=== PATIENT | female | born 1985 ===

== ENCOUNTER 2020-09-22 15:02 | Outpatient (REF) | payer MEDICAID, SELFPAY | END 2020-09-22 15:03 | disposition home or self-care (01) | LOC: HO.LAB 15:02 | PROVIDERS: PCP Internal Medicine Geriatric Medicine; Visit Provider Internal Medicine | DX: Z20.828 Contact with and (suspected) exposure to other viral communicable diseases (principal) | CPT/HCPCS: C9803; U0003 ==

== ENCOUNTER 2020-10-19 17:19 | Inpatient (IN) | payer MEDICAID, SELFPAY ==
[2020-10-19 17:39] VITALS: BP 125/93; PULSE 91; RESP 17; TEMP 36.9; O2SAT 100; O2SAT 99; BMI 25.7
--- NOTE | 2020-10-19 17:44 | ED.GENADULT ---
HPI - General Adult General Chief complaint: Abdominal Pain Stated complaint: FLANK PAIN Time Seen by Provider: 10/19/20 17:26 Source: patient Mode of arrival: ambulatory Limitations: no limitations History of Present Illness HPI narrative: Patient presents to the ED for right flank pain radiating to right groin was started since this morning. Patient denies any dysuria, hematuria, fever, chills, diarrhea, night sweats, coughing, chest pain, shortness of breath. Patient states she had a gallbladder and appendix removed years ago. Patient states she has similar symptoms 7 months ago and was kidney stones. Patient denies any recent trauma to abdomen or flanks. Patient denies missing her menstruation. Related Data Home Medications Medication Instructions Recorded Confirmed No Known Home Meds 10/19/20 10/19/20 Allergies Allergy/AdvReac Type Severity Reaction Status Date / Time No Known Allergies Allergy Unverified 07/17/20 19:24 [No Known Allergies*] Review of Systems Review of Systems: Yes all other systems are reviewed and are negative Constitutional: Constitutional: Reports as per HPI and Reports no additional constitutional complaints Eyes: Eyes: Reports as per HPI and Reports no additional eye complaints ENT: Reports system reviewed and no additional complaints, except as documented and Reports as per HPI Cardiovascular: Cardiovascular: Reports as per HPI and Reports no additional cardiovascular complaints Respiratory: Respiratory: Reports as per HPI and Reports no additional respiratory complaints Gastrointestinal: Gastrointestinal: Reports abdominal pain (Right flank pain) Genitourinary: Genitourinary: Reports no additional female genitourinary complaints and Reports as per HPI Musculoskeletal: Musculoskeletal: Reports no additional musculoskeletal complaints and Reports as per HPI Neurologic: Reports system reviewed and no additional complaints, except as documented and Reports as per HPI Psychiatric: Psychiatric: Reports no additional psychiatric complaints and Reports as per HPI [facility] Social History Social History Alcohol intake: never Smoked in Last 30 Days: No Use of substances other than those prescribed or required for medical reasons: No Advance Directives: No Advance Directives Information Provided: Yes Physical Exam Vital Signs: Vital Signs: Last Vital Signs Temp 98.4 F 10/19/20 20:00 Pulse 84 10/19/20 20:00 Resp 16 10/19/20 20:00 BP 99/62 10/19/20 20:00 Pulse Ox 100 10/19/20 20:00 Body Mass Index 25.7 Const: General: cooperative, healthy appearing, well developed, alert, awake and acute distress Orientation/consciousness: patient oriented x3 HENMT: Head: Yes normal to inspection and Yes No palpable skull fracture present Eyes: General: appearance normal, both eyes and all related structures Neck: Neck: Yes normal visual inspection, Yes full ROM, Yes no lymphadenopathy, Yes no meningeal signs, Yes trachea midline, Yes supple and No tender Chest: Chest palpation & inspection: normal inspection of the chest and normal palpation of entire chest wall Resp: Effort & Inspection: normal respiratory effort and able to speak in complete sentences Auscultation: clear to auscultation bilaterally Cardio: Jugular venous distension: no JVD Heart sounds: S1 normal heart sound present and S2 normal heart sound present GI: Inspection: Yes normal to inspection and No abdominal wall ecchymosis Palpation (GI): Soft to palpation, not firm, Tenderness to palpation present (GI) in the RLQ and no guarding : General: Yes CVA tenderness (Right) Back/Spine/Pelvis: Back: CVA tenderness (Right) Skin: General skin exam: no rashes or lesions noted and elasticity normal Neuro: General: patient oriented x3, gait normal, no meningeal signs and CN's II-XI intact bilaterally Cranial nerves: Yes CN's II-XII intact bilaterally Extrem: General: Yes normal to inspection and Yes full ROM Psych: Appearance: grossly normal, well kempt and not disheveled Course Course Course Narrative: Differentials kidney stone. Will do basic labs, fluids, and pain control. Reevaluation(s) Reevaluation #1: Patient urine negative for UTI. Patient kidney function normal. CT scan of abdomen shows multiple kidney stones in the ureter with severe hydroureter and moderate hydronephrosis. Case discussed with Dr. Brown of urology who states patient should be admitted to the hospital and kept NPO after midnight. Time: 22:16 Medical Decision Making [facility] Narrative Medical decision making narrative: Ureter stone Lab Data Result diagrams: 10/19/20 17:55 10/19/20 17:55 Labs: Lab Results 10/19/20 10/19/20 10/19/20 Range/Units 17:55 17:55 17:55 WBC 7.8 (4.8-10.8) X10*3/uL RBC 4.39 (4.20-5.50) X10*6/uL Hgb 11.5 L (12.0-16.0) g/dl Hct 35.2 L (37-47) % MCV 80.2 (80-98) fL MCH 26.2 L (27.0-33.0) pg MCHC 32.7 (31.0-35.0) g/dl RDW 13.2 (11.0-16.0) % Plt Count 253 (160-400) X10*3/uL MPV 10.3 (9.4-12.3) fL Immature Gran % (Auto) 0.3 (0.0-0.4) % Neut % (Auto) 65.9 (45-73) % Lymph % (Auto) 25.4 (20-40) % [place] % (Auto) 6.1 (2-11) % Eos % (Auto) 1.8 (0-4) % Baso % (Auto) 0.5 (0-2) % Lymph # (Auto) 2.0 (1.2-4.9) X10*3/uL [place] # (Auto) 0.5 (0.1-1.2) X10*3/uL Eos # (Auto) 0.1 (0.0-0.4) X10*3/uL Baso # (Auto) 0.0 (0.0-0.2) X10*3/uL Abs Immat Gran (auto) 0.02 (0.00-0.03) X10*3/uL Absolute Neuts (auto) 5.1 (2.0-8.3) X10*3/uL Absolute Nucleated RBC 0.000 (0.0-0.012) X10*3/uL Nucleated RBC % (auto) 0.0 (0.0-0.2) /100WBC PT 12.4 (10.8-13.0) SEC INR 1.0 (0.9-1.1) APTT 39.6 H (24.1-38.0) SEC Sodium 141 (135-145) mmol/L Potassium 3.6 (3.3-5.1) mmol/l Chloride 107 (96-108) mmol/L Carbon Dioxide 25 (22-29) mmol/L Anion Gap 13 (12-20) BUN 11 (9-16) mg/dL Creatinine 0.77 (0.5-1.4) mg/dL Estim Creat Clear Calc 93.8 Estimated GFR > 60 Random Glucose 91 (60-115) mg/dL Calcium 9.2 (8.4-10.2) mg/dL Total Bilirubin 0.4 (0.0-1.0) mg/dL Direct Bilirubin 0.2 (0.0-0.5) mg/dL AST 24 (5-31) U/L ALT 24 (0-31) U/L Alkaline Phosphatase 49 (39-117) U/L Total Protein 7.1 (6.5-8.0) g/dL Albumin 4.4 (3.5-5.0) g/dL Lipase 34 (8-78) U/L Beta HCG, Quant < 2 mIU/mL Urine Color Urine Appearance Urine pH (5.0-8.0) Ur Specific [place] (1.005-1.025) Urine Protein (NEG-TRACE) MG/DL Urine Glucose (UA) (NEG) MG/DL Urine Ketones (NEG) MG/DL Urine Blood (NEG) Urine Nitrite (NEG) Ur Leukocyte Esterase (NEG) Urine RBC (0) /HPF Urine WBC (0-4) /HPF Ur Squamous Epith Cells /LPF Calcium Oxalate Crystal /LPF Urine Bacteria /LPF Coronavirus (PCR) (Negative) Influenza Type A (PCR) (Negative) Influenza Type B (PCR) (Negative) RSV RNA Qual (PCR) (Negative) 10/19/20 10/19/20 Range/Units 18:10 21:32 WBC (4.8-10.8) X10*3/uL RBC (4.20-5.50) X10*6/uL Hgb (12.0-16.0) g/dl Hct (37-47) % MCV (80-98) fL MCH (27.0-33.0) pg MCHC (31.0-35.0) g/dl RDW (11.0-16.0) % Plt Count (160-400) X10*3/uL MPV (9.4-12.3) fL Immature Gran % (Auto) (0.0-0.4) % Neut % (Auto) (45-73) % Lymph % (Auto) (20-40) % [place] % (Auto) (2-11) % Eos % (Auto) (0-4) % Baso % (Auto) (0-2) % Lymph # (Auto) (1.2-4.9) X10*3/uL [place] # (Auto) (0.1-1.2) X10*3/uL Eos # (Auto) (0.0-0.4) X10*3/uL Baso # (Auto) (0.0-0.2) X10*3/uL Abs Immat Gran (auto) (0.00-0.03) X10*3/uL Absolute Neuts (auto) (2.0-8.3) X10*3/uL Absolute Nucleated RBC (0.0-0.012) X10*3/uL Nucleated RBC % (auto) (0.0-0.2) /100WBC PT (10.8-13.0) SEC INR (0.9-1.1) APTT (24.1-38.0) SEC Sodium (135-145) mmol/L Potassium (3.3-5.1) mmol/l Chloride (96-108) mmol/L Carbon Dioxide (22-29) mmol/L Anion Gap (12-20) BUN (9-16) mg/dL Creatinine (0.5-1.4) mg/dL Estim Creat Clear Calc Estimated GFR Random Glucose (60-115) mg/dL Calcium (8.4-10.2) mg/dL Total Bilirubin (0.0-1.0) mg/dL Direct Bilirubin (0.0-0.5) mg/dL AST (5-31) U/L ALT (0-31) U/L Alkaline Phosphatase (39-117) U/L Total Protein (6.5-8.0) g/dL Albumin (3.5-5.0) g/dL Lipase (8-78) U/L Beta HCG, Quant mIU/mL Urine Color YELLOW Urine Appearance HAZY Urine pH 5.5 (5.0-8.0) Ur Specific [place] >= 1.030 H (1.005-1.025) Urine Protein 2+ H (NEG-TRACE) MG/DL Urine Glucose (UA) NEG (NEG) MG/DL Urine Ketones 5 (NEG) MG/DL Urine Blood 3+ H (NEG) Urine Nitrite NEG (NEG) Ur Leukocyte Esterase NEG (NEG) Urine RBC 30-49 H (0) /HPF Urine WBC 0 (0-4) /HPF Ur Squamous Epith Cells 2+ /LPF Calcium Oxalate Crystal 1+ /LPF Urine Bacteria 2+ /LPF Coronavirus (PCR) NEGATIVE (Negative) Influenza Type A (PCR) NEGATIVE (Negative) Influenza Type B (PCR) NEGATIVE (Negative) RSV RNA Qual (PCR) NEGATIVE (Negative) Discharge Plan Discharge Clinical Impression: Calculus, ureter Patient Disposition: Admitted As Inpatient Interventions: Admission Worksheet (ED) Last Done: 10/19/20 23:07
[2020-10-19 18:02] LABS: Basophils Percent Auto 0.5 % (0-2); Eosinophils Absolute Auto 0.1 X10*3/uL (0.0-0.4); Eosinophils Percent Auto 1.8 % (0-4); Hematocrit 35.2 % (37-47); Hemoglobin 11.5 g/dl (12.0-16.0); Imm Gran Abs Auto 0.02 X10*3/uL (0.00-0.03); Imm Gran Pct Auto 0.3 % (0.0-0.4); Lymphocytes Percent Auto 25.4 % (20-40); MANUAL DIFF FLAG NO; Mean Corpuscular HGB Conc 32.7 g/dl (31.0-35.0); Mean Corpuscular Hemoglobin 26.2 pg (27.0-33.0); Mean Corpuscular Volume 80.2 fL (80-98); Mean Platelet Volume 10.3 fL (9.4-12.3); Monocytes Absolute Auto 0.5 X10*3/uL (0.1-1.2); Monocytes Percent Auto 6.1 % (2-11); Neutrophils Absolute Auto 5.1 X10*3/uL (2.0-8.3); Neutrophils Percent Auto 65.9 % (45-73); Platelet Count 253 X10*3/uL (160-400); Red Blood Count 4.39 X10*6/uL (4.20-5.50); Red Cell Distribution Width 13.2 % (11.0-16.0); White Blood Count 7.8 X10*3/uL (4.8-10.8)
[2020-10-19 18:07] LABS: Prothrombin Time 12.4 SEC (10.8-13.0)
[2020-10-19] MEDS: 0.9 % Sodium Chloride 1,000 ML 999 ML IV (18:08)
[2020-10-19 18:10] LABS: Partial Thromboplastin Time 39.6 SEC (24.1-38.0)
[2020-10-19 18:21] LABS: Appearance Urine HAZY; Color Urine YELLOW; Glucose Urine UA NEG (NEG); Leukocyte Esterase Urine NEG (NEG); Nitrite Urine NEG (NEG); PH 5.5 (5.0-8.0); Specific Gravity - Urine >= 1.030 (1.005-1.025); Urine Blood 3+ (NEG); Urine Ketones 5 MG/DL (NEG); Urine Protein 2+ MG/DL (NEG-TRACE)
[2020-10-19 18:25] LABS: Alanine Aminotransferase 24 U/L (0-31); Albumin Level 4.4 g/dL (3.5-5.0); Alkaline Phosphatase 49 U/L (39-117); Anion Gap 13 (12-20); Aspartate Amino Transferase 24 U/L (5-31); Bilirubin Direct 0.2 mg/dL (0.0-0.5); Bilirubin Total 0.4 mg/dL (0.0-1.0); Blood Urea Nitrogen 11 mg/dL (9-16); Calcium 9.2 mg/dL (8.4-10.2); Carbon Dioxide 25 mmol/L (22-29); Chloride 107 mmol/L (96-108); Creatinine Clr Calc Pharmacy 93.8; Estimated Glomerular Filt Rate > 60; Glucose Random 91 mg/dL (60-115); Lipase 34 U/L (8-78); Potassium 3.6 mmol/l (3.3-5.1); Sodium 141 mmol/L (135-145); Total Protein 7.1 g/dL (6.5-8.0)
[2020-10-19 18:31] LABS: HCG Quantitative < 2 mIU/mL
[2020-10-19 18:32] LABS: Bacteria Urine 2+ /LPF; RBC Urine 30-49 /HPF (0); Squamous Epithelial Cell Urine 2+ /LPF; WBC Urine 0 /HPF (0-4)
[2020-10-19 18:33] LABS: Calcium Oxalate Crystals Urine 1+ /LPF
--- NOTE | 2020-10-19 18:34 | CT_ITS ---
EXAMINATION: CT ABDOMEN AND PELVIS WITHOUT CONTRAST CLINICAL INFORMATION: Right flank pain. History of kidney stones. COMPARISON: 12/08/2019 TECHNIQUE: Multidetector volumetric imaging was performed from the superior aspect of the liver through the pubic symphysis. Sagittal and coronal reformatted images were obtained on the technologist's workstation. This CT examination was performed using dose optimization techniques as appropriate, variously including the following: *Automated exposure control *Adjustment of mA and/or kV according to patient size (this includes techniques or standardized protocols for targeted exams where dose is matched to indication/reason for exam; i.e. extremities or head) *Use of iterative reconstruction technique DLP: p 476p mGy-cm FINDINGS: LUNG BASES: The visualized lung bases are unremarkable. LIVER, GALLBLADDER, AND BILIARY TREE: The liver is normal in size, shape, and attenuation. No focal hepatic lesion or biliary ductal dilatation is present. Cholecystectomy. PANCREAS: Unremarkable. SPLEEN: Unremarkable. ADRENAL GLANDS: Unremarkable. KIDNEYS AND URETERS: There are 4 stones within the distal right ureter, with the distal 2 stones approximating 6 mm cyst in single longest dimension, the proximal 2 stones measuring 4 to 5 mm. The distalmost stone is located at the ureterovesical junction. There is associated severe right hydroureter and moderate right hydronephrosis. Numerous bilateral nonobstructive intrarenal calculi are present which include a 5 mm stone within the lower pole of the right kidney and a 2 mm stone within the lower pole of the right kidney. The additional bilateral nonobstructive intrarenal calculi or punctate and number at least 4 within the left kidney and 8 within the right kidney. BLADDER: Unremarkable. GASTROINTESTINAL TRACT: No intestinal obstruction or inflammation. Nonspecific submucosal fat deposition present within the right colon. Appendix not seen. ABDOMINAL WALL: No significant hernia is appreciated. LYMPH NODES: Normal. VASCULAR: Unremarkable. PELVIC VISCERA: Unremarkable. OSSEOUS STRUCTURES: Unremarkable. CT/CT abdomen pelvis wo con IMPRESSION: * There are 4 calculi within the distal RIGHT ureter forming a Steinstrasse with the distalmost stone located within the ureterovesical junction. The stones range in size from 4 - 6 mm as described. There is associated severe upstream hydroureter and moderate RIGHT hydronephrosis. * Bilateral nonobstructive intrarenal calculi.
[2020-10-19] MEDS: Ketorolac Tromethamine 30 MG/ML VIAL IVPUSH (18:48)
[2020-10-19] MEDS: Morphine Sulfate 4 MG/ML CARTRIDGE IVPUSH (19:31)
[2020-10-19 20:00] VITALS: BP 99/62; PULSE 84; RESP 16; TEMP 36.9; O2SAT 100
--- NOTE | 2020-10-19 20:50 | PC.NURSE ---
patient made aware admission.
--- NOTE | 2020-10-19 22:00 | P.HPHOSP_ITS ---
History of Present Illness Date of Service: 10/19/20 Chief Complaint: And pain 34-year-old female with no past medical history who presents to the hospital with complaints of right flank pain radiating to the groin. Pain started today, 08/09, nonradiating, associated with nausea with no vomiting. Sharp pain, sim ilar to her history of kidney stones, denies any urinary symptoms including no frequency, urgency, or dysuria. Patient denies any fever or chills, no chest pain, no shortness of breath, no cough, no abdominal pain, no lower extremity edema. On arrival to the ED hemodynamically stable with no significant abnormal vitals Labs are significant forHemoglobin of 11.5, hematocrit 35.2, otherwise unrem arkable. Abdomen and pelvis shows 4 calculi within the distal right ureter with the distal-most stone located within the ureterovesical junction. The stones range in size from 4-6 mm. Upstream hydroureter and moderate right hydronephrosis present Past medical history: History of kidney stones next limbs surgical history: Denies Family history: Denies Social history: Denies tobacco alcohol or illicit drugs Review of Systems Review of Systems: Yes all other systems are reviewed and are negative Neurologic: Reports system reviewed and no additional complaints, except as documented and Reports as per [facility] [place] Social History Alcohol intake: never Smoked in Last 30 Days: No Use of substances other than those prescribed or required for medical reasons: No Advance Directives: No Advance Directives Information Provided: Yes Meds Allergies Allergy/AdvReac Type Severity Reaction Status Date / Time No Known Allergies Allergy Unverified 07/17/20 19:24 [No Known Allergies*] Home Medications Medication Instructions Recorded Confirmed Type No Known Home Meds 10/19/20 10/19/20 History Physical Exam Vital Signs and Narrative: Vital Signs: Last Vital Signs Temp 98.4 F 10/19/20 20:00 Pulse 84 10/19/20 20:00 Resp 16 10/19/20 20:00 BP 99/62 10/19/20 20:00 Pulse Ox 100 10/19/20 20:00 Body Mass Index 25.7 Const: General: cooperative and no acute distress Orientation/consciousness: patient oriented x3 Eyes: General: appearance normal, both eyes and all related structures Pupils: Equal, round and reactive pupils present Resp: Effort & Inspection: normal respiratory effort and able to speak in complete sentences Auscultation: clear to auscultation bilaterally Cardio: Rate: regular rate Rhythm: regular rhythm GI: Palpation (GI): Soft to palpation Auscultation: normal bowel sounds : Other: Right-sided CVA tenderness Skin: General skin exam: no rashes or lesions noted Neuro: General: patient oriented x3 Cranial nerves: Yes Equal, round and reactive pupils present Cognition (Neuro): normal cognition Extrem: General: Yes normal to inspection and Yes no pedal edema Results Labs CBC and Chem 7: 10/19/20 17:55 10/19/20 17:55 Labs: Laboratory Results - last 24 hr 10/19/20 10/19/20 10/19/20 17:55 17:55 17:55 MCV 80.2 MCH 26.2 L MCHC 32.7 RDW 13.2 Plt Count 253 MPV 10.3 Immature Gran % (Auto) 0.3 Neut % (Auto) 65.9 Lymph % (Auto) 25.4 [place] % (Auto) 6.1 Eos % (Auto) 1.8 Baso % (Auto) 0.5 Lymph # (Auto) 2.0 [place] # (Auto) 0.5 Eos # (Auto) 0.1 Baso # (Auto) 0.0 Abs Immat Gran (auto) 0.02 Absolute Neuts (auto) 5.1 Absolute Nucleated RBC 0.000 Nucleated RBC % (auto) 0.0 PT 12.4 INR 1.0 APTT 39.6 H Anion Gap 13 Estim Creat Clear Calc 93.8 Estimated GFR > 60 Random Glucose 91 Calcium 9.2 Total Bilirubin 0.4 Direct Bilirubin 0.2 AST 24 ALT 24 Alkaline Phosphatase 49 Total Protein 7.1 Albumin 4.4 Lipase 34 Beta HCG, Quant < 2 Urine Color Urine Appearance Urine pH Ur Specific [place] Urine Protein Urine Glucose (UA) Urine Ketones Urine Blood Urine Nitrite Ur Leukocyte Esterase Urine RBC Urine WBC Ur Squamous Epith Cells Calcium Oxalate Crystal Urine Bacteria 10/19/20 18:10 MCV MCH MCHC RDW Plt Count MPV Immature Gran % (Auto) Neut % (Auto) Lymph % (Auto) [place] % (Auto) Eos % (Auto) Baso % (Auto) Lymph # (Auto) [place] # (Auto) Eos # (Auto) Baso # (Auto) Abs Immat Gran (auto) Absolute Neuts (auto) Absolute Nucleated RBC Nucleated RBC % (auto) PT INR APTT Anion Gap Estim Creat Clear Calc Estimated GFR Random Glucose Calcium Total Bilirubin Direct Bilirubin AST ALT Alkaline Phosphatase Total Protein Albumin Lipase Beta HCG, Quant Urine Color YELLOW Urine Appearance HAZY Urine pH 5.5 Ur Specific [place] >= 1.030 H Urine Protein 2+ H Urine Glucose (UA) NEG Urine Ketones 5 Urine Blood 3+ H Urine Nitrite NEG Ur Leukocyte Esterase NEG Urine RBC 30-49 H Urine WBC 0 Ur Squamous Epith Cells 2+ Calcium Oxalate Crystal 1+ Urine Bacteria 2+ Imaging Radiologist's Impressions: Impressions Abdomen/Pelvis CT 10/19/20 18:34 IMPRESSION: * There are 4 calculi within the distal RIGHT ureter forming a Steinstrasse with the distalmost stone located within the ureterovesical junction. The stones range in size from 4 - 6 mm as described. There is associated severe upstream hydroureter and moderate RIGHT hydronephrosis. * Bilateral nonobstructive intrarenal calculi. Assessment and Plan (1) Nephrolithiasis: Status: Acute This is a 34-year-old female who presents to the hospital flank pain left Plan # nephrolithiasis - has for right kidney stones sat ranging from 4-6 mm - urology is consulted and would like patient to be admitted for surgical intervention in a.m. - pain management with Oxy, morphine and Dilaudid DVT prophylaxis: SCDs
[2020-10-19 22:19] LABS: Influenza A PCR NEGATIVE (Negative); Influenza B PCR NEGATIVE (Negative); Resp Syncy Virus RNA Qual PCR NEGATIVE (Negative); SARS COV2 PCR INHOUSE NEGATIVE (Negative)
--- NOTE | 2020-10-19 23:05 | PC.NURSE ---
Report given to M/S by previous RN Kerry. Pt awaiting transport to floor, scrap charger aware.
[2020-10-20] VITALS (10 sets, daily range): BP systolic 92–115; BP diastolic 51–75; PULSE 69–91; RESP 15–18; TEMP 35.8–36.9; O2SAT 97–100; BMI 25.7
--- NOTE | 2020-10-20 00:07 | PC.NURSE ---
aviation electronics technician at bedside for transfer to floor.
[2020-10-20] MEDS: 0.9 % Sodium Chloride Flush 3 ML SYRINGE IVFLUSH ×2 (01:21→09:48)
[2020-10-20 05:43] LABS: Basophils Percent Auto 0.2 % (0-2); Eosinophils Absolute Auto 0.1 X10*3/uL (0.0-0.4); Eosinophils Percent Auto 1.4 % (0-4); Hematocrit 33.1 % (37-47); Hemoglobin 10.7 g/dl (12.0-16.0); Imm Gran Abs Auto 0.05 X10*3/uL (0.00-0.03); Imm Gran Pct Auto 0.5 % (0.0-0.4); Lymphocytes Percent Auto 20.5 % (20-40); MANUAL DIFF FLAG NO; Mean Corpuscular HGB Conc 32.3 g/dl (31.0-35.0); Mean Corpuscular Hemoglobin 25.8 pg (27.0-33.0); Mean Corpuscular Volume 79.8 fL (80-98); Mean Platelet Volume 10.5 fL (9.4-12.3); Monocytes Absolute Auto 0.6 X10*3/uL (0.1-1.2); Monocytes Percent Auto 6.3 % (2-11); Neutrophils Absolute Auto 6.8 X10*3/uL (2.0-8.3); Neutrophils Percent Auto 71.1 % (45-73); Platelet Count 234 X10*3/uL (160-400); Red Blood Count 4.15 X10*6/uL (4.20-5.50); Red Cell Distribution Width 13.3 % (11.0-16.0); White Blood Count 9.5 X10*3/uL (4.8-10.8)
[2020-10-20 06:11] LABS: Anion Gap 12 (12-20); Blood Urea Nitrogen 11 mg/dL (9-16); Calcium 8.5 mg/dL (8.4-10.2); Carbon Dioxide 21 mmol/L (22-29); Chloride 110 mmol/L (96-108); Creatinine Clr Calc Pharmacy 112.9; Estimated Glomerular Filt Rate > 60; Glucose Random 97 mg/dL (60-115); Potassium 3.6 mmol/l (3.3-5.1); Sodium 139 mmol/L (135-145)
--- NOTE | 2020-10-20 07:28 | PM.UROCN ---
History of Present Illness Consult details Consult date: 10/20/20 Narrative: 34-year-old female Long history of stone passage Has had 5 prior procedures for stones. 3 times lithotripsy common 2 times ureteroscopy Presents through emergency room with right-sided flank pain radiating around to her abdomen CT scan with for distal right ureteric stones and right hydroureteronephrosis Unlikely to pass Will require intervention Ureteroscopy with laser lithotripsy right side was discussed with the patient and will be scheduled for later today Review of Systems Review of Systems: Yes all other systems are reviewed and are negative Neurologic: Reports system reviewed and no additional complaints, except as documented and Reports as per [facility] Social History Social History Household Members: Spouse and Family Housing: House Do you presently have visiting nurse or other home services: No Alcohol intake: never Smoking Status: Never smoker Smoked in Last 30 Days: No Use of substances other than those prescribed or required for medical reasons: No Have you been hit, kicked, punched, or otherwise hurt by someone within the past year? If so, by whom?: No Do you feel safe in your current relationship?: Yes Is there a partner from a previous relationship who is making you feel unsafe now?: No Are you made to feel afraid or neglected: No Advance Directives: No Advance Directives Information Provided: Yes Do you have thoughts of harming others: None Do you have a plan to hurt others: No Plan Recently lost weight without trying: No Meds Allergies Allergy/AdvReac Type Severity Reaction Status Date / Time No Known Allergies Allergy Unverified 07/17/20 19:24 [No Known Allergies*] Home Medications Medication Instructions Recorded Confirmed Type No Known Home Meds 10/19/20 10/19/20 History Physical Exam Vital Signs: Vital Signs: Last Vital Signs Temp 97.5 F 10/20/20 00:57 Pulse 69 10/20/20 00:57 Resp 16 10/20/20 00:57 BP 92/51 L 10/20/20 00:57 Pulse Ox 100 10/20/20 00:57 Body Mass Index 25.7 Const: General: cooperative, healthy appearing, comfortable and no acute distress Nutritional Appearance: average body habitus Orientation/consciousness: oriented to person, oriented to place and oriented to time Eyes: General: appearance normal, both eyes and all related structures Chest: Chest palpation & inspection: normal inspection of the chest Resp: Effort & Inspection: normal respiratory effort Cardio: Rate: regular rate GI: Inspection: Yes normal to inspection : General: Yes CVA tenderness (right) Back/Spine/Pelvis: Back: CVA tenderness (right) Skin: Hair: normal Neuro: General: oriented to person, oriented to place and oriented to time Extrem: General: Yes normal to inspection Results Labs Result diagrams: 10/20/20 05:30 10/20/20 05:30 Labs: Abnormal lab results 10/19/20 10/19/20 10/19/20 Range/Units 17:55 17:55 18:10 RBC (4.20-5.50) X10*6/uL Hgb 11.5 L (12.0-16.0) g/dl Hct 35.2 L (37-47) % MCV (80-98) fL MCH 26.2 L (27.0-33.0) pg Immature Gran % (Auto) (0.0-0.4) % Abs Immat Gran (auto) (0.00-0.03) X10*3/uL APTT 39.6 H (24.1-38.0) SEC Chloride (96-108) mmol/L Carbon Dioxide (22-29) mmol/L Ur Specific [place] >= 1.030 H (1.005-1.025) Urine Protein 2+ H (NEG-TRACE) MG/DL Urine Blood 3+ H (NEG) Urine RBC 30-49 H (0) /HPF 10/20/20 10/20/20 Range/Units 05:30 05:30 RBC 4.15 L (4.20-5.50) X10*6/uL Hgb 10.7 L (12.0-16.0) g/dl Hct 33.1 L (37-47) % MCV 79.8 L (80-98) fL MCH 25.8 L (27.0-33.0) pg Immature Gran % (Auto) 0.5 H (0.0-0.4) % Abs Immat Gran (auto) 0.05 H (0.00-0.03) X10*3/uL APTT (24.1-38.0) SEC Chloride 110 H (96-108) mmol/L Carbon Dioxide 21 L (22-29) mmol/L Ur Specific [place] (1.005-1.025) Urine Protein (NEG-TRACE) MG/DL Urine Blood (NEG) Urine RBC (0) /HPF Short CBC 10/19/20 10/20/20 Range/Units 17:55 05:30 WBC 7.8 9.5 (4.8-10.8) X10*3/uL Hgb 11.5 L 10.7 L (12.0-16.0) g/dl Hct 35.2 L 33.1 L (37-47) % Plt Count 253 234 (160-400) X10*3/uL BMP 10/19/20 10/20/20 17:55 05:30 Sodium 141 139 Potassium 3.6 3.6 Chloride 107 110 H Carbon Dioxide 25 21 L BUN 11 11 Creatinine 0.77 0.64 Calcium 9.2 8.5 D Liver Function 10/19/20 Range/Units 17:55 Total Bilirubin 0.4 (0.0-1.0) mg/dL Direct Bilirubin 0.2 (0.0-0.5) mg/dL AST 24 (5-31) U/L ALT 24 (0-31) U/L Alkaline Phosphatase 49 (39-117) U/L Albumin 4.4 (3.5-5.0) g/dL Urine 10/19/20 Range/Units 18:10 Urine Color YELLOW Urine Appearance HAZY Urine pH 5.5 (5.0-8.0) Ur Specific [place] >= 1.030 H (1.005-1.025) Urine Protein 2+ H (NEG-TRACE) MG/DL Urine Glucose (UA) NEG (NEG) MG/DL All other labs normal. KIDNEYS AND URETERS: There are 4 stones within the distal right ureter, with the distal 2 stones approximating 6 mm cyst in single longest dimension, the proximal 2 stones measuring 4 to 5 mm. The distalmost stone is located at the ureterovesical junction. There is associated severe right hydroureter and moderate right hydronephrosis. Numerous bilateral nonobstructive intrarenal calculi are present which include a 5 mm stone within the lower pole of the right kidney and a 2 mm stone within the lower pole of the right kidney. The additional bilateral nonobstructive intrarenal calculi or punctate and number at least 4 within the left kidney and 8 within the right kidney. Assessment and Plan (1) Hydroureteronephrosis: Status: Acute (2) Calculus, ureter: Status: Acute Plan for ureteroscopy Ureteroscopy We discussed the nature of the decision and reasonable alternatives for performing the above surgery. Interventions include chemical dissolution, ESWL, ureteroscopy with laser lithotripsy and stent placement, PCNL. Options such as medical therapy were discussed. The relative uncertainties and benefits related to each alternate procedure were adequately discussed. General surgical risks including, but not limited to, pain, bleeding, infection, myocardial infarction, pulmonary embolus, deep vein thrombosis and cerebrovascular accident which may result in further hospitalization were discussed. Full disclosure of the procedure as well as all major risks, benefits and complications were discussed including but not limited to damage to the urethra, bladder and kidney infection, damage to the ureter, stent migration or malposition, scarring to the renal pelvis, remnant stone fragments, subsequent stone passage with need for secondary procedures. The overall secondary procedure rate is approximately 10-15%. The success rate of the procedure was discussed. Success of the procedure in the short-term does not necessarily guarantee that long-term success will be maintained. Suitable follow up will need to be maintained. The patient showed understanding of discussion and wishes to proceed with - cystoscopy, retrograde, ureteroscopy, possible lithotripsy/stone basketing and stent on the right side
--- NOTE | 2020-10-20 08:40 | PC.NURSE ---
dr. Goodwin responded to just monitor BP
--- NOTE | 2020-10-20 09:18 | MHC.CM.PN ---
PT PLAN TO DISCHARGE HOME SELF-CARE AFTER URETEROSCOPY WITH LASER LITHOTRIPSY THAT IS BEING SCHEDULED FOR THIS AFTERNOON, SPOUSE TO TRANSPORT, PT REPORTS LIVING WITH AND TWO CHILDREN, PT REPORTS FEELING SAFE AT HOME. PCP IS DILSHAD COTO FROM [facility], PHARMACY IS [facility]. SPOUSE: KEREN ALFRED [phone]
--- NOTE | 2020-10-20 15:02 | HO.ANESPROP2 ---
[facility] Social History Social History Household Members: Spouse and Family Housing: House Do you presently have visiting nurse or other home services: No Alcohol intake: never Smoking Status: Never smoker Smoked in Last 30 Days: No Use of substances other than those prescribed or required for medical reasons: No Currently Displaying Signs/Symptoms of Drug Intoxication Withdrawal: No Have you been hit, kicked, punched, or otherwise hurt by someone within the past year? If so, by whom?: No Do you feel safe in your current relationship?: Yes Is there a partner from a previous relationship who is making you feel unsafe now?: No Are you made to feel afraid or neglected: No Advance Directives: No Advance Directives Information Provided: Yes Do you have thoughts of harming others: None Do you have a plan to hurt others: No Plan Recently lost weight without trying: No service: No Current occupational status: unemployed Meds Allergies Allergy/AdvReac Type Severity Reaction Status Date / Time No Known Allergies Allergy Unverified 07/17/20 19:24 [No Known Allergies*] Home Medications Medication Instructions Recorded Confirmed Type No Known Home Meds 10/19/20 10/19/20 History Exam Exam Date and Time: October 20, 2020 1502 Height,Weight and Vital Signs: Height 5 ft 3 in Weight 65.771 kg Last Vital Signs Temp 98.4 F 10/20/20 11:21 Pulse 72 10/20/20 11:21 Resp 18 10/20/20 11:21 BP 115/61 10/20/20 11:21 Pulse Ox 98 10/20/20 11:21 Pertinent Lab Results Pertinent Lab Results: Laboratory Tests 10/19/20 10/19/20 10/19/20 17:55 17:55 17:55 WBC 7.8 RBC 4.39 Hgb 11.5 L Hct 35.2 L MCV 80.2 MCH 26.2 L MCHC 32.7 RDW 13.2 Plt Count 253 MPV 10.3 Immature Gran % (Auto) 0.3 Neut % (Auto) 65.9 Lymph % (Auto) 25.4 [place] % (Auto) 6.1 Eos % (Auto) 1.8 Baso % (Auto) 0.5 Lymph # (Auto) 2.0 [place] # (Auto) 0.5 Eos # (Auto) 0.1 Baso # (Auto) 0.0 Abs Immat Gran (auto) 0.02 Absolute Neuts (auto) 5.1 Absolute Nucleated RBC 0.000 Nucleated RBC % (auto) 0.0 PT 12.4 INR 1.0 APTT 39.6 H Sodium 141 Potassium 3.6 Chloride 107 Carbon Dioxide 25 Anion Gap 13 BUN 11 Creatinine 0.77 Estim Creat Clear Calc 93.8 Estimated GFR > 60 Random Glucose 91 Calcium 9.2 Total Bilirubin 0.4 Direct Bilirubin 0.2 AST 24 ALT 24 Alkaline Phosphatase 49 Total Protein 7.1 Albumin 4.4 Lipase 34 Beta HCG, Quant < 2 Urine Color Urine Appearance Urine pH Ur Specific [place] Urine Protein Urine Glucose (UA) Urine Ketones Urine Blood Urine Nitrite Ur Leukocyte Esterase Urine RBC Urine WBC Ur Squamous Epith Cells Calcium Oxalate Crystal Urine Bacteria Coronavirus (PCR) Influenza Type A (PCR) Influenza Type B (PCR) RSV RNA Qual (PCR) 10/19/20 10/19/20 10/20/20 18:10 21:32 05:30 WBC 9.5 RBC 4.15 L Hgb 10.7 L Hct 33.1 L MCV 79.8 L MCH 25.8 L MCHC 32.3 RDW 13.3 Plt Count 234 MPV 10.5 Immature Gran % (Auto) 0.5 H Neut % (Auto) 71.1 Lymph % (Auto) 20.5 [place] % (Auto) 6.3 Eos % (Auto) 1.4 Baso % (Auto) 0.2 Lymph # (Auto) 2.0 [place] # (Auto) 0.6 Eos # (Auto) 0.1 Baso # (Auto) 0.0 Abs Immat Gran (auto) 0.05 H Absolute Neuts (auto) 6.8 Absolute Nucleated RBC 0.000 Nucleated RBC % (auto) 0.0 PT INR APTT Sodium Potassium Chloride Carbon Dioxide Anion Gap BUN Creatinine Estim Creat Clear Calc Estimated GFR Random Glucose Calcium Total Bilirubin Direct Bilirubin AST ALT Alkaline Phosphatase Total Protein Albumin Lipase Beta HCG, Quant Urine Color YELLOW Urine Appearance HAZY Urine pH 5.5 Ur Specific [place] >= 1.030 H Urine Protein 2+ H Urine Glucose (UA) NEG Urine Ketones 5 Urine Blood 3+ H Urine Nitrite NEG Ur Leukocyte Esterase NEG Urine RBC 30-49 H Urine WBC 0 Ur Squamous Epith Cells 2+ Calcium Oxalate Crystal 1+ Urine Bacteria 2+ Coronavirus (PCR) NEGATIVE Influenza Type A (PCR) NEGATIVE Influenza Type B (PCR) NEGATIVE RSV RNA Qual (PCR) NEGATIVE 10/20/20 05:30 WBC RBC Hgb Hct MCV MCH MCHC RDW Plt Count MPV Immature Gran % (Auto) Neut % (Auto) Lymph % (Auto) [place] % (Auto) Eos % (Auto) Baso % (Auto) Lymph # (Auto) [place] # (Auto) Eos # (Auto) Baso # (Auto) Abs Immat Gran (auto) Absolute Neuts (auto) Absolute Nucleated RBC Nucleated RBC % (auto) PT INR APTT Sodium 139 Potassium 3.6 Chloride 110 H Carbon Dioxide 21 L Anion Gap 12 BUN 11 Creatinine 0.64 Estim Creat Clear Calc 112.9 Estimated GFR > 60 Random Glucose 97 Calcium 8.5 D Total Bilirubin Direct Bilirubin AST ALT Alkaline Phosphatase Total Protein Albumin Lipase Beta HCG, Quant Urine Color Urine Appearance Urine pH Ur Specific [place] Urine Protein Urine Glucose (UA) Urine Ketones Urine Blood Urine Nitrite Ur Leukocyte Esterase Urine RBC Urine WBC Ur Squamous Epith Cells Calcium Oxalate Crystal Urine Bacteria Coronavirus (PCR) Influenza Type A (PCR) Influenza Type B (PCR) RSV RNA Qual (PCR) Airway Mallampati Class: II TM Dist: >3cm Neck ROM: Full Heart: RRR Lungs: CTAcBL Assessment and Plan Assessment Anesthesia Assessment: Anesthesia Plan Discussed and Chart Reviewed Final Anesthetic Review NPO: Yes ASA Class: II Final Preanesthetic Review: Meds/Allgs Chart Reviewed and Consent Obtained/Reviewed Patient Risk: Intermediate Procedure Risk: Intermediate Anesthetic Plan Anesthetic Plan: GA Disposition: Standard PACU
[2020-10-20] MEDS: Scopolamine 1.5 MG PATCH.TD.3 TRANSDERMA (15:12)
--- NOTE | 2020-10-20 15:56 | MHC.SHP ---
Pre-Procedural Eval Section A The patient is an INPATIENT: Yes Changes since office visit: No Cold of Flu in the past 2 weeks, No New Medical Problems, No Changes in Medication and No Patient answered all questions The History & Physical has been completed within 30 days and I have reviewed it.: Yes Section B Chief Complaint: Nephrolithiasis Allergies: Allergies Allergy/AdvReac Type Severity Reaction Status Date / Time No Known Allergies Allergy Unverified 07/17/20 19:24 [No Known Allergies*] Plan I have reviewed the history and physical and performed a pertinent physical examination on my patient. No changes have occurred unless specified. right ureteroscopy, laser litho, stent placement
[2020-10-20] MEDS: levoFLOXacin 500 MG TABLET PO (16:10)
--- NOTE | 2020-10-20 16:36 | MHC.CM.PN ---
PT MAY DISCHARGE AFTER PROCEDURE, AT THIS TIME NO SERVICES ARE ANTICIPATED AND PT WILL DISCHARGE HOME SELF-CARE, SPOUSE TO TRANSPORT.
--- NOTE | 2020-10-20 17:52 | PM.OP ---
Brief Operative Note Date of Service: 10/20/20 Pre-op diagnosis: Distal right ureteric stones Post-op diagnosis: same Procedure: 1. Cystoscopy right retrograde 2. Right ureteroscopy with laser lithotripsy stone basketing of multiple stones 4 3. Right stent placement Implants: 6 [place] Islander by 22 cm right double-J ureteric stent Surgeon: Hermes Brown MD Anesthesia: GLMA Estimated blood loss (mL): 0 Pathology: other (Stones) Condition: stable Disposition: same day
--- NOTE | 2020-10-20 17:57 | P.OP_ITS ---
Operative Note Operative Note Date of Service: 10/20/20 Narrative: PreOperative Diagnosis: Distal right ureteric stones with hydronephrosis Post Operative Diagnosis: Distal right ureteric stones with hydronephrosis Procedure: - right cystoscopy, retrograde - right ureteroscopy, laser lithotripsy, stone basketing - multiple distal right ureteric stones for each 5-6 mm - right stent placement Surgeon: Dr Hermes Brown Anesthesia: General Indications for procedure: This is a 34-year-old female. Known stone former. Presents emergency room with pain. CT scan shows for distal ureteric stones in a Steinstrasse pattern. Has associated hydronephrosis and mild elevation of creatinine. Based on the number of stones the location recommendation for ureteroscopy with laser lithotripsy and removal. Stent will be placed. She is going to [place] in 3 days so a string was left on the stent so she can remove it in [place] Procedure: After informed consent was verified patient was brought to the operating placed in supine position. Anesthesia was administered per protocol. Patient was placed in modified dorsal lithotomy position and prepped and draped in a sterile fashion. Safety pause time-out and side of surgery confirmed. Antibiotics confirmed. Twenty-two [place]an cystoscopy inserted per urethra. No abnormality noted in the anterior area urethra. Both ureteric orifices normal position. Right ureteric orifice was cannulated and a retrograde examination was performed. The string of filling defect was seen at the distal portion of the ureter. This matched the for stones described the CT scan. A Sensor guidewire was placed up the renal pelvis. The cystoscope removed. A semi rigid ureteroscope was placed. The repeat ureteroscopy with placed alongside the wire in the stones were encountered. Using a 365 nm holmium laser fiber. A combination of both dusting and hammer settings. The stones were broken into small pieces. A flat wire basket was used for removing pieces into the bladder. We destroyed 1-2 stones at a time before basketing and then going back and breaking up for the stones. The ureter was dredged for stones on 4-5 passes. All small pieces removed. The ureteral scope removed. A 6 [place]an by 22 cm stent was placed under fluoroscopic guidance with good coil seen in the renal pelvis and in the bladder. A nylon string was left on the end of the stent approximately 4 in so she can remove this herself at a later date. The bladder was entered with the cystoscope and all stone removed debris removed. This is sent for pathology. She tolerated the procedure well was extubated in the operating room transferred in stable condition to the recovery area. Pathology: Stones Drains: 22 [place] double-J stent
--- NOTE | 2020-10-20 18:40 | HO.PM.IMPN ---
Subjective Subjective Date of Service: 10/21/20 Interval History: Right flank pain: Seems improving Review of Systems Denies any chest pain or abdominal pain or fever or chills or cough or phlegm. Physical Exam Vital Signs: Vital Signs: Last Vital Signs Temp 97.5 F 10/20/20 18:02 Pulse 72 10/20/20 18:17 Resp 16 10/20/20 18:17 BP 108/65 10/20/20 18:17 Pulse Ox 99 10/20/20 18:17 Body Mass Index 25.7 Physical exam: Cvs: rrr, [id number] , no murmur res: clear to auscultation ,no rhonchii or wheezing abd: no rebound or guarding ,nt, bs present. ext pulses present , no cyanosis neuro: axo3 , nonfocal. Objective Data Current Medications Generic Name Dose Route Start Last Admin Trade Name Freq PRN Reason Stop Dose Admin Acetaminophen 650 mg 10/20/20 00:19 Acetaminophen 325 Mg Tablet PO Q6H PRN Pain, Mild (Pain Scale 1-3) Hydrocodone Bitart/Acetaminophen 1 tab 10/20/20 17:55 Hydrocodone Bit/Acetam 5/325 Tablet PO Q4H PRN Pain, Moderate (Pain Scale 4-6 Docusate Sodium 100 mg 10/20/20 00:19 Docusate Sodium 100 Mg Capsule PO DAILY PRN Constipation Fentanyl 50 mcg 10/20/20 15:04 Fentanyl Citrate/Pf 100 Mcg/2 Ml Vial IVPUSH Q5M PRN Pain, Severe (Pain Scale 7-10) Lactated Ringer's 1,000 mls @ 20 mls/hr 10/20/20 15:15 10/20/20 15:07 Lr IVCONT Not Given .Q24H WALTER Promethazine HCl 12.5 mg/ 50.5 mls @ 202 mls/hr 10/20/20 15:04 Sodium Chloride IV ONCE PRN Nausea and Vomiting Morphine Sulfate 4 mg 10/20/20 00:19 Morphine Sulfate 4 Mg/Ml Cartridge IVPUSH Q4H PRN Pain, Severe (Pain Scale 7-10) Ondansetron HCl 4 mg 10/20/20 00:19 Ondansetron Hcl 4 Mg/2 Ml Vial IVPUSH Q8H PRN Nausea and Vomiting Oxycodone HCl 5 mg 12/21/20 00:19 Oxycodone Hcl Immed Release 5 Mg Tablet PO Q6H PRN Pain, Moderate (Pain Scale 4-6 Oxycodone HCl 5 mg 10/20/20 15:04 Oxycodone Hcl Immed Release 5 Mg Tablet PO ONCE PRN Pain, Severe (Pain Scale 7-10) Oxycodone HCl 5 mg 10/20/20 17:53 Oxycodone Hcl Immed Release 5 Mg Tablet PO Q4H PRN Breakthrough Pain Sodium Chloride 3 ml 10/20/20 00:19 10/20/20 15:07 0.9 % Sodium Chloride Flush 3 Ml Syringe IVFLUSH Not Given QSHIFT WALTER Tamsulosin HCl 0.4 mg 10/20/20 09:00 10/20/20 09:49 Tamsulosin Hcl 0.4 Mg Capsule PO Not Given DAILY WALTER Labs CBC & Chem 7: 10/20/20 05:30 10/20/20 05:30 Assessment and Plan (1) Calculus, ureter: Problem details: Laser lithotripsy awith stent - nylon string left for removal by patient after goes to [place] Status: Acute (2) Hydroureteronephrosis: Status: Acute (3) Nephrolithiasis: Status: Acute Assessment and Plan: 34-year-old female who presents to the hospital flank pain left Plan 1. nephrolithiasis - has for right kidney stones sat ranging from 4-6 mm Urology: Which taking the patient for procedure today lithotripsy. - pain management with Oxy, morphine and Dilaudi
[2020-10-20] MEDS: Phenazopyridine HCL 100 MG TABLET PO (22:12)
[2020-10-21] MEDS: 0.9 % Sodium Chloride Flush 3 ML SYRINGE IVFLUSH ×2 (00:33→07:46)
[2020-10-21 03:50] VITALS: BP 102/54; PULSE 60; RESP 19; TEMP 36.7; O2SAT 96
[2020-10-21] MEDS: Tamsulosin HCL 0.4 MG CAPSULE PO (07:46)
[2020-10-21 08:05] VITALS: BP 105/60; PULSE 60; RESP 15; TEMP 36.8; O2SAT 100
--- NOTE | 2020-10-21 11:43 | PM.DS ---
DS: Providers Provider Date of admission: 10/19/20 21:44 Primary care physician: Ramon Varela MD Consults: 10/20/20 00:19 Consult to Urology Routine Consulting Provider: Hermes Brown Reason for consultation: nephrolithiasis Has provider been notified: Yes DS: Diagnosis Discharge Diagnosis (1) Calculus, ureter: Status: Acute Problem details: Laser lithotripsy awith stent - nylon string left for removal by patient after goes to [place] (2) Hydroureteronephrosis: Status: Acute (3) Nephrolithiasis: Status: Acute DS: Medications Discharge Medications Home Medications: Home Medications Medication Instructions Recorded Confirmed No Known Home Meds 10/19/20 10/19/20 DS: Summary Hospital Course Hospital Course: 34-year-old female with no past medical history who presents to the hospital with complaints of right flank pain radiating to the groin. Pain started today, 10/10, nonradiating, associated with nausea with no vomiting. Sharp pain, similar to her history of kidney stones, denies any urinary symptoms including no frequency, urgency, or dysuria. Patient denies any fever or chills, no chest pain, no shortness of breath, no cough, no abdominal pain, no lower extremity edema. On arrival to the ED hemodynamically stable with no significant abnormal vitals Labs are significant forHemoglobin of 11.5, hematocrit 35.2, otherwise unremarkable. Abdomen and pelvis shows 4 calculi within the distal right ureter with the distal-most stone located within the ureterovesical junction. The stones range in size from 4-6 mm. Upstream hydroureter and moderate right hydronephrosis present Hospital Course problem sy section: Patient was started on IV hydration, pain management as well as seen by Urology subsequently went for lithotripsy-subsequently patient got right ureteroscopy, laser litho, stent placement. Currently patient is pain free, denies any urinary complaints. Discussed with Urology patient is going to go home with Flomax 2 week supply. Further management outpatient as per Urology. Above management discussed with the patient in detail length she understand and in agreement with the above plan, time spent 50 minutes and 50% time spent on counseling. Significant findings: As above. Procedures performed: None. Treatment and response: As above. Complications: None. Time Spent with Patient Time attestation: Total time spent providing and/or coordinating discharge services: Physical Exam Vital Signs: Vital Signs: Last Vital Signs Temp 98.3 F 10/21/20 08:05 Pulse 60 10/21/20 08:05 Resp 15 10/21/20 08:05 BP 105/60 10/21/20 08:05 Pulse Ox 100 10/21/20 08:05 Body Mass Index 25.7 Physical exam: Constitutional: Not in acute distress Cvs: rrr, [id number] , no murmur res: clear to auscultation ,no rhonchii or wheezing abd: no rebound or guarding ,nt, bs present. ext pulses present , no cyanosis neuro: axo3 , nonfocal. DS: Data Data Completed and Pending Pending studies at discharge: Pending at discharge 10/20/20 17:48 Surgical [PTH] Routine Labs on day of discharge: 10/19/20 17:44 0.9 % Sodium Chloride [Ns] 1,000 ml IV 999 mls/hr 10/19/20 17:55 Complete Blood Count Auto Diff Stat Comprehensive Met. Panel Stat HCG Quantitative Stat Lipase Stat Liver Panel Stat Partial Thromboplastin Time Stat Prothrombin Time INR Stat 10/19/20 18:34 CT abdomen pelvis wo con Stat Ketorolac Tromethamine [Toradol] 30 mg IVPUSH ONCE STA 10/19/20 19:19 Morphine Sulfate 4 mg IVPUSH ONCE STA 10/19/20 21:32 SARS-CoV2/FLU/RSV Stat 10/19/20 21:41 Transfer Order Routine 10/20/20 00:19 oxyCODONE HCl Immed Release [Roxicodone] 5 mg PO Q6H PRN 10/20/20 05:30 Basic Metabolic Panel Routine Complete Blood Count Auto Diff Routine 10/20/20 07:43 levoFLOXacin [Levaquin] 500 mg PO ONCE ONE 10/20/20 Breakfast Regular Diet 10/20/20 15:03 Scopolamine [Transderm-Scop] 1.5 mg TRANSDERMA PREOP ONE 10/20/20 15:04 Vital Signs Q1H Vital Signs Q5MIN oxyCODONE HCl Immed Release [Roxicodone] 5 mg PO ONCE PRN 10/20/20 15:11 Scopolamine [Transderm-Scop] 1.5 mg .ROUTE .STK-MED ONE 10/20/20 15:57 levoFLOXacin [Levaquin] 500 mg PO ONCE ONE 10/20/20 16:34 Lidocaine HCl 2 % MPF [Xylocaine 2 % MPF] 5 ml .ROUTE .STK-MED ONE propofoL [Diprivan] 200 mg IVPUSH .STK-MED ONE 10/20/20 16:50 FL guidance in OR Routine 10/20/20 16:53 iohexoL 300 MG/ML [Omnipaque 300 MG/ML] 50 ml IV .STK-MED ONE 10/20/20 17:08 Lidocaine HCl 2 % MPF [Xylocaine 2 % MPF] 5 ml .ROUTE .STK-MED ONE dexAMETHasone sod phosphate [Decadron] 4 mg .ROUTE .STK-MED ONE ondansetron HCL [Zofran] 4 mg .ROUTE .STK-MED ONE propofoL [Diprivan] 200 mg IVPUSH .STK-MED ONE 10/20/20 17:09 fentaNYL citrate/PF [Sublimaze] 50 mcg .ROUTE .STK-MED ONE 10/20/20 17:45 Ketorolac Tromethamine [Toradol] 30 mg .ROUTE .STK-MED ONE 10/20/20 17:53 Phenazopyridine HCL [Pyridium] 100 mg PO ONCE ONE oxyCODONE HCl Immed Release [Roxicodone] 5 mg PO Q4H PRN 10/20/20 17:54 Transfer Order Routine 10/20/20 18:02 Vital Signs Q1H Vital Signs Q5MIN Laboratory Last Values WBC 9.5 X10*3/uL (4.8-10.8) 10/20/20 05:30 RBC 4.15 X10*6/uL (4.20-5.50) L 10/20/20 05:30 Hgb 10.7 g/dl (12.0-16.0) L 10/20/20 05:30 Hct 33.1 % (37-47) L 10/20/20 05:30 MCV 79.8 fL (80-98) L 10/20/20 05:30 MCH 25.8 pg (27.0-33.0) L 10/20/20 05:30 MCHC 32.3 g/dl (31.0-35.0) 10/20/20 05:30 RDW 13.3 % (11.0-16.0) 10/20/20 05:30 Plt Count 234 X10*3/uL (160-400) 10/20/20 05:30 MPV 10.5 fL (9.4-12.3) 10/20/20 05:30 Immature Gran % (Auto) 0.5 % (0.0-0.4) H 10/20/20 05:30 Neut % (Auto) 71.1 % (45-73) 10/20/20 05:30 Lymph % (Auto) 20.5 % (20-40) 10/20/20 05:30 [place] % (Auto) 6.3 % (2-11) 10/20/20 05:30 Eos % (Auto) 1.4 % (0-4) 10/20/20 05:30 Baso % (Auto) 0.2 % (0-2) 10/20/20 05:30 Lymph # (Auto) 2.0 X10*3/uL (1.2-4.9) 10/20/20 05:30 [place] # (Auto) 0.6 X10*3/uL (0.1-1.2) 10/20/20 05:30 Eos # (Auto) 0.1 X10*3/uL (0.0-0.4) 10/20/20 05:30 Baso # (Auto) 0.0 X10*3/uL (0.0-0.2) 10/20/20 05:30 Abs Immat Gran (auto) 0.05 X10*3/uL (0.00-0.03) H 10/20/20 05:30 Absolute Neuts (auto) 6.8 X10*3/uL (2.0-8.3) 10/20/20 05:30 Absolute Nucleated RBC 0.000 X10*3/uL (0.0-0.012) 10/20/20 05:30 Nucleated RBC % (auto) 0.0 /100WBC (0.0-0.2) 10/20/20 05:30 PT 12.4 SEC (10.8-13.0) 10/19/20 17:55 INR 1.0 (0.9-1.1) 10/19/20 17:55 APTT 39.6 SEC (24.1-38.0) H 10/19/20 17:55 Sodium 139 mmol/L (135-145) 10/20/20 05:30 Potassium 3.6 mmol/l (3.3-5.1) 10/20/20 05:30 Chloride 110 mmol/L (96-108) H 10/20/20 05:30 Carbon Dioxide 21 mmol/L (22-29) L 10/20/20 05:30 Anion Gap 12 (-20) 10/20/20 05:30 BUN 11 mg/dL (9-16) 10/20/20 05:30 Creatinine 0.64 mg/dL (0.5-1.4) 10/20/20 05:30 Estim Creat Clear Calc 112.9 10/20/20 05:30 Estimated GFR > 60 10/20/20 05:30 Random Glucose 97 mg/dL (60-115) 10/20/20 05:30 Calcium 8.5 mg/dL (8.4-10.2) D 10/20/20 05:30 Total Bilirubin 0.4 mg/dL (0.0-1.0) 10/19/20 17:55 Direct Bilirubin 0.2 mg/dL (0.0-0.5) 10/19/20 17:55 AST 24 U/L (5-31) 10/19/20 17:55 ALT 24 U/L (0-31) 10/19/20 17:55 Alkaline Phosphatase 49 U/L (39-117) 10/19/20 17:55 Total Protein 7.1 g/dL (6.5-8.0) 10/19/20 17:55 Albumin 4.4 g/dL (3.5-5.0) 10/19/20 17:55 Lipase 34 U/L (8-78) 10/19/20 17:55 Beta HCG, Quant < 2 mIU/mL 10/19/20 17:55 Urine Color YELLOW 10/19/20 18:10 Urine Appearance HAZY 10/19/20 18:10 Urine pH 5.5 (5.0-8.0) 10/19/20 18:10 Ur Specific [place] >= 1.030 (1.005-1.025) H 10/19/20 18:10 Urine Protein 2+ MG/DL (NEG-TRACE) H 10/19/20 18:10 Urine Glucose (UA) NEG MG/DL (NEG) 10/19/20 18:10 Urine Ketones 5 MG/DL (NEG) 10/19/20 18:10 Urine Blood 3+ (NEG) H 10/19/20 18:10 Urine Nitrite NEG (NEG) 10/19/20 18:10 Ur Leukocyte Esterase NEG (NEG) 10/19/20 18:10 Urine RBC 30-49 /HPF (0) H 10/19/20 18:10 Urine WBC 0 /HPF (0-4) 10/19/20 18:10 Ur Squamous Epith Cells 2+ /LPF 10/19/20 18:10 Calcium Oxalate Crystal 1+ /LPF 10/19/20 18:10 Urine Bacteria 2+ /LPF 10/19/20 18:10 Coronavirus (PCR) NEGATIVE (Negative) 10/19/20 21:32 Influenza Type A (PCR) NEGATIVE (Negative) 10/19/20 21:32 Influenza Type B (PCR) NEGATIVE (Negative) 10/19/20 21:32 RSV RNA Qual (PCR) NEGATIVE (Negative) 10/19/20 21:32 Discharge Plan Discharge Patient Disposition: Home, Self-Care Referrals: Name,MD Ramon [Primary Care Provider] - Discharge Medications: New tamsulosin 0.4 mg Capsule 0.4 mg PO DAILY Qty: 14 RF: 0 No Action No Known Home Meds RF: 0 Discharge Orders: Discharge Order (Routine); Ordered 10/21/20 Ordered By: Neda Payne Diet: advance to usual diet Activity on Discharge: As tolerated Visit Report Forms: Patient Portal Discharge page Care Plan Goals: Patient came with the flank pain and subsequently started on IV hydration, pain management and got lithotripsy done by Urology: Neurology recommended the patient to go home with Flomax 2 week supply, further management outpatient as per PCP and Urology, follow-up with Dr. Brown outpatient. Health Concerns: As above. Plan of Treatment: As above.
--- NOTE | 2020-10-21 12:10 | MHC.CM.PN ---
PT DISCHARGING HOME SELF-CARE, SPOUSE TO TRANSPORT. SPOUSE: KEREN MARCIAL [phone]
--- NOTE | 2020-10-21 18:37 | HO.POSTANES ---
Post Anesthesia Evaluation Post Anesthesia Evaluation Vital Signs: Vital Signs Temp Pulse Resp BP Pulse Ox 10/21/20 08:05 98.3 F 60 15 105/60 100 Anesthesia: General Mental Status: Awake Pain Control: Satisfactory Nausea/Vomiting: None Hydration: Adequate Anesthesia-Related Issues: No Anes. Related Issues
[2020-10-28 21:32] LABS: Stone Source KIDNEY
== END 2020-10-21 12:36 | disposition home or self-care (01) | DRG 446 ==
LOC: HO.ED 22:16 → HO.S3 22:37
PROVIDERS: Physician Assistant; Urology; Admitting Provider Internal Medicine; Emergency Provider Emergency Medicine; PCP Internal Medicine Geriatric Medicine; Visit Provider Internal Medicine
PROC: 0TC68ZZ Extirpation of Matter from Right Ureter, Via Natural or Artificial Opening Endoscopic (ICD-10-PCS; principal; 2020-10-20 15:10)
DX: N13.2 Hydronephrosis with renal and ureteral calculous obstruction (principal); Z20.828 Contact with and (suspected) exposure to other viral communicable diseases; Z87.442 Personal history of urinary calculi
CPT/HCPCS: 0241U; 36415; 74176; 80048; 80053; 80076; 81001; 82365; 83690; 84702; 85025; 85610; 85730; 88300; 96361; 96374; 96375; 99285; C1758; C1769; C2617; J1100; J1885; J2270; J2405; J3010; Q9967

== ENCOUNTER → 2020-11-21 11:27 | Outpatient (BNVA) | payer MEDICAID, SELFPAY | PROVIDERS: PCP Internal Medicine Geriatric Medicine; Visit Provider Urology | DX: N20.1 Calculus of ureter (principal) | CPT/HCPCS: 99212 ==

== ENCOUNTER → 2021-07-23 08:43 | Outpatient (BNVA) | payer MEDICAID, SELFPAY | PROVIDERS: PCP Internal Medicine Geriatric Medicine; Visit Provider Urology ==

== ENCOUNTER 2022-01-18 12:16 | Outpatient (REF) | payer MEDICAID, SELFPAY ==
--- NOTE | ~2022-01-18 | US_ITS ---
EXAMINATION: US RETROPERITONEAL LIMITED (RENAL ONLY) CLINICAL INFORMATION: Stone. COMPARISON: Previous CT of the abdomen and pelvis September 2020 TECHNIQUE: Grayscale and color imaging of the kidneys FINDINGS: RIGHT KIDNEY: 10.9 x 5 x 6 cm (SAG x AP x TRV). The kidney is normal in size and contour. There are echogenic renal pyramids suggestive of medullary nephrocalcinosis. Renal cortical thickness is normal. There is a 3 mm stone in the lower pole. No focal parenchymal lesions. No hydronephrosis. LEFT KIDNEY: 10.4 x 5.8 x 5.8 cm (SAG x AP x TRV). The kidney is normal in size and contour. There are echogenic renal pyramids suggestive of medullary nephrocalcinosis. Renal cortical thickness is normal. There are 2 stones in the upper pole measuring 4 mm and midpole measuring 3 mm. No focal parenchymal lesions. No hydronephrosis. 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
== END 2022-01-18 12:17 | disposition home or self-care (01) ==
LOC: HO.US 12:16
PROVIDERS: PCP Internal Medicine Geriatric Medicine; Visit Provider Urology
DX: N20.0 Calculus of kidney (principal); N20.1 Calculus of ureter
CPT/HCPCS: 76775

== ENCOUNTER → 2022-01-22 11:34 | Outpatient (BNVA) | payer MEDICAID, SELFPAY | PROVIDERS: PCP Internal Medicine Geriatric Medicine; Visit Provider Urology | DX: N20.1 Calculus of ureter (principal) | CPT/HCPCS: 99212 ==

== ENCOUNTER 2023-07-20 18:34 | Emergency (ER) | payer MEDICAID, SELFPAY ==
[2023-07-20 19:10] VITALS: BP 127/79; PULSE 18; RESP 18; TEMP 36.8; O2SAT 100; BMI 29.1
--- NOTE | 2023-07-20 19:12 | ED_ITS ---
HPI - General Adult General Chief complaint: GI Bleed Stated complaint: rectal bleeding Time Seen by Provider: 07/21/23 04:03 Source: patient Mode of arrival: ambulatory Limitations: no limitations History of Present Illness HPI narrative: Patient comes to the emergency room complaining of 3 days of intermittent rectal bleeding, painless, no abdominal pain, no fever, no diarrhea. Denies any anal pain. Related Data Previous Rx's Medication Instructions Recorded tamsulosin 0.4 mg capsule 0.4 mg PO DAILY #14 caps 10/21/20 pyridoxine (vitamin B6) 100 mg 100 mg PO DAILY 90 days #90 tabs 07/23/21 tablet Allergies Allergy/AdvReac Type Severity Reaction Status Date / Time No Known Allergies Allergy Verified 01/22/22 11:37 [No Known Allergies*] Review of Systems 2 Review of Systems: Constitutional : No Weight loss, No Fever, No Chills, No Night Sweats, No Fatigue, No Malaise ENT/Mouth : No Hearing loss, No Ear Pain, No Nasal Congestion, No Sinus Pain, No Hoarseness, No sore throat, No Rhinorrhea, No Swallowing Difficulty Eyes: No Eye Pain, No Swelling, No Redness, No Foreign Body, No Discharge, No Vision Changes Cardiovascular : No Chest Pain, No SOB, No Dyspnea on Exertion, No Orthopnea, No Edema, No Palpitations Respiratory : No Cough, No Sputum, No Wheezing, No Smoke Exposure, No Dyspnea Gastrointestinal : No Nausea, No Vomiting, No Diarrhea, No Constipation, No abdominal Pain, planing of intermittent bright red per rectum for 3 days Genitourinary : no irregular bleeding, No Dysuria, No Urinary Frequency, No Hematuria, No Urinary Incontinence, No Urgency, No Flank Pain, No Urinary Flow Changes, No Hesitancy Musculoskeletal : No joint pain, No Myalgias, No Joint Swelling Skin : No Skin Lesions, No rash Neuro : No Weakness, No Numbness, No Paresthesias, No Loss of Consciousness, No Dizziness, No Headache Psych : No Anxiety/Panic, No Depression, No SI/HI/AH/VH, No Social Issues, Heme/Lymph: No Bruising, No Bleeding,No Lymphadenopathy Endocrine : No Polyuria, No Polydipsia, No Temperature Intolerance PMFSH Past Medical History Medical History Mild acid reflux Ureteral stone with hydronephrosis Renal stones Symptomatic cholelithiasis Surgical History History of surgery Social History Social History Household Members: Spouse and Family Housing: House Do you presently have visiting nurse or other home services: No Alcohol intake: never Use of substances other than those prescribed or required for medical reasons: No Advance Directives: No Advance Directives Information Provided: Yes service: No Current occupational status: unemployed Physical Exam ED Vital Signs: Vital Signs - 24 hr 07/20/23 19:10 07/20/23 23:37 07/21/23 02:30 Temperature 98.2 F 97.4 F 98.9 F Pulse Rate 18 L 81 72 Respiratory Rate 18 18 17 Blood Pressure 127/79 113/76 112/71 Pulse Oximetry 100 100 99 Oxygen Delivery Method Room Air Room Air Room Air BMI result Body Mass Index 29.1 Const Other: Appearance: Alert. Oriented X3. No acute distress. Eyes: Pupils equal, round and reactive to light. ENT: Pharynx normal. Neck: Normal inspection. Neck supple. No lymph nodes noted. No crepitus CVS: Normal heart rate and rhythm. Pulses normal. Normal S1 and S2 Respiratory: No respiratory distress. Breath sounds normal. No Wheezing. No rales Abdomen: Soft and nontender. No rigidity. No distention. Digital rectal exam: Brown stool, no external hemorrhoids, possible internal hemorrhoids on digital palpation Skin: Skin warm and dry. Normal skin color. Normal skin turgor. Extremities: No lower extremity edema. No Lacerations. No Rash Neuro: Oriented X 3. No motor deficit. No sensory deficit. Moving all extremities. No slurred speech. CN 2 through 12 grossly intact Psych: calm, cooperative, normal affect Course Course Course Narrative: This is a rapid medical exam: Additional HPI, ROS, PE not included below will be deferred to primary provider. Patient is a 37-year-old female presenting to the emergency department with complaint of bright red rectal bleeding since Tuesday, every time she has a bowel movement. States feel similar to her menstrual period. Rectal pain of 7/10. Unsure if she has hemorrohoids. Denies straining to have a bowel movement. [place] lightheadedness earlier today. States last menses was the end of last month. Plan: labs, UA Medical Decision Making Medical Decision Making MDM Narrative: -of patient's labs normal -occult test heme negative -patient likely had an internal hemorrhoid that bled but no longer bleeding versus vaginal bleeding Differential Diagnosis Differential Diagnoses: The differential diagnosis associated with the presentation includes (As above) Lab Data 07/20/23 19:40 07/20/23 19:40 Labs: Lab Results 07/20/23 07/20/23 07/21/23 Range/Units 19:38 19:40 04:12 WBC 7.7 (4.8-10.8) X10*3/uL RBC 4.70 (4.20-5.50) X10*6/uL Hgb 12.4 (12.0-16.0) g/dl Hct 38.3 (37.0-47.0) % MCV 81.5 (80.0-98.0) fL MCH 26.4 L (27.0-33.0) pg MCHC 32.4 (31.0-35.0) g/dl RDW 13.9 (11.0-16.0) % Plt Count 255 (160-400) X10*3/uL MPV 10.1 (9.4-12.3) fL Immature Gran % (Auto) 0.3 (0.0-0.4) % Neut % (Auto) 55.3 (45-73) % Lymph % (Auto) 28.7 (20-40) % [place] % (Auto) 6.5 (2-11) % Eos % (Auto) 8.3 H (0-4) % Baso % (Auto) 0.9 (0-2) % Lymph # (Auto) 2.2 (1.2-4.9) X10*3/uL [place] # (Auto) 0.5 (0.1-1.2) X10*3/uL Eos # (Auto) 0.6 H (0.0-0.4) X10*3/uL Baso # (Auto) 0.1 (0.0-0.2) X10*3/uL Abs Immat Gran (auto) 0.02 (0.00-0.03) X10*3/uL Absolute Neuts (auto) 4.3 (2.0-8.3) x10*3/uL Absolute Nucleated RBC 0.000 (0.0-0.012) X10*3/uL Nucleated RBC % (auto) 0.0 (0.0-0.2) /100WBC PT 11.0 L (11.1-13.3) SEC INR 0.9 (0.9-1.1) Sodium 143 (135-145) mmol/L Potassium 4.1 (3.3-5.1) mmol/L Chloride 108 (96-108) mmol/L Carbon Dioxide 25 (22-29) mmol/L Anion Gap 14 (12-20) BUN 10 (9-16) mg/dL Creatinine 0.76 (0.5-1.4) mg/dL Estim Creat Clear Calc 98.0 Estimated GFR > 60 Random Glucose 99 (60-115) mg/dL Calcium 9.4 D (8.4-10.2) mg/dL Total Bilirubin 0.2 (0.0-1.0) mg/dL AST 25 (5-31) U/L ALT 29 (0-31) U/L Alkaline Phosphatase 73 (39-117) U/L Total Protein 7.4 (6.5-8.0) g/dL Albumin 4.2 (3.5-5.0) g/dL Beta HCG, Quant < 2 mIU/mL Urine Color Yellow Urine Appearance Clear Urine pH 7.5 (5.0-9.0) Ur Specific [place] [employer] 1.025 (1.005-1.025) Urine Protein Trace (Neg-Trace) mg/dL Urine Glucose (UA) Negative (Negative) mg/dL Urine Ketones Trace (Negative) mg/dL Urine Blood Negative (Negative) Urine Nitrite Negative (Negative) Ur Leukocyte Esterase Trace H (Negative) Urine RBC 6-10 H (0-2) /HPF Urine WBC 0-5 (0-5) /HPF Ur Squamous Epith Cells 11-20 (0-2) /HPF Urine Bacteria 1+ (None Seen) Hyaline Casts 0-2 (0-2) /LPF Stool Occult Blood NEGATIVE (NEGATIVE) Blood Type O Negative Antibody Screen NEGATIVE Discharge Plan Discharge Clinical Impression: Hemorrhoid Patient Disposition: Home, Self-Care Instructions: Hemorrhoids (ED) Additional Instructions: Please follow-up with your primary care physician tomorrow. If you have any worsening or new symptoms, please return to the emergency room or call 911 Prescriptions: No Action tamsulosin 0.4 mg Capsule 0.4 mg PO DAILY Qty: 14 0RF pyridoxine (vitamin B6) 100 mg tablet 100 mg PO DAILY 90 Days Qty: 90 1RF
[2023-07-20 19:45] LABS: MANUAL DIFF FLAG NO
[2023-07-20 19:46] LABS: Basophils Absolute Auto 0.1 X10*3/uL (0.0-0.2); Basophils Percent Auto 0.9 % (0-2); Eosinophils Absolute Auto 0.6 X10*3/uL (0.0-0.4); Eosinophils Percent Auto 8.3 % (0-4); Hematocrit 38.3 % (37.0-47.0); Hemoglobin 12.4 g/dl (12.0-16.0); Imm Gran Abs Auto 0.02 X10*3/uL (0.00-0.03); Imm Gran Pct Auto 0.3 % (0.0-0.4); Lymphocytes Absolute Auto 2.2 X10*3/uL (1.2-4.9); Lymphocytes Percent Auto 28.7 % (20-40); Mean Corpuscular HGB Conc 32.4 g/dl (31.0-35.0); Mean Corpuscular Hemoglobin 26.4 pg (27.0-33.0); Mean Corpuscular Volume 81.5 fL (80.0-98.0); Mean Platelet Volume 10.1 fL (9.4-12.3); Monocytes Absolute Auto 0.5 X10*3/uL (0.1-1.2); Monocytes Percent Auto 6.5 % (2-11); Neutrophils Absolute Auto 4.3 x10*3/uL (2.0-8.3); Neutrophils Percent Auto 55.3 % (45-73); Platelet Count 255 X10*3/uL (160-400); Red Cell Distribution Width 13.9 % (11.0-16.0); White Blood Count 7.7 X10*3/uL (4.8-10.8)
[2023-07-20 19:47] LABS: Appearance Urine Clear; Color Urine Yellow; Glucose Urine UA Negative (Negative); Leukocyte Esterase Urine Trace (Negative); Nitrite Urine Negative (Negative); PH 7.5 (5.0-9.0); Specific Gravity - Urine 1.025 (1.005-1.025); UMIC TRIGGER UACC YES; Urine Blood Negative (Negative); Urine Ketones Trace mg/dL (Negative); Urine Protein Trace mg/dL (Neg-Trace)
[2023-07-20 19:51] LABS: INTERNATIONAL NORM RATIO 0.9 (0.9-1.1)
[2023-07-20 20:01] LABS: Bacteria Urine 1+ (None Seen); Hyaline Casts Urine 0-2 /LPF (0-2); WBC Urine 0-5 /HPF (0-5)
[2023-07-20 20:11] LABS: Alanine Aminotransferase 29 U/L (0-31); Albumin Level 4.2 g/dL (3.5-5.0); Alkaline Phosphatase 73 U/L (39-117); Anion Gap 14 (12-20); Aspartate Amino Transferase 25 U/L (5-31); Bilirubin Total 0.2 mg/dL (0.0-1.0); Blood Urea Nitrogen 10 mg/dL (9-16); Calcium 9.4 mg/dL (8.4-10.2); Carbon Dioxide 25 mmol/L (22-29); Chloride 108 mmol/L (96-108); Estimated Glomerular Filt Rate > 60; Glucose Random 99 mg/dL (60-115); HCG Quantitative < 2 mIU/mL; Potassium 4.1 mmol/L (3.3-5.1); Sodium 143 mmol/L (135-145); Total Protein 7.4 g/dL (6.5-8.0)
[2023-07-20 23:37] VITALS: BP 113/76; PULSE 81; RESP 18; TEMP 36.3; O2SAT 100
[2023-07-21 02:30] VITALS: BP 112/71; PULSE 72; RESP 17; TEMP 37.2; O2SAT 99
--- NOTE | 2023-07-21 03:46 | PC.NURSE ---
pt a&o, no sob or chest pain, pt reports rectal bleeding since tuesday with rectal pain of 7/10. pt resting in bed awaiting to be seen by provider. Will continue monitor.
[2023-07-21 04:18] LABS: OBS Int Ctl Valid YES; OBS1 NEGATIVE (NEGATIVE)
--- NOTE | 2023-07-21 04:34 | PC.NURSE ---
Provider into assess pt, pt discharged home, reviewed discharge instructions with pt, pt verbalized understanding.
== END 2023-07-21 04:35 | disposition home or self-care (01) ==
PROVIDERS: Registered Nurse Emergency; Emergency Provider Emergency Medicine; PCP Internal Medicine Geriatric Medicine
DX: K64.8 Other hemorrhoids (principal)
CPT/HCPCS: 36415; 80053; 81001; 82272; 84702; 85025; 85610; 86850; 86900; 86901; 99284

== ENCOUNTER 2023-08-23 19:14 | Outpatient (REF) | payer MEDICAID, SELFPAY ==
[2023-08-25 16:30] LABS: H Pylori Breath Test Negative (Negative)
== END 2023-08-23 19:15 | disposition home or self-care (01) ==
LOC: HO.HHCLNP 19:14
PROVIDERS: Visit Provider Internal Medicine Geriatric Medicine
DX: R12 Heartburn (principal); R13.10 Dysphagia, unspecified
CPT/HCPCS: 83013

== ENCOUNTER 2023-08-29 13:18 | Emergency (ER) | payer MEDICAID, SELFPAY ==
--- NOTE | ~2023-08-29 | CT_ITS ---
EXAMINATION: CT ABDOMEN AND PELVIS WITHOUT CONTRAST CLINICAL INFORMATION: Left flank pain. COMPARISON: Renal ultrasound 01/18/2022 CT abdomen/pelvis 10/19/2020 TECHNIQUE: Multidetector volumetric imaging was performed from the superior aspect of the liver through the pubic symphysis. Sagittal and coronal reformatted images were obtained on the technologist's workstation. This CT examination was performed using dose optimization techniques as appropriate, variously including the following: *Automated exposure control *Adjustment of mA and/or kV according to patient size (this includes techniques or standardized protocols for targeted exams where dose is matched to indication/reason for exam; i.e. extremities or head) *Use of iterative reconstruction technique DLP: 543 mGy-cm FINDINGS: LUNG BASES: The visualized lung bases are unremarkable. LIVER, GALLBLADDER, AND BILIARY TREE: The noncontrast liver is smooth in contour. No biliary ductal dilatation is present. The gallbladder is surgically absent. PANCREAS: Unremarkable. SPLEEN: Unremarkable. ADRENAL GLANDS: Unremarkable. KIDNEYS AND URETERS: 5 mm calculus impacted in the distal left ureter with mild/moderate hydroureteronephrosis. There are additional bilateral nonobstructing renal calculi including several within the left renal calyces. There is hyperdensity of the medullary pyramids. No right hydronephrosis. No perinephric fluid collection. BLADDER: Underdistended. GASTROINTESTINAL TRACT: No small bowel obstruction. Submucosal fatty infiltration of the right colon. ABDOMINAL WALL: No significant hernia is appreciated. LYMPH NODES: No bulky adenopathy. VASCULAR: Normal caliber abdominal aorta. PELVIC VISCERA: Unremarkable. OSSEOUS STRUCTURES: No destructive bone lesions. CT/CT abdomen pelvis wo IV con IMPRESSION: 5 mm calculus impacted in the distal left ureter with mild/moderate hydroureteronephrosis. Medullary nephrocalcinosis. There are several stones within the left renal calyces.
[2023-08-29 13:37] VITALS: BP 119/78; PULSE 102; RESP 20; TEMP 36.8; O2SAT 99; BMI 29.1
--- NOTE | 2023-08-29 13:39 | ED.GENADULT ---
HPI - General Adult General Chief complaint: Abdominal Pain Stated complaint: L side back pain Time Seen by Provider: 08/29/23 16:27 Source: patient Mode of arrival: ambulatory Limitations: no limitations History of Present Illness HPI narrative: Patient with history of recurrent kidney stones status post lithotripsy in the past complaining of similar left flank pain started yesterday sharp in character nausea vomiting it did lower abdomen no urinary symptoms no hematuria Related Data Previous Rx's Medication Instructions Recorded tamsulosin 0.4 mg capsule 0.4 mg PO DAILY #14 caps 10/21/20 pyridoxine (vitamin B6) 100 mg 100 mg PO DAILY 90 days #90 tabs 07/23/21 tablet oxycodone-acetaminophen 5 mg-325 1 tab PO Q6H PRN pain #20 tabs 08/29/23 mg tablet (Percocet) tamsulosin 0.4 mg capsule (Flomax) 0.4 mg PO BEDTIME #10 caps 08/29/23 Allergies Allergy/AdvReac Type Severity Reaction Status Date / Time No Known Allergies Allergy Verified 08/29/23 13:40 [No Known Allergies*] Review of Systems Review of Systems: Yes all other systems are reviewed and are negative [facility] [place] Past Medical History Medical History Mild acid reflux Ureteral stone with hydronephrosis Renal stones Symptomatic cholelithiasis Surgical History History of surgery Social History Social History Household Members: Spouse and Family Housing: House Do you presently have visiting nurse or other home services: No Alcohol intake: never Smoked in Last 30 Days: No Use of substances other than those prescribed or required for medical reasons: No Advance Directives: No Advance Directives Information Provided: No service: No Current occupational status: unemployed Physical Exam ED Vital Signs: Vital Signs - 24 hr 08/29/23 13:37 08/29/23 16:53 Temperature 98.3 F 98.5 F Pulse Rate 102 H 90 Respiratory Rate 20 18 Blood Pressure 119/78 106/70 Pulse Oximetry 99 99 Oxygen Delivery Method Room Air Room Air BMI result Body Mass Index 29.1 Appearance: Alert. Oriented X3. No acute distress. ENT: Pharynx normal. Oral Mucosa moist Neck: Normal inspection. Neck supple. CVS: Normal heart rate and rhythm. Pulses normal. Respiratory: No respiratory distress. Equal air entry bilateral, no wheezing/rales/rhonchi Abdomen: Soft and nontender. Bowel sounds are present, no mass palpable,L CVA tenderness Skin: Skin warm and dry. Normal skin color. Normal skin turgor. Extremities: No lower extremity edema. No calf tenderness Neuro: Oriented X 3. Course Course Course Narrative: This is an RME: Additional HPI, ROS, PE not included below will be deferred to primary provider. This is a 37-year-old female presenting to the emergency department for evaluation of left-sided flank pain started yesterday. States the pain starts in left flank and radiates into the abdomen. No nausea or vomiting. No urinary symptoms. Vital signs stable. Plan: Labs, UA, CT abdomen Medications Administered Discontinued Medications Generic Name Dose Route Start Last Admin Trade Name Freq PRN Reason Stop Dose Admin Sodium Chloride 1,000 mls @ 999 mls/hr 08/29/23 16:31 08/29/23 18:17 Ns IV 08/29/23 17:31 Infused .Q1H1M ONE Infusion Ketorolac Tromethamine 30 mg 08/29/23 16:42 08/29/23 16:50 Ketorolac Tromethamine 30 Mg/Ml Vial IVPUSH 08/29/23 16:43 30 mg ONCE ONE Administration Morphine Sulfate 4 mg 08/29/23 16:42 08/29/23 16:50 Morphine Sulfate 4 Mg/Ml Cartridge IVPUSH 08/29/23 16:43 4 mg ONCE ONE Administration Protocol Ondansetron HCl 4 mg 08/29/23 16:42 08/29/23 16:49 Ondansetron Hcl 4 Mg/2 Ml Vial IVPUSH 08/29/23 16:43 4 mg ONCE ONE Administration Oxycodone HCl 10 mg 08/29/23 18:02 08/29/23 18:19 Oxycodone Hcl Immed Release 5 Mg Tablet PO 08/29/23 18:03 10 mg ONCE ONE Administration Tamsulosin HCl 0.4 mg 08/29/23 17:49 08/29/23 18:19 Tamsulosin Hcl 0.4 Mg Capsule PO 08/29/23 17:50 0.4 mg ONCE ONE Administration Medical Decision Making Medical Decision Making [facility] Narrative: Patient with 5 mm UVJ stone moderate hydronephrosis on the left side with history of kidney stones in the past pain improved after morphine and Toradol Differential Diagnosis Differential Diagnoses: The differential diagnosis associated with the presentation includes Renal colic/UTI/pyelonephritis Lab Data [facility] Lab Attestation statement: I reviewed the patient's lab results. 08/29/23 14:28 08/29/23 14:28 Labs: Lab Results 08/29/23 08/29/23 Range/Units 14:25 14:28 WBC 6.4 (4.8-10.8) X10*3/uL RBC 4.64 (4.20-5.50) X10*6/uL Hgb 12.5 (12.0-16.0) g/dl Hct 38.0 (37.0-47.0) % MCV 81.9 (80.0-98.0) fL MCH 26.9 L (27.0-33.0) pg MCHC 32.9 (31.0-35.0) g/dl RDW 13.3 (11.0-16.0) % Plt Count 259 (160-400) X10*3/uL MPV 10.1 (9.4-12.3) fL Immature Gran % (Auto) 0.2 (0.0-0.4) % Neut % (Auto) 52.1 (45-73) % Lymph % (Auto) 32.9 (20-40) % [place] % (Auto) 5.3 (2-11) % Eos % (Auto) 8.7 H (0-4) % Baso % (Auto) 0.8 (0-2) % Lymph # (Auto) 2.1 (1.2-4.9) X10*3/uL [place] # (Auto) 0.3 (0.1-1.2) X10*3/uL Eos # (Auto) 0.6 H (0.0-0.4) X10*3/uL Baso # (Auto) 0.1 (0.0-0.2) X10*3/uL Abs Immat Gran (auto) 0.01 (0.00-0.03) X10*3/uL Absolute Neuts (auto) 3.4 (2.0-8.3) x10*3/uL Absolute Nucleated RBC 0.000 (0.0-0.012) X10*3/uL Nucleated RBC % (auto) 0.0 (0.0-0.2) /100WBC Sodium 141 (135-145) mmol/L Potassium 3.8 (3.3-5.1) mmol/L Chloride 109 H (96-108) mmol/L Carbon Dioxide 25 (22-29) mmol/L Anion Gap 11 L (12-20) BUN 7 L (9-16) mg/dL Creatinine 0.69 (0.5-1.4) mg/dL Estim Creat Clear Calc 107.8 Estimated GFR > 60 Random Glucose 123 H (60-115) mg/dL Calcium 9.9 (8.4-10.2) mg/dL Total Bilirubin 0.4 (0.0-1.0) mg/dL Direct Bilirubin 0.1 (0.0-0.5) mg/dL AST 28 (5-31) U/L ALT 33 H (0-31) U/L Alkaline Phosphatase 63 (39-117) U/L Total Protein 7.4 (6.5-8.0) g/dL Albumin 4.3 (3.5-5.0) g/dL Lipase 47 (8-78) U/L Urine Color Yellow Urine Appearance Clear Urine pH 6.0 (5.0-9.0) Ur Specific [place] 1.020 (1.005-1.025) Urine Protein Negative (Neg-Trace) mg/dL Urine Glucose (UA) Negative (Negative) mg/dL Urine Ketones Negative (Negative) mg/dL Urine Blood Large (3+) H (Negative) Urine Nitrite Negative (Negative) Ur Leukocyte Esterase Trace H (Negative) Urine RBC >20 H (0-2) /HPF Urine WBC 0-5 (0-5) /HPF Ur Squamous Epith Cells 11-20 (0-2) /HPF Urine Bacteria 1+ (None Seen) Hyaline Casts 0-2 (0-2) /LPF Urine Test NEGATIVE (NEGATIVE) Radiology Impression Discussion of test interpretation with radiology: I have reviewed the radiologist's reading. Radiologist Impression: CT/CT abdomen pelvis wo IV con IMPRESSION: 5 mm calculus impacted in the distal left ureter with mild/moderate hydroureteronephrosis. Medullary nephrocalcinosis. There are several stones within the left renal calyces. Discharge Plan Discharge Clinical Impression: Calculus, ureter Patient Disposition: Home, Self-Care Instructions: Ureteral Stones (ED) Additional Instructions: Drink plenty of fluids Your stone should pass Follow with Urology Pain medication and Flomax as prescribed Beber mucho l?quido Tu mague deber?a pasar Seguir con Urolog?a Medicamentos para el dolor y Flomax seg?n lo prescrito Prescriptions: New tamsulosin [Flomax] 0.4 mg capsule 0.4 mg PO BEDTIME Qty: 10 0RF oxycodone-acetaminophen [Percocet] 5-325 mg tablet 1 tab PO Q6H PRN (Reason: pain) Qty: 20 0RF Rx Instructions: Partial Fill upon patient request. No Action tamsulosin 0.4 mg Capsule 0.4 mg PO DAILY Qty: 14 0RF pyridoxine (vitamin B6) 100 mg tablet 100 mg PO DAILY 90 Days Qty: 90 1RF Referrals: Hermes Brown MD [Physician] - 3 days Interventions: ED Discharge Assessment Last Done: 08/29/23 18:49 Discharge Date/Time: 08/29/23 18:49 Print Language: Yakut
[2023-08-29 14:33] LABS: MANUAL DIFF FLAG NO
[2023-08-29 14:40] LABS: Basophils Absolute Auto 0.1 X10*3/uL (0.0-0.2); Basophils Percent Auto 0.8 % (0-2); Eosinophils Absolute Auto 0.6 X10*3/uL (0.0-0.4); Eosinophils Percent Auto 8.7 % (0-4); Hemoglobin 12.5 g/dl (12.0-16.0); Imm Gran Abs Auto 0.01 X10*3/uL (0.00-0.03); Imm Gran Pct Auto 0.2 % (0.0-0.4); Lymphocytes Absolute Auto 2.1 X10*3/uL (1.2-4.9); Lymphocytes Percent Auto 32.9 % (20-40); Mean Corpuscular HGB Conc 32.9 g/dl (31.0-35.0); Mean Corpuscular Hemoglobin 26.9 pg (27.0-33.0); Mean Corpuscular Volume 81.9 fL (80.0-98.0); Mean Platelet Volume 10.1 fL (9.4-12.3); Monocytes Absolute Auto 0.3 X10*3/uL (0.1-1.2); Monocytes Percent Auto 5.3 % (2-11); Neutrophils Absolute Auto 3.4 x10*3/uL (2.0-8.3); Neutrophils Percent Auto 52.1 % (45-73); Platelet Count 259 X10*3/uL (160-400); Red Blood Count 4.64 X10*6/uL (4.20-5.50); Red Cell Distribution Width 13.3 % (11.0-16.0); White Blood Count 6.4 X10*3/uL (4.8-10.8)
[2023-08-29 14:47] LABS: Appearance Urine Clear; Color Urine Yellow; Glucose Urine UA Negative (Negative); Leukocyte Esterase Urine Trace (Negative); Nitrite Urine Negative (Negative); UMIC TRIGGER UACC YES; Urine Blood Large (3+) (Negative); Urine Ketones Negative (Negative); Urine Protein Negative (Neg-Trace)
[2023-08-29 14:51] LABS: Alanine Aminotransferase 33 U/L (0-31); Albumin Level 4.3 g/dL (3.5-5.0); Alkaline Phosphatase 63 U/L (39-117); Anion Gap 11 (12-20); Aspartate Amino Transferase 28 U/L (5-31); Bilirubin Direct 0.1 mg/dL (0.0-0.5); Bilirubin Total 0.4 mg/dL (0.0-1.0); Blood Urea Nitrogen 7 mg/dL (9-16); Calcium 9.9 mg/dL (8.4-10.2); Carbon Dioxide 25 mmol/L (22-29); Chloride 109 mmol/L (96-108); Creatinine Clr Calc Pharmacy 107.8; Estimated Glomerular Filt Rate > 60; Glucose Random 123 mg/dL (60-115); Lipase 47 U/L (8-78); Potassium 3.8 mmol/L (3.3-5.1); Sodium 141 mmol/L (135-145); Total Protein 7.4 g/dL (6.5-8.0)
[2023-08-29 14:51] LABS: UPreg QC Valid YES; Urine Pregnancy NEGATIVE (NEGATIVE)
[2023-08-29 14:52] LABS: Bacteria Urine 1+ (None Seen); Hyaline Casts Urine 0-2 /LPF (0-2); RBC Urine >20 /HPF (0-2); WBC Urine 0-5 /HPF (0-5)
[2023-08-29] MEDS: 0.9 % Sodium Chloride 1,000 ML 999 ML IV (16:43)
[2023-08-29] MEDS: ondansetron HCL 4 MG/2 ML VIAL IVPUSH (16:49)
[2023-08-29] MEDS: Ketorolac Tromethamine 30 MG/ML VIAL IVPUSH (16:50)
[2023-08-29] MEDS: Morphine Sulfate 4 MG/ML CARTRIDGE IVPUSH (16:50)
[2023-08-29 16:53] VITALS: BP 106/70; PULSE 90; RESP 18; TEMP 36.9; O2SAT 99
[2023-08-29] MEDS: Tamsulosin HCL 0.4 MG CAPSULE PO (18:19)
[2023-08-29] MEDS: oxyCODONE HCl Immed Release 5 MG TABLET 10 MG PO (18:19)
== END 2023-08-29 18:49 | disposition home or self-care (01) ==
PROVIDERS: Physician Assistant Medical; Emergency Provider Internal Medicine; PCP Internal Medicine Geriatric Medicine
DX: N20.1 Calculus of ureter (principal); R11.2 Nausea with vomiting, unspecified; Z79.899 Other long term (current) drug therapy
CPT/HCPCS: 36415; 74176; 80048; 80076; 81001; 81025; 83690; 85025; 96361; 96374; 96375; 99284; J1885; J2270; J2405

== ENCOUNTER 2023-11-18 10:12 | Outpatient (REF) | payer MEDICAID, SELFPAY ==
--- NOTE | ~2023-11-18 | US_ITS ---
EXAMINATION: US RETROPERITONEAL LIMITED (RENAL ONLY) CLINICAL INFORMATION: Renal calculus. COMPARISON: CT abdomen and pelvis 08/29/2023. TECHNIQUE: Real-time imaging of the kidneys. FINDINGS: RIGHT KIDNEY: 10.4 x 4.9 x 6.1 cm (SAG x AP x TRV). The kidney is normal in size, contour, and echogenicity. Renal cortical thickness is normal. No calculi or focal parenchymal lesions. Pelviectasis without andres hydronephrosis. Hyperdense renal pyramids which can be seen with medullary sponge kidney. LEFT KIDNEY: 10.7 x 5.3 x 4.7 cm (SAG x AP x TRV). The kidney is normal in size, contour, and echogenicity. Renal cortical thickness is normal. No focal parenchymal lesions. Pelviectasis without andres hydronephrosis. Hyperdense renal pyramids which can be seen with medullary sponge kidney. 5 mm echogenic focus in the left upper pole without shadowing may reflect a nonshadowing stone, similar to prior CT where it measured 5 mm. US/US renal BI IMPRESSION: 1. Hyperdense renal pyramids which can be seen in the setting of medullary sponge kidney. 2. A 5 mm echogenic focus in the left upper pole without shadowing may a nonshadowing stone, similar to prior CT. Other previously seen stones are not identified on today's exam. 3. Bilateral pelviectasis without andres hydronephrosis.
== END 2023-11-18 10:13 | disposition home or self-care (01) ==
LOC: HO.US 10:12
PROVIDERS: PCP Internal Medicine Geriatric Medicine; Visit Provider Internal Medicine Geriatric Medicine
DX: N20.0 Calculus of kidney (principal)
CPT/HCPCS: 76775

== ENCOUNTER 2023-11-22 08:47 | Emergency (ER) | payer MEDICAID, SELFPAY ==
[2023-11-22 08:56] VITALS: BP 104/60; PULSE 86; RESP 18; TEMP 36.6; O2SAT 98; BMI 26.7
[2023-11-22 09:14] LABS: MANUAL DIFF FLAG NO
[2023-11-22 09:16] LABS: Basophils Percent Auto 0.5 % (0-2); Eosinophils Absolute Auto 0.2 X10*3/uL (0.0-0.4); Eosinophils Percent Auto 2.6 % (0-4); Hematocrit 36.9 % (37.0-47.0); Hemoglobin 12.1 g/dl (12.0-16.0); Imm Gran Abs Auto 0.02 X10*3/uL (0.00-0.03); Imm Gran Pct Auto 0.3 % (0.0-0.4); Lymphocytes Absolute Auto 1.8 X10*3/uL (1.2-4.9); Lymphocytes Percent Auto 31.1 % (20-40); Mean Corpuscular HGB Conc 32.8 g/dl (31.0-35.0); Mean Corpuscular Hemoglobin 26.3 pg (27.0-33.0); Mean Corpuscular Volume 80.2 fL (80.0-98.0); Mean Platelet Volume 10.7 fL (9.4-12.3); Monocytes Absolute Auto 0.4 X10*3/uL (0.1-1.2); Monocytes Percent Auto 6.2 % (2-11); Neutrophils Absolute Auto 3.4 x10*3/uL (2.0-8.3); Neutrophils Percent Auto 59.3 % (45-73); Platelet Count 210 X10*3/uL (160-400); Red Cell Distribution Width 13.2 % (11.0-16.0); White Blood Count 5.8 X10*3/uL (4.8-10.8)
[2023-11-22 09:31] LABS: Alanine Aminotransferase 53 U/L (0-31); Albumin Level 4.3 g/dL (3.5-5.0); Alkaline Phosphatase 60 U/L (39-117); Anion Gap 10 (12-20); Aspartate Amino Transferase 31 U/L (5-31); Bilirubin Direct 0.3 mg/dL (0.0-0.5); Bilirubin Total 0.4 mg/dL (0.0-1.0); Blood Urea Nitrogen 7 mg/dL (9-16); Calcium 9.5 mg/dL (8.4-10.2); Carbon Dioxide 27 mmol/L (22-29); Chloride 108 mmol/L (96-108); Creatinine Clr Calc Pharmacy 113.6; Estimated Glomerular Filt Rate > 60; Glucose Random 96 mg/dL (60-115); Lipase 44 U/L (8-78); Potassium 3.8 mmol/L (3.3-5.1); Sodium 141 mmol/L (135-145); Total Protein 7.2 g/dL (6.5-8.0)
--- NOTE | 2023-11-22 10:10 | ED.ABDPAIN ---
HPI - Abdominal Pain General Chief Complaint: Abdominal Pain Stated Complaint: Stomach Pain Time Seen by Provider: 11/22/23 10:08 Source: patient Mode of arrival: ambulatory Limitations: language barrier (Colombian speaking only, spanish interpreter/translator used) History of Present Illness HPI narrative: 37-year-old female who presents emergency department for evaluation of epigastric abdominal pain. She states that she has had the pain on off for approximately 2 months. She states that the pain is gotten more severe and more frequent. She did see her PCP and was started on omeprazole 20 mg once a day, she has been on this medication for 1 month with no relief for symptoms. Patient points to her epigastric area when she is asked to localize the pain. She describes the pain is a intermittent sharp pain which is improved with eating and worse when she is hungry. She states that the pain does travel upper chest to the back of her throat, she does feel like she is having difficulty swallowing secondary to her pain. She denied nausea, vomiting or diarrhea. She has not noticed any dark black stools or bloody stools. Related Data Previous Rx's Medication Instructions Recorded tamsulosin 0.4 mg capsule 0.4 mg PO DAILY #14 caps 10/21/20 pyridoxine (vitamin B6) 100 mg 100 mg PO DAILY 90 days #90 tabs 07/23/21 tablet oxycodone-acetaminophen 5 mg-325 1 tab PO Q6H PRN pain #20 tabs 08/29/23 mg tablet (Percocet) tamsulosin 0.4 mg capsule (Flomax) 0.4 mg PO BEDTIME #10 caps 08/29/23 aluminum hydrox-magnesium carb 254 10 ml PO QID PRN dyspepsia #355 mL 11/22/23 mg-237.5 mg/5 mL oral suspension (Gaviscon Extra Strength) omeprazole 20 mg capsule,delayed 40 mg (2 x 20 mg) PO DAILY 30 days 11/22/23 release #60 caps Allergies Allergy/AdvReac Type Severity Reaction Status Date / Time No Known Allergies Allergy Verified 11/22/23 08:55 [No Known Allergies*] Review of Systems Review of Systems Yes all other systems are reviewed and are negative [facility] Past Medical History [facility] Narrative: Social history: She denies tobacco, alcohol and drug use. Medical History Mild acid reflux Ureteral stone with hydronephrosis Renal stones Symptomatic cholelithiasis Surgical History History of surgery Social History Social History Household Members: Spouse and Family Housing: House Do you presently have visiting nurse or other home services: No Alcohol intake: never Smoked in Last 30 Days: No Use of substances other than those prescribed or required for medical reasons: No Advance Directives: No Advance Directives Information Provided: No service: No Current occupational status: unemployed Physical Exam ED Vital Signs: Vital Signs - 24 hr 11/22/23 08:56 Temperature 98 F Pulse Rate 86 Respiratory Rate 18 Blood Pressure 104/60 Pulse Oximetry 98 Oxygen Delivery Method Room Air BMI result Body Mass Index 26.7 Vital signs were normal Exam: General: Awake, alert in no distress Head: Normocephalic, atraumatic EENT: PERRL, Lids normal, sclera normal, conjunctiva normal, nose normal , ears normal, throat without erythema or exudates Neck: Supple, no adenopathy, no trachea midline or C-spine tenderness Lung: breath sounds symmetric, no wheezing, rales or rhonchi Chest: symmetric movement, nontender Heart: regular rate and rhythm, normal S1, S2 no murmurs or rubs Abdomen: soft, moderate epigastric tenderness, normoactive bowel sounds, no rebound Back: no vertebral tenderness, no CVAT Extremities: no deformities, moves all extremities symmetrically Neuro: Awake, alert, oriented, normal speech, moves all extremities symmetrically Psych: Pleasant, cooperative Medical Decision Making Medical Decision Making MDM Narrative: 37-year-old female with a history of her on omeprazole 20 mg once a day for 1 month who presents emergency department for evaluation of epigastric, chest and throat pain. She states that her pain is beginning progressively worse, pain is worse at night. Vital signs were normal. Exam did reveal epigastric tenderness. Following evaluation was ordered: CBC, CMP, lipase 12:16 My interpretation patient's laboratory evaluation is as follows: CBC was normal. CMP was normal. Lipase was normal. Patient's presentation is consistent with GERD with significant gastritis. Patient's omeprazole was increased from 20 mg to 40 go arms once a day for 1 more month. She was also prescribed extra-strength Gaviscon 10 cc 4 times a day as needed for pain. She was given printed and verbal instructions and discharged home. Differential Diagnosis Differential Diagnoses: The differential diagnosis associated with the presentation includes Differential diagnosis includes was not limited to gastritis, GERD, peptic ulcer disease, anemia, electrolyte abnormalities Admission/Observation Consideration of admission/observation: Escalation of care including admission/observation considered Lab Data MDM Lab Attestation statement: I reviewed the patient's lab results. 11/22/23 09:04 11/22/23 09:04 Labs: Lab Results 11/22/23 11/22/23 Range/Units 09:04 10:29 WBC 5.8 (4.8-10.8) X10*3/uL RBC 4.60 (4.20-5.50) X10*6/uL Hgb 12.1 (12.0-16.0) g/dl Hct 36.9 L (37.0-47.0) % MCV 80.2 (80.0-98.0) fL MCH 26.3 L (27.0-33.0) pg MCHC 32.8 (31.0-35.0) g/dl RDW 13.2 (11.0-16.0) % Plt Count 210 (160-400) X10*3/uL MPV 10.7 (9.4-12.3) fL Immature Gran % (Auto) 0.3 (0.0-0.4) % Neut % (Auto) 59.3 (45-73) % Lymph % (Auto) 31.1 (20-40) % [place] % (Auto) 6.2 (2-11) % Eos % (Auto) 2.6 (0-4) % Baso % (Auto) 0.5 (0-2) % Lymph # (Auto) 1.8 (1.2-4.9) X10*3/uL [place] # (Auto) 0.4 (0.1-1.2) X10*3/uL Eos # (Auto) 0.2 (0.0-0.4) X10*3/uL Baso # (Auto) 0.0 (0.0-0.2) X10*3/uL Abs Immat Gran (auto) 0.02 (0.00-0.03) X10*3/uL Absolute Neuts (auto) 3.4 (2.0-8.3) x10*3/uL Absolute Nucleated RBC 0.000 (0.0-0.012) X10*3/uL Nucleated RBC % (auto) 0.0 (0.0-0.2) /100WBC Sodium 141 (135-145) mmol/L Potassium 3.8 (3.3-5.1) mmol/L Chloride 108 (96-108) mmol/L Carbon Dioxide 27 (22-29) mmol/L Anion Gap 10 L (12-20) BUN 7 L (9-16) mg/dL Creatinine 0.63 (0.5-1.4) mg/dL Estim Creat Clear Calc 113.6 Estimated GFR > 60 Random Glucose 96 (60-115) mg/dL Calcium 9.5 (8.4-10.2) mg/dL Total Bilirubin 0.4 (0.0-1.0) mg/dL Direct Bilirubin 0.3 (0.0-0.5) mg/dL AST 31 (5-31) U/L ALT 53 H (0-31) U/L Alkaline Phosphatase 60 (39-117) U/L Total Protein 7.2 (6.5-8.0) g/dL Albumin 4.3 (3.5-5.0) g/dL Lipase 44 (8-78) U/L Urine Color Yellow Urine Appearance Clear Urine pH 6.0 (5.0-9.0) Ur Specific [place] 1.020 (1.005-1.025) Urine Protein Negative (Neg-Trace) mg/dL Urine Glucose (UA) Negative (Negative) mg/dL Urine Ketones Trace (Negative) mg/dL Urine Blood Moderate (2+) H (Negative) Urine Nitrite Negative (Negative) Ur Leukocyte Esterase Negative (Negative) Urine RBC >20 H (0-2) /HPF Urine WBC 0-5 (0-5) /HPF Ur Squamous Epith Cells 0-2 (0-2) /HPF Urine Bacteria None Seen (None Seen) Hyaline Casts 0-2 (0-2) /LPF Urine Test NEGATIVE (NEGATIVE) Prescription Management I considered prescription management with: Other (H2 blockers, antacids) Discharge Plan Discharge Clinical Impression: Chronic gastroesophageal reflux disease Patient Disposition: Home, Self-Care Instructions: Gastroesophageal Reflux Disease (ED) Additional Instructions: Your blood work was normal. Your exam and presentation is consistent with increased acid in your stomach which is causing inflammation of your stomach and the food tube (esophagus). I am increasing your omeprazole from 20 mg once a day to 40 mg once a day for 1 more month. Take extra-strength Gaviscon 10 mL (2 tsp) 4 times a day as needed for abdominal pain. If your pain is not better in 1 month then you will need to see a arcade attendant, your doctor can refer you to the specialist. Follow-up with your doctor in 2 days. Please return to the emergency department if your symptoms get worse or if you develop any symptoms that are concerning to you. Prescriptions: New omeprazole 20 mg capsule,delayed release(DR/EC) 40 mg PO DAILY 30 Days Qty: 60 0RF Gaviscon Extra Strength 254-237.5 mg/5 mL suspension 10 ml PO QID PRN (Reason: dyspepsia) Qty: 355 0RF No Action tamsulosin 0.4 mg Capsule 0.4 mg PO DAILY Qty: 14 0RF tamsulosin [Flomax] 0.4 mg capsule 0.4 mg PO BEDTIME Qty: 10 0RF oxycodone-acetaminophen [Percocet] 5-325 mg tablet 1 tab PO Q6H PRN (Reason: pain) Qty: 20 0RF Rx Instructions: Partial Fill upon patient request. pyridoxine (vitamin B6) 100 mg tablet 100 mg PO DAILY 90 Days Qty: 90 1RF Interventions: ED Discharge Assessment Last Done: 11/22/23 11:34 Discharge Date/Time: 11/22/23 11:35 Print Language: Colombian
[2023-11-22 10:58] LABS: Appearance Urine Clear; Color Urine Yellow; Glucose Urine UA Negative (Negative); Leukocyte Esterase Urine Negative (Negative); Nitrite Urine Negative (Negative); UMIC TRIGGER UACC YES; Urine Blood Moderate (2+) (Negative); Urine Ketones Trace mg/dL (Negative); Urine Protein Negative (Neg-Trace)
[2023-11-22 11:01] LABS: Bacteria Urine None Seen (None Seen); Hyaline Casts Urine 0-2 /LPF (0-2); RBC Urine >20 /HPF (0-2); Squamous Epithelial Cell Urine 0-2 /HPF (0-2); WBC Urine 0-5 /HPF (0-5)
[2023-11-22 11:02] LABS: UPreg QC Valid YES; Urine Pregnancy NEGATIVE (NEGATIVE)
== END 2023-11-22 11:35 | disposition home or self-care (01) ==
PROVIDERS: Emergency Provider Emergency Medicine Emergency Medical Services; PCP Internal Medicine Geriatric Medicine
DX: K21.9 Gastro-esophageal reflux disease without esophagitis (principal); R10.13 Epigastric pain
CPT/HCPCS: 36415; 80048; 80076; 81001; 81025; 83690; 85025; 99283; 99284

== ENCOUNTER 2023-11-30 | Outpatient (REF) | payer MEDICAID, SELFPAY ==
[2023-12-05 23:49] LABS: HPV mRNA E6/E7 rflx Not Detected (Not Detected)
== END 2023-11-30 00:01 | disposition home or self-care (01) ==
LOC: HO.HHCLNP
PROVIDERS: Visit Provider Advanced Practice Midwife
DX: R87.810 Cervical high risk human papillomavirus (HPV) DNA test positive (principal)
CPT/HCPCS: 87624; 88142

== ENCOUNTER 2023-11-30 09:43 | Outpatient (REF) | payer MEDICAID, SELFPAY | END 2023-11-30 09:44 | disposition home or self-care (01) | LOC: HO.HHCL 09:43 | PROVIDERS: Visit Provider Internal Medicine Geriatric Medicine | DX: R00.0 Tachycardia, unspecified (principal); R00.2 Palpitations | CPT/HCPCS: 36415; 84443 ==

== ENCOUNTER 2024-01-25 12:26 | Outpatient (AMB) | payer MEDICAID, SELFPAY ==
--- NOTE | 2024-01-25 13:13 | MHC.OFFVIS ---
Intake Vital Signs 01/25/24 13:20 Height 5 ft 3 in Weight 144 lb 9.972 oz BMI 25.6 BP 99/70 Blood Pressure Location Lt brachial Position Sitting Pulse 85 Intake Visit Reasons: Gastroesophageal reflux disease (GERD) Intake Note: New patient in office visit today for GERD. CC: Patient c/o heartburn for about a years, epigastric pain, a lot of gas, and trouble swallowing liquids sometimes. Patient seen in the ER in October with GERD. Philosophy And Religion Instructor Required: Yes Philosophy And Religion Instructor Name: [id number] Cassidy Accompanied by: Self / Same As Patient Allergies No Known Allergies [No Known Allergies*] Allergy (Verified 01/25/24 13:25) HPI Gastroesophageal reflux disease (GERD) HPI Details 38-year-old female here for initial evaluation of GERD. She is referred by Ramon Varela of [facility]. PMX Nephrolithiasis GERD Cholelithiasis Tachycardia and hypotension * SURGICAL HISTORY [facility] * ALLERGIES: NKDA * [employer] LABS: Laboratory Tests 11/22/23 11/30/23 09:04 09:46 WBC 5.8 Hgb 12.1 Hct 36.9 L Plt Count 210 Estimated GFR > 60 Total Bilirubin 0.4 Direct Bilirubin 0.3 AST 31 ALT 53 H Alkaline Phosphata se [address] ABDOMEN AND PELVIS 08/29/23 FINDINGS: LUNG BASES: The visualized lung bases are unremarkable. LIVER, GALLBLADDER, AND BILIARY TREE: The noncontrast liver is smooth in contour. No biliary ductal dilatation is present. The gallbladder is surgically absent. PANCREAS: Unremarkable. SPLEEN: Unremarkable. ADRENAL GLANDS: Unremarkable. KIDNEYS AND URETERS: 5 mm calculus impacted in the distal left ureter with mild/moderate hydroureteronephrosis. There are additional bilateral nonobstructing renal calculi including several within the left renal calyces. There is hyperdensity of the medullary pyramids. No right hydronephrosis. No perinephric fluid collection. BLADDER: Underdistended. GASTROINTESTINAL TRACT: No small bowel obstruction. Submucosal fatty infiltration of the right colon. ABDOMINAL WALL: No significant hernia is appreciated. LYMPH NODES: No bulky adenopathy. VASCULAR: Normal caliber abdominal aorta. PELVIC VISCERA: Unremarkable. OSSEOUS STRUCTURES: No destructive bone lesions. CT/CT abdomen pelvis wo IV con IMPRESSION: 5 mm calculus impacted in the distal left ureter with mild/moderate hydroureteronephrosis. Medullary nephrocalcinosis. There are several stones within the left renal calyces. TODAY'S VISIT [place] #Brenda Live The problem started about a year ago, with pain in the epigastrum and a lot of gas. She means gas in the chest. She says that the pain is worse at night and she has odynophagia and dysphagia of both liquids and solids. Sometimes she feels like she chokes. The feeling is mid sternally. The pain is not every day, but 1-2 times a week. She says she has lot weight because of fearing to eat things that will make the pain worse and she has lost about 20 lbs. However, she can not identify any particular food triggers or any relieving/exacerbating factors. She can only say that the pain happens more at night, around 10-12 pm. She is laying down at that time, and her last meal is around 6 pm. No bowels problems. She can not ID any FHX of similar problems. She is currently on omeprazole but it is not helping consistently. No asthma and she is seeing and cardiology for evaluation for tachycardia and hypotension. No ID problems. She is trouble with nausea and vomiting with general anesthesia afterwards and uses a meclizine patch there are no other problems with anesthesia or sedation. No FHX of stomach cancer or esophageal cancer. [facility] Medical History Hydroureteronephrosis Mild acid reflux Ureteral stone with hydronephrosis Surgical History History of cholecystectomy History of tubal ligation History of appendectomy Social History Household Members: Spouse and Family Housing: House Do you presently have visiting nurse or other home services: No Alcohol intake: never service: No Current occupational status: unemployed Review of Systems Const Denies fatigue, Denies fever(s), Denies night sweats, Denies poor appetite and Reports weight loss ENT Reports Normal hearing present, Reports dysphagia, Denies odynophagia, Denies throat swelling and Denies tongue swelling Card Reports chest pain and Reports palpitations Resp Reports no additional complaints GI Details: Denies abdominal pain, Denies melena, Reports bloating, Denies hematochezia, Denies constipation, Denies GI cramping, Reports dysphagia, Denies excessive flatus, Denies early satiety, Reports heartburn, Denies diarrhea, Reports nausea, Denies odynophagia, Denies vomiting and Denies hematemesis Skin/Breast Denies pruritus, Denies lesions, Denies rash and Denies jaundice Neuro Reports Normal hearing present and Denies Abnormal speech present Endo Denies fatigue and Reports palpitations Aller/Immun Denies throat swelling and Denies tongue swelling Physical Exam Vital Signs: Last Vital Signs Pulse 85 01/25/24 13:20 BP 99/70 01/25/24 13:20 BMI result Body Mass Index 25.6 Const General: cooperative, no acute distress, well developed and well groomed Nutritional Appearance: average body habitus and well nourished Orientation/consciousness: oriented to person, oriented to place and oriented to time Limitations: language barrier HEENT Head: Yes normocephalic and Yes atraumatic Eyes General: appearance normal, both eyes and all related structures Pupils: Equal, round and reactive pupils present Neck Neck: Yes normal visual inspection and Yes no lymphadenopathy Thyroid: Thyroid normal Resp Effort & Inspection: normal respiratory effort and able to speak in complete sentences Auscultation: clear to auscultation bilaterally Cardio Rate: regular rate Rhythm: regular rhythm Heart sounds: Normal, physiologic split S2 sound present Peripheral pulses: radial pulses present and posterior tibial pulses present GI Inspection: No distended, No Abdominal panniculus present and Yes striae Palpation (GI): Soft to palpation, nontender, no guarding, not rigid and No hepatosplenomegaly present Percussion: Yes normal to percussion Auscultation: normal bowel sounds Rectal Exam - Female: deferred Abdomen image: 1. surgical scars 2. 3. Skin General skin exam: no rashes or lesions noted, turgor normal, skin not dry, no jaundice, No spider nevi and no striae Rashes: no rashes Nails: normal Neuro General: oriented to person, oriented to place and oriented to time Cranial nerves: Yes Equal, round and reactive pupils present and Yes Normal hearing present Speech: No Abnormal speech present Extrem General: Yes normal to inspection, No clubbing, No cyanosis and No edema Psych Appearance: grossly normal and well kempt Mental Status: mental status grossly normal Speech and movement: Normal speech and movement present Affect: normal affect Attitude: cooperative Thought process: Normal thought process present and not confabulating Thought content: Normal thought content present Insight: Limited insight present (Psych) Judgement: Limited judgement present (Psych) Assessment & Plan Assessment & Plan (1) Dysphagia: Code(s): R13.10 - Dysphagia, unspecified (2) GERD (gastroesophageal reflux disease): Code(s): K21.9 - Gastro-esophageal reflux disease without esophagitis Plan [place] #Brenda Live The problem started about a year ago, with pain in the epigastrum and a lot of gas. She means gas in the chest. She says that the pain is worse at night and she has odynophagia and dysphagia of both liquids and solids. Sometimes she feels like she chokes. The feeling is mid sternally. The pain is not every day, but 1-2 times a week. She says she has lot weight because of fearing to eat things that will make the pain worse and she has lost about 20 lbs. However, she can not identify any particular food triggers or any relieving/exacerbating factors. She can only say that the pain happens more at night, around 10-12 pm. She is laying down at that time, and her last meal is around 6 pm. No bowels problems. She can not ID any FHX of similar problems. She is currently on omeprazole but it is not helping consistently. No asthma and she is seeing and cardiology for evaluation for tachycardia and hypotension. No ID problems. She is trouble with nausea and vomiting with general anesthesia afterwards and uses a meclizine patch there are no other problems with anesthesia or sedation. No FHX of stomach cancer or esophageal cancer. The Orders: Orders FL barium swallow 01/25/24 R13.10 - Dysphagia, unspecified, K21.9 - Gastro-esophageal reflux disease without esophagitis H pylori Ag Stool 01/26/24 R13.10 - Dysphagia, unspecified, K21.9 - Gastro-esophageal reflux disease without esophagitis EGD with Velásquez - GI Use Only 01/25/24 R13.10 - Dysphagia, unspecified, K21.9 - Gastro-esophageal reflux disease without esophagitis Medications: New omeprazole 40 mg PO DAILY 30 caps 3RF 30 days famotidine (Pepcid) 40 mg PO BEDTIME 30 tabs 6RF K21.9 - Gastro-esophageal reflux disease without esophagitis, R13.10 - Dysphagia, unspecified Discontinued omeprazole Discontinued Reason: Doctor's Order 40 mg (2 x 20 mg) PO DAILY 30 days 60 caps 0RF Coding Level of Care Code New Pt Level 3 (61370) Diagnoses Dysphagia R13.10 GERD (gastroesophageal reflux disease) K21.9
[2024-01-25 13:20] VITALS: BP 99/70; PULSE 85; BMI 25.6
== END 2024-01-25 14:09 | disposition home or self-care (01) ==
PROVIDERS: PCP Internal Medicine Geriatric Medicine; Visit Provider Nurse Practitioner
DX: R13.10 Dysphagia, unspecified (principal); K21.9 Gastro-esophageal reflux disease without esophagitis
CPT/HCPCS: 99203

== ENCOUNTER 2024-01-26 12:31 | Outpatient (REF) | payer MEDICAID, SELFPAY | END 2024-01-26 12:32 | disposition home or self-care (01) | LOC: HO.LNP 12:31 | PROVIDERS: PCP Internal Medicine Geriatric Medicine; Visit Provider Nurse Practitioner | DX: R13.10 Dysphagia, unspecified (principal); K21.9 Gastro-esophageal reflux disease without esophagitis; Z90.49 Acquired absence of other specified parts of digestive tract | CPT/HCPCS: 87338; 99212 ==

== ENCOUNTER 2024-03-08 13:15 | Outpatient (AMB) | payer MEDICAID, SELFPAY ==
[2024-03-08 13:19] VITALS: BP 111/71; PULSE 81; BMI 25.9
--- NOTE | 2024-03-08 13:19 | A.OFFVIS_ITS ---
Vital Signs 03/08/24 13:19 Height 5 ft 3 in Weight 146 lb 6.191 oz BMI 25.9 BP 111/71 Blood Pressure Location Rt brachial Position Sitting Pulse 81 Intake Visit Reasons: 6 weeks epi pain, dysphgia Intake Note: Patient returns in follow up of H pylori and epigastric pain. CC: Patient states that she continues to have abdominal pain and dysphagia. She states she feels a lot of gas and has nausea when she gets abdominal pain. 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 She means gas in the chest. She says that the pain is worse at night and she has odynophagia and dysphagia of both liquids and solids. Sometimes she feels like she chokes. The feeling is mid sternally. The pain is not every day, but 1-2 times a week. She says she has lot weight because of fearing to eat things that will make the pain worse and she has lost about 20 lbs. However, she can not identify any particular food triggers or any relieving/exacerbating factors. She can only say that the pain happens more at night, around 10-12 pm. She is laying down at that time, and her last meal is around 6 pm. No bowels problems. She can not ID any FHX of similar problems. She is currently on omeprazole but it is not helping consistently. No asthma and she is seeing and cardiology for evaluation for tachycardia and hypotension. No ID problems. She is trouble with nausea and vomiting with general anesthesia afterwards and uses a meclizine patch there are no other problems with anesthesia or sedation. No FHX of stomach cancer or esophageal cancer. The Orders: Orders FL barium swallow 01/25/24 R13.10 - Dysphagia, unspecified, K21.9 - Gastro- esophageal reflux disease without esophagitis H pylori Ag Stool 01/26/24 R13.10 - Dysphagia, unspecified, K21.9 - Gastro- esophageal reflux disease without esophagitis EGD with Velásquez - GI Use Only 01/25/24 R13.10 - Dysphagia, unspecified, K21.9 - Gastro-esophageal reflux disease without esophagitis Medications: New omeprazole 40 mg PO DAILY 30 caps 3RF 30 days famotidine (Pepcid) 40 mg PO BEDTIME 30 tabs 6RF K21.9 - Gastro-esophageal reflux disease without esophagitis, R13.10 - Dysphagia, unspecified Discontinued omeprazole Discontinued Reason: Doctor's Order 40 mg (2 x 20 mg) PO DAILY 30 days 60 caps 0RF LABS: Laboratory Tests 01/26/24 12:31 Stool H. pylori Ag positive BARIUM SWALLOW 03/23 EGD Scheduled for April BIOPSY TODAY'S VISIT [place] # ortiz Live Txed with Leva/amox and she completed it 3 days ago. She was feeling better for a while but 3 days ago the pain came back. She has not had it since. Her swallowing has improved, she continues on omeprazole 40mg qd and has famotidine qhs if needed. She only has the swallowing problem when she has the above pain. She also completed probiotics. Will keep 06/13 apprt. [facility] Medical History Hydroureteronephrosis Mild acid reflux Ureteral stone with hydronephrosis Surgical History History of cholecystectomy History of tubal ligation History of appendectomy Social History Household Members: Spouse and Family Housing: House Do you presently have visiting nurse or other home services: No Alcohol intake: never service: No Current occupational status: unemployed Review of Systems Const Denies fatigue, Denies fever(s), Denies night sweats, Denies poor appetite and Denies weight loss ENT Reports Normal hearing present, Denies dental pain, Denies dysphagia, Denies hearing loss, Denies mouth pain, Denies odynophagia, Denies throat swelling, Denies tongue swelling and Reports other (Dentition adequate) Card Reports no additional complaints Resp Reports no additional complaints GI Details: Denies abdominal pain, Denies melena, Denies bloating, Denies hematochezia, Den ies constipation, Denies GI cramping, Denies dysphagia, Denies excessive flatus, Denies early satiety, Reports dyspepsia, Reports heartburn, Denies diarrhea, Denies nausea, Denies odynophagia, Denies vomiting and Denies hematemesis Skin/Breast Denies pruritus, Denies lesions, Denies rash and Denies jaundice Neuro Reports Normal hearing present and Denies Abnormal speech present Endo Denies fatigue Aller/Immun Denies throat swelling and Denies tongue swelling Physical Exam Vital Signs: Last Vital Signs Pulse 81 03/08/24 13:19 BP 111/71 03/08/24 13:19 BMI result Body Mass Index 25.9 Const General: cooperative, no acute distress, well developed and well groomed Nutritional Appearance: average body habitus and well nourished Orientation/consciousness: oriented to person, oriented to place and oriented to time Limitations: language barrier HEENT Head: Yes normocephalic and Yes atraumatic Eyes General: appearance normal, both eyes and all related structures Pupils: Equal, round and reactive pupils present Neck Neck: Yes normal visual inspection and Yes no lymphadenopathy Thyroid: Thyroid normal Resp Effort & Inspection: normal respiratory effort and able to speak in complete sentences Auscultation: clear to auscultation bilaterally Cardio Rate: regular rate Rhythm: regular rhythm Heart sounds: Normal, physiologic split S2 sound present Peripheral pulses: radial pulses present and posterior tibial pulses present GI Inspection: No distended and No Abdominal panniculus present Palpation (GI): Soft to palpation, nontender, no guarding, not rigid and No hepatosplenomegaly present Percussion: Yes normal to percussion Auscultation: normal bowel sounds Rectal Exam - Female: deferred Skin General skin exam: no rashes or lesions noted, turgor normal, skin not dry, no jaundice, No spider nevi and no striae Rashes: no rashes Nails: normal Neuro General: oriented to person, oriented to place and oriented to time Cranial nerves: Yes Equal, round and reactive pupils present and Yes Normal hearing present Speech: No Abnormal speech present Extrem General: Yes normal to inspection, No clubbing, No cyanosis and No edema Psych Appearance: grossly normal and well kempt Mental Status: mental status grossly normal Speech and movement: Normal speech and movement present Affect: normal affect Attitude: cooperative Thought process: Normal thought process present and not confabulating Thought content: Normal thought content present Insight: Limited insight present (Psych) Judgement: Limited judgement present (Psych) Assessment & Plan Assessment & Plan (1) H. pylori duodenitis: Code(s): K29.80 - Duodenitis without bleeding; B96.81 - Helicobacter pylori [H. pylori] as the cause of diseases classified elsewhere Category: Medical (2) Dysphagia: Code(s): R13.10 - Dysphagia, unspecified Category: Medical (3) GERD (gastroesophageal reflux disease): Code(s): K21.9 - Gastro-esophageal reflux disease without esophagitis Category: Medical Plan [place] # ortiz Live Txed with Leva/amox and she completed it 3 days ago. She was feeling better for a while but 3 days ago the pain came back. She has not had it since. Her swallowing has improved, she continues on omeprazole 40mg qd and has famotidine qhs if needed. She only has the swallowing problem when she has the above pain. She also completed probiotics. Will keep 06/13 apprt. BARIUM SWALLOW 03/23 EGD Scheduled for April BIOPSY Coding Level of Care Code Est Pt Level 3 (00310) Diagnoses H. pylori duodenitis K29.80; B96.81 Dysphagia R13.10 GERD (gastroesophageal reflux disease) K21.9
== END 2024-03-08 13:36 | disposition home or self-care (01) ==
PROVIDERS: PCP Internal Medicine Geriatric Medicine; Visit Provider Nurse Practitioner
DX: K29.80 Duodenitis without bleeding (principal); B96.81 Helicobacter pylori [H. pylori] as the cause of diseases classified elsewhere; R13.10 Dysphagia, unspecified; K21.9 Gastro-esophageal reflux disease without esophagitis
CPT/HCPCS: 99213

== ENCOUNTER → 2024-03-08 13:15 | Outpatient (BNVA) | payer MEDICAID, SELFPAY | PROVIDERS: PCP Internal Medicine Geriatric Medicine; Visit Provider Nurse Practitioner | DX: K29.80 Duodenitis without bleeding (principal); K21.9 Gastro-esophageal reflux disease without esophagitis; B96.81 Helicobacter pylori [H. pylori] as the cause of diseases classified elsewhere; R13.10 Dysphagia, unspecified | CPT/HCPCS: 99212 ==

== ENCOUNTER 2024-03-23 08:45 | Outpatient (REF) | payer MEDICAID, SELFPAY ==
--- NOTE | ~2024-03-23 | FL_ITS ---
EXAMINATION: XR FLUOROSCOPY UPPER GI WITH AIR CLINICAL INFORMATION: Dysphagia COMPARISON: None TECHNIQUE: Fluoroscopic air contrast upper GI examination was performed utilizing standard techniques with thin and thick barium and effervescent granules. Numerous spot images were obtained. FINDINGS: Lateral cine images of the oropharynx and hypopharynx demonstrate normal swallow mechanism with normal epiglottic inversion and soft palate elevation. No tracheal penetration, glottic or subglottic aspiration identified. No nasopharyngeal reflux present. Hypopharyngeal structures appear normal without evidence of mass or diverticulum. There was no significant cricopharyngeal achalasia. Dual and single contrast images of the esophagus demonstrate normal caliber, contour, and mucosal pattern. No evidence of stricture, mass, or ulcerations identified. Esophageal peristalsis is mildly disorganized. Surgical clips are present in the right upper quadrant. No evidence of hiatus hernia identified. No significant gastroesophageal reflux was seen during the course of the examination and on reflux views. Dual contrast and single contrast images of the stomach demonstrated a normal contour. Evaluation of the gastric mucosa is limited due to lack of distention from poor tolerance of the effervescent granules. No obvious masses or ulcerations are seen. Contrast freely passed into the gastric antrum and duodenal bulb without delay. Single and air-contrast images of the duodenal bulb demonstrate no abnormality. The duodenal sweep has a normal appearance, course, and mucosal fold appearance. The imaged proximal jejunum has a normal fold pattern and caliber. FLUOROSCOPY TIME: 2 minutes 57 seconds Number of Spot Images: 3 Number of Cine: 12 DOSE AREA PRODUCT: 1428 uGy-m2 (microgray-meter squared) FL/FL barium swallow IMPRESSION: 1. Mildly disorganized esophageal peristalsis 2. Limited evaluation of the gastric mucosa due to lack of distention from poor tolerance of the effervescent granules. No obvious masses or ulcerations are seen. 3. Status post cholecystectomy This procedure was performed by Dimitris Yanes PA-C, and supervised by Dr. Hutchins
== END 2024-03-23 08:46 | disposition home or self-care (01) ==
LOC: HO.XRAY 08:45
PROVIDERS: PCP Internal Medicine Geriatric Medicine; Visit Provider Nurse Practitioner
DX: R13.10 Dysphagia, unspecified (principal); K21.9 Gastro-esophageal reflux disease without esophagitis
CPT/HCPCS: 74220

== ENCOUNTER → 2024-03-23 08:47 | Outpatient (BNV) | payer MEDICAID, SELFPAY | PROVIDERS: PCP Internal Medicine Geriatric Medicine; Visit Provider Physician Assistant Surgical | DX: R13.10 Dysphagia, unspecified (principal) | CPT/HCPCS: 74246 ==

== ENCOUNTER 2024-03-30 09:22 | Outpatient (AMB) | payer MEDICAID, SELFPAY ==
--- NOTE | 2024-03-30 09:27 | A.OFFVIS_ITS ---
Intake Visit Reasons: follow up/US (seen last 2021)Confirmed Intake Note: Patient is Present for Follow Up Urology Medication: None Antibiotic Allergies:None Blood Thinners: None Administrative Court Justice Required: Yes Administrative Court Justice Language: New Zealander Information Interpreted: clinical only Allergies No Known Allergies [No Known Allergies*] Allergy (Verified 03/30/24 09:28) HPI Comments Details: Cami is a pleasant [place] Zealander-speaking female. She is a patient of Dr. Varela. She is seen for the following urologic conditions - nephrolithiasis Stone procedure September 2020 right ureteroscopy New [place]alander translation provided in office by qualified medical reception specialist Last seen in 2021 Failed to f/u 11/23 renal ultrasound Medullary sponge kidney Recommendation for hyper filtration with B12 Nephrolithiasis They are here for - further evaluation of nephrolithiasis They present for evaluation of - back pain none - flank pain none - abdominal pain none Urolithiasis was diagnosed - a number of years ago The patient previously had kidney stones whose composition w - 10/19 calcium oxalate monohydrate 80% Laboratory investigations include - no recent labs 24 Hour urine evaluation - none on file Prior treatment(s) include - September 2020 right ureteroscopy laser lithotripsy Prior imaging includes - a CT - stone protocol 10/19 - for distal right ureter stones with hydroureteronephrosis - 01/18 renal ultrasound left small stones Current therapeutic plan will be - 24 hour urine analysis PFSH Medical History Hydroureteronephrosis Mild acid reflux Ureteral stone with hydronephrosis Surgical History History of cholecystectomy History of tubal ligation History of appendectomy Social History Household Members: Spouse and Family Housing: House Do you presently have visiting nurse or other home services: No Alcohol intake: never service: No Current occupational status: unemployed Review of Systems Const Denies chills and Denies fever(s) Card Reports no additional complaints and Denies syncope Resp Denies cough GI Denies abdominal pain and Denies heartburn Reports as per HPI and Denies change in libido Neuro Denies syncope Psych Denies change in libido Endo Denies change in libido Physical Exam Const General: cooperative, healthy appearing, comfortable and no acute distress Orientation/consciousness: patient oriented x3 HEENT Face and sinus: Yes normal facial exam Mouth: moist mucous membranes Neck Neck: Yes normal visual inspection, Yes full ROM and Yes trachea midline Chest Chest palpation & inspection: normal inspection of the chest Resp Effort & Inspection: normal respiratory effort, able to speak in complete sentences and no respiratory distress GI Inspection: Yes normal to inspection Back/Spine/Pelvis Cervical Spine: normal cervical lordosis Thoracic/Lumbar Spine: thoracic and lumbar spine normal to inspection Skin General skin exam: no rashes or lesions noted Neuro General: patient oriented x3, gait normal, tone normal and moves all extremities Extrem General: Yes normal to inspection and Yes capillary refill normal Assessment & Plan Assessment & Plan (1) Nephrolithiasis: Comment: September 2020 laser lithotripsy - mixed calcium oxalate stone 80% monohydrate Code(s): N20.0 - Calculus of kidney Category: Medical Plan Twelve month follow-up ultrasound Orders: Orders US renal BI 12 Months N20.0 - Calculus of kidney Medications: New pyridoxine (vitamin B6) 50 mg PO DAILY 90 tabs 3RF 90 days N20.0 - Calculus of kidney Patient Instructions: Imaging studies, laboratory and physical exam results were discussed and reviewed in detail. No major barriers to patient understanding were identified. An opportunity to ask questions regarding the treatment plan was provided. All questions were answered. The patient expressed understanding and agreement with the above treatment plan. The patient is aware they should contact our office by phone for worsening of their current condition or the appearance of new urologic symptoms. Compliance is encouraged with any medications and followup testing that is ordered. It is a privilege to participate in the urologic care of your patient. If you have any questions or concerns regarding treatment for the above conditions, or other urologic issues, please do not hesitate to contact me. The office telephone contact is [phone]. This note is constructed using voice recognition software. While every effort has been made to ensure accuracy handbag frames inspector errors may have been included. Yours sincerely, Dr Hermes Brown MD, [facility] - Urology Providers of Expert, Compassionate Care for the Genitourinary System Coding Level of Care Code Est Pt Level 4 (77200) Diagnoses Nephrolithiasis N20.0
== END 2024-03-30 10:14 | disposition home or self-care (01) ==
PROVIDERS: PCP Internal Medicine Geriatric Medicine; Visit Provider Urology
DX: N20.0 Calculus of kidney (principal)
CPT/HCPCS: 99213

== ENCOUNTER → 2024-03-30 09:22 | Outpatient (BNVA) | payer MEDICAID, SELFPAY | PROVIDERS: PCP Internal Medicine Geriatric Medicine; Visit Provider Urology | DX: N20.0 Calculus of kidney (principal) | CPT/HCPCS: 99212 ==

== ENCOUNTER 2024-05-28 10:53 | Day surgery (SDC) | payer MEDICAID, SELFPAY ==
[2024-05-24 12:01] VITALS: BMI 25.9
--- NOTE | 2024-05-25 09:57 | P.CONAN_ITS ---
Documented by User: Monica Bui NP 05/25/24 09:57 HPI - Anesthesia Eval Consult details Narrative: 38yo F for Upper Endoscopy [facility] Active Problems Active Problems: All Active Problems H. pylori duodenitis (Acute) Dysphagia (Acute) GERD (gastroesophageal reflux disease) (Acute) Nephrolithiasis (Acute) Past Medical History Medical History Hydroureteronephrosis Mild acid reflux Ureteral stone with hydronephrosis Surgical History Surgical History History of cholecystectomy History of tubal ligation History of appendectomy Social History Social History Household Members: Spouse and Family Housing: House Do you presently have visiting nurse or other home services: No Alcohol intake: never Patient Tobacco Use Status: Never used Tobacco Are you DNR?: No Advance Directives: No Advance Directives Information Provided: Yes Nutrition Risks: No Nutritional Risk FDLMP: 05/15/24 service: No Current occupational status: unemployed Meds Allergies Allergy/AdvReac Type Severity Reaction Status Date / Time No Known Allergies Allergy Verified 05/28/24 12:53 [No Known Allergies*] Home Medications ?Medication ?Instructions ?Recorded ?Confirmed ?Last Taken ?Type cholecalciferol (vitamin D3) 25 25 mcg PO QAM 01/25/24 05/28/24 Unknown History mcg (1,000 unit) capsule (Vitamin D3) omeprazole 20 mg capsule,delayed 20 mg PO QAM 03/30/24 05/28/24 05/28/24 History release Exam Height,Weight and Vital Signs: Height 5 ft 3 in Weight 66.224 kg Assessment and Plan Assessment Anesthesia Assessment: Chart Reviewed Documented by User: Pauly Alonzo MD 05/28/24 13:02 [facility] Past Medical History Medical History Hydroureteronephrosis Mild acid reflux Ureteral stone with hydronephrosis Surgical History Surgical History History of cholecystectomy History of tubal ligation History of appendectomy History of Problems with Anesthesia: No Social History Social History Household Members: Spouse and Family Housing: House Do you presently have visiting nurse or other home services: No Alcohol intake: never Patient Tobacco Use Status: Never used Tobacco Are you DNR?: No Advance Directives: No Advance Directives Information Provided: Yes Nutrition Risks: No Nutritional Risk FDLMP: 05/15/24 service: No Current occupational status: unemployed Meds Allergies Allergy/AdvReac Type Severity Reaction Status Date / Time No Known Allergies Allergy Verified 05/28/24 12:53 [No Known Allergies*] Home Medications ?Medication ?Instructions ?Recorded ?Confirmed ?Last Taken ?Type cholecalciferol (vitamin D3) 25 25 mcg PO QAM 01/25/24 05/28/24 Unknown History mcg (1,000 unit) capsule (Vitamin D3) omeprazole 20 mg capsule,delayed 20 mg PO QAM 03/30/24 05/28/24 05/28/24 History release Exam Airway Mallampati Class: II TM Dist: >3cm Neck ROM: Full Loose/Missing/Broken Teeth: No Heart: RRR Lungs: CTA Assessment and Plan Assessment Anesthesia Assessment: Anesthesia Plan Discussed Final Anesthetic Review History of Problems with Anesthesia: No NPO: Yes ASA Class: II Final Preanesthetic Review: Meds/Allgs Chart Reviewed, Consent Obtained/Reviewed and Anes Risks/Benef Reviewed Patient Risk: Low Procedure Risk: Intermediate Anesthetic Plan Anesthetic Plan: MAC: Disposition: Standard PACU
[2024-05-28 11:18] VITALS: BMI 25.3
[2024-05-28] MEDS: Lactated Ringers 1,000 ML 100 ML IVCONT (11:24)
--- NOTE | 2024-05-28 12:06 | MHC.SHP ---
Pre-Procedural Eval Section A - 24 Hr Update-Section A only Date of Service: 05/28/24 The patient is an INPATIENT: No The patient has been examined within 24 hours of the surgical procedure. The History & Physical has been completed within 30 days and I have reviewed it.: No Section B - Complete if H&P > 30 days Chief Complaint: Epigastric pain, dysphagia, GERD Relevant Family History (Specify if Yes): No Relevant Social History: None Present Medications: see Short Stay Collaborative assessment Medical History: Significant History (Hydroureteronephrosis Mild acid reflux Ureteral stone with hydronephrosis) History of Previous Operations: Relevant previous surgery/procedure and date(s) (History of cholecystectomy History of tubal ligation History of appendectomy) Allergies: Allergies Allergy/AdvReac Type Severity Reaction Status Date / Time No Known Allergies Allergy Verified 03/30/24 09:28 [No Known Allergies*] Review of Systems Sugical H&P ROS: Negative: Constitution, Cardiovascular, Respiratory and Gastrointestinal Exam Surgical H&P Exam: Normal: Heart, Normal: Lungs, Normal: Extremities and Normal: Abdomen Plan Diagnosis/Plan: Unchanged I have reviewed the history and physical and performed a pertinent physical examination on my patient. No changes have occurred unless specified. Time Spent With Patient Time: Total time managing care of this patient today ____ minutes.
[2024-05-28 13:28] VITALS: BP 85/40; PULSE 75; RESP 18; TEMP 36.3; O2SAT 100
--- NOTE | 2024-05-28 13:28 | W.PM.OPN ---
Operative Note Operative Note Date of Service: 05/28/24 Narrative: FLEXIBLE TRANSORAL UPPER GASTROINTESTINAL ENDOSCOPY WITH BIOPSIES AND ESOPHAGEAL BALLOON DILATION Pre-op diagnosis: Epigastric pain, Dysphagia Post-op diagnosis: Dysphagia, Gastritis, Endoscopist:? Gregg Liang MD Anesthesia:?MAC UPPER ENDOSCOPY Consent: Indications for the procedure and potential complications of bleeding, perforation, reaction to medications and missed diagnosis were discussed with the patient and informed consent was obtained. Instrument: Olympus GIF H 190 mid size upper endoscope Monitoring: Vital signs and clinical assessment, continuous EKG monitoring, Pulse oximetry, Carbon Dioxide monitoring and blood pressure monitoring were done throughout the procedure. Procedure: The patient was placed in the left lateral decubitis position and pre-procedure medications were administered and a bite block was placed. The endoscope was inserted into the mouth and advanced under direct vision to the third part of duodenum. A careful inspection was made as the upper endoscope was withdrawn including a retroflexed examination of the proximal stomach; Findings and interventions are described below. Findings: Larynx: Normal Esophagus: GE junction at 35 cms. Mildly tortuous esophagus without stricture or ring. Biopsies were obtained from proximal esophagus to check for EOE Empiric balloon dilation was performed with a 20 mm (60 F) CRE balloon x 60 seconds Stomach: Minimal gastric antral erythema - biopsies were obtained from the antrum. Grade 1 flap valve on retroflexed examination of the cardia. Duodenum: Normal bulb and descending duodenum. Biopsies were obtained from 3rd part of the duodenum to check for celiac sprue Intervention: Biopsies and esophageal balloon dilation as noted above Impression and Post Procedure Diagnosis: Endoscopy Findings: ESOPHAGUS: GE junction at 35 cms. Mildly tortuous esophagus empiric dilation was performed. Dysphagia is likely due to esophageal motility disorder as noted on recent barium swallow STOMACH: Nodular appearing mucosa in the gastric body and fundus - biopsied. Moderate diffuse gastric erythema - biopsies were obtained from the antrum. Plan: Pt has a FU appointment on 06/13/24 with Anabell Hernandez NP Above findings were reviewed with the patient and relevant handouts were given and the discharge area. BIOPSIES SHOWED: Immunostain for H. pylori on B is negative. Control stains appropriately. A. Small bowel, biopsy: Small bowel mucosa with preserved villi and no specific change; no evidence of celiac disease. B. Gastric antrum, biopsy: Gastric antral mucosa with minimal chronic gastritis with few focal neutrophils; negative for intestinal metaplasia and dysplasia. C. Esophagus, proximal, biopsy: Squamous mucosa with no specific change; no columnar mucosa present; no evidence of eosinophilic esophagitis
[2024-05-28 13:33] VITALS: BP 90/47; PULSE 74; RESP 14; O2SAT 100
[2024-05-28 13:38] VITALS: BP 107/69; PULSE 65; RESP 14; O2SAT 100
[2024-05-28 13:43] VITALS: BP 106/70; PULSE 69; RESP 16; O2SAT 100
[2024-05-28 13:58] VITALS: BP 109/70; PULSE 69; RESP 14; TEMP 36.3; O2SAT 100
== END 2024-05-28 14:34 | disposition home or self-care (01) ==
PROVIDERS: PCP Internal Medicine Geriatric Medicine; Visit Provider Internal Medicine Gastroenterology
PROC: 0DJ08ZZ Inspection of Upper Intestinal Tract, Via Natural or Artificial Opening Endoscopic (ICD-10-PCS; CPT 43235; principal; 2024-05-28 12:40)
DX: R13.10 Dysphagia, unspecified (principal); K21.9 Gastro-esophageal reflux disease without esophagitis; K22.89 Other specified disease of esophagus; K29.50 Unspecified chronic gastritis without bleeding; Z79.899 Other long term (current) drug therapy; Z90.49 Acquired absence of other specified parts of digestive tract; Z56.0 Unemployment, unspecified
CPT/HCPCS: 43249; 43239; 88305; 88342; C1726; J2704

== ENCOUNTER → 2024-05-28 10:53 | Outpatient (BNV) | payer MEDICAID, SELFPAY | PROVIDERS: PCP Internal Medicine Geriatric Medicine; Visit Provider Internal Medicine Gastroenterology | DX: R13.10 Dysphagia, unspecified (principal); K29.70 Gastritis, unspecified, without bleeding | CPT/HCPCS: 43239; 43249 ==

== ENCOUNTER 2024-06-13 09:34 | Outpatient (AMB) | payer MEDICAID, SELFPAY ==
--- NOTE | 2024-06-13 09:51 | MHC.OFFVIS ---
Vital Signs 06/13/24 10:00 Height 5 ft 3 in Weight 138 lb BMI 24.4 BP 96/66 Blood Pressure Location Lt brachial Position Sitting Pulse 76 Intake Visit Reasons: s/p egd Intake Note: Patient is seen in office for post op assessment post EGD. Pt c/o: no concerns or changes Business Support Liaison Required: No Accompanied by: Self / Same As Patient Allergies No Known Allergies [No Known Allergies*] Allergy (Verified 05/28/24 12:53) HPI HPI s/p egd: Details: Assessment & Plan (1) H. pylori duodenitis: Code(s): K29.80 - Duodenitis without bleeding; B96.81 - Helicobacter pylori [H. pylori] as the cause of diseases classified elsewhere Category: Medical (2) Dysphagia: Code(s): R13.10 - Dysphagia, unspecified Category: Medical (3) GERD (gastroesophageal reflux disease): Code(s): K21.9 - Gastro-esophageal reflux disease without esophagitis Category: Medical Plan [place] alcantar Live Txed with Leva/amox and she completed it 3 days ago. She was feeling better for a while but 3 days ago the pain came back. She has not had it since. Her swallowing has improved, she continues on omeprazole 40mg qd and has famotidine qhs if needed. She only has the swallowing problem when she has the above pain. She also completed probiotics. Will keep 06/13 apprt. BARIUM SWALLOW 04/02/24 FINDINGS: Lateral cine images of the oropharynx and hypopharynx demonstrate normal swallow mechanism with normal epiglottic inversion and soft palate elevation. No tracheal penetration, glottic or subglottic aspiration identified. No nasopharyngeal reflux present. Hypopharyngeal structures appear normal without evidence of mass or diverticulum. There was no significant cricopharyngeal achalasia. Dual and single contrast images of the esophagus demonstrate normal caliber, contour, and mucosal pattern. No evidence of stricture, mass, or ulcerations identified. Esophageal peristalsis is mildly disorganized. Surgical clips are present in the right upper quadrant. No evidence of hiatus hernia identified. No significant gastroesophageal reflux was seen during the course of the examination and on reflux views. Dual contrast and single contrast images of the stomach demonstrated a normal contour. Evaluation of the gastric mucosa is limited due to lack of distention from poor tolerance of the effervescent granules. No obvious masses or ulcerations are seen. Contrast freely passed into the gastric antrum and duodenal bulb without delay. Single and air-contrast images of the duodenal bulb demonstrate no abnormality. The duodenal sweep has a normal appearance, course, and mucosal fold appearance. The imaged proximal jejunum has a normal fold pattern and caliber. FLUOROSCOPY TIME: 2 minutes 57 seconds Number of Spot Images: 3 Number of Cine: 12 DOSE AREA PRODUCT: 1428 uGy-m2 (microgray-meter squared) FL/FL barium swallow IMPRESSION: 1. Mildly disorganized esophageal peristalsis 2. Limited evaluation of the gastric mucosa due to lack of distention from poor tolerance of the effervescent granules. No obvious masses or ulcerations are seen. 3. Status post cholecystectomy EGD 06/01/24 Findings: Larynx: Normal Esophagus: GE junction at 35 cms. Mildly tortuous esophagus without stricture or ring. Biopsies were obtained from proximal esophagus to check for EOE Empiric balloon dilation was performed with a 20 mm (60 F) CRE balloon x 60 seconds Stomach: Minimal gastric antral erythema - biopsies were obtained from the antrum. Grade 1 flap valve on retroflexed examination of the cardia. Duodenum: Normal bulb and descending duodenum. Biopsies were obtained from 3rd part of the duodenum to check for celiac sprue Intervention: Biopsies and esophageal balloon dilation as noted above Impression and Post Procedure Diagnosis: Endoscopy Findings: ESOPHAGUS: GE junction at 35 cms. Mildly tortuous esophagus empiric dilation was performed. Dysphagia is likely due to esophageal motility disorder as noted on recent barium swallow STOMACH: Nodular appearing mucosa in the gastric body and fundus - biopsied. Moderate diffuse gastric erythema - biopsies were obtained from the antrum. Plan: Pt has a FU appointment on 06/13/24 with Anabell Hernandez NP Above findings were reviewed with the patient and relevant handouts were given and the discharge area. BIOPSIES SHOWED: Immunostain for H. pylori on B is negative. Control stains appropriately. A. Small bowel, biopsy: Small bowel mucosa with preserved villi and no specific change; no evidence of celiac disease. B. Gastric antrum, biopsy: Gastric antral mucosa with minimal chronic gastritis with few focal neutrophils; negative for intestinal metaplasia and dysplasia. C. Esophagus, proximal, biopsy: Squamous mucosa with no specific change; no columnar mucosa present; no evidence of eosinophilic esophagitis TODAY'S VISIT She tolerated the procedure well. He swallowing remains ?normal.? She is quite happy with this. She only had 1 episode of the pain midsternally and I believe this is related to esophageal spasm. I have asked her next time to really think about what she has eaten or what she was doing to see if we can figure out what drives the spasm. I do not want to start dicyclomine unless we have to to simplify her medication regimen. She continues on omeprazole 40 mg in the morning and famotidine 40 mg at night. I want to continue this strategy since it has significantly decreased her symptoms and it may be that the acid splashing as a gastroesophageal junction is what was driving spasm. Return office visit in 6 months. [facility] Medical History Hydroureteronephrosis Mild acid reflux Ureteral stone with hydronephrosis Surgical History History of cholecystectomy History of tubal ligation History of appendectomy Social History Household Members: Spouse and Family Housing: House Do you presently have visiting nurse or other home services: No Alcohol intake: never Patient Tobacco Use Status: Never used Tobacco service: No Current occupational status: unemployed Review of Systems Const Denies fatigue, Denies fever(s), Denies night sweats, Denies poor appetite and Denies weight loss ENT Reports Normal hearing present, Denies dental pain, Denies dysphagia, Denies hearing loss, Denies mouth pain, Denies odynophagia, Denies throat swelling, Denies tongue swelling and Reports other (Dentition adequate) Card Reports chest pain Resp Reports no additional complaints GI Details: Denies abdominal pain, Denies melena, Denies bloating, Denies hematochezia, Denies constipation, Denies GI cramping, Denies dysphagia, Denies excessive flatus, Denies early satiety, Reports heartburn, Denies diarrhea, Denies nausea, Denies odynophagia, Denies vomiting and Denies hematemesis Skin/Breast Denies pruritus, Denies lesions, Denies rash and Denies jaundice Neuro Reports Normal hearing present and Denies Abnormal speech present Endo Denies fatigue Aller/Immun Denies throat swelling and Denies tongue swelling Physical Exam Vital Signs: Last Vital Signs Pulse 76 06/13/24 10:00 BP 96/66 06/13/24 10:00 BMI result Body Mass Index 24.4 Const General: cooperative, no acute distress, well developed and well groomed Nutritional Appearance: average body habitus and well nourished Orientation/consciousness: oriented to person, oriented to place and oriented to time Limitations: language barrier HEENT Head: Yes normocephalic and Yes atraumatic Eyes General: appearance normal, both eyes and all related structures Pupils: Equal, round and reactive pupils present Neck Neck: Yes normal visual inspection and Yes no lymphadenopathy Thyroid: Thyroid normal Resp Effort & Inspection: normal respiratory effort and able to speak in complete sentences Auscultation: clear to auscultation bilaterally Cardio Rate: regular rate Rhythm: regular rhythm Heart sounds: Normal, physiologic split S2 sound present Peripheral pulses: radial pulses present and posterior tibial pulses present GI Inspection: No distended and No Abdominal panniculus present Palpation (GI): Soft to palpation, nontender, no guarding, not rigid and No hepatosplenomegaly present Percussion: Yes normal to percussion Auscultation: normal bowel sounds Rectal Exam - Female: deferred Skin General skin exam: no rashes or lesions noted, turgor normal, skin not dry, no jaundice, No spider nevi and no striae Rashes: no rashes Nails: normal Neuro General: oriented to person, oriented to place and oriented to time Cranial nerves: Yes Equal, round and reactive pupils present and Yes Normal hearing present Speech: No Abnormal speech present Extrem General: Yes normal to inspection, No clubbing, No cyanosis and No edema Psych Appearance: grossly normal and well kempt Mental Status: mental status grossly normal Speech and movement: Normal speech and movement present Affect: normal affect Attitude: cooperative Thought process: Normal thought process present and not confabulating Thought content: Normal thought content present Insight: Fair insight present (Psych) Judgement: Fair judgement present (Psych) Results Reviewed Results Reviewed: BARIUM SWALLOW 04/02/24 FINDINGS: Lateral cine images of the oropharynx and hypopharynx demonstrate normal swallow mechanism with normal epiglottic inversion and soft palate elevation. No tracheal penetration, glottic or subglottic aspiration identified. No nasopharyngeal reflux present. Hypopharyngeal structures appear normal without evidence of mass or diverticulum. There was no significant cricopharyngeal achalasia. Dual and single contrast images of the esophagus demonstrate normal caliber, contour, and mucosal pattern. No evidence of stricture, mass, or ulcerations identified. Esophageal peristalsis is mildly disorganized. Surgical clips are present in the right upper quadrant. No evidence of hiatus hernia identified. No significant gastroesophageal reflux was seen during the course of the examination and on reflux views. Dual contrast and single contrast images of the stomach demonstrated a normal contour. Evaluation of the gastric mucosa is limited due to lack of distention from poor tolerance of the effervescent granules. No obvious masses or ulcerations are seen. Contrast freely passed into the gastric antrum and duodenal bulb without delay. Single and air-contrast images of the duodenal bulb demonstrate no abnormality. The duodenal sweep has a normal appearance, course, and mucosal fold appearance. The imaged proximal jejunum has a normal fold pattern and caliber. FLUOROSCOPY TIME: 2 minutes 57 seconds Number of Spot Images: 3 Number of Cine: 12 DOSE AREA PRODUCT: 1428 uGy-m2 (microgray-meter squared) FL/FL barium swallow IMPRESSION: 1. Mildly disorganized esophageal peristalsis 2. Limited evaluation of the gastric mucosa due to lack of distention from poor tolerance of the effervescent granules. No obvious masses or ulcerations are seen. 3. Status post cholecystectomy EGD 06/01/24 Findings: Larynx: Normal Esophagus: GE junction at 35 cms. Mildly tortuous esophagus without stricture or ring. Biopsies were obtained from proximal esophagus to check for EOE Empiric balloon dilation was performed with a 20 mm (60 F) CRE balloon x 60 seconds Stomach: Minimal gastric antral erythema - biopsies were obtained from the antrum. Grade 1 flap valve on retroflexed examination of the cardia. Duodenum: Normal bulb and descending duodenum. Biopsies were obtained from 3rd part of the duodenum to check for celiac sprue Intervention: Biopsies and esophageal balloon dilation as noted above Impression and Post Procedure Diagnosis: Endoscopy Findings: ESOPHAGUS: GE junction at 35 cms. Mildly tortuous esophagus empiric dilation was performed. Dysphagia is likely due to esophageal motility disorder as noted on recent barium swallow STOMACH: Nodular appearing mucosa in the gastric body and fundus - biopsied. Moderate diffuse gastric erythema - biopsies were obtained from the antrum. Plan: Pt has a FU appointment on 06/13/24 with Anabell Hernandez NP Above findings were reviewed with the patient and relevant handouts were given and the discharge area. BIOPSIES SHOWED: Immunostain for H. pylori on B is negative. Control stains appropriately. A. Small bowel, biopsy: Small bowel mucosa with preserved villi and no specific change; no evidence of celiac disease. B. Gastric antrum, biopsy: Gastric antral mucosa with minimal chronic gastritis with few focal neutrophils; negative for intestinal metaplasia and dysplasia. C. Esophagus, proximal, biopsy: Squamous mucosa with no specific change; no columnar mucosa present; no evidence of eosinophilic esophagitis Assessment & Plan Assessment & Plan (1) GERD (gastroesophageal reflux disease): Code(s): K21.9 - Gastro-esophageal reflux disease without esophagitis Category: Medical (2) Dysphagia: Code(s): R13.10 - Dysphagia, unspecified Category: Medical (3) H. pylori duodenitis: Comment: Eradicated as per GI biopsy from EGD 04/2024 Code(s): K29.80 - Duodenitis without bleeding; B96.81 - Helicobacter pylori [H. pylori] as the cause of diseases classified elsewhere Category: Medical Plan She tolerated the procedure well. He swallowing remains ?normal.? She is quite happy with this. She only had 1 episode of the pain midsternally and I believe this is related to esophageal spasm. I have asked her next time to really think about what she has eaten or what she was doing to see if we can figure out what drives the spasm. I do not want to start dicyclomine unless we have to to simplify her medication regimen. She continues on omeprazole 40 mg in the morning and famotidine 40 mg at night. I want to continue this strategy since it has significantly decreased her symptoms and it may be that the acid splashing as a gastroesophageal junction is what was driving spasm. Return office visit in 6 months. Medications: New omeprazole 40 mg PO DAILY 90 caps 1RF 90 days Changed From famotidine (Pepcid) 40 mg PO BEDTIME 30 tabs 6RF K21.9 - Gastro-esophageal reflux disease without esophagitis, R13.10 - Dysphagia, unspecified To famotidine (Pepcid) 40 mg PO BEDTIME 90 tabs 1RF 90 days K21.9 - Gastro-esophageal reflux disease without esophagitis, R13.10 - Dysphagia, unspecified Coding Level of Care Code Est Pt Level 3 (96935) Diagnoses GERD (gastroesophageal reflux disease) K21.9 Dysphagia R13.10 H. pylori duodenitis K29.80; B96.81
[2024-06-13 10:00] VITALS: BP 96/66; PULSE 76; BMI 24.4
== END 2024-06-13 10:24 | disposition home or self-care (01) ==
PROVIDERS: PCP Internal Medicine Geriatric Medicine; Visit Provider Nurse Practitioner
DX: K21.9 Gastro-esophageal reflux disease without esophagitis (principal); R13.10 Dysphagia, unspecified; K29.80 Duodenitis without bleeding; B96.81 Helicobacter pylori [H. pylori] as the cause of diseases classified elsewhere
CPT/HCPCS: 99213

== ENCOUNTER → 2024-06-13 09:34 | Outpatient (BNVA) | payer MEDICAID, SELFPAY | PROVIDERS: PCP Internal Medicine Geriatric Medicine; Visit Provider Nurse Practitioner | DX: K21.9 Gastro-esophageal reflux disease without esophagitis (principal); R13.10 Dysphagia, unspecified; K29.80 Duodenitis without bleeding; B96.81 Helicobacter pylori [H. pylori] as the cause of diseases classified elsewhere | CPT/HCPCS: 99212 ==

== ENCOUNTER 2024-07-26 16:21 | Outpatient (REF) | payer MEDICAID, SELFPAY ==
[2024-07-27 11:15] LABS: Bacterial Vaginosis PCR NEGATIVE (Negative); Candida Group PCR DETECTED (Not Detect); Candida glab krusei PCR NOT DETECTED (Not Detect); Trichomonas vaginalis PCR NOT DETECTED (Not Detect)
== END 2024-07-26 16:22 | disposition home or self-care (01) ==
LOC: HO.HHCLNP 16:21
PROVIDERS: Visit Provider Advanced Practice Midwife
DX: B37.31 Acute candidiasis of vulva and vagina (principal)
CPT/HCPCS: 0352U

== ENCOUNTER 2024-08-16 10:51 | Outpatient (REF) | payer MEDICAID, SELFPAY ==
[2024-08-19 19:53] LABS: TS Negative Control Passed; TS Panel A 0; TS Panel B 0; TS Positive Control Passed; TSpotTB Negative (Negative)
== END 2024-08-16 10:52 | disposition home or self-care (01) ==
LOC: HO.HHCL 10:51
PROVIDERS: Visit Provider Internal Medicine Geriatric Medicine
DX: Z11.1 Encounter for screening for respiratory tuberculosis (principal)
CPT/HCPCS: 36415; 86481

== ENCOUNTER 2024-08-18 14:58 | Outpatient (REF) | payer MEDICAID, SELFPAY ==
[2024-08-19 06:10] LABS: CT PCR NOT DETECTED (Not Detect.); NG PCR NOT DETECTED (Not Detect.)
[2024-08-19 10:26] LABS: Bacterial Vaginosis PCR NEGATIVE (Negative); Candida Group PCR DETECTED (Not Detect); Candida glab krusei PCR NOT DETECTED (Not Detect); Trichomonas vaginalis PCR NOT DETECTED (Not Detect)
== END 2024-08-18 14:59 | disposition home or self-care (01) ==
LOC: HO.LNP 14:58
PROVIDERS: Visit Provider Family Medicine
DX: N89.8 Other specified noninflammatory disorders of vagina (principal)
CPT/HCPCS: 0352U; 87491; 87591

== ENCOUNTER 2024-09-18 12:07 | Outpatient (REF) | payer MEDICAID, SELFPAY ==
[2024-09-18 13:51] LABS: Hematocrit 35.7 % (37.0-47.0); Hemoglobin 11.7 g/dl (12.0-16.0); Mean Corpuscular HGB Conc 32.8 g/dl (31.0-35.0); Mean Corpuscular Hemoglobin 26.5 pg (27.0-33.0); Mean Corpuscular Volume 80.8 fL (80.0-98.0); Mean Platelet Volume 10.3 fL (9.4-12.3); Platelet Count 296 X10*3/uL (160-400); Red Blood Count 4.42 X10*6/uL (4.20-5.50); Red Cell Distribution Width 14.5 % (11.0-16.0); White Blood Count 6.9 X10*3/uL (4.8-10.8)
[2024-09-18 14:09] LABS: Estimated Average Glucose 108 mg/dL; Hemoglobin A1C 104.1181 umol/L; Hemoglobin A1c % 5.4 % (<6.0); Total Hemoglobin (HGBA1C) 2910.5087 umol/L
[2024-09-18 14:37] LABS: TSH reflex Free T4 1.37 uIU/mL (0.32-4.0)
== END 2024-09-18 12:08 | disposition home or self-care (01) ==
LOC: HO.HHCL 12:07
PROVIDERS: Visit Provider Advanced Practice Midwife
DX: N93.9 Abnormal uterine and vaginal bleeding, unspecified (principal); Z83.3 Family history of diabetes mellitus
CPT/HCPCS: 36415; 83036; 84443; 85027

== ENCOUNTER 2024-09-21 08:29 | Emergency (ER) | payer MEDICAID, SELFPAY ==
--- NOTE | ~2024-09-21 | US_ITS ---
EXAMINATION: US PELVIS COMPLETE CLINICAL INFORMATION: vaginal bleeding. COMPARISON: CT abdomen/pelvis 08/29/2023 TECHNIQUE: Transabdominal and transvaginal images of the pelvis were obtained. Color and spectral Doppler evaluation of the ovaries was performed. FINDINGS: UTERUS: Anteverted. Normal size and contour, measuring 7.2 x 4.1 x 4.7 cm (cervix to fundus x AP x transverse). Uniform, homogeneous endometrium measures 0.5 cm in width. RIGHT OVARY: Normal size and echogenicity measuring 2.5 x 1.9 x 1.7 cm, volume 4 mL. LEFT OVARY: Normal size and echogenicity measuring 2.4 x 1.8 x 1.9 cm, volume 4.4 mL. Multiple physiologic follicles noted. Arterial and venous waveforms are identified in both ovaries on spectral Doppler assessment. FREE FLUID: No pelvic free fluid. US/US pelvic complete IMPRESSION: No acute abnormality on this sonographic exam of the pelvis. Electronically signed by: Danelle Terrazas DO 09/21/2024 03:09 PM [facility]
[2024-09-21 08:34] VITALS: BP 114/70; PULSE 99; RESP 16; TEMP 36.8; O2SAT 98; BMI 27.2
[2024-09-21 09:01] LABS: MANUAL DIFF FLAG NO
[2024-09-21 09:04] LABS: Basophils Percent Auto 0.6 % (0-2); Eosinophils Absolute Auto 0.2 X10*3/uL (0.0-0.4); Eosinophils Percent Auto 2.9 % (0-4); Hematocrit 34.3 % (37.0-47.0); Hemoglobin 11.3 g/dl (12.0-16.0); Imm Gran Abs Auto 0.02 X10*3/uL (0.00-0.03); Imm Gran Pct Auto 0.3 % (0.0-0.4); Lymphocytes Absolute Auto 2.1 X10*3/uL (1.2-4.9); Lymphocytes Percent Auto 32.9 % (20-40); Mean Corpuscular HGB Conc 32.9 g/dl (31.0-35.0); Mean Corpuscular Hemoglobin 26.3 pg (27.0-33.0); Mean Corpuscular Volume 79.8 fL (80.0-98.0); Mean Platelet Volume 10.1 fL (9.4-12.3); Monocytes Absolute Auto 0.4 X10*3/uL (0.1-1.2); Monocytes Percent Auto 5.8 % (2-11); Neutrophils Absolute Auto 3.6 x10*3/uL (2.0-8.3); Neutrophils Percent Auto 57.5 % (45-73); Platelet Count 247 X10*3/uL (160-400); Red Cell Distribution Width 14.4 % (11.0-16.0); White Blood Count 6.2 X10*3/uL (4.8-10.8)
--- NOTE | 2024-09-21 09:18 | ED_ITS ---
HPI - Female Genitourinary General Chief complaint: Vaginal Bleeding Stated complaint: vaginal bleeding Time Seen by Provider: 09/21/24 09:15 Source: patient, RN notes reviewed and old records reviewed Mode of arrival: ambulatory Limitations: no limitations History of Present Illness ED Provider: Sarahi Garza PA-C HPI Narrative: 38 yo female s/p tubal ligation with history of kidney stones, H. pylori, GERD, dysphagia who presents to the ER for evaluation of vaginal bleeding since 09/06. she reports her menstrual cycles usually 7 days long. She reports she had normal vaginal bleeding for the 1st 6 days of her cycle. She had some ongoing vaginal spotting for several days beyond her normal week. She was seen at her OBGYN office for this on . They ordered an outpatient ultrasound and started her on oral iron tablets. She reports that after seeing her OBGYN she developed heavier vaginal bleeding, brighter red blood and larger volume. She was told to come to the ER if her symptoms worsened. She reports some intermittent lower abdominal cramping, central. she denies any associated nausea, vomiting, diarrhea. She is moving her bowels normally. No vaginal discharge. She states today she went through 3 pads so she came to the ER for further evaluation. She states prior to this she was having regular menstrual cycles without prolonged bleeding. MD elicited complaint: vaginal bleeding Onset (ago): day(s) Location of symptoms: vaginal Severity: moderate Quality of pain: cramping Consistency: intermittent Vaginal discharge: none Vaginal bleeding: moderate, heavy and bright red Exacerbating factors: none Relieving factors: none Associated symptoms: denies other symptoms Treatment prior to arrival: none Sexual activity: Yes Patient : No Related Data : 2 Para: 2 Home Medications ?Medication ?Instructions ?Recorded ?Confirmed cholecalciferol (vitamin D3) 25 25 mcg PO QAM 01/25/24 05/28/24 mcg (1,000 unit) capsule (Vitamin D3) Previous Rx's ?Medication ?Instructions ?Recorded aluminum hydrox-magnesium carb 254 10 ml PO QID PRN dyspepsia #355 mL 11/22/23 mg-237.5 mg/5 mL oral suspension (Gaviscon Extra Strength) pyridoxine (vitamin B6) 50 mg 50 mg PO DAILY 90 days #90 tabs 03/30/24 tablet famotidine 40 mg tablet (Pepcid) 40 mg PO BEDTIME 90 days #90 tabs 06/13/24 omeprazole 40 mg capsule,delayed 40 mg PO DAILY 90 days #90 caps 06/13/24 release tranexamic acid 650 mg tablet 1,300 mg (2 x 650 mg) PO TID 5 09/21/24 days #30 tabs Allergies Allergy/AdvReac Type Severity Reaction Status Date / Time No Known Allergies Allergy Verified 09/21/24 08:35 [No Known Allergies*] Review of Systems 2 Review of Systems: Yes all other systems are reviewed and are negative [facility] Past Medical History Medical History Hydroureteronephrosis Mild acid reflux Ureteral stone with hydronephrosis Surgical History History of cholecystectomy History of tubal ligation History of appendectomy : 2 Para: 2 Social History Social History Household Members: Spouse and Family Housing: House Do you presently have visiting nurse or other home services: No Alcohol intake: never Patient Tobacco Use Status: Never used Tobacco Smoked in Last 30 Days: No Use of substances other than those prescribed or required for medical reasons: No Advance Directives: No Advance Directives Information Provided: Yes Do you have a plan to hurt others: No Plan Patient : No service: No Current occupational status: unemployed Physical Exam 2 Vital Signs: Vital Signs: Last Vital Signs Temp 98.2 F 09/21/24 15:19 Pulse 90 09/21/24 15:19 Resp 16 09/21/24 15:19 BP 111/71 09/21/24 15:19 Pulse Ox 100 09/21/24 15:19 O2 Del Method Room Air 09/21/24 15:19 BMI result Body Mass Index 27.2 Appearance: Alert. Oriented X3. No acute distress. Head: normocephalic, atraumatic. Eyes: Pupils equal, round and reactive to light. ENT: Pharynx normal. No tonsillar swelling or exudate. Neck: Normal inspection. Neck supple. CVS: Normal heart rate and rhythm. Pulses normal. Respiratory: No respiratory distress. Breath sounds normal. Abdomen: Soft and nontender. +BS x4. pelvic deferred (done 2 days ago at [facility] [place]) Skin: Skin warm and dry. Normal skin color. Normal skin turgor. No rashes. Extremities: No lower extremity edema. No joint swelling. Neuro/psych: Oriented X 3. No motor deficit. No sensory deficit. CN II-XII intact. Normal speech and cognition. Medical Decision Making Medical Decision Making [facility] Narrative: 38 yo female s/p tubal ligation with history of kidney stones, H. pylori, GERD, dysphagia who presents to the ER for evaluation of vaginal bleeding since 09/06. Recently seen by Ivis Upton CNM at [facility] and outpatient pelvic U/S was ordered. H/H today was overall stable. Pelvic U/S today was normal. 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 case d/c w/ Dr. Paredes - recommending starting txa PO. results and plan for PO txa d/w patient. return precautions discussed. 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 stable for d/c home Differential Diagnosis Differential Diagnoses: The differential diagnosis associated with the presentation includes Dysfunctional uterine bleeding, uterine fibroids, adenomyosis, hormonal imbalance, , uterine polyp Lab Data [facility] Lab Attestation statement: I reviewed the patient's lab results. mild anemia 09/21/24 08:48 09/21/24 08:48 Labs: Lab Results 09/21/24 09/21/24 Range/Units 08:48 12:38 WBC 6.2 (4.8-10.8) X10*3/uL RBC 4.30 (4.20-5.50) X10*6/uL Hgb 11.3 L (12.0-16.0) g/dl Hct 34.3 L (37.0-47.0) % MCV 79.8 L (80.0-98.0) fL MCH 26.3 L (27.0-33.0) pg MCHC 32.9 (31.0-35.0) g/dl RDW 14.4 (11.0-16.0) % Plt Count 247 (160-400) X10*3/uL MPV 10.1 (9.4-12.3) fL Immature Gran % (Auto) 0.3 (0.0-0.4) % Neut % (Auto) 57.5 (45-73) % Lymph % (Auto) 32.9 (20-40) % Ralls % (Auto) 5.8 (2-11) % Eos % (Auto) 2.9 (0-4) % Baso % (Auto) 0.6 (0-2) % Lymph # (Auto) 2.1 (1.2-4.9) X10*3/uL Ralls # (Auto) 0.4 (0.1-1.2) X10*3/uL Eos # (Auto) 0.2 (0.0-0.4) X10*3/uL Baso # (Auto) 0.0 (0.0-0.2) X10*3/uL Abs Immat Gran (auto) 0.02 (0.00-0.03) X10*3/uL Absolute Neuts (auto) 3.6 (2.0-8.3) x10*3/uL Absolute Nucleated RBC 0.000 (0.0-0.012) X10*3/uL Nucleated RBC % (auto) 0.0 (0.0-0.2) /100WBC Sodium 140 (135-145) mmol/L Potassium 3.7 (3.3-5.1) mmol/L Chloride 109 H (96-108) mmol/L Carbon Dioxide 23 (22-29) mmol/L Anion Gap 12 (12-20) BUN 9 (9-16) mg/dL Creatinine 0.60 (0.5-1.4) mg/dL Estim Creat Clear Calc 123.6 Estimated GFR > 60 Random Glucose 116 H (60-115) mg/dL Calcium 9.0 (8.4-10.2) mg/dL Total Bilirubin 0.3 (0.0-1.0) mg/dL AST 32 H (5-31) U/L ALT 29 (0-31) U/L Alkaline Phosphatase 67 (39-117) U/L Total Protein 6.7 (6.5-8.0) g/dL Albumin 3.9 (3.5-5.0) g/dL Beta HCG, Quant < 2 mIU/mL Urine Color Yellow Urine Appearance Clear Urine pH 7.0 (5.0-9.0) Ur Specific Celeste 1.020 (1.005-1.025) Urine Protein Negative (Neg-Trace) mg/dL Urine Glucose (UA) Negative (Negative) mg/dL Urine Ketones Negative (Negative) mg/dL Urine Blood Large (3+) H (Negative) Urine Nitrite Negative (Negative) Ur Leukocyte Esterase Negative (Negative) Urine RBC >20 H (0-2) /HPF Urine WBC 0-5 (0-5) /HPF Ur Squamous Epith Cells 0-2 (0-2) /HPF Urine Bacteria None Seen (None Seen) Hyaline Casts 0-2 (0-2) /LPF Independent Interpretation I performed an independent interpretation of an: Ultrasound Interpretation: no large fibroid or acute abnormality seen Radiology Impression Discussion of test interpretation with radiology: I have reviewed the radiologist's reading. External Record Review External record reviewed: Outpatient record, Prior outpatient labs and Prior outpatient radiology Prescription Management I considered prescription management with: Pain Medication and Other (OCP) Critical Care Time Critical Care Time Critical Care Time: No Discharge Plan Discharge Clinical Impression: Dysfunctional uterine bleeding Patient Disposition: Home, Self-Care Instructions: Dysfunctional Uterine Bleeding (ED) Additional Instructions: your ultrasound today was normal take the prescribed medication as directed to help slow the bleeding. if the bleeding stops, you can stop this medication follow up with your NEEDLE BAR MOLDER Tuesday If you develop new or worsening symptoms call 911 or come back to the ER for further evaluation. Prescriptions: New tranexamic acid 650 mg tablet 1,300 mg PO TID 5 Days Qty: 30 0RF No Action Gaviscon Extra Strength 254-237.5 mg/5 mL suspension 10 ml PO QID PRN (Reason: dyspepsia) Qty: 355 0RF omeprazole 40 mg capsule,delayed release(DR/EC) 40 mg PO DAILY 90 Days Qty: 90 1RF famotidine [Pepcid] 40 mg tablet 40 mg PO BEDTIME 90 Days Qty: 90 1RF pyridoxine (vitamin B6) 50 mg tablet 50 mg PO DAILY 90 Days Qty: 90 3RF cholecalciferol (vitamin D3) [Vitamin D3] 25 mcg (1,000 unit) capsule 25 mcg PO QAM Referrals: Name,MD Ramon [Primary Care Provider] - Stand Alone Forms: Work/School Release Print Language: Kiswahili
[2024-09-21 09:29] LABS: Alanine Aminotransferase 29 U/L (0-31); Albumin Level 3.9 g/dL (3.5-5.0); Alkaline Phosphatase 67 U/L (39-117); Anion Gap 12 (12-20); Aspartate Amino Transferase 32 U/L (5-31); Bilirubin Total 0.3 mg/dL (0.0-1.0); Blood Urea Nitrogen 9 mg/dL (9-16); Carbon Dioxide 23 mmol/L (22-29); Chloride 109 mmol/L (96-108); Creatinine Clr Calc Pharmacy 123.6; Estimated Glomerular Filt Rate > 60; Glucose Random 116 mg/dL (60-115); HCG Quantitative < 2 mIU/mL; Potassium 3.7 mmol/L (3.3-5.1); Sodium 140 mmol/L (135-145); Total Protein 6.7 g/dL (6.5-8.0)
[2024-09-21 10:38] VITALS: BP 98/67; PULSE 91; RESP 18; TEMP 36.6; O2SAT 100
--- NOTE | 2024-09-21 10:40 | PC.NURSE ---
no distress. pt reports needing to change tampo q 2hrs. denies dizziness/cramping. awaits u/s
[2024-09-21 12:32] VITALS: BP 108/76; PULSE 72; RESP 18; TEMP 36.9; O2SAT 98
--- NOTE | 2024-09-21 12:33 | PC.NURSE ---
no distress. awaits U/S read. NAD
[2024-09-21 12:47] LABS: Appearance Urine Clear; Color Urine Yellow; Glucose Urine UA Negative (Negative); Leukocyte Esterase Urine Negative (Negative); Nitrite Urine Negative (Negative); UMIC TRIGGER UACC YES; Urine Blood Large (3+) (Negative); Urine Ketones Negative (Negative); Urine Protein Negative (Neg-Trace)
[2024-09-21 12:49] LABS: Bacteria Urine None Seen (None Seen); Hyaline Casts Urine 0-2 /LPF (0-2); RBC Urine >20 /HPF (0-2); Squamous Epithelial Cell Urine 0-2 /HPF (0-2); WBC Urine 0-5 /HPF (0-5)
[2024-09-21 14:00] VITALS: BP 103/70; PULSE 72; RESP 18; TEMP 36.7; O2SAT 100
--- NOTE | 2024-09-21 14:26 | PC.NURSE ---
no distress. no complaints at this time.
[2024-09-21 15:19] VITALS: BP 111/71; PULSE 90; RESP 16; TEMP 36.8; O2SAT 100
--- NOTE | 2024-09-21 15:19 | PC.NURSE ---
Care of Pt assumed at 3pm. Pt is resting quietly on stretcher with light off. Pt denies pain at this time. VSS, afebrile, A&Ox3 No complaints offered at this time. Awaiting dispo.
[2024-09-21] MEDS: Ketorolac Tromethamine 30 MG/ML VIAL IM (15:43)
[2024-09-21 15:55] VITALS: BP 111/71; PULSE 90; RESP 16; TEMP 36.8; O2SAT 100
== END 2024-09-21 15:55 | disposition home or self-care (01) ==
PROVIDERS: Emergency Provider Emergency Medicine; PCP Internal Medicine Geriatric Medicine
DX: N93.8 Other specified abnormal uterine and vaginal bleeding (principal)
CPT/HCPCS: 36415; 76856; 80053; 81001; 84702; 85025; 96372; 99284; 99285; J1885

== ENCOUNTER 2024-10-23 04:54 | Emergency (ER) | payer MEDICAID, SELFPAY ==
[2024-10-23 04:59] VITALS: BP 112/77; PULSE 78; RESP 16; TEMP 37; O2SAT 97; BMI 27.5
--- NOTE | 2024-10-23 06:17 | PC.NURSE ---
labs/urine obtained/sent to lab. pt waiting to be picked up provider at this time. resting in no apparent distress. lights dimmed to promote comfort. plan of care ongoing. call sanchez placed within reach.
[2024-10-23 06:21] LABS: MANUAL DIFF FLAG NO
[2024-10-23 06:23] LABS: Basophils Absolute Auto 0.1 X10*3/uL (0.0-0.2); Basophils Percent Auto 0.7 % (0-2); Eosinophils Absolute Auto 0.2 X10*3/uL (0.0-0.4); Hematocrit 34.7 % (37.0-47.0); Hemoglobin 11.7 g/dl (12.0-16.0); Imm Gran Abs Auto 0.02 X10*3/uL (0.00-0.03); Imm Gran Pct Auto 0.3 % (0.0-0.4); Lymphocytes Absolute Auto 1.9 X10*3/uL (1.2-4.9); Lymphocytes Percent Auto 27.1 % (20-40); Mean Corpuscular HGB Conc 33.7 g/dl (31.0-35.0); Mean Corpuscular Hemoglobin 26.8 pg (27.0-33.0); Mean Corpuscular Volume 79.4 fL (80.0-98.0); Mean Platelet Volume 10.2 fL (9.4-12.3); Monocytes Absolute Auto 0.5 X10*3/uL (0.1-1.2); Monocytes Percent Auto 6.9 % (2-11); Neutrophils Absolute Auto 4.4 x10*3/uL (2.0-8.3); Platelet Count 235 X10*3/uL (160-400); Red Blood Count 4.37 X10*6/uL (4.20-5.50); Red Cell Distribution Width 13.6 % (11.0-16.0); White Blood Count 7.1 X10*3/uL (4.8-10.8)
[2024-10-23 06:24] LABS: Appearance Urine Clear; Color Urine Yellow; Glucose Urine UA Negative (Negative); Leukocyte Esterase Urine Negative (Negative); Nitrite Urine Negative (Negative); PH 5.5 (5.0-9.0); Specific Gravity - Urine 1.025 (1.005-1.025); UMIC TRIGGER UACC YES; Urine Blood Large (3+) (Negative); Urine Ketones Negative (Negative); Urine Protein Trace mg/dL (Neg-Trace)
[2024-10-23 06:27] LABS: Bacteria Urine Trace (None Seen); Hyaline Casts Urine 0-2 /LPF (0-2); UACC Culture Trigger YES
[2024-10-23 06:43] LABS: Anion Gap 11 (12-20); Aspartate Amino Transferase 27 U/L (5-31); Bilirubin Total 0.3 mg/dL (0.0-1.0); Blood Urea Nitrogen 10 mg/dL (9-16); Calcium 9.3 mg/dL (8.4-10.2); Carbon Dioxide 25 mmol/L (22-29); Chloride 108 mmol/L (96-108); Creatinine Clr Calc Pharmacy 122.1; Estimated Glomerular Filt Rate > 60; Glucose Random 96 mg/dL (60-115); HCG Quantitative < 2 mIU/mL; Potassium 3.7 mmol/L (3.3-5.1); Sodium 140 mmol/L (135-145); Total Protein 6.9 g/dL (6.5-8.0)
--- NOTE | 2024-10-23 06:44 | ED.GENADULT ---
HPI - General Adult General Chief complaint: General Medical Stated complaint: Hemorrhoids? Time Seen by Provider: 10/23/24 06:38 Source: patient and alarm field technician (all interactions with this patient were facilitated with an [facility] linotype mechanic) Mode of arrival: ambulatory Limitations: language barrier (all interactions with this patient were facilitated with an [facility] linotype mechanic) History of Present Illness ED Provider: Giuliana Sandhu PA-C HPI narrative: Patient is a 38 year old assigned female at with a history of hemorrhoids and GERD presenting to the emergency department today with hemorrhoid bleeding and anal pain. Patient states that over the last 2 days she has had anal pain and a bleeding hemorrhoid. Patient states that it is difficult to see how much it is bleeding because she is also on her menstrual cycle. Patient is using hemorrhoid cream. Patient denies any dizziness, lightheadedness, abdominal pain, nausea, vomiting, fever, chills, blurry vision, double vision, loss of vision, chest pain, difficulty breathing, shortness of breath, back pain, night sweats, pain with urination, increased urinary frequency, increased urinary urgency, syncope or a near syncopal episode, recent trauma or falls, bowel incontinence, bladder incontinence, or any other complaints at this time. Onset (ago): day(s) (2) Relieving factors: none Exacerbating factors: none Associated symptoms: denies other symptoms Treatments prior to arrival: none Related Data Home Medications ?Medication ?Instructions ?Recorded ?Confirmed cholecalciferol (vitamin D3) 25 25 mcg PO QAM 01/25/24 05/28/24 mcg (1,000 unit) capsule (Vitamin D3) Previous Rx's ?Medication ?Instructions ?Recorded aluminum hydrox-magnesium carb 254 10 ml PO QID PRN dyspepsia #355 mL 11/22/23 mg-237.5 mg/5 mL oral suspension (Gaviscon Extra Strength) pyridoxine (vitamin B6) 50 mg 50 mg PO DAILY 90 days #90 tabs 03/30/24 tablet famotidine 40 mg tablet (Pepcid) 40 mg PO BEDTIME 90 days #90 tabs 06/13/24 omeprazole 40 mg capsule,delayed 40 mg PO DAILY 90 days #90 caps 06/13/24 release tranexamic acid 650 mg tablet 1,300 mg (2 x 650 mg) PO TID 5 09/21/24 days #30 tabs Allergies Allergy/AdvReac Type Severity Reaction Status Date / Time No Known Allergies Allergy Verified 10/23/24 05:04 [No Known Allergies*] Review of Systems Constitutional: Constitutional: Reports no additional constitutional complaints, Denies chills, Denies fever(s) and Denies night sweats Eyes: Eyes: Reports no additional eye complaints, Denies blurry vision, Denies change in vision, Denies diplopia, Denies eye discharge, Denies loss of vision and Denies eye pain ENT: Denies dizziness Cardiovascular: Cardiovascular: Reports no additional cardiovascular complaints, Denies chest pain, Denies lightheadedness, Denies Loss of Consciousness and Denies dyspnea Respiratory: Respiratory: Reports no additional respiratory complaints and Denies dyspnea Gastrointestinal: Gastrointestinal: Reports no additional gastrointestinal complaints, Denies abdominal pain, Denies melena, Denies hematochezia, Denies change in bowel habits and Denies change in stool character Comments: anal pain bleed hemorrhoid Genitourinary: Genitourinary: Denies hematuria, Denies urinary frequency, Denies dysuria, Denies urinary incontinence, Denies urinary hesitancy and Denies urinary urgency Musculoskeletal: Musculoskeletal: Reports no additional musculoskeletal complaints, Denies numbness and Denies tingling Neurologic: Denies dizziness, Denies loss of vision, Denies numbness and Denies tingling Psychiatric: Psychiatric: Reports no additional psychiatric complaints Endocrine: Endocrine: Reports no additional endocrine complaints Hematologic/Lymphatic: Hematologic/Lymphatic: Reports no additional hematologic/lymphatic complaints Allergic/Immunologic: Allergic/Immunologic: Reports no additional allergic/immunologic complaints [facility] Past Medical History Attestation statement: The following information was validated with the patient. Source: old records reviewed and nursing notes reviewed Medical History Hydroureteronephrosis Mild acid reflux Ureteral stone with hydronephrosis Surgical History History of cholecystectomy History of tubal ligation History of appendectomy Social History Social History Household Members: Spouse and Family Housing: House Do you presently have visiting nurse or other home services: No Alcohol intake: never Patient Tobacco Use Status: Never used Tobacco Smoked in Last 30 Days: No Use of substances other than those prescribed or required for medical reasons: No Advance Directives: No Advance Directives Information Provided: Yes Patient : No service: No Current occupational status: unemployed Physical Exam ED Vital Signs: Vital Signs - 24 hr 10/23/24 04:59 10/23/24 07:47 Temperature 98.6 F 98.9 F Pulse Rate 78 86 Respiratory Rate 16 18 Blood Pressure 112/77 121/83 Pulse Oximetry 97 100 Oxygen Delivery Method Room Air Room Air BMI result Body Mass Index 27.5 Const General: cooperative, no acute distress, alert and awake Nutritional Appearance: well nourished Orientation/consciousness: patient oriented x3 Limitations: no limitations HENMT Head: Yes normal to inspection and Yes atraumatic Ears: hearing grossly normal bilaterally and external ears normal General nose exam: Normal external nose present, no nasal discharge noted and no epistaxis Face and sinus: Yes normal facial exam, No abrasion and No laceration Mouth: Normal oral and palatal mucosa present, no drooling and no muffled voice Eyes General: appearance normal, both eyes and all related structures Periorbital: periorbital findings normal Eyelids: Yes eyelids normal Conjunctivae: conjunctivae normal Pupils: Equal, round and reactive pupils present EOM: EOMs intact bilaterally Neck Neck: Yes normal visual inspection, Yes full ROM and Yes no lymphadenopathy Chest Chest palpation & inspection: normal inspection of the chest Resp Effort & Inspection: normal respiratory effort and able to speak in complete sentences GI Inspection: Yes normal to inspection Rectal Exam - Female: External hemorrhoid(s) present (minimal bleeding, no thrombosed hemorrhoids) Neuro General: patient oriented x3 and moves all extremities Cranial nerves: Yes Equal, round and reactive pupils present Cognition (Neuro): normal cognition Extrem General: Yes normal to inspection, Yes full ROM and Yes capillary refill normal Psych Appearance: grossly normal Mental Status: mental status grossly normal Affect: normal affect Attitude: cooperative Thought process: Normal thought process present Thought content: Normal thought content present Insight: Good insight present (Psych) Medical Decision Making Medical Decision Making MDM Narrative: Patient is a 38 year old assigned female at with a history of hemorrhoids and GERD presenting to the emergency department today with hemorrhoid bleeding and anal pain. Patient's physical exam was as noted in the physical exam portion of this note. Patient's blood work was unremarkable. Patient's urine showed no acute process. I explained my physical exam findings as well as all test results to the patient. I answered all questions asked by the patient. I stressed the importance of the patient taking her medication as directed (either prescribed or as the over the counter packaging recommends). I stressed the importance of the patient following up with her primary care provider and a general surgeon. I stressed the importance of the patient returning to the emergency department immediately if her symptoms were to worsen or if she were to develop any dizziness, shortness of breath, difficulty breathing, chest pain, blurry vision, loss of vision, nausea, vomiting, abdominal pain, fever, chills, back pain, or any other complaints. Patient verbalized agreement and understanding with this treatment plan and discharge. Differential Diagnosis Differential Diagnoses: The differential diagnosis associated with the presentation includes External hemorrhoids Bleeding hemorrhoids Admission/Observation Consideration of admission/observation: Escalation of care including admission/observation considered Patient would have been admitted to the hospital had her work up had any findings where hospital admission was appropriate and her clinical presentation warranted hospital admission. Lab Data [facility] Lab Attestation statement: I reviewed the patient's lab results. My interpretation of these results are in the MDM Rationale portion of this note. 10/23/24 06:14 10/23/24 06:14 Labs: Lab Results 10/23/24 Range/Units 06:14 WBC 7.1 (4.8-10.8) X10*3/uL RBC 4.37 (4.20-5.50) X10*6/uL Hgb 11.7 L (12.0-16.0) g/dl Hct 34.7 L (37.0-47.0) % MCV 79.4 L (80.0-98.0) fL MCH 26.8 L (27.0-33.0) pg MCHC 33.7 (31.0-35.0) g/dl RDW 13.6 (11.0-16.0) % Plt Count 235 (160-400) X10*3/uL MPV 10.2 (9.4-12.3) fL Immature Gran % (Auto) 0.3 (0.0-0.4) % Neut % (Auto) 62.0 (45-73) % Lymph % (Auto) 27.1 (20-40) % [place] % (Auto) 6.9 (2-11) % Eos % (Auto) 3.0 (0-4) % Baso % (Auto) 0.7 (0-2) % Lymph # (Auto) 1.9 (1.2-4.9) X10*3/uL [place] # (Auto) 0.5 (0.1-1.2) X10*3/uL Eos # (Auto) 0.2 (0.0-0.4) X10*3/uL Baso # (Auto) 0.1 (0.0-0.2) X10*3/uL Abs Immat Gran (auto) 0.02 (0.00-0.03) X10*3/uL Absolute Neuts (auto) 4.4 (2.0-8.3) x10*3/uL Absolute Nucleated RBC 0.000 (0.0-0.012) X10*3/uL Nucleated RBC % (auto) 0.0 (0.0-0.2) /100WBC Sodium 140 (135-145) mmol/L Potassium 3.7 (3.3-5.1) mmol/L Chloride 108 (96-108) mmol/L Carbon Dioxide 25 (22-29) mmol/L Anion Gap 11 L (12-20) BUN 10 (9-16) mg/dL Creatinine 0.61 (0.5-1.4) mg/dL Estim Creat Clear Calc 122.1 Estimated GFR > 60 Random Glucose 96 (60-115) mg/dL Calcium 9.3 (8.4-10.2) mg/dL Total Bilirubin 0.3 (0.0-1.0) mg/dL AST 27 (5-31) U/L ALT 28 (0-31) U/L Alkaline Phosphatase 75 (39-117) U/L Total Protein 6.9 (6.5-8.0) g/dL Albumin 4.0 (3.5-5.0) g/dL Beta HCG, Quant < 2 mIU/mL Urine Color Yellow Urine Appearance Clear Urine pH 5.5 (5.0-9.0) Ur Specific [place] 1.025 (1.005-1.025) Urine Protein Trace (Neg-Trace) mg/dL Urine Glucose (UA) Negative (Negative) mg/dL Urine Ketones Negative (Negative) mg/dL Urine Blood Large (3+) H (Negative) Urine Nitrite Negative (Negative) Ur Leukocyte Esterase Negative (Negative) Urine RBC 11-20 H (0-2) /HPF Urine WBC 6-10 H (0-5) /HPF Ur Squamous Epith Cells 6-10 (0-2) /HPF Urine Bacteria Trace (None Seen) Hyaline Casts 0-2 (0-2) /LPF Urine Test Cancelled Discharge Plan Discharge Clinical Impression: Hemorrhoids Patient Disposition: Home, Self-Care Instructions: Hemorrhoids (DC) Additional Instructions: Follow up with your primary care provider and a general surgeon. Continue using the cream you have been using. Return to the emergency department immediately if your symptoms worsen or if you develop any dizziness, shortness of breath, difficulty breathing, chest pain, blurry vision, loss of vision, nausea, vomiting, abdominal pain, fever, chills, back pain, or any other complaints. Oren un seguimiento con mitchell m?dico de cabecera y un cirujano general. Siga utilizando la crema que sneha?a utilizando. Acuda inmediatamente al servicio de urgencias si devan s?ntomas empeoran o si presenta mareos, falta de aliento, dificultad para respirar, dolor tor?cico, visi?n borrosa, p?rdida de visi?n, n?useas, v?mitos, dolor abdominal, fiebre, escalofr?os, dolor de espalda o cualquier otra molestia. Prescriptions: No Action Gaviscon Extra Strength 254-237.5 mg/5 mL suspension 10 ml PO QID PRN (Reason: dyspepsia) Qty: 355 0RF tranexamic acid 650 mg tablet 1,300 mg PO TID 5 Days Qty: 30 0RF omeprazole 40 mg capsule,delayed release(DR/EC) 40 mg PO DAILY 90 Days Qty: 90 1RF famotidine [Pepcid] 40 mg tablet 40 mg PO BEDTIME 90 Days Qty: 90 1RF pyridoxine (vitamin B6) 50 mg tablet 50 mg PO DAILY 90 Days Qty: 90 3RF cholecalciferol (vitamin D3) [Vitamin D3] 25 mcg (1,000 unit) capsule 25 mcg PO QAM Referrals: [facility] General Surgeons [Provider Group] (Call to establish and follow up with a general surgeon. Llame para establecer y seguir con un cirujano general.) Name,MD Ramon [Primary Care Provider] - Interventions: ED Discharge Assessment Last Done: 10/23/24 07:47 Discharge Date/Time: 10/23/24 07:47 Print Language: Lao
[2024-10-23 06:46] LABS: Alanine Aminotransferase 28 U/L (0-31); Alkaline Phosphatase 75 U/L (39-117)
[2024-10-23 07:47] VITALS: BP 121/83; PULSE 86; RESP 18; TEMP 37.2; O2SAT 100
== END 2024-10-23 07:47 | disposition home or self-care (01) ==
PROVIDERS: Emergency Provider Student in an Organized Health Care Education/Training Program; PCP Internal Medicine Geriatric Medicine
DX: K64.9 Unspecified hemorrhoids (principal); K62.89 Other specified diseases of anus and rectum; Z79.899 Other long term (current) drug therapy
CPT/HCPCS: 36415; 80053; 81001; 84702; 85025; 87086; 99283; 99284

== ENCOUNTER 2024-10-30 09:14 | Outpatient (AMB) | payer MEDICAID, SELFPAY ==
--- NOTE | 2024-10-30 09:16 | A.OFFVIS_ITS ---
Vital Signs 10/30/24 09:24 Height 5 ft 4 in Weight 159 lb BMI 27.3 BP 111/73 Blood Pressure Location Rt brachial Position Sitting Pulse 97 Intake Visit Reasons: hemorroids Intake Note: Patient referred after ED visit for external hemorrhoids. Patient c/o: denies bleeding, diarrhea, constipation. States painful when it becomes external. Machine Compositor Required: No Accompanied by: Self / Same As Patient Allergies No Known Allergies [No Known Allergies*] Allergy (Verified 10/30/24 09:23) HPI Comments Details: Patient presents with a several month history of symptomatic hemorrhoids. She has had pain, swelling, and occasional bleeding. She has regular bowel habits and no chronic constipation issues. She does not do extensive heavy lifting. She denies any anal receptive practice. She is been applying topical ointments and creams with minimal symptomatic improvement Chart was reviewed and patient evaluated [facility] Medical History Hydroureteronephrosis Mild acid reflux Ureteral stone with hydronephrosis Surgical History History of cholecystectomy History of tubal ligation History of appendectomy Social History Household Members: Spouse and Family Housing: House Do you presently have visiting nurse or other home services: No Alcohol intake: never Patient Tobacco Use Status: Never used Tobacco service: No Current occupational status: unemployed Physical Exam Vital Signs: Last Vital Signs Pulse 97 10/30/24 09:24 BP 111/73 10/30/24 09:24 BMI result Body Mass Index 27.3 Chest Other: Chest breath sounds bilaterally, HS 1 in 2 GI Other: Abdomen is soft, benign. Large edematous external hemorrhoids at the 3, 7, and 11:00 o'clock positions. Assessment & Plan Assessment & Plan (1) Hemorrhoids: Code(s): K64.9 - Unspecified hemorrhoids Category: Surgical Plan Therapeutic options were reviewed with the patient which include continued conservative therapy with topical agents and stool softeners or excision. She would like to have these removed. Because of the chronicity of the symptoms, she does not wished to further continue conservative therapy. Risks, benefits, alternatives of hemorrhoidectomy reviewed with the patient and included but not limited to bleeding, infection, recurrence, numbness, pain, scarring, incontinence the patient wished to proceed. All questions answered. She will receive a mild bowel prep day prior. Coding Level of Care Code New Pt Level 5 (70047) Diagnoses Hemorrhoids K64.9
[2024-10-30 09:24] VITALS: BP 111/73; PULSE 97; BMI 27.3
== END 2024-10-30 09:34 | disposition home or self-care (01) ==
PROVIDERS: PCP Internal Medicine Geriatric Medicine; Visit Provider Surgery
DX: K64.9 Unspecified hemorrhoids (principal)
CPT/HCPCS: 99204

== ENCOUNTER → 2024-10-30 09:14 | Outpatient (BNVA) | payer MEDICAID, SELFPAY | PROVIDERS: PCP Internal Medicine Geriatric Medicine; Visit Provider Surgery | DX: K64.9 Unspecified hemorrhoids (principal) | CPT/HCPCS: 99202 ==

== ENCOUNTER 2024-11-28 18:21 | Outpatient (REF) | payer MEDICAID, SELFPAY ==
--- OUTSIDE RECORDS SUMMARY | 2024-11-28 18:23 | XMS_ITS | Encounter Summary ---
Author Organization [employer] Address [address] [place] [address] Care Team Providers Care Synthetic Filament Spinner Name Role Phone Name, Ramon JIMENEZ Primary Care Provider [phone] Reason for Visit * Reason Onset Date Comments Appointment Request 11/25/2023 Encounter Details Date Type Department Care Team ([facility] Contact Info) Description 11/25/2023 Telephone [facility] [address], [place] [phone] Name, MD Ramon [address] [place] [address] Appointment Request Social History Tobacco Use Types Packs/Day Years Used Date Smoking Tobacco: Never Smokeless Tobacco: Never Alcohol Use Standard Drinks/Week Comments Never 0 (1 standard drink = 0.6 oz pur e alcohol) Housing Stability Answer Date Recorded What is your housing situation today? I have [employer] 08/15/[address] you li ve. Do you have problems with any of the following? None of the above 08/15/2023 Food Insecurity Answer Date Recorded Within the past 12 months, y ou worried that your food would run out before you got money to buy more: Sometimes True 2022 Within the past 12 months,th e food you bought just didn't last and you didn't have enough money to get more: Sometimes True 08/15/2023 Transportation Answer Date Recorded In the past 12 months, has l ack of transportation kept you from medical appts, meetings, work or from getting things needed for daily living? No 08/15/2023 Utilities Answer Date Recorded In the past 12 months, has t he electric, gas, oil or water company threatened to shut off services in your home? I am not sure 08/15/2023 Depression Answer Date Recorded Patient Health Questionnaire-2 Score 0 12/22/2022 Comments No Sex and Gender Information Value Date Recorded Sex Assigned at Female 08/30/2022 10:32 AM EDT Legal Sex Female 10:32 AM EDT Gender Identity Female 08/30/2022 10:32 AM EDT Sexual Orientation Straight 08/30/2022 10 :32 AM EDT documented as of this encounter Miscellaneous Notes * Telephone Encounter - Katie Kern - 11/25/2023 12:20 PM EST Tc from pt requesting to r/s canceled pap appt on 11/10/23 , With carlo . documented in this encounter Plan of Treatment Upcoming Encounters Date Type Department Care Team (Late st Contact Info) Description 01/01/2025 9:00 AM EST Office Visit [facility] [address] [place] [address] Ingrid Maxwell 01/14/2025 3:15 PM EDT Office Visit [facility] [address] [place] [address] NameRamon MD [address] [place] [address] documented as of this encounter Visit Diagnoses Not on filedocumented in this encounter Care Teams Synthetic Filament Spinner Relationship Specialty Start Date End Date Ramon Varela MD [address] [place] [phone] PCP - General Family Medicine 10/10/17 documented as of this encounter
--- OUTSIDE RECORDS SUMMARY | 2024-11-28 18:23 | XMS_ITS | Encounter Summary ---
Author Organization [employer] Address [address] [facility] 7t [place] [address] Care Team Providers Care Collet Making Machine Operator Name Role Phone Name, Ramon JIMENEZ Primary Care Provider [phone] Encounter Details Date Type Department Care Team (Latest Contact Info) Description 11/28/2024 Travel Social History Tobacco Use Types Packs/Day Years Used Date Smoking Tobacco: Never Smokeless Tobacco: Never Alcohol Use Standard Drinks/Week Comments Never 0 (1 standard drink = 0.6 oz pur e alcohol) Depression Answer Date Recorded Patient Health Questionnaire-9 Score 0 05/10/2024 Patient Health Questionnaire-9 Score 0 05/10/2024 Last PHQ-9: Questionnaire Data Not on file 0 05/10/2024 Housing Stability Answer Date Recorded What is your housing situation today? I have housing today, but I am worried about losing housing in the future 05/10/[address] you li ve. Do you have problems with any of the following? None of the above 05/10/2024 Food Insecurity Answer Date Recorded Within the past 12 months, y ou worried that your food would run out before you got money to buy more: Never True 05/10/2024 Within the past 12 months,th e food you bought just didn't last and you didn't have enough money to get more: Never True 08/2024 Transportation Answer Date Recorded In the past 12 months, has l ack of transportation kept you from medical appts, meetings, work or from getting things needed for daily living? No 05/10/2024 Utilities Answer Date Recorded In the past 12 months, has t he electric, gas, oil or water company threatened to shut off services in your home? No 05/10/2024 Depression Answer Date Recorded Patient Health Questionnaire-2 Score 0 05/10/2024 Internet Access Answer Date Recorded Internet Access Q1 No 07/02/2024 Internet Access Q2 I do not want or need it 12/2023 Comments No Sex and Gender Information Value Date Recorded Sex Assigned at Female 08/30/2022 10:32 AM EDT Legal Sex Female 10:32 AM EDT Gender Identity Female 08/30/2022 10:32 AM EDT Sexual Orientation Straight 08/30/2022 10 :32 AM EDT documented as of this encounter Plan of Treatment Upcoming Encounters Date Type Department Care Team (Late st Contact Info) Description 01/01/2025 9:00 AM EST Office Visit [facility] ADULT DENTAL [address] [place] [address] Ingrid Maxwell 01/14/2025 3:15 PM EDT Office Visit [facility] MEDICINE [address] [place] [address] Name, MD Ramon [address] [place] [address] documented as of this encounter Visit Diagnoses Not on filedocumented in this encounter Additional Health Concerns Assessment Noted Time PHQ-9 Depression Total Score: 0 05/10/20 24 8:59 AM EDT documented as of this encounter Care Teams Collet Making Machine Operator Relationship Specialty Start Date End Date NameRamon MD [address] [place] [address] PCP - General Family Medicine 10/10/17 documented as of this encounter
--- OUTSIDE RECORDS SUMMARY | 2024-11-28 18:23 | XMS_ITS | Encounter Summary ---
Author Organization [employer] Address [address] [facility] [place] [address] Care Team Providers Care Loans Consultant Name Role Phone Name, Ramon JIMENEZ Primary Care Provider [phone] Encounter Details Date Type Department Care Team (Late st Contact Info) Description 11/08/2024 Telephone [facility] ADULT DENTAL [address] [place], [place] [phone] Ingrid Maxwell Social History Tobacco Use Types Packs/Day Years [...] encounter Miscellaneous Notes * Telephone Encounter - Marshall Steinberg - 11/08/2024 7:49 AM EST LVM, informing pt her appointment was cancel provider out of the office today. to reach us back to reschedule, documented in this encounter Plan of Treatment Upcoming Encounters Date Type Department Care Team (Late st Contact Info) Description 01/01/2025 9:00 AM EST Office Visit [facility] ADULT DENTAL [address] [place] [address] Ingrid Maxwell 01/14/2025 3:15 PM EDT Office Visit [facility] MEDICINE [address] [place] [address] Name, MD Ramon [address] [place] [address] documented as of this encounter Visit Diagnoses Not on filedocumented in this encounter Additional Health Concerns Assessment Noted Time PHQ-9 Depression Total Score: 0 05/10/20 24 8:59 AM EDT documented as of this encounter Care Teams Loans Consultant Relationship Specialty Start Date End Date Ramon Varela MD [address] [place] [address] PCP - General Family Medicine 10/10/17 documented as of this encounter
--- OUTSIDE RECORDS SUMMARY | 2024-11-28 18:23 | XMS_ITS | Encounter Summary ---
Author Organization [employer] Address [address] [facility] 7t [place] [address] Care Team Providers Care Kier Hand Name Role Phone Name, Ramon JIMENEZ Primary Care Provider [phone] Encounter Details Date Type Department Care Team ([facility] st Contact Info) Description 08/30/2023 Abstract [facility] MEDICINE [address] [place], [place] [phone] Name, MD Ramon [address] [place] [address] Social History Tobacco Use Types Packs/Day Years [...] Description 01/01/2025 9:00 AM EST Office Visit [facility] ADULT DENTAL [address] [place] [phone] Ingrid Maxwell 01/14/2025 3:15 PM EDT Office Visit [facility] MEDICINE [address] [place] [address] Name, MD Ramon [address] [place] [address] documented as of this encounter Visit Diagnoses Not on filedocumented in this encounter Care Teams Kier Hand Relationship Specialty Start Date End Date Name, MD Ramon [address] [place] [id number] PCP - General Family Medicine 10/10/17 documented as of this encounter
--- OUTSIDE RECORDS SUMMARY | 2024-11-28 18:23 | XMS_ITS | Encounter Summary ---
Author Organization [email or web address] Address [address] [place] [address] 7 [place] [address] Care Team Providers Care Light Truck Driver Name Role Phone Name, Ramon JIMENEZ Primary Care Provider [phone] Encounter Details Date Type Department Care Team (Latest Contact Info) Description 03/22/2022 Abstract [facility] Dental, Provider, DDS Social History Tobacco Use Types Packs/Day Years Used Date Smoking Tobacco: Never Assessed Comments Unknown Sex and Gender Information Value Date Recorded Sex Assigned at Female 08/30/2022 10:32 AM EDT Legal Sex Female 10:32 AM EDT Gender Identity Female 08/30/2022 10:32 AM EDT Sexual Orientation Straight 08/30/2022 10 :32 AM EDT documented as of this encounter Plan of Treatment Upcoming Encounters Date Type Department Care Team (Late st Contact Info) Description 01/01/2025 9:00 AM EST Office Visit [facility] ADULT DENTAL [address] [place] [address] Ingrid Maxwell 01/14/2025 3:15 PM EDT Office Visit [facility] MEDICINE [address] [place] [address] Name, MD Ramon [address] [place] [address] documented as of this encounter Visit Diagnoses Not on filedocumented in this encounter Care Teams Light Truck Driver Relationship Specialty Start Date End Date NameRamon MD [address] [place] [address] PCP - General Family Medicine 10/10/17 documented as of this encounter
--- OUTSIDE RECORDS SUMMARY | 2024-11-28 18:23 | XMS_ITS | Encounter Summary ---
Author Organization [employer] Address [address] [facility] 7 [place] [address] Care Team Providers Care Statistician Mathematical Name Role Phone Name, Ramon JIMENEZ Primary Care Provider [phone] Reason for Visit * Reason Onset Date Comments Medication Question 11/25/2023 Encounter Details Date Type Department Care Team ([facility] Contact Info) Description 11/25/2023 Telephone [facility] MEDICINE [address] [place], [place] [phone] Name, MD Raomn [address] [place] [address] Medication Question Social History Tobacco Use Types Packs/Day Years [...] encounter Miscellaneous Notes * Telephone Encounter - Marlys Trevino RN - 11/25/2023 4:43 PM EST T/C to pt. For below message through [employer] id - [id number] for below message, pt. Has EDvisit due to Abdominal Pain, and ED provider prescribe 20 mg Omeprazole two capsule by mouth ( total 40 mg ) , and pt. States she is taking as prescribe. Pt. Also advised to not take Omeprazole more than prescribe, also called to [facility] pharmacy who states pt. Picked up Omeprazole rx on 11/06/2023. Pt. Advised to not take Omeprazole more than prescribe. Pt. Also schedule for ED follow up on 12/09. [facility] WIC hours are reviewed. NTTN hours are reviewed. Advised to go to nearest ED in case of any new or worsening symptoms. Pt. Verbally agreed and understood. OSCAR victor is in pt.' Chart. * Telephone Encounter - Katie Kern - 11/25/2023 12:13 PM EST Tc from pt calling to inform that there was going to be a change on medication omeprazole OTC (PriLOSEC OTC) 20 MG EC tablet. States instead of 20 mg it was going to be 40 mg . Please call pt to clarify . documented in this encounter Plan of Treatment Upcoming Encounters Date Type Department Care Team (Late st Contact Info) Description 01/01/2025 9:00 AM EST Office Visit [facility] ADULT DENTAL [address] [place] [address] Ingrid Maxwell 01/14/2025 3:15 PM EDT Office Visit [facility] MEDICINE [address] [place] [address] Name, MD Ramon [address] [place] [address] documented as of this encounter Visit Diagnoses Not on filedocumented in this encounter Care Teams Statistician Mathematical Relationship Specialty Start Date End Date Name, MD Ramon [address] [place] [id number] PCP - General Family Medicine 10/10/17 documented as of this encounter
--- OUTSIDE RECORDS SUMMARY | 2024-11-28 18:23 | XMS_ITS | Encounter Summary ---
Author Organization [employer] Address [address] [facility] 7 [place] [address] Care Team Providers Care Felt Hat Pouncing Operator Hand Name Role Phone Name, Ramon JIMENEZ Primary Care Provider [phone] Reason for Visit * Reason Comments Med Refill Encounter Details Date Type Department Care Team ([facility] st Contact Info) Description 07/26/2024 Refill [facility] MEDICINE [address] [place] [address] Ivis Upton, [facility] [address] [place] [address] Social History Tobacco Use Types Packs/Day Years [...] Description 01/01/2025 9:00 AM EST Office Visit [facility] ADULT DENTAL [address] [place] [address] Hans, Ingrid 01/14/2025 3:15 PM EDT Office Visit [facility] MEDICINE [address] [place] [address] NameRamon MD [address] [place] [address] documented as of this encounter Visit Diagnoses Not on filedocumented in this encounter Additional Health Concerns Assessment Noted Time PHQ-9 Depression Total Score: 0 05/10/20 24 8:59 AM EDT documented as of this encounter Care Teams Felt Hat Pouncing Operator Hand Relationship Specialty Start Date End Date NameRamon MD [address] [place] [address] PCP - General Family Medicine 10/10/17 documented as of this encounter
--- OUTSIDE RECORDS SUMMARY | 2024-11-28 18:23 | XMS_ITS | Encounter Summary ---
Author Organization [employer] Address [address] [facility] 7 [place] [address] Care Team Providers Care Blue Line Trimmer Name Role Phone Name, Ramon JIMENEZ Primary Care Provider [phone] Reason for Visit * Reason Onset Date Comments Luiza Recall 11/02/2024 Encounter Details Date Type Department Care Team ([facility] st Contact Info) Description 11/02/2024 Telephone [facility] MEDICINE [address] [place], [place] [phone] [place] [facility] [place] October Recall Social History Tobacco Use Types Packs/Day Years [...] encounter Miscellaneous Notes * Telephone Encounter - Earnestine Malhotra [place] - 11/02/2024 9:27 AM EST T/c to pt to book her for a pap smear 30min December 03, 2024 no answer lvm. documented in this encounter Plan of Treatment Upcoming Encounters Date Type Department Care Team (Late st Contact Info) Description 01/01/2025 9:00 AM EST Office Visit [facility] ADULT DENTAL [address] [place] [address] Ingrid Maxwell 01/14/2025 3:15 PM EDT Office Visit [facility] MEDICINE [address] [place] [address] NameRamon MD [address] [place] [address] documented as of this encounter Visit Diagnoses Not on filedocumented in this encounter Additional Health Concerns Assessment Noted Time PHQ-9 Depression Total Score: 0 05/10/20 24 8:59 AM EDT documented as of this encounter Care Teams Blue Line Trimmer Relationship Specialty Start Date End Date Ramon Varela MD [address] [place] [address] PCP - General Family Medicine 10/10/17 documented as of this encounter
--- OUTSIDE RECORDS SUMMARY | 2024-11-28 18:23 | XMS_ITS | Clinical Summary ---
Author Organization [employer] Address [address] [facility] 7[address] [place] [address] Care Team Providers Care Record Retrieval Specialist Name Role Phone Name, Ramon JIMENEZ Primary Care Provider [phone] Allergies No known active allergies Medications melatonin tablet Take 1 mg by mouth at bedtime. 06/21/20 22 Active SUMAtriptan (Imitrex) 50 MG tabletIndicatio ns:Migraine without status migrainosus, not intractable, unspecified migraine type Take 1 tablet (50 mg) by mouth 1 (one) time if needed for migraine for up to 36 doses. May repeat dose once in 2 hours if no relief. Do not exceed 2 doses in 24 hours. 9 tablet 3 04/20/20 23 Active omeprazole OTC (PriLOSEC OTC) 20 MG EC tablet Take 1 tablet (20 mg) by mouth before breakfast. Do not crush, chew, or split. 30 tablet 11 08/23/20 23 Active Proctosol HC 2.5 % rectal cream INSERT RECTALLY DIRECTED TWICE DAILY 28.35 g 1 11/08/19 24 Active famotidine (Pepcid) 40 MG tablet Take 40 mg by mouth at bedtime. 01/25/20 24 Active pyridoxine (Vitamin B-6) 50 MG tablet Take 50 mg by mouth Once per day. 03/30/20 24 Active omeprazole (PriLOSEC) [address] capsule TAKE 1 CAPSULE BY MOUTH EVERY DAY BEFORE BREAKFAST DO NOT BREAK, CRUSH, DISSOLVE OR CHEW 90 capsule 3 08/28/20 24 Active Ferrous Sulfate Dried (Feosol) 200 (65 Fe) MG tablet Take 1 tablet by mouth every other day. 30 tablet 1 09/19/20 24 Active fluconazole (Diflucan) 150 MG tablet One pill weekly. Get bloodwork after one month 4 tablet 2 11/28/19 25 Active verapamil SR (Calan SR) 120 MG ER tablet TAKE 1 TABLET BY MOUTH EVERY DAY FOR 30 DAYS 01/31/20 24 025 Discontinued Active Problems Problem Noted Date Diagnosed Date Hydroureteronephrosis 08/16/2024 Hemorrhoid 08/16/2024 H. pylori duodenitis 08/16/2024 Gastroesophageal reflux disease 08/16/2024 Dysphagia 08/16/2024 Calculus, ureter 08/16/2024 Medullary sponge kidney 11/30/2023 Dental calculus 09/05/2023 Nephrolithiasis 08/30/2023 History of tubal ligation 04/20/2023 Seborrheic dermatitis 12/22/2022 History of cholecystectomy 12/22/2022 Migraine without status migrainosus, not intract able 12/22/2022 Vitamin D deficiency 10/18/2017 Amenorrhea 10/18/2017 Resolved Problems Problem Noted Date Diagnosed Date Resolved Date Biliary calculus 02/09/2018 10/18/2023 Encounters Date Type Department Care Team Description 11/28/2024 10:30 AM EST Procedure Visit [address] [address] Roshan Upton CNM 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 (Primary Dx); On detention drug therapy; Recurrent candidiasis of vagina 11/28/2024 Travel 11/09/[address] [address] Roshan Upton CNM 11/08/2024 Telephone [facility] [address] [place] [address] Ingrid Maxwell 11/02/[address] [address] Earnestine Malhotra [place] October Recall 10/23/2024 Orders Only GENERIC EXTERNAL DATA DEPARTMENT Provider, Generic External Data 10/09/[address] [address] Earnestine Malhotra [place] Feb recall 09/24/2024 Telephone [facility] [place] [address] Ramon Varela MD Results 09/21/2024 Telephone [facility] [place] [address] Ramon Varela MD FYI 09/21/2024 Orders Only [facility] [place] [address] Roshan Upton CNM Abnormal uterine bleeding (Primary Dx) 09/21/2024 Orders Only GENERIC EXTERNAL DATA DEPARTMENT Provider, Generic External Data 09/20/2024 Telephone [facility] [place] [address] Ramon Varela MD 09/19/2024 Orders Only [facility] [place] [address] Roshan Upton CNM 09/19/2024 Telephone [facility] [place] [address] Abigail Restrepo, AMAURI Results 09/18/2024 11:15 AM EST Office Visit [facility] [place] [address] Roshan Upton CNM Abnormal uterine bleeding (Primary Dx); Family history of diabetes mellitus 09/18/2024 Travel 09/17/2024 Telephone [facility] [place] [address] Ramon Varela MD Nurse Triage 08/28/2024 Refill [facility] [place] [address] Ramon Varela MD from Last 3 Months Immunizations Name Administration Dates Next Due INFLUENZA INJECTABLE QUADRIV ALANT CCIIV4 MDCK Multi-dose vial 09/12/2019 Influenza injectable quadriv alent IIV4 with preservative 07/19/2018,10/18/2017 Influenza injectable quadriv alent preservative free 07/22/2023,08/02/2022,09/16/2021,2019 Pfizer Covid-19 Vaccine 12+ Bivalent 08/02/2022 Tdap 10/18/2017 Family History Medical History Relation Name Comments Diabetes Father Relation Name Status Comments Father Social History Tobacco Use Types Packs/Day Years Used Date Smoking Tobacco: Never Smokeless Tobacco: Never Tobacco Cessation:Counseling Given: Not Answered Alcohol Use Standard Drinks/Week Comments Never 0 [...] Orientation Straight 08/30/2022 10 :32 AM EDT Last Filed Vital Signs Vital Sign Reading Time Taken Comments Blood Pressure 117/80 11/28/2024 10:40 AM EST Pulse 113 11/28/2024 10:40 AM EST Temperature 36.3 ??C (97.4 ??F) 11/28/2024 10:[address] Respiratory Rate 20 11/28/2024 10:40 AM EST Oxygen Saturation 98% 11/28/2024 10:40 AM EST Inhaled Oxygen Concentration - - Weight 74.2 kg (163 lb 9.6 oz) 11/28/2024 10:40 AM EST Height 160 cm (5' 3 ) 11/28/2024 10:40 AM EST Body Mass Index 28.98 11/28/2024 10:40 AM EST Plan of Treatment Upcoming Encounters Date Type Department Care Team (Late st Contact Info) Description 01/01/2025 9:00 AM EST Office Visit [facility] [address] [place] [address] Ingrid Maxwell 01/14/2025 3:15 PM EDT Office Visit [facility] [address] [place] [address] Name, MD Ramon [address] [place] [address] Health Maintenance Due Date Last Done Comments Hepatitis B Vaccines (1 of 3 - 19+ 3-dose series) 2004 COVID-19 Vaccine ( season) 2024 08/02/2022, 10/07/2021, 03/23/2021, Additional history exists Influenza Vaccine (#1) 2024 , 08/02/2022, 09/16/2021, Additional history exists Dental Oral Exam 10/18/2024 04/17/2024, 03/2023, 02/19/2022, Additional history exists Dental Prophylaxis 10/18/2024 04/17/2024, 1 11/05/2022, 03/22/2022 Cervical Cancer Screening 11/30/2024 HPV/Cotest 11/30/2024 11/30/2023, 11/01, 06/20/2018 Pap Smear 11/30/2024 11/30/2023, 11/01, 04/22/2021, Additional history exists Dental X-Ray: Full Mouth 02/20/2025 02/19/2022, 07/31 Dental X-Ray: Bitewings 03/17/2025 03/16/20 24, 11/25/2023, 09/05/2023, Additional history exists Alcohol/Substance Use Screening 05/10/2025 05/10/2024 Depression Screening 05/10/2025 05/10/2024, 05/10/20 SDOH Screening 05/10/2025 05/10/2024 Family Planning (PISQ) 11/28/2025 11/28/2024 Tobacco Screening 11/28/2025 11/28/2024 DTaP/Tdap/Td Vaccines (2 - Td or Tdap) 10/18/2027 10/18/2017 Zoster Vaccines (1 of 2) 2035 RSV Patients and Patients Aged 60 years or older (1 - 1-dose 75+ series) 2060 HIV Screening Completed 04/20/2021 Hepatitis C Screening Completed 04/20/2021 HIB Vaccines Aged Out No longer eligi ble based on patient's age to complete this topic HPV Vaccines Aged Out No longer eligi ble based on patient's age to complete this topic Hepatitis A Vaccines Aged Out No long er eligible based on patient's age to complete this topic IPV Vaccines Aged Out No longer eligi ble based on patient's age to complete this topic Meningococcal Vaccine Aged Out No damaris ann eligible based on patient's age to complete this topic Pneumococcal Vaccine: Pediatrics (0 to 5 Years) and At-Risk Patients (6 to 49) Years) Aged Out No longer eligible based on patient's age to complete this topic RSV under 20 months Aged Out No longe r eligible based on patient's age to complete this topic Rotavirus Vaccines Aged Out No longer eligible based on patient's age to complete this topic Procedures Procedure Name Priority Date/Time Associated Diagnosis Comments HCG, TOTAL, QN Routine 10/23/2024 6:14 AM EST COMPREHENSIVE METABOLIC PANEL Routine 10/23/2024 6:14 AM EST URINALYSIS, COMPLETE, WITH REFLEX TO CULTURE Routine 10/23/2024 6:14 AM EST CBC WITH AUTO DIFFERENTIAL Routine 10/23/2024 6:14 AM EST CULTURE, URINE, ROUTINE Routine 10/23/2024 12:00 AM EST URINALYSIS, COMPLETE, WITH REFLEX TO CULTURE Routine 09/21/2024 12:38 PM EST URINALYSIS WITH REFLEX MICROSCOPIC Routine 09/21/2024 12:38 PM EST US PELVIS COMPLETE Routine 09/21/2024 11 :15 AM EST CBC WITH AUTO DIFFERENTIAL Routine 09/21/2024 8:48 AM EST HEMOGLOBIN A1C Routine 09/18/2024 12:08 PM EST Family history of diabetes mellitus TSH W/REFLEX TO FT4 Routine 09/18/2024 1 2:08 PM EST Abnormal uterine bleeding CBC Routine 09/18/2024 12:08 PM EST Abnormal uterine bleeding POCT , URINE Routine 09/18/2024 11:47 AM EST Abnormal uterine bleeding POCT HEMOGLOBIN Routine 09/18/2024 11:29 AM EST Abnormal uterine bleeding PROPHYLAXIS - ADULT Routine 04/17/2024 1 0:00 AM EDT Dental plaque Dental calculus PERIODIC ORAL EVALUATION - ESTABLISHED PATIENT Routine 04/17/2024 10:00 AM EDT BITEWING - SINGLE RADIOGRAPHIC IMAGE Routine 03/16/2024 10:00 AM EDT Full coverage crown needed for tooth at risk for fracture HPV MRNA E6/E7 REFLEX TO HPV 16, 18/45 Routine 11/30/2023 10:36 AM EST PAP SMEAR Routine 11/30/2023 10:36 AM EST 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 DIAGNOSTIC - DIAGNOSTIC IMAGING - INTRAORAL - COMPREHENSIVE SERIES OF RADIOGRAPHIC IMAGES Routine 02/19/2022 12:00 AM EDT ZZZ HISTORICAL HEPATITIS C AB W/REFL TO HCV RNA, QN, PCR Routine 04/20/2021 1:05 PM EDT HIV 1/2 ANTIGEN/ANTIBODY, FOURTH GENERATION W/RFL Routine 04/20/2021 1:05 PM EDT from Last 3 Months or Most Recently Relevant to Health Maintenance Results * (ABNORMAL) Urinalysis, Complete, with Reflex to Culture (10/23/2024 6:14 AM EST) Only the most recent of2 resultswithin the time period is included. Color Urine Yellow [facility] Appearance Urine Clear [facility] PH 5.5 5.0 - 9.0 [facility] Glucose Urine UA Negative Negative mg/dL [facility] Urine Blood Large (3+)(A) Negative [facility] Specific Newborn - Urine 1.025 1.005 - 1.025 [facility] Urine Protein Trace Neg-Trace mg/dL [facility] Urine Ketones Negative Negative mg/dL [facility] Nitrite Urine Negative Negative [facility] Leukocyte Esterase Urine Negative Negative [facility] RBC Urine 11-20(A) 0 - 2 /HPF [facility] Urine WBC 6-10(A) 0 - 5 /HPF [facility] Urine Squamous Epithelial Cell 6-10 0 - 2 /HPF [facility] Urine Bacteria Trace None Seen [facility] Hyaline Casts, Urine 0-2 0 - 2 /LPF [facility] 10/23/2024 6:14 AM EST 10/23/2024 6:19 AM EST Narrative [facility] - 10/23/2024 6:27 AM EST [id number], Clean Catch us Generic External Data Provider LAB URINE ORDERAB LES Final Result [facility] [address] [place] [phone] * (ABNORMAL) CBC auto differential (10/23/2024 6:14 AM EST) Only the most recent of2 resultswithin the time period is included. White Blood Count 7.1 4.8 - 10.8 X10*3/uL [facility] Red Blood Count 4.37 4.20 - 5.50 X10*6/uL [facility] Hemoglobin 11.7(L) 12.0 - 16.0 g/dl [facility] Hematocrit 34.7(L) 37.0 - 47.0 % [facility] Mean Corpuscular Volume 79.4(L) 80.0 - 98.0 fL [facility] Mean Corpuscular Hemoglobin 26.8(L) 27.0 - 33.0 pg [facility] Mean Corpuscular HGB Conc 33.7 31.0 - 35.0 g/dl [facility] Red Cell Distribution Width 13.6 11.0 - 16.0 % [facility] Platelet Count 235 160 - 400 X10*3/uL [facility] Mean Platelet Volume 10.2 9.4 - 12.3 fL [facility] Neutrophils Percent Auto 62.0 45 - 73 % [facility] Imm Gran Pct Auto 0.3 0.0 - 0.4 % [facility] Lymphocytes Percent Auto 27.1 20 - 40 % [facility] Monocytes Percent Auto 6.9 2 - 11 % [facility] Eosinophils Percent Auto 3.0 0 - 4 % [facility] Basophils Percent Auto 0.7 0 - 2 % [facility] NRBC Pct Auto 0.0 0.0 - 0.2 /100WBC [facility] Neutrophils Absolute Auto 4.4 2.0 - 8.3 x10*3/uL [facility] Imm Gran Abs Auto 0.02 0.00 - 0.03 X10*3/uL [facility] Lymphocytes Absolute Auto 1.9 1.2 - 4.9 X10*3/uL [facility] Monocytes Absolute Auto 0.5 0.1 - 1.2 X10*3/uL [facility] Eosinophils Absolute Auto 0.2 0.0 - 0.4 X10*3/uL [facility] Basophils Absolute Auto 0.1 0.0 - 0.2 X10*3/uL [facility] NRBC Abs Auto 0.000 0.0 - 0.012 X10*3/uL [facility] 10/23/2024 6:14 AM EST 10/23/2024 6:19 AM EST Generic External Data Provider LAB BLOOD ORDERAB LES Final Result Performing Organization Address City/[facility]/ZIP Co de Phone Number [facility] [address] [place] [phone] * hCG, Total, Quantitative (10/23/2024 6:14 AM EST) HCG Quantitative <2 mIU/mL [facility] Comment:Weeks post LMP Appr oximate hCG(Last Menstrual Period) Range (mIU/ml)3 - 4 weeks 9 - 1304 - 5 weeks 75 - 2,6005 - 6 weeks 850 - 20,8006 - 7 weeks 4000 - 100,2007 - 12 weeks 11,500 - 289,74832 - 16 weeks 18,300 - 137,10819 - 29 weeks (2nd trimester) 1,400 - 53,72945 - 41 weeks (3rd trimester) 940 - 60,000The Smith B- hCG assay is used for the early detection ofpregnancy; it cannot be used to diagnose any conditionunrelated to . If a B-hCG level is not supportedby the clinical evidence, results should be confirmed by analternative method (qualitative urine hCG, for example). 10/23/2024 6:14 AM EST 10/23/2024 6:19 AM EST us Generic External Data Provider LAB BLOOD ORDERAB LES Final Result Performing Organization Address [facility] Co de Phone Number [facility] [address] [place] [phone] * (ABNORMAL) Comprehensive Metabolic Panel (10/23/2024 6:14 AM EST) Sodium 140 135 - 145 mmol/L [facility] Potassium 3.7 3.3 - 5.1 mmol/L [facility] Chloride 108 96 - 108 mmol/L [facility] Carbon Dioxide 25 22 - 29 mmol/L [facility] Anion Gap 11(L) 12 - 20 [facility] Urea Nitrogen (BUN) 10 9 - 16 mg/dL [facility] Creatinine, Serum 0.61 0.5 - 1.4 mg/dL [facility] Creatinine Clr Calc Pharmacy 122.1 [facility] Comment:Provided height and weight: 162.56 cm,72.575 kg.eGFR (calculated from the MDRD study equation) and eCrCl(calculated from the Cockcroft-Gault equation) are based ondifferent parameters and may not yield comparable results.If eCrCl result is absurd, please check patient'sheight/weight. Estimated Glomerular Filt Rate >60 [facility] Comment:Chronic Kidney Disea se: Estimated GFR < 60 mL/min/1.53m4Zeyxny Kidney Disease: Estimated GFR < 15 mL/min/1.73m2 Glucose 96 60 - 115 mg/dL [facility] Calcium 9.3 8.4 - 10.2 mg/dL [facility] Bilirubin, Total 0.3 0.0 - 1.0 mg/dL [facility] Aspartate Amino Transferase 27 5 - 31 U/L [facility] Alanine Aminotransferase 28 0 - 31 U/L [facility] Total Protein 6.9 6.5 - 8.0 g/dL [facility] Albumin Level 4.0 3.5 - 5.0 g/dL [facility] Alkaline Phosphatase 75 39 - 117 U/L [facility] 10/23/2024 6:14 AM EST 10/23/2024 6:19 AM EST us Generic External Data Provider LAB BLOOD ORDERAB LES Final Result [facility] [address] [place] [phone] * Culture, Urine, Routine (10/23/2024 12:00 AM EST) Urine Urine specimen obtained by clean catch procedure / Unknown 10/23/2024 10/23/2024 Comment:UACC Narrative [facility] - 10/24/2024 10:51 AM EST Urine Culture No growth. Specimen Source: Urine clean catch Generic External Data Provider LAB MICROBIOLOGY - GENERAL ORDERABLES Final Result Performing Organization Address [facility] de Phone Number [facility] [address] [place] [phone] * (ABNORMAL) Urinalysis w/reflex microscopic (09/21/2024 12:38 PM EST) Color Urine Yellow [facility] Appearance Urine Clear [facility] PH 7.0 5.0 - 9.0 [facility] Glucose Urine UA Negative Negative mg/dL [facility] Urine Blood Large (3+)(A) Negative [facility] Specific Newborn - Urine 1.020 1.005 - 1.025 [facility] Urine Protein Negative Neg-Trace mg/dL [facility] Urine Ketones Negative Negative mg/dL [facility] Nitrite Urine Negative Negative [facility] Leukocyte Esterase Urine Negative Negative [facility] 09/21/2024 12:3 8 PM EST 09/21/2024 12:44 PM EST Narrative [facility] - 09/21/2024 12:48 PM EST [id number], Clean Catch us Generic External Data Provider LAB URINE ORDERAB LES Final Result Performing Organization Address [facility] Co de Phone Number [facility] [address] [place] [phone] * Us Pelvis complete (09/21/2024 11:15 AM EST) Anatomical Region Laterality Modality Pelvis Ultrasound 09/21/2024 11:1 5 AM EST Narrative 09/21/2024 3:12 PM EST ? [facility] ?[address] ?[place] [address] ? Ultrasound Report ? Signed ? Patient: Adria,Vilnileshi Perez ?MR#: [id number] ?? [id number] ? : 1985 ?Acct:[id number] ? Age/Sex: 38 / F ?ADM Date: 09/21/24 ? Loc: HO.ED ? Attending Dr: ? Ordering Physician: Shiela Garza ?? Date of Service: 09/21/24 ?? Procedure(s): US pelvic complete ?? Accession Number(s): [id number] ? cc: Name,Ramon JIMENEZ; Shiela Garza ? EXAMINATION: ?? US PELVIS COMPLETE ? CLINICAL INFORMATION: ?? vaginal bleeding. ? COMPARISON: ?? CT abdomen/pelvis 08/29/2023 ? TECHNIQUE: ?? Transabdominal and transvaginal images of the pelvis were obtained. ?? Color and spectral Doppler evaluation of the ovaries was performed. ? FINDINGS: ? UTERUS: ??Anteverted. Normal size and contour, measuring 7.2 x 4.1 x 4.7 ?? cm (cervix to fundus x AP x transverse). Uniform, homogeneous ?? endometrium measures 0.5 cm in width. ? RIGHT OVARY: ??Normal size and echogenicity measuring 2.5 x 1.9 x 1.7 ?? cm, volume 4 mL. ? LEFT OVARY: ??Normal size and echogenicity measuring 2.4 x 1.8 x 1.9 cm, ?? volume 4.4 mL. Multiple physiologic follicles noted. ? Arterial and venous waveforms are identified in both ovaries on ?? spectral Doppler assessment. ? FREE FLUID: ??No pelvic free fluid. ? US/US pelvic complete ?? IMPRESSION: ?? No acute abnormality on this sonographic exam of the pelvis. ? Electronically signed by: ??Danelle Terrazas DO ??09/21/2024 03:09 PM EST ?? RP ? Dictated By: ?Mk,Danelle ? Signed By: ?<Electronically signed by Danelle Terrazas in OV> ? 09/21/24 1509 ? DD/ 1115 ? TD/TT: 09/21/24 1148 ? [employer]: ? Procedure Note Donotuseinterpreter, Image - 09/21/[address] [phone] Ultrasound Report Signed Patient: Cami CovingtonMR#: [id number] : 1985Acct:[id number] Age/Sex: 38 / FADM Date: 09/21/24 Loc: HO.ED Attending Dr: Ordering Physician: Shiela Garza Date of Service: 09/21/24 Procedure(s): US pelvic complete Accession Number(s): [id number] cc: Name,Ramon JIMENEZ; Shiela Garza EXAMINATION: US PELVIS COMPLETE CLINICAL INFORMATION: vaginal bleeding. COMPARISON: CT abdomen/pelvis 08/29/2023 TECHNIQUE: Transabdominal and transvaginal images of the pelvis were obtained. Color and spectral Doppler evaluation of the ovaries was performed. FINDINGS: UTERUS: Anteverted. Normal size and contour, measuring 7.2 x 4.1 x 4.7 cm (cervix to fundus x AP x transverse). Uniform, homogeneous endometrium measures 0.5 cm in width. RIGHT OVARY: Normal size and echogenicity measuring 2.5 x 1.9 x 1.7 cm, volume 4 mL. LEFT OVARY: Normal size and echogenicity measuring 2.4 x 1.8 x 1.9 cm, volume 4.4 mL. Multiple physiologic follicles noted. Arterial and venous waveforms are identified in both ovaries on spectral Doppler assessment. FREE FLUID: No pelvic free fluid. US/US pelvic complete IMPRESSION: No acute abnormality on this sonographic exam of the pelvis. Electronically signed by: Danelle Terrazas DO 09/21/2024 03:09 PM EST Dictated By: Danelle Terrazas Signed By: <Electronically signed by Danelle Terrazas in OV> 09/21/24 1509 DD/ 1115 TD/TT: 09/21/24 1148 [employer]: us [facility] External Provider IMG US PROCEDURES Final Result * TSH W/Reflex to FT4 (09/18/2024 12:08 PM EST) TSH reflex Free T4 1.37 0.32 - 4.0 uIU/mL [facility] Blood Venous blood specimen / Unknown 09/18/2024 12:08 PM EST 09/18/2024 1:13 PM EST Roshan Upton [facility] BLOOD ORDERABLES Rosa M l Result [facility] [address] [place] [phone] * (ABNORMAL) CBC (09/18/2024 12:08 PM EST) [facility] White Blood Count 6.9 4.8 - 10.8 X10*3/uL [facility] Red Blood Count 4.42 4.20 - 5.50 X10*6/uL [facility] Hemoglobin 11.7(L) 12.0 - 16.0 g/dl [facility] Hematocrit 35.7(L) 37.0 - 47.0 % [facility] Mean Corpuscular Volume 80.8 80.0 - 98.0 fL [facility] Mean Corpuscular Hemoglobin 26.5(L) 27.0 - 33.0 pg [facility] Mean Corpuscular HGB Conc 32.8 31.0 - 35.0 g/dl [facility] Red Cell Distribution Width 14.5 11.0 - 16.0 % [facility] Platelet Count 296 160 - 400 X10*3/uL [facility] Mean Platelet Volume 10.3 9.4 - 12.3 fL [facility] NRBC Pct Auto 0.0 0.0 - 0.2 /100WBC [facility] NRBC Abs Auto 0.000 0.0 - 0.012 X10*3/uL [facility] Blood Venous blood specimen / Unknown 09/18/2024 12:08 PM EST 09/18/2024 1:08 PM EST [facility] BLOOD ORDERABLES Rosa M l Result Performing Organization Address [facility] Co de Phone Number [facility] [address] [place] [phone] * Hemoglobin A1c (09/18/2024 12:08 PM EST) Hemoglobin A1c 5.4 <6.0 % [facility] Comment:Hemoglobin A1C Refer ence Range Adults: 4.8 - 6.0 % Non diabetic: < 6.0 % Goal: < 7.0 %Additional Action Suggested: > 8.0 %Note: Hemoglobin A1c results are invalid for patients with abnormal amounts of HbF. Blood transfusions may impact the HbA1c concentration in the patient sample. Estimated Average Glucose 108 mg/dL [facility] Comment:eAG = Estimated ave rage glucose which is %A1C expressed asaverage glucose, using the formula of the [id number] Glucose study (ADAG), Diabetes Care, Vol.31,#8,2007 Blood Venous blood specimen / Unknown 09/18/2024 12:08 PM EST 09/18/2024 1:08 PM EST [facility] BLOOD ORDERABLES Rosa M l Result Performing Organization Address [facility] Co de Phone Number [facility] [address] [place] [phone] * POCT , urine manually resulted (09/18/2024 11:47 AM EST) Pathologist [facility] Preg Test, Ur Negative Negative, Indeterminate, None Detected, Invalid, Specimen unsatisfactory for evaluation, Weakly Positive QC Media Lot # [id number] Lot# Expiration Date ,025 Urine 09/18/2024 11:4 7 AM EST [facility] POINT OF CARE TEST ENTER/ EDIT ORDERABLES Final Result * (ABNORMAL) POCT hemoglobin docked device (09/18/2024 11:29 AM EST) Hemoglobin 11.7(A) 12.0 - 15.0 QC Media Lot # [id number] Lot# Expiration Date [id number] Blood 09/18/2024 11:2 9 AM EST Roshan Upton CNM POINT OF CARE TEST ENTER/ EDIT ORDERABLES Final Result * HPV mRNA E6/E7 w/Reflex to HPV Genotypes 16, 18/45 (11/30/2023 10:36 AM EST) HPV nRNA E6/E7 Not Detected Not Detected [facility] Comment:Methodology: Transcr iption-Mediated AmplificationThis assay detects E6/E7 viral messenger RNA (mRNA) from 14high-risk HPV types (16,18,31,33,35,39,45,51,52,56,58,59,66,68).Cervical sources are required for HPV testing.If a vaginal source from a patient who has had atotal hysterectomy with removal of cervix wassubmitted, please contact the testing laboratoryfor alternative testing options.For additional information, please refer tohttp://education.ASC Information Technology/faq/DSD709e4(This link if provided for information/educational purposes only.)THIS TEST WAS PERFORMED AT:[facility] [place] [phone] RODRIGES MD HPV mRNA E6/E7 [facility] HPV 16 RNA [facility] HPV 18/45 RNA [facility] 11/30/2023 10:3 6 AM EST 12/01/2023 9:50 AM EST [facility] CYTOLOGY ORDERABLES F inal Result [facility] [address] [place] [phone] * Pap Smear (11/30/2023 10:36 AM EST) Swab Cervix uteri structure / Unknown 11/30/2023 10:36 AM EST 12/01/2023 9:50 AM EST Narrative [facility] - 2023 7:22 AM EST ----- ------- Name: Cami Covington ? Age/Sex: 38/F ? : 1985 Unit#: [id number] ?? Attend : ?Re11/30/23 ?Status: PRE REF ? Location: HO.LNP ?Disch: ? ----- ------- SPEC : [id number] ? RECD: 12/01/23-949 ? STATUS: ??SOUT ? REQ NUM: [id number] ? WILLI: 11/30/23-6 ? SUBM DR: RIZZARDINI,ROSHAN CNM ? ENTERED: ??12/01/23-3 ?SP TYPE: Pap Smr ?OTHR : ? ORDERED: ??Pap Smear ? Interpretation ?? Satisfactory for evaluation. ?? Coccobacilli consistent with shift in vaginal zoraida. ?? Negative for intraepithelial lesion or malignancy. ?HPV mRNA E6/E7: ?NOT DETECTED ? This assay detects E6/E7 viral messenger RNA (mRNA) from 14 high-risk HPV types (16, 18, ?? 31, 33, 35, 39, 45, 51, 52, 56, 58, 59, 66, 68) ?? HPV testing performed by [facility], [place], [place]. ??See reference laboratory ?? portion of the EMR for entire report. ?Clinical Information LMP: Unknown date Previous PAP test: Unknown date/findings Other history: Hx of positive HPV test (nil/HPV pos 2022) ? Material Received ?? ThinPrep-Cervical ----- ------- Signed (signature on file) [employer] (ASCP) 12/14/23 0722 ? ----- ------- ? END OF REPORT ? us Roshan Upton [facility] CYTOLOGY ORDERABLES F inal Result Performing Organization Address [facility] Co de Phone Number [facility] [address] [place] [phone] * HEPATITIS C AB W/REFL TO HCV RNA, QN, PCR (04/20/2021 1:05 PM EDT) HEPATITIS C ANTIBODY NON-REACT NELSON NON-REACT [facility] INDEX 0.01 <1.00 [facility] Comment: ?? HCV antibody was non-reactive. There is no laboratory ?? evidence of HCV infection. ?? In most cases, no further action is required. However, if recent HCV exposure is suspected, a test for HCV RNA (test code 30801) is suggested. ?? For additional information please refer to http://education.GoSpotCheck.Zaldiva/faq/CGO54b7 (This link is being provided for informational/ educational purposes only.) ?? 04/20/2021 1:05 PM EDT us Luciana Gonzalez MD HISTORICAL/NON ORDERABLE LABS Final Result Performing Organization Address [facility] Co de Phone Number [facility] [address] [place], [place] [phone] * HIV 1/2 ANTIGEN/ANTIBODY,FOURTH GENERATION W/RFL (04/20/2021 1:05 PM EDT) HIV-1/2 ANTIGEN AND ANTIBODIES, 4TH GENERATION W/ REFLEX NON-REACT NELSON NON-REACT [facility] Comment: HIV-1 antigen and HIV-1/HIV-2 antibodies were not detected. There is no laboratory evidence of HIV infection. ?? PLEASE NOTE: This information has been disclosed to you from records whose confidentiality may be protected by state law. ??If your state requires such protection, then the state law prohibits you from making any further disclosure of the information without the specific written consent of the person to whom it pertains, or as otherwise permitted by law. A general authorization for the release of medical or other information is NOT sufficient for this purpose. ? For additional information please refer to http://education.[employer] Information Technology/faq/ASZ814 (This link is being provided for informational/ educational purposes only.) ? The performance of this assay has not been clinically validated in patients less than 2 years old. ?? 04/20/2021 1:05 PM EDT Luciana Gonzalez MD LAB BLOOD ORDERABLES Final Res ult [facility] [address] from Last 3 Months or Most Recently Relevant to Health Maintenance Insurance [facility] C[facility] [place] * Guarantor: Miguelito Marcelino Account Type Relation to Patient Date of Phone Billing Address Personal/Family Self [address] [place] [address] [place] [phone] Care Teams Record Retrieval Specialist Relationship Specialty Start Date End Date Name, MD Ramon [address] [place] [phone] PCP - General Family Medicine 10/10/17
--- OUTSIDE RECORDS SUMMARY | 2024-11-28 18:23 | XMS_ITS | Encounter Summary ---
Author Organization [employer] Address [address] [facility] 7 [place] [address] Care Team Providers Care Direct Marketing Manager Name Role Phone Name, Ramon JIMENEZ Primary Care Provider [phone] Reason for Visit * Reason Comments Gynecologic Exam Encounter Details Date Type Department Care Team (Latest Contact Info) Description 11/28/2024 10:30 AM EST Procedure Visit [facility] MED[facility] [address], [place] [phone] Ivis Upton CN [address], [place] [phone] 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 (Primary Dx); On wound care specialist drug therapy; Recurrent candidiasis of vagina Social History Tobacco Use Types Packs/Day Years [...] AM EDT documented as of this encounter Last Filed Vital Signs Vital Sign Reading [...] Mass Index 28.98 11/28/2024 10:40 AM EST documented in this encounter Progress Notes * Ivis Upton CNM - 11/28/2024 10:30 AM EST Subjective Patient ID: Miguelito Perez is a 38 y.o. female who presents for pap Referred to [employer] SOFTWARE [employer]ELOPER for AUB, has appt 12/04. No worrisome findings on pelvic ultrasound 08/2024. Pap NIL/HPV neg 10/2023, preceded by NIL/HPV pos. Cotesting due. Has tubal ligation, happy with method. 1 fpc AMAB partner, no pain with sex. Treated for vulvovaginal candidiasis 05/2024, 07/2024, 07/2024 and then again earlier this month. Used topical antifungal with full resolution of symptoms. Finished a few days ago. She reports she had recurrent vulvovaginal candidiasis in [place] years ago as well. Normal Hgb A1C 08/2024, normal AST/ALT 09/2024. HIV negative in 2020. Partner is asymptomatic. Gonorrhea/Chlamydia/trichomonas negative 07/2024. TSH 0.6 in 10/2023. Estradiol 27, normal TSH/Prl/FSH in 2022. Monthly menses, last menses end 09/2024. Menses began today. Denies vasomotor symptoms. Seen by surgeon last month for hemorrhoids, planning surgery. Review of Systems Objective BP 117/80 (BP Location: Left arm, Patient Position: Sitting, BP Cuff Size: Adult) Pulse (!) 113 Temp 97.4 ??F (36.3 ??C) (Temporal) Resp 20 Ht 5' 3 (1.6 m) Wt 163 lb 9.6 oz (74.2 kg) LMP11/28/2024 (Exact Date) SpO2 98% BMI 28.98 kg/m?? Physical Exam Constitutional: Appearance: Normal appearance. Chest: Breasts: Right: Normal. No swelling, bleeding, inverted nipple, mass, nipple discharge, skin change or tenderness. Left: Normal. No swelling, bleeding, inverted nipple, mass, nipple discharge, skin change or tenderness. Genitourinary: General: Normal vulva. Labia: Right: No rash, tenderness, lesion or injury. Left: No rash, tenderness, lesion or injury. Vagina: Normal. No signs of injury and foreign body. No vaginal discharge, erythema, tenderness, bleeding or lesions. Cervix: No cervical motion tenderness, discharge, friability, lesion, erythema, cervical bleeding or eversion. Uterus: Normal. Not enlarged and not tender. Adnexa: Right adnexa normal and left adnexa normal. Right: No mass, tenderness or fullness. Left: No mass, tenderness or fullness. Comments: Scant menses Lymphadenopathy: Upper Body: Right upper body: No supraclavicular or axillary adenopathy. Left upper body: No supraclavicular or axillary adenopathy. Neurological: Mental Status: She is alert. Psychiatric: Mood and Affect: Mood normal. Behavior: Behavior normal. Assessment/Plan Diagnoses and all orders for this visit: 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 - Pap Smear Cotest 3 years if normal/HPV negative. Will contact with results. On prison drug therapy - AST; Future - ALT; Future Check AST/ALT after 1 month on weekly fluconazole. If all well, will continue for full 12 weeks. Full 12 week supply rx'd today. Recurrent candidiasis of vagina Just finished topical antifungal. Discussed weekly fluconazole for suppression. She is interested. Will send in rx. Get labs after one month. Doesn't take Prilosec every day, advised not to take on same day as fluconazole. Report if vaginal symptom recur. Other orders - fluconazole (Diflucan) 150 MG tablet; One pill weekly. Get bloodwork after one month Keep upcoming morgan with [facility] for further evaluation of AUB. Will forward pap results when available. documented in this encounter Plan of Treatment Upcoming Encounters Date Type Department Care Team (Late st Contact Info) Description 01/01/2025 9:00 AM EST Office Visit [facility] ADULT [facility] [address] [place] [address] Ingrid Maxwell 01/14/2025 3:15 PM EDT Office Visit [facility] MEDICINE [address] [place] [phone] Name, MD Ramon [address] [place] [phone] Scheduled Orders Name Type Priority Associated Diagnoses Orde r Schedule Pap Smear Pathology and Cytology Routine 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 Ordered: 11/28/2024 AST Lab Routine On prison drug therapy Expected: 12/28/2024 (Approximate), Expires: 11/28/2025 ALT Lab Routine On prison drug therapy Expected: 12/28/2024 (Approximate), Expires: 11/28/2025 documented as of this encounter Visit Diagnoses Diagnosis 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- Primary On wound care specialist drug therapy Recurrent candidiasis of vagina documented in this encounter Additional Health Concerns Assessment Noted Time PHQ-9 Depression Total Score: 0 05/10/20 24 8:59 AM EDT documented as of this encounter Care Teams Direct Marketing Manager Relationship Specialty Start Date End Date Name, MD Ramon [address] [place] [address] PCP - General Family Medicine 10/10/17 documented as of this encounter
--- OUTSIDE RECORDS SUMMARY | 2024-11-28 18:23 | XMS_ITS | Encounter Summary ---
Author Organization [employer] Address [address] [place] [address] 7 [place] [address] Care Team Providers Care Supervisor [employer] Name Role Phone Name, Ramon JIMENEZ Primary Care Provider [phone] Encounter Details Date Type Department Care Team (Late st Contact Info) Description 10/06/2022 Abstract [facility] MEDICINE [address] [place] [phone] Ramon Varela MD [address] [place] [phone] Social History Tobacco Use Types Packs/Day Years [...] 9:00 AM EST Office Visit [facility] ADULT DENTAL [address] [place] [address] [phone] Ingrid Maxwell 01/14/2025 3:15 PM EDT Office Visit [facility] MEDICINE [address] [place] [phone] Ramon Varela MD [address] [place] [phone] documented as of this encounter Visit Diagnoses Not on filedocumented in this encounter Care Teams Supervisor [employer] Relationship Specialty Start Date End Date Name, MD Ramon [address] [place] [address] PCP - General Family Medicine 10/10/17 documented as of this encounter
--- OUTSIDE RECORDS SUMMARY | 2024-11-28 18:23 | XMS_ITS | Encounter Summary ---
Author Organization [employer] Address [address] [facility] 7t [place] [address] Care Team Providers Care Optical Effects Camera Operator Name Role Phone Name, Ramon JIMENEZ Primary Care Provider [phone] Encounter Details Date Type Department Care Team ([facility] st Contact Info) Description 11/09/2024 Telephone [facility]INE [address] [place], [place] [phone] Ivis Upton CNM [address] [place] [address] Social History Tobacco Use Types Packs/Day Years [...] Description 01/01/2025 9:00 AM EST Office Visit [facility] ADULT DENTAL [address] [place] [address] Ingrid Maxwell 01/14/2025 3:15 PM EDT Office Visit [facility] MED[facility]INE [address] [place] [address] NameRamon MD [address] [place] [address] documented as of this encounter Visit Diagnoses Not on filedocumented in this encounter Additional Health Concerns Assessment Noted Time PHQ-9 Depression Total Score: 0 05/10/20 24 8:59 AM EDT documented as of this encounter Care Teams Optical Effects Camera Operator Relationship Specialty Start Date End Date NameRamon MD [address] [place] [address] PCP - General Family Medicine 10/10/17 documented as of this encounter
[2024-12-07 15:06] LABS: HPV Genotype 16 Negative (Negative); HPV Genotype 18 Negative (Negative); HPV High Risk Negative (Negative)
== END 2024-11-28 18:22 | disposition home or self-care (01) ==
LOC: HO.HHCLNP 18:21
PROVIDERS: Visit Provider Advanced Practice Midwife
DX: Z12.4 Encounter for screening for malignant neoplasm of cervix (principal); R87.810 Cervical high risk human papillomavirus (HPV) DNA test positive
CPT/HCPCS: 87626; 88175

== ENCOUNTER 2024-11-29 10:22 | Day surgery (SDC) | payer MEDICAID, SELFPAY ==
[2024-11-27 08:15] VITALS: BMI 27.3
--- NOTE | 2024-11-28 09:11 | MHC.SHP ---
Pre-Procedural Eval Section A - 24 Hr Update-Section A only Date of Service: 11/29/24 The patient is an INPATIENT: No Changes since office visit: No Cold of Flu in the past 2 weeks, No New Medical Problems, No Changes in Medication and No Patient answered all questions Section B - Complete if H&P > 30 days Chief Complaint: Unspecified hemorrhoids Allergies: Allergies Allergy/AdvReac Type Severity Reaction Status Date / Time No Known Allergies Allergy Verified 10/30/24 09:23 [No Known Allergies*] Review of Systems Sugical H&P ROS: Negative: Constitution, Cardiovascular, Respiratory, Neurological, Psychiatric, Hem-Onc, Allergic/Immunologic, Gastrointestinal, Genitourinary, Musculoskeletal, Integumentary, Endocrine and Eyes/Ears/Nose/Throat Exam Surgical H&P Exam: Normal: HEENT, Normal: Heart, Normal: Lungs, Normal: Extremities, Normal: Abdomen, Normal: Skin and Normal: Neurological Plan I have reviewed the history and physical and performed a pertinent physical examination on my patient. No changes have occurred unless specified. Time Spent With Patient Time: Total time managing care of this patient today ____ minutes.
--- NOTE | 2024-11-28 10:16 | HO.ANESPROP2 ---
Documented by User: Monica Bui NP 11/28/24 10:16 HPI - Anesthesia Eval Consult details Narrative: 38yo F for Hemorrhoidectomy s/p EGD 04/2024 with MAC PMF Active Problems Active Problems: All Active Problems Hemorrhoids (Acute) H. pylori duodenitis (Acute) Dysphagia (Acute) GERD (gastroesophageal reflux disease) (Acute) Nephrolithiasis (Acute) Past Medical History Medical History Hydroureteronephrosis Mild acid reflux Ureteral stone with hydronephrosis Surgical History Surgical History History of cholecystectomy History of tubal ligation History of appendectomy History of Problems with Anesthesia: No Social History Social History Household Members: Spouse and Family Housing: House Do you presently have visiting nurse or other home services: No Alcohol intake: never Patient Tobacco Use Status: Never used Tobacco Use of substances other than those prescribed or required for medical reasons: No Are you DNR?: No Advance Directives: No Advance Directives Information Provided: Yes service: No Current occupational status: unemployed Meds Allergies Allergy/AdvReac Type Severity Reaction Status Date / Time No Known Allergies Allergy Verified 11/29/24 10:35 [No Known Allergies*] Home Medications ?Medication ?Instructions ?Recorded ?Confirmed ?Last Taken ?Type cholecalciferol (vitamin D3) 25 25 mcg PO QAM 01/25/24 11/29/24 Unknown History mcg (1,000 unit) capsule (Vitamin D3) Exam Height,Weight and Vital Signs: Height 5 ft 4 in Weight 72.121 kg Pertinent Lab Results Pertinent Lab Results: Laboratory Tests 10/23/24 06:14 WBC 7.1 Hgb 11.7 L Hct 34.7 L Plt Count 235 Sodium 140 Potassium 3.7 Chloride 108 Carbon Dioxide 25 BUN 10 Creatinine 0.61 Assessment and Plan Assessment Anesthesia Assessment: Chart Reviewed Final Anesthetic Review History of Problems with Anesthesia: No Documented by User: Stevo Castle MD 11/29/24 12:27 [facility] Past Medical History Medical History Hydroureteronephrosis Mild acid reflux Ureteral stone with hydronephrosis Patient : No Family History Family history of problems with anesthesia: No Surgical History Surgical History History of cholecystectomy History of tubal ligation History of appendectomy Social History Social History Household Members: Spouse and Family Housing: House Do you presently have visiting nurse or other home services: No Alcohol intake: never Patient Tobacco Use Status: Never used Tobacco Use of substances other than those prescribed or required for medical reasons: No Are you DNR?: No Advance Directives: No Advance Directives Information Provided: Yes service: No Current occupational status: unemployed Meds Allergies Allergy/AdvReac Type Severity Reaction Status Date / Time No Known Allergies Allergy Verified 11/29/24 10:35 [No Known Allergies*] Home Medications ?Medication ?Instructions ?Recorded ?Confirmed ?Last Taken ?Type cholecalciferol (vitamin D3) 25 25 mcg PO QAM 01/25/24 11/29/24 Unknown History mcg (1,000 unit) capsule (Vitamin D3) Exam Airway Mallampati Class: II TM Dist: >3cm Neck ROM: Full Loose/Missing/Broken Teeth: No Heart: ok Lungs: ok Assessment and Plan Assessment Anesthesia Assessment: Anesthesia Plan Discussed Final Anesthetic Review Family History of Problems with Anesthesia: No NPO: Yes ASA Class: II Final Preanesthetic Review: No Changes in Pt Med Stat, Meds/Allgs Chart Reviewed, Consent Obtained/Reviewed, Anes Risks/Benef Reviewed and DNR Form (If Appl.) Patient Risk: Low Procedure Risk: Low Anesthetic Plan Anesthetic Plan: GA and Agree w/ Assess. and Plan Disposition: Standard PACU
[2024-11-29] VITALS (8 sets, daily range): BP systolic 101–122; BP diastolic 54–79; PULSE 83–89; RESP 16–18; TEMP 36.1–36.6; O2SAT 97–99; BMI 27.6
[2024-11-29] MEDS: Lactated Ringers 1,000 ML 100 ML IVCONT (11:07)
--- NOTE | 2024-11-29 12:33 | W.PM.OPN ---
Operative Note Operative Note Date of Service: 11/29/24 Narrative: Preoperative diagnosis: [] Symptomatic external and external hemorrhoids x3 Postop diagnosis: [] The same Procedure [] hemorrhoidectomy x3 Surgeon: [] Demian Cardiac Care Nurse: [] Type of Anesthesia: [] LMA Indication for surgery: [] Patient had large hemorrhoids involving a 3, 7, 11:00 o'clock positions of both internal and external hemorrhoids. Findings: [] Patient brought to the operating room, placed on operative table supine position, after an adequate level general anesthesia was induced, the patient placed in lithotomy position. Rectal exam was initially performed and then the area was prepped and draped in usual sterile fashion. Each hemorrhoidal station at the 3, 7, and 11 o'clock position was sequentially approached using a hemorrhoidal clamped to grab of the hemorrhoid, and sequentially double firing of ligature device across the base of the internal and external hemorrhoids x3. All specimens sent to pathology. Wounds were irrigated, secured hemostasis, and infiltrated at both at the beginning at the end of the case with 0.5% Marcaine/1% lidocaine. A Gelfoam impregnated with 1% lidocaine plug was then placed. Dressing and mesh panties were then applied. Sponge, needle, and instrument counts reported correct. Patient tolerated the procedure well and emerged from anesthesia stable condition. EBL minimal
--- OUTSIDE RECORDS SUMMARY | 2024-11-29 13:50 | XMS_ITS | Encounter Summary ---
Author Organization [employer] Address [address] [facility] 7 [place] [address] Care Team Providers Care Talent Consultant Name Role Phone Name, Ramon JIMENEZ Primary Care Provider Reason for Visit * Reason Onset Date Comments Luiza Recall 11/02/2024 Encounter Details Date Type Department Care Team ([facility] st Contact Info) Description 11/02/2024 Telephone [facility] MED[facility] [address] [place], [place] [phone] [place], [place] October Recall Social History Tobacco Use Types [...] Description 01/01/2025 9:00 AM EST Office Visit [facility] ADULT DENTAL [address] [place] [address] Ingrid Maxwell 01/14/2025 3:15 PM EDT Office Visit [facility] [address] [place] [address] NameRamon MD [address] [place] [address] documented as of this encounter Visit Diagnoses Not on filedocumented in this encounter Additional Health Concerns Assessment Noted Time PHQ-9 Depression Total Score: 0 05/10/20 24 8:59 AM EDT documented as of this encounter Care Teams Talent Consultant Relationship Specialty Start Date End Date Ramon Vaerla MD [address] [place] [phone] PCP - General Family Medicine 10/10/17 documented as of this encounter
--- OUTSIDE RECORDS SUMMARY | 2024-11-29 13:50 | XMS_ITS | Clinical Summary ---
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 (Primary Dx); On senior care drug therapy; Recurrent candidiasis of vagina 11/28/2024 Travel 11/09/[address] [address] Roshan Colon CNM 11/08/2024 Telephone [facility] ADULT DENTAL [address] [place] [address] Ingrid Maxwell 11/02/[address] [address] Earnestine Malhotra [place] October Recall 10/23/2024 Orders Only GENERIC EXTERNAL DATA DEPARTMENT Provider, Generic External Data 10/09/[address] [address] Earnestine Malhotra [place] Feb recall 09/24/2024 Telephone [facility] [place] [address] Ramon Varela MD Results 09/21/[address] [address] Ramon Varela MD FYI 09/21/2024 Orders Only [address] [address] Roshan Colon CNM Abnormal uterine bleeding (Primary Dx) 09/21/2024 Orders Only GENERIC EXTERNAL DATA DEPARTMENT Provider, Generic External Data 09/20/[address] [address] Ramon Varela MD 09/19/2024 Orders Only [address] [address] Roshan Colon CNM 09/19/[address] [address] Abigail Restrepo, AMAURI Results 09/18/2024 11:15 AM EST Office Visit [facility] [place] [address] Roshan Colon CNM Abnormal uterine bleeding (Primary Dx); Family history of diabetes mellitus 09/18/2024 Travel 09/17/2024 Telephone [facility] [place] [address] Ramon Varela MD Nurse Triage from Last 3 Months Immunizations Name Administration [...] Description 01/01/2025 9:00 AM EST Office Visit [facility] ADULT DENTAL [address] [place] [address] Ingrid Maxwell 01/14/2025 3:15 PM EDT Office Visit [facility] MEDICINE [address] [place] [address] Name, MD Ramon [address] [place] [address] Health Maintenance Due Date Last Done Comments [...] time period is included. Color Urine Yellow [facility] Appearance Urine Clear [facility] PH 5.5 5.0 - 9.0 [facility] Glucose Urine UA Negative Negative mg/dL [facility] Urine Blood Large (3+)(A) Negative [facility] Specific [place] - Urine 1.025 1.005 - 1.025 [facility] Urine Protein Trace Neg-Trace mg/dL [facility] Urine Ketones Negative Negative mg/dL [facility] Nitrite Urine Negative Negative [facility] Leukocyte Esterase Urine Negative Negative [facility] RBC Urine 11-20(A) 0 - 2 /HPF [facility] Urine WBC 6-10(A) 0 - 5 /HPF [facility] Urine Squamous Epithelial Cell 6-10 0 - 2 /HPF [facility] Urine Bacteria Trace None Seen [facility] Hyaline Casts, Urine 0-2 0 - 2 /LPF [facility] 10/23/2024 6:14 AM EST 10/23/2024 6:19 AM EST Narrative [facility] - 10/23/2024 6:27 AM EST [id number], Clean Catch us Generic External Data Provider LAB URINE ORDERAB LES Final Result [facility] [address] [place] [phone] * (ABNORMAL) CBC auto differential (10/23/2024 6:14 AM EST) Only the most recent of2 resultswithin the time period is included. White Blood Count 7.1 4.8 - 10.8 X10*3/uL [facility] Red Blood Count 4.37 4.20 - 5.50 X10*6/uL [facility] Hemoglobin 11.7(L) 12.0 - 16.0 g/dl [facility] Hematocrit 34.7(L) 37.0 - 47.0 % [facility] Mean Corpuscular Volume 79.4(L) 80.0 - 98.0 fL [facility] Mean Corpuscular Hemoglobin 26.8(L) 27.0 - 33.0 pg [facility] Mean Corpuscular HGB Conc 33.7 31.0 - 35.0 g/dl [facility] Red Cell Distribution Width 13.6 11.0 - 16.0 % [facility] Platelet Count 235 160 - 400 X10*3/uL [facility] Mean Platelet Volume 10.2 9.4 - 12.3 fL [facility] Neutrophils Percent Auto 62.0 45 - 73 % [facility] Imm Gran Pct Auto 0.3 0.0 - 0.4 % [facility] Lymphocytes Percent Auto 27.1 20 - 40 % [facility] Monocytes Percent Auto 6.9 2 - 11 % [facility] Eosinophils Percent Auto 3.0 0 - 4 % [facility] Basophils Percent Auto 0.7 0 - 2 % [facility] NRBC Pct Auto 0.0 0.0 - 0.2 /100WBC [facility] Neutrophils Absolute Auto 4.4 2.0 - 8.3 x10*3/uL [facility] Imm Gran Abs Auto 0.02 0.00 - 0.03 X10*3/uL [facility] Lymphocytes Absolute Auto 1.9 1.2 - 4.9 X10*3/uL [facility] Monocytes Absolute Auto 0.5 0.1 - 1.2 X10*3/uL [facility] Eosinophils Absolute Auto 0.2 0.0 - 0.4 X10*3/uL [facility] Basophils Absolute Auto 0.1 0.0 - 0.2 X10*3/uL [facility] NRBC Abs Auto 0.000 0.0 - 0.012 X10*3/uL [facility] 10/23/2024 6:14 AM EST 10/23/2024 6:19 AM EST Generic External Data Provider LAB BLOOD ORDERAB LES Final Result Performing Organization Address [facility]/ZIP Co de Phone Number [facility] [address] [place] [address] [phone] * hCG, Total, Quantitative (10/23/2024 6:14 AM EST) HCG Quantitative <2 mIU/mL [facility] Comment:Weeks post LMP Appro ximate hCG(Last Menstrual Period) Range (mIU/ml)3 - 4 weeks 9 - 1304 - 5 weeks 75 - 2,6005 - 6 weeks 850 - 20,8006 - 7 weeks 4000 - 100,2007 - 12 weeks 11,500 - 289,90266 - 16 weeks 18,300 - 137,70610 - 29 weeks (2nd trimester) 1,400 - 53,52375 - 41 weeks (3rd trimester) 940 - [...] ORDERAB LES Final Result Performing Organization Address [facility]/ZIP Co de Phone Number [facility] [address] [place] [address] [phone] * (ABNORMAL) Comprehensive Metabolic Panel (10/23/2024 6:14 AM EST) Sodium 140 135 - 145 mmol/L [facility] Potassium 3.7 3.3 - 5.1 mmol/L [facility] Chloride 108 96 - 108 mmol/L [facility] Carbon Dioxide 25 22 - 29 mmol/L [facility] Anion Gap 11(L) 12 - 20 [facility] Urea Nitrogen (BUN) 10 9 - 16 mg/dL [facility] Creatinine, Serum 0.61 0.5 - 1.4 mg/dL [facility] Creatinine Clr Calc Pharmacy 122.1 [facility] Comment:Provided height and weight: 162.56 cm,72.575 kg.eGFR (calculated from the MDRD study equation) and eCrCl(calculated from the Cockcroft-Gault equation) are based ondifferent parameters and may not yield comparable results.If eCrCl result is absurd, please check patient'sheight/weight. Estimated Glomerular Filt Rate >60 [facility] Comment:Chronic Kidney Disea se: Estimated GFR < 60 mL/min/1.73q0Ygcjnb Kidney Disease: Estimated GFR < 15 mL/min/1.73m2 Glucose 96 60 - 115 mg/dL [facility] Calcium 9.3 8.4 - 10.2 mg/dL [facility] Bilirubin, Total 0.3 0.0 - 1.0 mg/dL [facility] Aspartate Amino Transferase 27 5 - 31 U/L [facility] Alanine Aminotransferase 28 0 - 31 U/L [facility] Total Protein 6.9 6.5 - 8.0 g/dL [facility] Albumin Level 4.0 3.5 - 5.0 g/dL [facility] Alkaline Phosphatase 75 39 - 117 U/L [facility] 10/23/2024 6:14 AM EST 10/23/2024 6:19 AM EST us Generic External Data Provider LAB BLOOD ORDERAB LES Final Result [facility] [address] [place] [phone] * Culture, Urine, Routine (10/23/2024 12:00 AM EST) Urine Urine specimen obtained by clean catch procedure / Unknown 10/23/2024 10/23/2024 Comment:UACC Narrative [facility] - 10/24/2024 10:51 AM EST Urine Culture No growth. Specimen Source: Urine clean catch Generic External Data Provider LAB MICROBIOLOGY - GENERAL ORDERABLES Final Result Performing Organization Address [facility] de Phone Number [facility] [address] [place] [address] [phone] * (ABNORMAL) Urinalysis w/reflex microscopic (09/21/2024 12:38 PM EST) Color Urine Yellow [facility] Appearance Urine Clear [facility] PH 7.0 5.0 - 9.0 [facility] Glucose Urine UA Negative Negative mg/dL [facility] Urine Blood Large (3+)(A) Negative [facility] Specific [place] - Urine 1.020 1.005 - 1.025 [facility] Urine Protein Negative Neg-Trace mg/dL [facility] Urine Ketones Negative Negative mg/dL [facility] Nitrite Urine Negative Negative [facility] Leukocyte Esterase Urine Negative Negative [facility] 09/21/2024 12:3 8 PM EST 09/21/2024 12:44 PM EST [facility] - 09/21/2024 12:48 PM EST [id number], Clean Catch Generic External Data Provider LAB URINE ORDERAB LES Final Result Performing Organization Address [facility] de Phone Number [facility] [address] [place] [address] [phone] * Us Pelvis complete (09/21/2024 11:15 AM EST) Anatomical Region Laterality Modality Pelvis Ultrasound 09/21/2024 11:1 5 AM EST Narrative 09/21/2024 3:12 PM EST ? [facility] ?[address] ?[place] [address] ? Ultrasound Report ? Signed ? Patient: Adria,Vilmari Perez ?MR#: [id number] ?? [id number] ? : 1985 ?Acct:[id number] ? Age/Sex: 38 / F ?ADM Date: 09/21/24 ? Loc: HO.ED ? Attending Dr: ? Ordering Physician: Shiela Garza ?? Date of Service: 09/21/24 ?? Procedure(s): US pelvic complete ?? Accession Number(s): [id number] ? cc: Name,Ramon JIMENEZ; Shiela Garza ? [...] PM EST ?? RP ? Dictated By: ?MkDanelle ? Signed By: ?<Electronically signed by Danelle Terrazas in OV> ? 09/21/24 1509 ? DD/ 1115 ? TD/TT: 09/21/24 1148 ? Electronic Engineering Draftsperson: ? Procedure Note Nabil, Loulou - 09/21/[address] [address] Ultrasound Report Signed Patient: Cami Covington#: [id number] : 1985Acct:[id number] Age/Sex: 38 / FADM Date: 09/21/24 Loc: HO.ED Attending Dr: Ordering Physician: Shiela Garza Date of Service: 09/21/24 Procedure(s): US pelvic complete Accession Number(s): [id number] cc: Name,Ramon JIMENEZ; Shiela Garza EXAMINATION: US [...] 09/21/24 1509 DD/ 1115 TD/TT: 09/21/24 1148 Electronic Engineering Draftsperson: us [facility] External Provider IMG US PROCEDURES Final Result * TSH W/Reflex to FT4 (09/18/2024 12:08 PM EST) TSH reflex Free T4 1.37 0.32 - 4.0 uIU/mL [facility] Blood Venous blood specimen / Unknown 09/18/2024 12:08 PM EST 09/18/2024 1:13 PM EST Roshanvictor manuel Colon [facility] BLOOD ORDERABLES Rosa M l Result Performing Organization Address City/[facility]/ZIP Co de Phone Number [facility] [address] [place] [address] [phone] * (ABNORMAL) CBC (09/18/2024 12:08 PM EST) White Blood Count 6.9 4.8 - 10.8 X10*3/uL [facility] Red Blood Count 4.42 4.20 - 5.50 X10*6/uL [facility] Hemoglobin 11.7(L) 12.0 - 16.0 g/dl [facility] Hematocrit 35.7(L) 37.0 - 47.0 % [facility] Mean Corpuscular Volume 80.8 80.0 - 98.0 fL [facility] Mean Corpuscular Hemoglobin 26.5(L) 27.0 - 33.0 pg [facility] Mean Corpuscular HGB Conc 32.8 31.0 - 35.0 g/dl [facility] Red Cell Distribution Width 14.5 11.0 - 16.0 % [facility] Platelet Count 296 160 - 400 X10*3/uL [facility] Mean Platelet Volume 10.3 9.4 - 12.3 fL [facility] NRBC Pct Auto 0.0 0.0 - 0.2 /100WBC [facility] NRBC Abs Auto 0.000 0.0 - 0.012 X10*3/uL [facility] Blood Venous blood specimen / Unknown 09/18/2024 12:08 PM EST 09/18/2024 1:08 PM EST Roshan Won [facility] BLOOD ORDERABLES Rosa M l Result Performing Organization Address City/[facility]/ZIP Co de Phone Number [facility] [address] [place] [phone] * Hemoglobin A1c (09/18/2024 12:08 PM EST) Hemoglobin A1c 5.4 <6.0 % [facility] Comment:Hemoglobin A1C Refer ence Range Adults: 4.8 - 6.0 % Non diabetic: < 6.0 % Goal: < 7.0 %Additional Action Suggested: > 8.0 %Note: Hemoglobin A1c results are invalid for patients with abnormal amounts of HbF. Blood transfusions may impact the HbA1c concentration in the patient sample. Estimated Average Glucose 108 mg/dL [facility] Comment:eAG = Estimated ave rage glucose which is %A1C expressed asaverage glucose, using the formula of the S2Z-XmmvzggLrgbogr Glucose study (ADAG), Diabetes Care, Vol.31,#8,May. 2007 Blood Venous blood specimen / Unknown 09/18/2024 12:08 PM EST 09/18/2024 1:08 PM EST Roshan Colon [facility] BLOOD ORDERABLES Rosa M l Result [facility] [address] [place] [phone] * POCT , urine manually resulted (09/18/2024 11:47 AM EST) Preg Test, Ur Negative Negative, Indeterminate, None Detected, Invalid, Specimen unsatisfactory for evaluation, Weakly Positive QC Media Lot # [id number] Lot# Expiration Date Urine 09/18/2024 11:4 7 AM EST Roshan Colon [facility] POINT OF CARE TEST ENTER/ EDIT ORDERABLES Final Result * (ABNORMAL) POCT hemoglobin docked device (09/18/2024 11:29 AM EST) Hemoglobin 11.7(A) 12.0 - 15.0 QC Media Lot # [id number] Lot# Expiration Date ,026 Blood 09/18/2024 11:2 9 AM EST Roshan Colon CNM POINT OF CARE TEST ENTER/ EDIT ORDERABLES Final Result * HPV mRNA E6/E7 w/Reflex to HPV Genotypes 16, 18/45 (11/30/2023 10:36 AM EST) HPV nRNA E6/E7 Not Detected Not Detected [facility] Comment:Methodology: Transcr iption-Mediated AmplificationThis assay detects E6/E7 viral messenger RNA (mRNA) from 14high-risk HPV types (16,18,31,33,35,39,45,51,52,56,58,59,66,68).Cervical sources are required for HPV testing.If a vaginal source from a patient who has had atotal hysterectomy with removal of cervix wassubmitted, please contact the testing laboratoryfor alternative testing options.For additional information, please refer tohttp://education.Entrustet/faq/BZL891c1(This link if provided for information/educational purposes only.)THIS TEST WAS PERFORMED AT:[employer] [place] [phone] RODRIGES MD HPV mRNA E6/E7 [facility] HPV 16 RNA [facility] HPV 18/45 RNA [facility] 11/30/2023 10:3 6 AM EST 12/01/2023 9:50 AM EST Roshan [facility] CYTOLOGY ORDERABLES F inal Result [facility] [address] [place] [address] [phone] * Pap Smear (11/30/2023 10:36 AM EST) Swab Cervix uteri structure / Unknown 11/30/2023 10:36 AM EST 12/01/2023 9:50 AM EST Narrative [facility] - 2023 7:22 AM EST ----- ------- Name: Cami Covington ? Age/Sex: 38/F ? : 1985 Unit#: [id number] ?? Attend : ?Re11/30/23 ?Status: PRE REF ? Location: HO.LNP ?Disch: ? ----- ------- SPEC : [id number] ? RECD: 12/01/23 ? STATUS: ??SOUT ? REQ NUM: [id number] ? WILLI: 11/30/23-1035 ? SUBM DR: ROSHAN COLON CNM ? ENTERED: ??12/01/23-1132 ?SP TYPE: Pap Smr ?OTHR : ? [...] 66, 68) ?? HPV testing performed by [facility], [place], [place]. ??See reference laboratory ?? portion of the EMR for entire report. ?Clinical Information LMP: Unknown date Previous PAP test: Unknown date/findings Other history: Hx of positive HPV test (nil/HPV pos 2022) ? Material Received ?? ThinPrep-Cervical ----- ------- Signed (signature on file) [employer] (ASCP) 12/14/23 0722 ? ----- ------- ? END OF REPORT ? Roshan Colon [facility] CYTOLOGY ORDERABLES F inal Result Performing Organization Address [facility] Co de Phone Number [facility] [address] [place] [address] [phone] * HEPATITIS C AB W/REFL TO HCV RNA, QN, PCR (04/20/2021 1:05 PM EDT) Pathologist [facility] HEPATITIS C ANTIBODY NON-REACT [facility] NON-REACT [facility] INDEX 0.01 <1.00 [facility] Comment: ?? HCV antibody was non-reactive. There is no laboratory ?? evidence of HCV infection. ?? In most cases, no further action is required. However, if recent HCV exposure is suspected, a test for HCV RNA (test code 22211) is suggested. ?? For additional information please refer to http://education.Entrustet/faq/GXF62a4 (This link is being provided for informational/ educational purposes only.) ?? 04/20/2021 1:05 PM EDT us Luciana Gonzalez MD HISTORICAL/NON ORDERABLE LABS Final Result Performing Organization Address [facility] Co de Phone Number [facility] [address] * HIV 1/2 ANTIGEN/ANTIBODY,FOURTH GENERATION W/RFL (04/20/2021 1:05 PM EDT) HIV-1/2 ANTIGEN AND ANTIBODIES, 4TH GENERATION W/ REFLEX NON-REACT [facility] NON-REACT [facility] Comment: HIV-1 antigen and HIV-1/HIV-2 [...] ? For additional information please refer to http://YadaHome.Entrustet/faq/LOX818 (This link is being provided for informational/ educational purposes only.) ? The performance of this assay has not been clinically validated in patients less than 2 years old. ?? 04/20/2021 1:05 PM EDT us Luciana Gonzalez MD LAB BLOOD ORDERABLES Final Res ult Performing Organization Address City/State/ZIP Co or Phone Number [facility] [address] from Last 3 Months or Most Recently Relevant to Health Maintenance Insurance [facility] C3 DENTAL-[facility] MEDICAID STAND ADULT Care Teams Licensed Embalmer Supervisor Relationship Specialty Start Date End Date Name, MD Ramon [address] [place] [phone] PCP - General Family Medicine 10/10/17
--- OUTSIDE RECORDS SUMMARY | 2024-11-29 13:50 | XMS_ITS | Encounter Summary ---
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 No worrisome findings on pelvic ultrasound 08/2024. Pap NIL/HPV neg 10/2023, preceded by NIL/HPV pos. Cotesting due. Has tubal ligation, happy with method. [address] jail AMAB partner, no pain with sex. Treated for vulvovaginal candidiasis 05/2024, 07/2024, 07/2024 and then again earlier this month. Used topical antifungal with full resolution of symptoms. Finished a few days ago. She reports she had recurrent vulvovaginal candidiasis in [place] years ago as well. Normal Hgb A1C [...] normal/HPV negative. Will contact with results. On custodial drug therapy - AST; Future - ALT; [...] after one month Keep upcoming morgan with [facility]ALTHCARE ASSISTANT for further evaluation of AUB. Will forward pap results when available. 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 Ordered: 11/28/2024 AST Lab Routine On custodial drug therapy Expected: 12/28/2024 (Approximate), Expires: 11/28/2025 ALT Lab Routine On custodial drug therapy Expected: 12/28/2024 (Approximate), Expires: 11/28/2025 documented as of this encounter Visit Diagnoses Diagnosis 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
--- OUTSIDE RECORDS SUMMARY | 2024-11-29 13:50 | XMS_ITS | Encounter Summary ---
Author Organization [employer] Address [address] [place] [address] Care Team Providers Care Scheduling Coordinator Name Role Phone Name, Ramon JIMENEZ Primary Care Provider [phone] Encounter Details Date Type Department Care Team (Late st Contact Info) Description 11/08/2024 Telephone [facility] ADULT DENTAL [address] [place], [place] [phone] Ingrid Maxwell Social History Tobacco Use Types [...] Description 01/01/2025 9:00 AM EST Office Visit [facility] ADULT DENTAL [address] [place] [address] Ingrid Maxwell 01/14/2025 3:15 PM EDT Office Visit [facility] MEDICINE [address] [place] [address] Name, MD Ramon [address] [place] [address] documented as of this encounter Visit Diagnoses Not on filedocumented in this encounter Additional Health Concerns Assessment Noted Time PHQ-9 Depression Total Score: 0 05/10/20 24 8:59 AM EDT documented as of this encounter Care Teams Scheduling Coordinator Relationship Specialty Start Date End Date Ramon Varela MD [address] [place] [address] PCP - General Family Medicine 10/10/17 documented as of this encounter
--- OUTSIDE RECORDS SUMMARY | 2024-11-29 13:50 | XMS_ITS | Encounter Summary ---
Author Organization [employer] Address [address] [place] [address] 7 [place] [address] Care Team Providers Care Dianetic Counselor Name Role Phone Name, Ramon JIMENEZ Primary Care Provider [phone] Encounter Details Date Type Department Care Team (Latest Contact Info) Description 03/22/[address] [facility] CONVERSIONS Dental, Provider, DDS Social History Tobacco [...] 9:00 AM EST Office Visit [facility] ADULT DENTAL [address] [place] [address] Ingrid Maxwell 01/14/2025 3:15 PM EDT Office Visit [facility] MEDICINE [address] [place] [address] Name, MD Ramon [address] [place] [address] documented as of this encounter Visit Diagnoses Not on filedocumented in this encounter Care Teams Dianetic Counselor Relationship Specialty Start Date End Date NameRamon MD [address] [place] [address] PCP - General Family Medicine 10/10/17 documented as of this encounter
--- OUTSIDE RECORDS SUMMARY | 2024-11-29 13:50 | XMS_ITS | Encounter Summary ---
Author Organization [employer] Address 75 [facility] 7t [place] [address] Care Team Providers Care Knife Cutter Name Role Phone Name, Ramon JIMENEZ Primary Care Provider [phone] Encounter Details Date Type Department Care Team ([facility] st Contact Info) Description 11/09/2024 Telephone [facility] MEDICINE [address] [place], [place] [phone] Ivis Upton CNM [address] [place] [address] Social History Tobacco Use Types Packs/Day Years [...] [facility] ADULT DENTAL [address] [place] [address] Ingrid Maxwell 01/14/2025 3:15 PM EDT Office Visit [facility] MEDICINE [address] [place] [address] NameRamon MD [address] [place] [address] documented as of this encounter Visit Diagnoses Not on filedocumented in this encounter Additional Health Concerns Assessment Noted Time PHQ-9 Depression Total Score: 0 05/10/20 24 8:59 AM EDT documented as of this encounter Care Teams Knife Cutter Relationship Specialty Start Date End Date NameRamon MD [address] [place] [address] PCP - General Family Medicine 10/10/17 documented as of this encounter
--- OUTSIDE RECORDS SUMMARY | 2024-11-29 13:50 | XMS_ITS | Encounter Summary ---
Author Organization [employer] Address 75 [facility] 7t [place] [address] Care Team Providers Care Medical Reviewer Name Role Phone Name, Ramon JIMENEZ Primary Care Provider [phone] Encounter Details Date Type Department Care Team [...] Description 01/01/2025 9:00 AM EST Office Visit [facility] ADULT DENTAL [address] [place] [address] Ingrid Maxwell 01/14/2025 3:15 PM EDT Office Visit [facility] MEDICINE [address] [place] [address] Name, MD Ramon [address] [place] [address] documented as of this encounter Visit Diagnoses Not on filedocumented in this encounter Additional Health Concerns Assessment Noted Time PHQ-9 Depression Total Score: 0 05/10/20 24 8:59 AM EDT documented as of this encounter Care Teams Medical Reviewer Relationship Specialty Start Date End Date NameRamon MD [address] [place] [address] PCP - General Family Medicine 10/10/17 documented as of this encounter
--- OUTSIDE RECORDS SUMMARY | 2024-11-29 13:51 | XMS_ITS | Encounter Summary ---
Author Organization [employer] Address 75 [facility] 7 [place] [address] Care Team Providers Care Plastic Eye Technician Name Role Phone Name, Ramon JIMENEZ Primary Care Provider [phone] Reason for Visit * Reason Onset Date Comments Medication Question 11/25/2023 Encounter Details Date Type Department Care Team ([facility] Contact Info) Description 11/25/2023 Telephone [facility] MEDICINE [address] [place], [place] [phone] Name, MD Ramon [address] [place] [address] Medication Question Social History Tobacco Use Types [...] T/C to pt. For below message through [employer] id - [id number] for below message, pt. Has EDvisit due to Abdominal Pain, and ED provider prescribe 20 mg Omeprazole two capsule by mouth ( total 40 mg ) , and pt. States she is taking as prescribe. Pt. Also advised to not take Omeprazole more than prescribe, also called to [facility] pharmacy who states pt. Picked up Omeprazole rx on 11/06/2023. Pt. Advised to not take Omeprazole more than prescribe. Pt. Also schedule for ED follow up on 12/09. [facility] WIC hours are reviewed. NTTN hours are [...] Description 01/01/2025 9:00 AM EST Office Visit [facility] ADULT DENTAL [address] [place] [address] Ingrid Maxwell 01/14/2025 3:15 PM EDT Office Visit [facility] MEDICINE [address] [place] [address] Name, MD Ramon [address] [place] [address] documented as of this encounter Visit Diagnoses Not on filedocumented in this encounter Care Teams Plastic Eye Technician Relationship Specialty Start Date End Date Name, MD Ramon [address] [place] [address] PCP - General Family Medicine 10/10/17 documented as of this encounter
--- OUTSIDE RECORDS SUMMARY | 2024-11-29 13:51 | XMS_ITS | Encounter Summary ---
Author Organization [employer] Address [address] [place] [address] 7 [place] [address] Care Team Providers Care Activities Manager Name Role Phone Name, Ramon JIMENEZ Primary Care Provider [phone] Encounter Details Date Type Department Care Team (Late st Contact Info) Description 10/06/2022 Abstract [facility] MEDICINE [address] [place] [address] Ramon Varela MD [address] [place] [address] Social History Tobacco Use Types Packs/Day Years [...] Description 01/01/2025 9:00 AM EST Office Visit [facility] ADULT DENTAL [address] [place] [phone] Ingrid Maxwell 01/14/2025 3:15 PM EDT Office Visit [facility] MEDICINE [address] [place] [address] Ramon Varela MD [address] [place] [address] documented as of this encounter Visit Diagnoses Not on filedocumented in this encounter Care Teams Activities Manager Relationship Specialty Start Date End Date Name, MD Ramon [address] [place] [address] PCP - General Family Medicine 10/10/17 documented as of this encounter
--- OUTSIDE RECORDS SUMMARY | 2024-11-29 13:51 | XMS_ITS | Encounter Summary ---
Author Organization [employer] Address 75 [facility] 7 [place] [address] Care Team Providers Care President [employer] Name Role Phone Name, Ramon JIMENEZ Primary Care Provider [phone] Reason for Visit * Reason Comments Med Refill Encounter Details Date Type Department Care Team ([facility] st Contact Info) Description 07/26/2024 Refill [facility] MEDICINE [address] [place] [address] Ivis Upton, [facility] [address] [place] [address] Social History Tobacco Use Types Packs/Day Years [...] Description 01/01/2025 9:00 AM EST Office Visit [facility] ADULT DENTAL [address] [place] [address] Hans, Ingrid 01/14/2025 3:15 PM EDT Office Visit [facility] MEDICINE [address] [place] [address] NameRamon MD [address] [place] [address] documented as of this encounter Visit Diagnoses Not on filedocumented in this encounter Additional Health Concerns Assessment Noted Time PHQ-9 Depression Total Score: 0 05/10/20 24 8:59 AM EDT documented as of this encounter Care Teams President [employer] Relationship Specialty Start Date End Date NameRamon MD [address] [place] [address] PCP - General Family Medicine 10/10/17 documented as of this encounter
--- OUTSIDE RECORDS SUMMARY | 2024-11-29 13:51 | XMS_ITS | Encounter Summary ---
Author Organization [employer] Address 75 [facility] 7 [place] [address] Care Team Providers Care Brace Maker Name Role Phone Name, Ramon JIMENEZ Primary Care Provider [phone] Reason for Visit * Reason Onset Date Comments Appointment Request 11/25/2023 Encounter Details Date Type Department Care Team ([facility] Contact Info) Description 11/25/2023 Telephone [facility] MEDICINE [address] [place], [place] [phone] Name, MD Ramon [address] [place] [address] Appointment Request Social History Tobacco Use Types [...] Description 01/01/2025 9:00 AM EST Office Visit [facility] ADULT DENTAL [address] [place] [address] Ingrid Maxwell 01/14/2025 3:15 PM EDT Office Visit [facility] MEDICINE [address] [place] [address] NameRamon MD [address] [place] [address] documented as of this encounter Visit Diagnoses Not on filedocumented in this encounter Care Teams Brace Maker Relationship Specialty Start Date End Date Ramon Varela MD [address] [place] [address] PCP - General Family Medicine 10/10/17 documented as of this encounter
--- OUTSIDE RECORDS SUMMARY | 2024-11-29 13:51 | XMS_ITS | Encounter Summary ---
Author Organization [employer] Address 75 [facility] 7t [place] [address] Care Team Providers Care Crew Dispatcher Name Role Phone Name, Ramon JIMENEZ Primary Care Provider [phone] Encounter Details Date Type Department Care Team ([facility] st Contact Info) Description 08/30/2023 Abstract [facility] MEDICINE [address] [place], [place] [phone] Name, MD Ramon [address] [place] [address] Social History Tobacco Use Types Packs/Day Years [...] Description 01/01/2025 9:00 AM EST Office Visit [facility] ADULT DENTAL [address] [place] [address] Ingrid Maxwell 01/14/2025 3:15 PM EDT Office Visit [facility] MEDICINE [address] [place] [address] Name, MD Ramon [address] [place] [address] documented as of this encounter Visit Diagnoses Not on filedocumented in this encounter Care Teams Crew Dispatcher Relationship Specialty Start Date End Date Name, MD Ramon [address] [place] [address] PCP - General Family Medicine 10/10/17 documented as of this encounter
== END 2024-11-29 14:10 | disposition home or self-care (01) ==
PROVIDERS: PCP Internal Medicine Geriatric Medicine; Visit Provider Surgery
PROC: (CPT 46260; principal; 2024-11-29 11:50)
DX: K64.8 Other hemorrhoids (principal); K64.4 Residual hemorrhoidal skin tags; Z90.49 Acquired absence of other specified parts of digestive tract; Z98.51 Tubal ligation status; Z56.0 Unemployment, unspecified
CPT/HCPCS: 46260; 88304; J0131; J0690; J1100; J1885; J2003; J2250; J2405; J2704; J2795; J3010

== ENCOUNTER → 2024-11-29 10:22 | Outpatient (BNV) | payer MEDICAID, SELFPAY | PROVIDERS: PCP Internal Medicine Geriatric Medicine; Visit Provider Surgery | DX: K64.8 Other hemorrhoids (principal) | CPT/HCPCS: 46260 ==

== ENCOUNTER 2024-12-10 09:53 | Outpatient (AMB) | payer MEDICAID, SELFPAY ==
--- NOTE | 2024-12-10 10:00 | MHC.OFFVIS ---
Intake Visit Reasons: S/P hemorrhoidectomy Intake Note: Patient here s/p hemorrhoidectomy x3. Patient c/o: pain, bleeding. Taking rx pain meds as needed. Denies constipation, diarrhea. Surgery: 11-29-2024 Chemists Required: No Accompanied by: Self / Same As Patient Allergies No Known Allergies [No Known Allergies*] Allergy (Verified 12/10/24 10:00) HPI Comments Details: Patient presents for follow-up. Aside from incisional discomfort which is improving she is otherwise doing well. She is tolerating a diet. He is having regular bowel habits. She is avoiding hard/constipation stool PFSH Medical History Hydroureteronephrosis Mild acid reflux Ureteral stone with hydronephrosis Surgical History (Updated 12/10/24 @ 10:20 by Josh Arciniega MD) Hemorrhoids (11/29/24) History of cholecystectomy History of tubal ligation History of appendectomy Social History Household Members: Spouse and Family Housing: House Do you presently have visiting nurse or other home services: No Alcohol intake: never Patient Tobacco Use Status: Never used Tobacco service: No Current occupational status: unemployed Physical Exam GI Other: Interrupted wounds healing very well Assessment & Plan Assessment & Plan (1) Status post hemorrhoidectomy: Code(s): Z98.890 - Other specified postprocedural states; Z87.19 - Personal history of other diseases of the digestive system Category: Medical Plan Patient was continue local wound care and stool softeners and will otherwise follow-up p.r.n.. All questions answered. I told her that would be another 4-6 weeks before she is fully convalescence. Coding Level of Care Code Global (75093) Diagnoses Status post hemorrhoidectomy Z98.890; Z87.19
== END 2024-12-10 10:16 | disposition home or self-care (01) ==
PROVIDERS: PCP Internal Medicine Geriatric Medicine; Visit Provider Surgery
DX: Z98.890 Other specified postprocedural states (principal); Z87.19 Personal history of other diseases of the digestive system
CPT/HCPCS: 99024

== ENCOUNTER → 2024-12-10 09:53 | Outpatient (BNVA) | payer MEDICAID, SELFPAY | PROVIDERS: PCP Internal Medicine Geriatric Medicine; Visit Provider Surgery | DX: Z98.890 Other specified postprocedural states (principal); Z87.19 Personal history of other diseases of the digestive system | CPT/HCPCS: 99212 ==

== ENCOUNTER 2025-02-13 10:08 | Outpatient (AMB) | payer MEDICAID, SELFPAY ==
--- NOTE | 2025-02-13 10:20 | A.OFFVIS_ITS ---
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 Ref Patient Transporter Required: Yes Patient Transporter Language: Comoran Information Interpreted: non-clinical & clinical Clock And Watch Assembler: Clock And Watch Assembler Present (Vita Banuelos DARREN) Accompanied by: Self / Same As Patient Allergies No Known Allergies [No Known Allergies*] Allergy (Verified 02/13/25 10:28) Is last menstrual period known: Yes Last menstrual period: 01/22/25 HPI Comments Details: Last co testing in 11/24 was negative August-September 2024 H&H 11.7/34.7, TSH negative, hCG less than 2, GC/CT was negative Pelvic ultrasound done in 09/23 showed the following: UTERUS: Anteverted. Normal size and contour, measuring 7.2 x 4.1 x 4.7 cm (cervix to fundus x AP x transverse). Uniform, homogeneous endometrium measures 0.5 cm in width. RIGHT OVARY: Normal size and echogenicity measuring 2.5 x 1.9 x 1.7 cm, volume 4 mL. LEFT OVARY: Normal size and echogenicity measuring 2.4 x 1.8 x 1.9 cm, volume 4.4 mL. Multiple physiologic follicles noted. Arterial and venous waveforms are identified in both ovaries on spectral Doppler assessment. FREE FLUID: No pelvic free fluid. [facility] Medical History Hydroureteronephrosis Mild acid reflux Ureteral stone with hydronephrosis Surgical History Hemorrhoids (11/29/24) History of cholecystectomy History of tubal ligation History of appendectomy Social History Household Members: Spouse and Family Housing: House Do you presently have visiting nurse or other home services: No Alcohol intake: never Patient Tobacco Use Status: Never used Tobacco service: No Current occupational status: unemployed Female Reproductive History Menstrual Duration of menses: 3-5 days Date of last menstrual period: 01/22/25 control method: permanent sterilization Review of Systems Const All systems reviewed & are unremarkable except as noted in HPI and below Card Reports as per HPI Resp Reports as per HPI GI Reports as per HPI and Reports no additional complaints Reports as per HPI Physical Exam Vital Signs: BMI result Body Mass Index 27.3 Const General: cooperative, healthy appearing and comfortable Chest Chest palpation & inspection: normal inspection of the chest and normal palpation of entire chest wall Breast/axilla inspection: normal inspection of the breasts and normal inspection of the axillae Breast/axilla palpation: normal palpation of the breasts, normal palpation of the axillae and no axillary lymphadenopathy Resp Effort & Inspection: normal respiratory effort Auscultation: clear to auscultation bilaterally Percussion: percussion normal Cardio Palpation: normal PMI Rate: regular rate Rhythm: regular rhythm Heart sounds: no murmurs and no rubs Peripheral pulses: Peripheral pulses 2+ throughout GI Inspection: Yes normal to inspection Palpation (GI): Soft to palpation, nontender, no guarding, not rigid and No hepatosplenomegaly present Percussion: Yes normal to percussion Auscultation: normal bowel sounds Rectal Exam - Female: deferred General: Yes bladder normal to palpation External Female Exam: No lesion Speculum Exam - Vagina: normal appearance of the vagina, normal palpation, normal vaginal discharge and not erythematous Speculum Exam - Cervix: normal appearance of the cervix and normal palpation Bimanual exam- vagina & uterus: normal bimanual exam, normal palpation, uterine size normal, bladder normal to palpation, consistency normal and normal palpation Bimanual Exam- Adnexa, other: normal adnexae, no masses and no tenderness Results AMB Test Urine AMB Test Urine Negative Last Edit by Vita Banuelos CMA on 10:34 Assessment & Plan Assessment & Plan (1) Abnormal uterine bleeding (AUB): Code(s): N93.9 - Abnormal uterine and vaginal bleeding, unspecified Category: Medical Plan: Urine test done in the office was negative GC and chlamydia taken CBC, TSH, HCG ordered. Discussed with the patient the different causes of abnormal bleeding including thyroid disorders, uterine and ovarian pathology, endometrial hyperplasia, carcinoma and other potential causes. Discussed with the patient the work up including CBC (to r/o anemia), TSH, endometrial biopsy to r/o endometrial pathology. All questions answered and the patient verbalized understanding. Instructed the patient to schedule an appointment for an endometrial biopsy in 2 weeks. Orders: Orders AMB HCG Urine Test Today Z32.02 - Encounter for test, result negative HCG Quantitative Today N93.9 - Abnormal uterine and vaginal bleeding, unspecified TSH reflex Free T4 Today N93.9 - Abnormal uterine and vaginal bleeding, unspecified Complete Blood Count no Diff Today N93.9 - Abnormal uterine and vaginal bleeding, unspecified Coding Level of Care Code New Pt Level 3 (03778) Diagnoses Abnormal uterine bleeding (AUB) N93.9
[2025-02-13 10:27] VITALS: BP 108/66; BMI 27.3
--- OUTSIDE RECORDS SUMMARY | 2025-02-13 11:43 | XMS_ITS | Encounter Summary ---
Author Organization [employer] Address 75 [facility] 7t [place] [address] Care Team Providers Care Ornamental Metal Worker Name Role Phone Name, Ramon JIMENEZ Primary Care Provider [phone] Encounter Details Date Type Department Care Team ([facility] st Contact Info) Description 08/30/2023 Abstract [facility] MEDICINE [address] [place], [place] [phone] Name, MD Ramon [address] [place] [address] Social History Tobacco Use Types Packs/Day Years [...] Care Team (Late st Contact Info) Description 05/21/2025 11:15 AM EDT Office Visit [facility] MEDICINE [address] [place] [address] NameRamon MD [address] [place] [address] documented as of this encounter Visit Diagnoses Not on filedocumented in this encounter Care Teams Ornamental Metal Worker Relationship Specialty Start Date End Date Ramon Varela MD [address] [place] [address] PCP - General Family Medicine 10/10/17 documented as of this encounter
--- OUTSIDE RECORDS SUMMARY | 2025-02-13 11:43 | XMS_ITS | Encounter Summary ---
Author Organization [employer] Address [address] [place] [address] 7t [place] [address] Care Team Providers Care Welt Drawer Name Role Phone Name, Ramon JIMENEZ Primary Care Provider [phone] Encounter Details Date Type Department Care Team (Latest Contact Info) Description 03/22/2022 Abstract [facility] CONVERSIONS Dental, Provider, DDS Social History Tobacco [...] Description 05/21/2025 11:15 AM EDT Office Visit [facility] MEDICINE [address] [place] [address] Ramon Varela MD [address] [place] [address] documented as of this encounter Visit Diagnoses Not on filedocumented in this encounter Care Teams Welt Drawer Relationship Specialty Start Date End Date Ramon Varela MD [address] [place] [address] PCP - General Family Medicine 10/10/17 documented as of this encounter
--- OUTSIDE RECORDS SUMMARY | 2025-02-13 11:43 | XMS_ITS | Encounter Summary ---
Author Organization [employer] Address 75 [facility] 7 [place] [address] Care Team Providers Care Spectacle Truer Name Role Phone Name, Ramon JIMENEZ Primary Care Provider [phone] Reason for Visit * Reason Comments Med Refill Encounter Details Date Type Department Care Team ([facility] st Contact Info) Description 07/26/2024 Refill [facility] MEDICINE [address] [place] [address] Ivis Upton, [facility] [address] [place] [address] Social History Tobacco Use Types Packs/Day Years [...] Description 05/21/2025 11:15 AM EDT Office Visit [facility] MEDICINE [address] [place] [address] NameRamon MD [address] [place] [address] documented as of this encounter Visit Diagnoses Not on filedocumented in this encounter Additional Health Concerns Assessment Noted Time PHQ-9 Depression Total Score: 0 05/10/20 24 8:59 AM EDT documented as of this encounter Care Teams Spectacle Truer Relationship Specialty Start Date End Date NameRamon MD [address] [place] [address] PCP - General Family Medicine 10/10/17 documented as of this encounter
--- OUTSIDE RECORDS SUMMARY | 2025-02-13 11:43 | XMS_ITS | Encounter Summary ---
Author Organization [employer] Address 75 [facility] 7t [place] [address] Care Team Providers Care Stoker Erector Name Role Phone Name, Ramon JIMENEZ Primary Care Provider [phone] Encounter Details Date Type Department Care Team (Late st Contact Info) Description 02/13/2025 Orders Only GENERIC EXTERNAL DATA DEPARTMENT Provider, Generic External Data Social History Tobacco Use Types Packs/Day Years [...] Description 05/21/2025 11:15 AM EDT Office Visit [facility] MEDICINE [address] [place] [address] Name, MD Ramon [address] [place] [address] documented as of this encounter Procedures Procedure Name Priority Date/Time Associated Diagnosis Comments CBC Routine 02/13/2025 10:58 AM EDT documented in this encounter Results * (ABNORMAL) CBC (02/13/2025 10:58 AM EDT) White Blood Count 5.6 4.8 - 10.8 X10*3/uL [facility] Red Blood Count 4.68 4.20 - 5.50 X10*6/uL [facility] Hemoglobin 12.3 12.0 - 16.0 g/dl [facility] Hematocrit 37.7 37.0 - 47.0 % [facility] Mean Corpuscular Volume 80.6 80.0 - 98.0 fL [facility] Mean Corpuscular Hemoglobin 26.3(L) 27.0 - 33.0 pg [facility] Mean Corpuscular HGB Conc 32.6 31.0 - 35.0 g/dl [facility] Red Cell Distribution Width 13.7 11.0 - 16.0 % [facility] Platelet Count 218 160 - 400 X10*3/uL [facility] Mean Platelet Volume 10.4 9.4 - 12.3 fL [facility] NRBC Pct Auto 0.0 0.0 - 0.2 /100WBC [facility] NRBC Abs Auto 0.000 0.0 - 0.012 X10*3/uL [facility] 02/13/2025 10:5 8 AM EDT 02/13/2025 10:58 AM EDT us Generic External Data Provider LAB BLOOD ORDERAB LES Final Result [facility] [address] [place] [address] [phone] documented in this encounter Visit Diagnoses Not on filedocumented in this encounter Additional Health Concerns Assessment Noted Time PHQ-9 Depression Total Score: 0 05/10/20 24 8:59 AM EDT documented as of this encounter Care Teams Stoker Erector Relationship Specialty Start Date End Date Name, MD Ramon [address] [place] [address] PCP - General Family Medicine 10/10/17 documented as of this encounter
--- OUTSIDE RECORDS SUMMARY | 2025-02-13 11:43 | XMS_ITS | Encounter Summary ---
Author Organization [employer] Address [address] [facility] 7 [place] [address] Care Team Providers Care Child Development Assistant Name Role Phone Name, Ramon JIMENEZ Primary Care Provider [phone] Reason for Visit * Reason Onset Date Comments Medication Question 11/25/2023 Encounter Details Date Type Department Care Team ([facility] Contact Info) Description 11/25/2023 Telephone [facility] MEDICINE [address] [place], [place] [phone] Name, MD Ramon [address] [place] [address] Medication Question Social History Tobacco Use Types [...] T/C to pt. For below message through Simple.TV id - [id number] for below message, pt. Has EDvisit due to Abdominal Pain, and ED provider prescribe 20 mg Omeprazole two capsule by mouth ( total 40 mg ) , and pt. States she is taking as prescribe. Pt. Also advised to not take Omeprazole more than prescribe, also called to [facility] pharmacy who states pt. Picked up Omeprazole rx on 11/06/2023. Pt. Advised to not take Omeprazole more than prescribe. Pt. Also schedule for ED follow up on 12/09. [facility] WIC hours are reviewed. NTTN hours [...] Description 05/21/2025 11:15 AM EDT Office Visit [facility] MEDICINE [address] [place] [address] Name, MD Ramon [address] [place] [address] documented as of this encounter Visit Diagnoses Not on filedocumented in this encounter Care Teams Child Development Assistant Relationship Specialty Start Date End Date Name, MD Ramon [address] [place] [address] PCP - General Family Medicine 10/10/17 documented as of this encounter
--- OUTSIDE RECORDS SUMMARY | 2025-02-13 11:43 | XMS_ITS | Encounter Summary ---
Author Organization [employer] Address [address] [place] [address] 7 [place] [address] Care Team Providers Care Gauge And Weigh Machine Operator Name Role Phone Name, Ramon JIMENEZ Primary Care Provider [phone] Encounter Details Date Type Department Care Team (Late st Contact Info) Description 10/06/2022 Abstract [facility] MEDICINE [address] [place] [address] NameRamon MD [address] [place] [phone] Social History Tobacco Use Types Packs/Day Years [...] Description 05/21/2025 11:15 AM EDT Office Visit [facility]INE [address] [place] [address] Ramon Varela MD [address] [place] [address] documented as of this encounter Visit Diagnoses Not on filedocumented in this encounter Care Teams Gauge And Weigh Machine Operator Relationship Specialty Start Date End Date NameRamon MD [address] [place] [address] PCP - General Family Medicine 10/10/17 documented as of this encounter
--- OUTSIDE RECORDS SUMMARY | 2025-02-13 11:43 | XMS_ITS | Encounter Summary ---
Author Organization [employer] Address [address] [facility] 7 [place] [address] Care Team Providers Care Clinical Systems Analyst Name Role Phone Name, Ramon JIMENEZ Primary Care Provider [phone] Reason for Visit * Reason Onset Date Comments Appointment Request 11/25/2023 Encounter Details Date Type Department Care Team ([facility] Contact Info) Description 11/25/2023 Telephone [facility] MEDICINE [address] [place], [place] [phone] Name, MD Ramon [address] [place] [address] Appointment Request Social History Tobacco Use Types [...] Description 05/21/2025 11:15 AM EDT Office Visit [facility]INE [address] [place] [address] Name, MD Ramon [address] [place] [address] documented as of this encounter Visit Diagnoses Not on filedocumented in this encounter Care Teams Clinical Systems Analyst Relationship Specialty Start Date End Date Name, MD Ramon [address] [place] [address] PCP - General Family Medicine 10/10/17 documented as of this encounter
--- OUTSIDE RECORDS SUMMARY | 2025-02-13 11:43 | XMS_ITS | Clinical Summary ---
Author Organization [employer] Address [address] [facility] 7t [place] [address] Care Team Providers Care Fiscal Accounting Clerk Name Role Phone Name, Rmaon JIMENEZ Primary Care Provider [phone] Allergies No known active allergies Medications omeprazole OTC (PriLOSEC OTC) 20 MG EC tablet Take 1 tablet (20 mg) by mouth before breakfast. Do not crush, chew, or split. 30 tablet 11 3 Active Proctosol HC 2.5 % rectal cream INSERT RECTALLY DIRECTED TWICE DAILY 28.35 g 1 4 Active famotidine (Pepcid) 40 MG tablet Take 40 mg by mouth at bedtime. 4 Active omeprazole (PriLOSEC) [address] capsule TAKE 1 CAPSULE BY MOUTH EVERY DAY BEFORE BREAKFAST DO NOT BREAK, CRUSH, DISSOLVE OR CHEW 90 capsule 3 4 Active Ferrous Sulfate Dried (Feosol) 200 (65 Fe) MG tablet Take 1 tablet by mouth every other day. 30 tablet 1 4 Active fluconazole (Diflucan) 150 MG tablet One pill weekly. Get bloodwork after one month 4 tablet 2 5 Active pyridoxine (Vitamin B-6) 50 MG tablet Take 1 tablet (50 mg) by mouth Once per day. 30 tablet 11 5 01/15/20 26 Active SUMAtriptan (Imitrex) 50 MG tabletIndication s:Migraine without status migrainosus, not intractable, unspecified migraine type Take 1 tablet (50 mg) by mouth 1 (one) time if needed for migraine for up to 36 doses. May repeat dose once in 2 hours if no relief. Do not exceed 2 doses in 24 hours. 9 tablet 3 5 Active Riboflavin 400 MG capsule Take 400 mg by mouth Once per day. 30 capsule 11 5 02/14/20 25 Active melatonin 5 MG tablet Take 1 tablet (5 mg) by mouth at bedtime. 30 tablet 11 5 01/15/20 26 Active Active Problems Problem Noted Date Diagnosed Date Dysfunctional uterine bleeding 01/14/2025 Hydroureteronephrosis 08/16/2024 Hemorrhoids 08/16/2024 H. pylori duodenitis 08/16/2024 Overview (01/14/2025): Eradicated as per GI biopsy from EGD 04/2024 Gastroesophageal reflux disease 08/16/2024 Dysphagia 08/16/2024 Calculus, ureter 08/16/2024 Medullary sponge kidney 11/30/2023 Dental calculus 09/05/2023 Nephrolithiasis 08/30/2023 Overview (01/14/2025): September 2020 laser lithotripsy - mixed calcium oxalate stone 80% monohydrate History of tubal ligation 04/20/2023 Seborrheic dermatitis 12/22/2022 History of cholecystectomy 12/22/2022 Migraine without status migrainosus, not intract able 12/22/2022 Vitamin D deficiency 10/18/2017 Amenorrhea 10/18/2017 Resolved Problems Problem Noted Date Diagnosed Date Resolved Date Biliary calculus 02/09/2018 10/18/2023 Encounters Date Type Department Care Team Description 02/13/2025 Orders Only GENERIC EXTERNAL DATA DEPARTMENT Provider, Generic External Data 01/31/2025 Telephone [facility] MEDICINE [address] [place] [address] Pio Booth [place] april recalls 01/14/2025 3:15 PM EDT Office Visit [facility] MEDICINE [address] [place] [address] Name, MD Ramon Migraine without status migrainosus, not intractable, unspecified migraine type (Primary Dx); Nephrolithiasis 01/11/2025 Population Health Risk Score [facility] ([facility]) Department [address] [place] [phone] Provider, Population Health Generic 01/07/2025 Patient Outreach [facility] CHC MED & PEDS [address] [place] [address] Name, MD Ramon Pre-visit Planning ([facility] unable to reach [facility]) 01/01/2025 9:00 AM EST Office Visit [facility] ADULT DENTAL [address] [place] [address] HansIngrid Dental plaque (Primary Dx); Dental calculus 11/29/2024 Orders Only GENERIC EXTERNAL DATA DEPARTMENT Provider, Generic External Data 11/28/2024 10:30 AM EST Procedure Visit [facility] MEDICINE [address] [place] [address] Roshan Colon CNM 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 (Primary Dx); On snf drug therapy; Recurrent candidiasis of vagina 11/28/2024 Orders Only [facility] MEDICINE [address] [place] [address] Roshan Colon CNM 11/28/2024 Travel from Last 3 Months Immunizations Name Administration [...] Sign Reading Time Taken Comments Blood Pressure 111/70 01/14/2025 3:11 PM EDT Pulse 111 01/14/2025 3:11 PM EDT Temperature 36.6 ??C (97.8 ??F) 01/14/2025 3:11 PM ED T Respiratory Rate 21 01/14/2025 3:11 PM EDT Oxygen Saturation 98% 01/14/2025 3:11 PM EDT Inhaled Oxygen Concentration - - Weight 72.3 kg (159 lb 6.4 oz) 01/14/2025 3:11 P M EDT Height 160 cm (5' 3 ) 01/14/2025 3:11 PM EDT Body Mass Index 28.24 01/14/2025 3:11 PM EDT Plan of Treatment Upcoming Encounters Date Type Department Care Team (Late st Contact Info) Description 05/21/2025 11:15 AM EDT Office Visit [facility] MEDICINE [address] [place] [address] [place], [place] [address] Health Maintenance Due Date Last Done Comments Hepatitis B Vaccines (1 of 3 - 19+ 3-dose series) 2004 COVID-19 Vaccine (2023- season) 2024 08/02/2022, 10/07/2021, 03/23/2021, Additional history exists Influenza Vaccine (#1) 2024 , 08/02/2022, 09/16/2021, Additional history exists Dental X-Ray: Full Mouth 02/20/2025 02/19/2022, 07/31 Alcohol/Substance Use Screening 05/10/2025 05/10/2024 Depression Screening 05/10/2025 05/10/2024, 05/10/20 24 SDOH Screening 05/10/2025 05/10/2024 Dental Oral Exam 07/05/2025 01/01/2025, , 09/05/2023, Additional history exists Dental Prophylaxis 07/05/2025 01/01/2025, 0 04/17/2024, 09/05/2023, Additional history exists Family Planning (PISQ) 11/28/2025 11/28/2024 Dental X-Ray: Bitewings 01/02/2026 01/02/20 25, 03/16/2024, 11/25/2023, Additional history exists Tobacco Screening 01/14/2026 01/14/2025 DTaP/Tdap/Td Vaccines (2 - Td or Tdap) 10/18/2027 10/18/2017 Cervical Cancer Screening 11/28/2027 HPV/Cotest 11/28/2027 11/28/2024, 11/02, 11/22/2022, Additional history exists Pap Smear 11/28/2027 11/28/2024, 11/02, 11/22/2022, Additional history exists Zoster Vaccines (1 of 2) 2035 RSV [...] Comments CBC Routine 02/13/2025 10:58 AM EDT COMPREHENSIVE PERIODONTAL EVALUATION - NEW OR ESTABLISHED PATIENT Routine 01/01/2025 9:00 AM EST PERIODIC ORAL EVALUATION - ESTABLISHED PATIENT Routine 01/01/2025 9:00 AM EST BITEWINGS - 4 RADIOGRAPHIC IMAGES Routine 01/01/2025 9:00 AM EST INTRAORAL - PERIAPICAL EACH ADDITIONAL RADIOGRAPHIC IMAGE Routine 01/01/2025 9:00 AM EST INTRAORAL - PERIAPICAL EACH ADDITIONAL RADIOGRAPHIC IMAGE Routine 01/01/2025 9:00 AM EST INTRAORAL - PERIAPICAL FIRST RADIOGRAPHIC IMAGE Routine 01/01/2025 9:00 AM EST ORAL HYGIENE INSTRUCTIONS Routine 01/01/2025 9:00 AM EST Dental plaque Dental calculus CASE PRESENTATION, DETAILED AND EXTENSIVE TREATMENT PLANNING Routine 01/01/2025 9:00 AM EST PROPHYLAXIS - ADULT Routine 01/01/2025 9 :00 AM EST Dental plaque Dental calculus GROSS AND MICROSCOPIC LEVEL 3 Routine 11/29/2024 12:21 PM EST PAP SMEAR Routine 11/28/2024 10:39 AM EST 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 HPV DNA, LOW/HIGH RISK Routine 11/28/2024 10:39 AM EST INTRAORAL - COMPLETE SERIES OF RADIOGRAPHIC IMAGES Routine 02/19/2022 12:00 AM EDT ZZZ HISTORICAL HEPATITIS C AB W/REFL TO HCV RNA, QN, PCR Routine 04/20/2021 1:05 PM EDT HIV 1/2 ANTIGEN/ANTIBODY, FOURTH GENERATION W/RFL Routine 04/20/2021 1:05 PM EDT from Last 3 Months or Most Recently Relevant to Health Maintenance Results * (ABNORMAL) CBC (02/13/2025 10:58 AM EDT) White Blood Count 5.6 4.8 - 10.8 X10*3/uL [facility] Red Blood Count 4.68 4.20 - 5.50 X10*6/uL [facility] Hemoglobin 12.3 12.0 - 16.0 g/dl [facility] Hematocrit 37.7 37.0 - 47.0 % [facility] Mean Corpuscular Volume 80.6 80.0 - 98.0 fL [facility] Mean Corpuscular Hemoglobin 26.3(L) 27.0 - 33.0 pg [facility] Mean Corpuscular HGB Conc 32.6 31.0 - 35.0 g/dl [facility] Red Cell Distribution Width 13.7 11.0 - 16.0 % [facility] Platelet Count 218 160 - 400 X10*3/uL [facility] Mean Platelet Volume 10.4 9.4 - 12.3 fL [facility] NRBC Pct Auto 0.0 0.0 - 0.2 /100WBC [facility] NRBC Abs Auto 0.000 0.0 - 0.012 X10*3/uL [facility] 02/13/2025 10:5 8 AM EDT 02/13/2025 10:58 AM EDT us Generic External Data Provider LAB BLOOD ORDERAB LES Final Result [facility] [address] [place] [address] [phone] * Gross and Microscopic Level 3 (11/29/2024 12:21 PM EST) 11/29/2024 12:2 1 PM EST 11/29/2024 1:08 PM EST Narrative [facility] - 12/02/2024 5:51 PM EST ----- ------- Name: Cami Covington ?Age/Sex: 38/F ? : 1985 Unit#: [id number] ?? Attend Dr: Josh Arciniega MD ?Re11/29/24 ?Status: DEP SDC ? Location: HO.SSS ?Disch: ? ----- ------- SPEC : [id number] ?RECD: 11/29/24-8 ? STATUS: ??SOUT ? REQ NUM: [id number] ? WILLI: 11/29/24-1221 ? SUBM DR: Josh Arciniega MD ? ENTERED: ??11/29/241320 ?SP TYPE: Surgical ? OTHR DR: Ramon Varela MD ? ORDERED: ??Gross Micro L3 ? Diagnosis ?? Hemorrhoids, excision: ??Anal squamous mucosa with dilated and congested submucosal ?? vessels consistent with hemorrhoids. ?Clinical History Unspecified hemorrhoids ?Microscopic Description Microscopic sections reviewed. ? Material Received ?? Hemorrhoids ? Gross Description Received in formalin labeled ?hemorrhoids are 3 wrinkled, edematous and erythematous, cauterized wedge-shaped portions of pink-red and tomlin-brown rectoanal mucosa and subjacent tissue ranging from 2.7-3.0 cm greatest dimension and aggregating 4.0 x 3.0 cm and ranging from 0.6-1.0 cm in thickness. ??The margins are inked and each portion of tissue is sectioned to reveal edematous, congested and hemorrhagic red-maroon cut surfaces. ??A national account representative section from each is submitted in a cassette labeled A1. CEDS Copies To: ?? Name,Ramon JIMENEZ ?? [address] ?? [place] [address] ?? [phone] ?? Josh Arciniega MD ?? [facility] ?? [address] ?? [place] ?? [phone] ?? [email or web address] ? CONTINUED ON NEXT PAGE ----- ------- Name: Cami Covington ?Age/Sex: 38/F ? : 1985 Unit#: [id number] ?? Attend Dr: Josh Arciniega MD ?Re11/29/24 ?Status: DEP SDC ? Location: HO.SSS ?Disch: ? ----- ------- SPEC : [id number] ?RECD: 11/29/24-6657 ? STATUS: ??SOUT ? REQ NUM: [id number] ? WILLI: 11/29/24-1221 ? SUBM DR: Josh Arciniega MD ? ENTERED: ??11/29/24-1320 ?SP TYPE: Surgical ? OTHR DR: Name,Ramon JIMENEZ ? ORDERED: ??Gross Micro L3 ? ----- ------- Signed (signature on file) Maryjane Brown MD 12/02/241750 ? ----- ------- ? END OF REPORT ? us Generic External Data Provider LAB CYTOLOGY ODALIS BANGURA Final Result [facility] [address] [place] [phone] * HPV DNA, Low/High Risk (11/28/2024 10:39 AM EST) HPV High Risk Negative Negative [facility] HPV Genotype 16 Negative Negative [facility] HPV Genotype 18 Negative Negative [facility] Comment:HPV testing performe d at [facility] (CLIA#[id number]), [address] [place] [phone].Testing for HPV was performed using the [employer] MALISSA 6800system. The presence of HPV in the female genital tract isassociated with a number of diseases, including cervicalcarcinoma. The HPV DNA high risk pool tests for HPV 31, 33,35, 39, 45, 51, 52, 56, 58, 59, 66 and 68. The testing forHPV 16 and 18 genotypes has also been performed. A positiveresult indicates detection of nucleic acid sequences fromone or more subtypes, whereas a negative result indicatessuch sequences were not detected. 11/28/2024 10:3 9 AM EST 11/29/2024 7:16 AM EST us Roshan Colon [facility] LAB BLOOD ORDERABLES Rosa M l Result [facility] [address] [place] [phone] * Pap Smear (11/28/2024 10:39 AM EST) Swab Cervix uteri structure / Unknown 11/28/2024 10:39 AM EST 11/29/2024 6:05 AM EST Narrative [facility] - 12/07/2024 11:37 AM EST ----- ------- Name: Cami Covington ?Age/Sex: 38/F ? : 1985 Unit#: [id number] ?? Attend Dr: ROSHAN COLON CNM ?Re11/28/24 ?Status: DEP REF ? Location: HO.HHCLNP ? Disch: ? ----- ------- SPEC : [id number] ? RECD: 11/29/24 ? STATUS: ??SOUT ? REQ NUM: [id number] ? WILLI: 11/28/24 ? SUBM DR: ROSHAN COLON CNM ? ENTERED: ??11/29/24 ?SP TYPE: Pap Smr ?OTHR DR: ? ORDERED: ??Pap Smear ? Interpretation ?? Satisfactory for evaluation. ?? Negative for intraepithelial lesion or malignancy. ? HPV High Risk: ??Negative ? HPV Genotyping 16: ??Negative ?? HPV Genotyping 18: ??Negative ?Clinical Information LMP:UNK Previous PAP test: 2023, NIL HPV positive Other surgery: Other history: ? Material Received ?? ThinPrep-Cervical ----- ------- Signed (signature on file) MARCO Leon (ASCP) 12/07/24 1137 ? ----- ------- ? END OF REPORT ? us Roshan Colon [facility] LAB CYTOLOGY ORDERABLES F inal Result [facility] [address] [place] [phone] * HEPATITIS C AB W/REFL TO HCV RNA, QN, PCR (04/20/2021 1:05 PM EDT) HEPATITIS C ANTIBODY NON-REACT NELSON NON-REACT NELSON [facility] INDEX 0.01 <1.00 [facility] Comment: ?? HCV antibody was non-reactive. There is no laboratory ?? evidence of HCV infection. ?? In most cases, no further action is required. However, if recent HCV exposure is suspected, a test for HCV RNA (test code 09418) is suggested. ?? For additional information please refer to http://[employer]/faq/HDS27i7 (This link is being provided for informational/ educational purposes only.) ?? 04/20/2021 1:05 PM EDT Luciana Gonzalez MD HISTORICAL/NON ORDERABLE LABS Final Result Performing Organization Address [facility] Phone Number [facility] [address] * HIV 1/2 ANTIGEN/ANTIBODY,FOURTH GENERATION W/RFL (04/20/2021 1:05 PM EDT) [facility] HIV-1/2 ANTIGEN AND ANTIBODIES, 4TH GENERATION W/ REFLEX NON-REACT NELSON NON-REACT NELSON [facility] Comment: HIV-1 antigen and HIV-1/HIV-2 [...] ? For additional information please refer to http://[employer]/faq/ZFL652 (This link is being provided for informational/ educational purposes only.) ? The performance of this assay has not been clinically validated in patients less than 2 years old. ?? 04/20/2021 1:05 PM EDT Luciana Gonzalez MD LAB BLOOD ORDERABLES Final Res ult Performing Organization Address [facility] Phone Number [facility] [address] from Last 3 Months or Most Recently Relevant to Health Maintenance Insurance * Guarantor: Miguelito Marcelino Account Type Relation to Patient Date of Phone Billing Address Personal/Family Self 1985 [address] [facility] [address] [place] [address], [place] [address] [place] [address] [facility] [address] [place] [facility] MEDICAID STAND ADULT Care Teams Fiscal Accounting Clerk Relationship Specialty Start Date End Date Name, MD Ramon [address] [place] [address] PCP - General Family Medicine 10/10/17
== END 2025-02-13 10:42 | disposition home or self-care (01) ==
LOC: HO.HWS 10:08
PROVIDERS: PCP Internal Medicine Geriatric Medicine; Visit Provider Obstetrics & Gynecology
DX: N93.9 Abnormal uterine and vaginal bleeding, unspecified (principal); Z32.02 Encounter for pregnancy test, result negative
CPT/HCPCS: 99203

== ENCOUNTER 2025-02-13 10:08 | Outpatient (REF) | payer MEDICAID, SELFPAY ==
[2025-02-13 11:36] LABS: Hematocrit 37.7 % (37.0-47.0); Hemoglobin 12.3 g/dl (12.0-16.0); Mean Corpuscular HGB Conc 32.6 g/dl (31.0-35.0); Mean Corpuscular Hemoglobin 26.3 pg (27.0-33.0); Mean Corpuscular Volume 80.6 fL (80.0-98.0); Mean Platelet Volume 10.4 fL (9.4-12.3); Platelet Count 218 X10*3/uL (160-400); Red Blood Count 4.68 X10*6/uL (4.20-5.50); Red Cell Distribution Width 13.7 % (11.0-16.0); White Blood Count 5.6 X10*3/uL (4.8-10.8)
[2025-02-13 12:36] LABS: HCG Quantitative < 2 mIU/mL; TSH reflex Free T4 0.89 uIU/mL (0.32-4.0)
--- OUTSIDE RECORDS SUMMARY | 2025-02-13 12:52 | XMS_ITS | Encounter Summary ---
Author Organization [employer] Address 75 [facility] 7 [place] [address] Care Team Providers Care Armature And Rotor Winder Name Role Phone Name, Ramon JIMENEZ Primary Care Provider [phone] Reason for Visit * Reason Comments Med Refill Encounter Details Date Type Department Care Team ([facility] st Contact Info) Description 07/26/2024 Refill [facility] MEDICINE [address] [place] [address] Ivis Upton, [facility] [address] [place] [address] Social History Tobacco Use Types Packs/Day Years [...] Description 05/21/2025 11:15 AM EDT Office Visit [facility] MEDICINE [address] [place] [address] NameRamon MD [address] [place] [phone] documented as of this encounter Visit Diagnoses Not on filedocumented in this encounter Additional Health Concerns Assessment Noted Time PHQ-9 Depression Total Score: 0 05/10/20 24 8:59 AM EDT documented as of this encounter Care Teams Armature And Rotor Winder Relationship Specialty Start Date End Date NameRamon MD [address] [place] [phone] PCP - General Family Medicine 10/10/17 documented as of this encounter
--- OUTSIDE RECORDS SUMMARY | 2025-02-13 12:52 | XMS_ITS | Encounter Summary ---
Author Organization [employer] Address [address] [place] [address] 7t [place] [address] Care Team Providers Care Pharmacy Intern Name Role Phone Name, Ramon JIMENEZ Primary Care Provider [phone] Encounter Details Date Type Department Care Team (Latest Contact Info) Description 03/22/2022 Abstract [facility] CONVERSIONS Dental, Provider, DDS Social History Tobacco [...] 11:15 AM EDT Office Visit [facility] MEDICINE [address] [place] [address] Ramon Varela MD [address] [place] [address] documented as of this encounter Visit Diagnoses Not on filedocumented in this encounter Care Teams Pharmacy Intern Relationship Specialty Start Date End Date Ramon Varela MD [address] [place] [address] PCP - General Family Medicine 10/10/17 documented as of this encounter
--- OUTSIDE RECORDS SUMMARY | 2025-02-13 12:52 | XMS_ITS | Encounter Summary ---
Author Organization [employer] Address [address] [facility] 7t [place] [address] Care Team Providers Care Senior Designer Name Role Phone Name, Ramon JIMENEZ Primary Care Provider [phone] Encounter Details Date Type Department Care Team ([facility] st Contact Info) Description 08/30/2023 Abstract [facility] MEDICINE [address] [place], [place] [phone] Name, MD Ramon [address] [place] [address] Social History Tobacco Use Types Packs/Day Years [...] Description 05/21/2025 11:15 AM EDT Office Visit [facility] MEDICINE [address] [place] [phone] NameRamon MD [address] [place] [address] documented as of this encounter Visit Diagnoses Not on filedocumented in this encounter Care Teams Senior Designer Relationship Specialty Start Date End Date Ramon Varela MD [address] [place] [address] PCP - General Family Medicine 10/10/17 documented as of this encounter
--- OUTSIDE RECORDS SUMMARY | 2025-02-13 12:52 | XMS_ITS | Clinical Summary ---
Author Organization [employer] Address [address] [facility] [facility] 7t [place] [address] Care Team Providers Care Supervisor Wet Room Name Role Phone Name, Ramon JIMENEZ Primary Care Provider [phone] Allergies No known active allergies Medications omeprazole [...] DEPARTMENT Provider, Generic External Data 01/31/2025 Telephone [facility] [address] [place] [address] Pio Booth [place] april recalls 01/14/2025 3:15 PM EDT Office Visit [facility] [address] [place] [address] Name, MD Ramon Migraine without status migrainosus, not intractable, unspecified migraine type (Primary Dx); Nephrolithiasis 01/11/2025 Population Health Risk Score [facility] (C3) Department [address] [place] [address] [phone] Provider, Population Health Generic 01/07/2025 Patient Outreach [facility] [address] [place] [address] Name, MD Ramon Pre-visit Planning (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 (Primary Dx); On alf drug therapy; Recurrent candidiasis of vagina 11/28/2024 Orders Only [facility] [address] [place] [address] Roshan Colon CNM 11/28/2024 Travel from Last [...] Description 05/21/2025 11:15 AM EDT Office Visit [facility] [address] [place] [address] Name, [place] [address] Health Maintenance Due Date Last Done Comments [...] Associated Diagnosis Comments HCG, TOTAL, QN Routine 02/13/2025 10:58 AM EDT TSH W/REFLEX TO FT4 Routine 02/13/2025 1 0:58 AM EDT CBC Routine 02/13/2025 10:58 AM EDT COMPREHENSIVE [...] Recently Relevant to Health Maintenance Results * TSH with Reflex to Free T4 (02/13/2025 10:58 AM EDT) TSH reflex Free T4 0.89 0.32 - 4.0 uIU/mL [facility] 02/13/2025 10:5 8 AM EDT 02/13/2025 10:58 AM EDT us Generic External Data Provider LAB BLOOD ORDERAB LES Final Result [facility] [address] [place] [phone] * (ABNORMAL) CBC (02/13/2025 10:58 AM EDT) White Blood Count 5.6 4.8 - 10.8 X10*3/uL [facility] Red Blood Count 4.68 4.20 - 5.50 X10*6/uL [facility] Hemoglobin 12.3 12.0 - 16.0 g/dl [facility] Hematocrit 37.7 37.0 - 47.0 % [facility] Mean Corpuscular Volume 80.6 80.0 - 98.0 fL [facility] Mean Corpuscular Hemoglobin 26.3(L) 27.0 - 33.0 pg [facility] Mean Corpuscular HGB Conc 32.6 31.0 - 35.0 g/dl [facility] Red Cell Distribution Width 13.7 11.0 - 16.0 % [facility] Platelet Count 218 160 - 400 X10*3/uL [facility] Mean Platelet Volume 10.4 9.4 - 12.3 fL [facility] NRBC Pct Auto 0.0 0.0 - 0.2 /100WBC [facility] NRBC Abs Auto 0.000 0.0 - 0.012 X10*3/uL [facility] 02/13/2025 10:5 8 AM EDT 02/13/2025 10:58 AM EDT us Generic External Data Provider LAB BLOOD ORDERAB LES Final Result [facility] [address] [place] [phone] [phone] * hCG, Total, Quantitative (02/13/2025 10:58 AM EDT) HCG Quantitative <2 mIU/mL [facility] Comment:Weeks post LMP Appro ximate hCG(Last Menstrual Period) Range (mIU/ml)3 - 4 weeks 9 - 1304 - 5 weeks 75 - 2,6005 - 6 weeks 850 - 20,8006 - 7 weeks 4000 - 100,2007 - 12 weeks 11,500 - 289,75012 - 16 weeks 18,300 - 137,21788 - 29 weeks (2nd trimester) 1,400 - 53,58870 - 41 weeks (3rd trimester) 940 - 60,000The Smith B- hCG assay is used for the early detection ofpregnancy; it cannot be used to diagnose any conditionunrelated to . If a B-hCG level is not supportedby the clinical evidence, results should be confirmed by analternative method (qualitative urine hCG, for example). 02/13/2025 10:5 8 AM EDT 02/13/2025 10:58 AM EDT us Generic External Data Provider LAB BLOOD ORDERAB LES Final Result [facility] [address] [place] [phone] * Gross and Microscopic Level 3 (11/29/2024 12:21 PM EST) 11/29/2024 12:2 1 PM EST 11/29/2024 1:08 PM EST Narrative [facility] - 12/02/2024 5:51 PM EST ----- ------- Name: Cami Covington ?Age/Sex: 38/F ? : 1985 Unit#: [id number] ?? Attend Dr: Josh Arciniega MD ?Re11/29/24 ?Status: DEP SDC ? Location: HO.SSS ?Disch: ? ----- ------- SPEC : [id number] ?RECD: 11/29/244 ? STATUS: ??SOUT ? REQ NUM: [id number] ? WILLI: 11/29/24-1221 ? SUBM DR: Josh Arciniega MD ? ENTERED: ??11/29/240 ?SP TYPE: Surgical ? OTHR DR: NameRamon MD ? ORDERED: ??Gross Micro L3 ? [...] congested and hemorrhagic red-maroon cut surfaces. ??A sales representative facility services section from each is submitted in a cassette labeled A1. CEDS Copies To: ?? Name,Ramon JIMENEZ ?? [address] [facility] ?? [facility] [address] ?? [phone] ?? Josh Arciniega MD ?? [facility] ?? [address] ?? [address] [address] ?? [phone] ?? [email or web address] ? CONTINUED ON NEXT PAGE ----- ------- Name: Cami Covington ?Age/Sex: 38/F ? : 1985 Unit#: [id number] ?? Attend Dr: Josh Arciniega MD ?Re11/29/24 ?Status: DEP SDC ? Location: HO.SSS ?Disch: ? ----- ------- SPEC : [id number] ?RECD: 11/29/24-8 ? STATUS: ??SOUT ? REQ NUM: [id number] ? WILLI: 11/29/24-1221 ? SUBM DR: Josh Arciniega MD ? ENTERED: ??11/29/24-1320 ?SP TYPE: Surgical ? OTHR : Ramon Varela MD ? ORDERED: ??Gross Micro L3 ? ----- ------- Signed (signature on file) Maryjane Brown MD 12/02/241750 ? ----- ------- ? END OF REPORT ? us Generic External Data Provider LAB CYTOLOGY ORDE WILLEM Final Result [facility] [address] [place] [phone] [phone] * HPV DNA, Low/High Risk (11/28/2024 10:39 AM EST) HPV High Risk Negative Negative [facility] HPV Genotype 16 Negative Negative [facility] HPV Genotype 18 Negative Negative [facility] Comment:HPV testing performe d at [facility] (CLIA#[id number]), [address] [place] [address].Testing for HPV was performed using the [employer] Spotted0system. The presence of HPV in the female [...] 11/29/2024 7:16 AM EST us Roshan Colon [facility] LAB BLOOD ORDERABLES Rosa M love Result [facility] [address] [place] [phone] * Pap Smear (11/28/2024 10:39 AM EST) Swab Cervix uteri structure / Unknown 11/28/2024 10:39 AM EST 11/29/2024 6:05 AM EST Narrative [facility] - 12/07/2024 11:37 AM EST ----- ------- Name: Cami Covington ?Age/Sex: 38/F ? : 1985 Unit#: [id number] ?? Attend Dr: ROSHAN COLON CNM ?Re11/28/24 ?Status: DEP REF ? Location: HO.HHCLNP ? Disch: ? ----- ------- SPEC : [id number] ? RECD: 11/29/24 ? STATUS: ??SOUT ? REQ NUM: [id number] ? WILLI: 11/28/24-1039 ? SUBM DR: ROSHAN COLON CNM ? [...] END OF REPORT ? us Roshan Colon [facility] LAB CYTOLOGY ORDERABLES F inal Result [facility] [address] [place] [phone] [phone] * HEPATITIS C AB W/REFL TO HCV RNA, QN, PCR (04/20/2021 1:05 PM EDT) HEPATITIS C ANTIBODY NON-REACT NELSON NON-REACT NELSON [facility] INDEX 0.01 <1.00 [facility] Comment: ?? HCV antibody was non-reactive. There is no laboratory ?? evidence of HCV infection. ?? In most cases, no further action is required. However, if recent HCV exposure is suspected, a test for HCV RNA (test code 83454) is suggested. ?? For additional information please refer to http://BlogBus.[employer]/faq/PRE92l0 (This link is being provided for informational/ educational purposes only.) ?? 04/20/2021 1:05 PM EDT Luciana Gonzalez MD HISTORICAL/NON ORDERABLE LABS Final Result Performing Organization Address [facility] de Phone Number [facility] [address] [place] [address], * HIV 1/2 ANTIGEN/ANTIBODY,FOURTH GENERATION W/RFL (04/20/2021 1:05 PM EDT) HIV-1/2 ANTIGEN AND ANTIBODIES, 4TH GENERATION W/ REFLEX NON-REACT NELSON NON-REACT NELSON [facility] Comment: HIV-1 antigen and HIV-1/HIV-2 [...] ? For additional information please refer to http://education.[employer]/faq/FXE787 (This link is being provided for informational/ educational purposes only.) ? The performance of this assay has not been clinically validated in patients less than 2 years old. ?? 04/20/2021 1:05 PM EDT Luciana Gonzalez MD LAB BLOOD ORDERABLES Final Res ult Performing Organization Address [facility] Co de Phone Number [facility] [address] [place] [address], from Last 3 Months or Most Recently Relevant to Health Maintenance Insurance [place] [facility] [employer]ICA[employer] STAND ADULT Care Teams Supervisor Wet Room Relationship Specialty Start Date End Date Name, MD Ramon [address] [place] [address] PCP - General Family Medicine 10/10/17
--- OUTSIDE RECORDS SUMMARY | 2025-02-13 12:52 | XMS_ITS | Encounter Summary ---
Author Organization [employer] Address [address] [facility] 7 [place] [address] Care Team Providers Care Speech Instructor Name Role Phone Name, Ramon JIMENEZ Primary Care Provider [phone] Reason for Visit * Reason Onset Date Comments Appointment Request 11/25/2023 Encounter Details Date Type Department Care Team ([facility] Contact Info) Description 11/25/2023 Telephone [facility] [address] [place], [place] [phone] Name, MD Ramon [address] [place] [address] Appointment Request Social History Tobacco Use Types [...] Description 05/21/2025 11:15 AM EDT Office Visit [facility] [address] [place] [address] Name, MD Ramon [address] [place] [address] documented as of this encounter Visit Diagnoses Not on filedocumented in this encounter Care Teams Speech Instructor Relationship Specialty Start Date End Date Name, MD Ramon [address] [place] [address] PCP - General Family Medicine 10/10/17 documented as of this encounter
--- OUTSIDE RECORDS SUMMARY | 2025-02-13 12:52 | XMS_ITS | Encounter Summary ---
Author Organization [employer] Address [address] [facility] 7[address] [place] [address] Care Team Providers Care Refining Machine Operator Name Role Phone Name, Ramon JIMENEZ Primary Care Provider [phone] Encounter Details Date Type Department Care Team [...] Description 05/21/2025 11:15 AM EDT Office Visit [facility] [address] [place] [phone] Name, MD Ramon [address] [place] [address] documented as of this encounter Procedures Procedure Name Priority Date/Time Associated Diagnosis Comments TSH W/REFLEX TO FT4 Routine 02/13/2025 1 0:58 AM EDT CBC Routine 02/13/2025 10:58 AM EDT HCG, TOTAL, QN Routine 02/13/2025 10:58 AM EDT documented in this encounter Results * hCG, Total, Quantitative (02/13/2025 10:58 AM EDT) HCG Quantitative <2 mIU/mL [facility] Comment:Weeks post LMP Appro ximate hCG(Last Menstrual Period) Range (mIU/ml)3 - 4 weeks 9 - 1304 - 5 weeks 75 - 2,6005 - 6 weeks 850 - 20,8006 - 7 weeks 4000 - 100,2007 - 12 weeks 11,500 - 289,67248 - 16 weeks 18,300 - 137,33152 - 29 weeks (2nd trimester) 1,400 - 53,23009 - 41 weeks (3rd trimester) 940 - 60,000The Smith B- hCG assay is used for the early detection ofpregnancy; it cannot be used to diagnose any conditionunrelated to . If a B-hCG level is not supportedby the clinical evidence, results should be confirmed by analternative method (qualitative urine hCG, for example). 02/13/2025 10:5 8 AM EDT 02/13/2025 10:58 AM EDT Generic External Data Provider LAB BLOOD ORDERAB LES Final Result Performing Organization Address [facility] [[email or web address]] Co de Phone Number [facility] [address] [place] [phone] * TSH with Reflex to Free T4 (02/13/2025 10:58 AM EDT) TSH reflex Free T4 0.89 0.32 - 4.0 uIU/mL [facility] 02/13/2025 10:5 8 AM EDT 02/13/2025 10:58 AM EDT Generic External Data Provider LAB BLOOD ORDERAB LES Final Result Performing Organization Address [facility] de Phone Number [facility] [address] [place] [phone] * (ABNORMAL) CBC (02/13/2025 10:58 AM EDT) White Blood Count 5.6 4.8 - 10.8 X10*3/uL [facility] Red Blood Count 4.68 4.20 - 5.50 X10*6/uL [facility] Hemoglobin 12.3 12.0 - 16.0 g/dl [facility] Hematocrit 37.7 37.0 - 47.0 % [facility] Mean Corpuscular Volume 80.6 80.0 - 98.0 fL [facility] Mean Corpuscular Hemoglobin 26.3(L) 27.0 - 33.0 pg [facility] Mean Corpuscular HGB Conc 32.6 31.0 - 35.0 g/dl [facility] Red Cell Distribution Width 13.7 11.0 - 16.0 % [facility] Platelet Count 218 160 - 400 X10*3/uL [facility] Mean Platelet Volume 10.4 9.4 - 12.3 fL [facility] NRBC Pct Auto 0.0 0.0 - 0.2 /100WBC [facility] NRBC Abs Auto 0.000 0.0 - 0.012 X10*3/uL [facility] 02/13/2025 10:5 8 AM EDT 02/13/2025 10:58 AM EDT us Generic External Data Provider LAB BLOOD ORDERAB LES Final Result Performing Organization Address City/State/[facility] [[email or web address]] Co de Phone Number [facility] [address] [place] [phone] documented in this encounter Visit Diagnoses Not on filedocumented in this encounter Additional Health Concerns Assessment Noted Time PHQ-9 Depression Total Score: 0 05/10/20 24 8:59 AM EDT documented as of this encounter Care Teams Refining Machine Operator Relationship Specialty Start Date End Date Name, MD Ramon [address] [place] [address] PCP - General Family Medicine 10/10/17 documented as of this encounter
--- OUTSIDE RECORDS SUMMARY | 2025-02-13 12:52 | XMS_ITS | Encounter Summary ---
Author Organization [employer] Address [address] [place] [address] 7 [place] [address] Care Team Providers Care Paper And Pulp Mill Operator Name Role Phone Name, Ramon JIMENEZ Primary Care Provider [phone] Encounter Details Date Type Department Care Team (Late st Contact Info) Description 10/06/2022 Abstract [facility] [address] [place] [phone] NameRamon MD [address] [place] [phone] Social History Tobacco Use Types Packs/Day Years [...] Description 05/21/2025 11:15 AM EDT Office Visit [facility] [address] [place] [address] Ramon Varela MD [address] [place] [address] documented as of this encounter Visit Diagnoses Not on filedocumented in this encounter Care Teams Paper And Pulp Mill Operator Relationship Specialty Start Date End Date NameRmaon MD [address] [place] [address] PCP - General Family Medicine 10/10/17 documented as of this encounter
--- OUTSIDE RECORDS SUMMARY | 2025-02-13 12:52 | XMS_ITS | Encounter Summary ---
Author Organization [employer] Address [address] [facility] 7 [place] [address] Care Team Providers Care Mine Engineering Manager Name Role Phone Name, Ramon JIMENEZ Primary Care Provider [phone] Reason for Visit * Reason Onset Date Comments Medication Question 11/25/2023 Encounter Details Date Type Department Care Team ([facility] Contact Info) Description 11/25/2023 Telephone [facility] [address] [place], [place] [phone] Name, MD Ramon [address] [place] [address] Medication Question Social History Tobacco Use Types [...] T/C to pt. For below message through [employer] id - [id number] for below message, pt. Has EDvisit due to Abdominal Pain, and ED provider prescribe 20 mg Omeprazole two capsule by mouth ( total 40 mg ) , and pt. States she is taking as prescribe. Pt. Also advised to not take Omeprazole more than prescribe, also called to [facility] pharmacy who states pt. Picked up Omeprazole rx on 11/06/2023. Pt. Advised to not take Omeprazole more than prescribe. Pt. Also schedule for ED follow up on 12/09. [facility] WIC hours are reviewed. NTTN hours [...] Description 05/21/2025 11:15 AM EDT Office Visit [facility] [address] [place] [address] Name, MD Ramon [address] [place] [address] documented as of this encounter Visit Diagnoses Not on filedocumented in this encounter Care Teams Mine Engineering Manager Relationship Specialty Start Date End Date Name, MD Ramon [address] [place] [address] PCP - General Family Medicine 10/10/17 documented as of this encounter
== END 2025-02-13 10:09 | disposition home or self-care (01) ==
LOC: HO.LAB 10:08
PROVIDERS: PCP Internal Medicine Geriatric Medicine; Visit Provider Obstetrics & Gynecology
DX: N93.9 Abnormal uterine and vaginal bleeding, unspecified (principal); Z32.02 Encounter for pregnancy test, result negative
CPT/HCPCS: 36415; 81025; 84443; 84702; 85027; 87491; 87591; 99202

== ENCOUNTER 2025-02-13 11:06 | Outpatient (REF) | payer MEDICAID, SELFPAY ==
--- OUTSIDE RECORDS SUMMARY | 2025-02-13 13:22 | XMS_ITS | Encounter Summary ---
Author Organization [employer] Address [address] [facility] 7 [place] [address] Care Team Providers Care Platform Supervisor Name Role Phone Name, Ramon JIMENEZ Primary Care Provider Reason for Visit * Reason Comments Med Refill Encounter Details Date Type Department Care Team ([facility] st Contact Info) Description 07/26/2024 Refill [facility] [address] [place] [address] Ivis Upton, [facility] [address] [place] [address] Social History Tobacco Use Types Packs/Day Years [...] Description 05/21/2025 11:15 AM EDT Office Visit [facility] [address] [place] [phone] NameRamon MD [address] [place] [phone] documented as of this encounter Visit Diagnoses Not on filedocumented in this encounter Additional Health Concerns Assessment Noted Time PHQ-9 Depression Total Score: 0 05/10/20 24 8:59 AM EDT documented as of this encounter Care Teams Platform Supervisor Relationship Specialty Start Date End Date NameRamon MD [address] [place] [phone] PCP - General Family Medicine 10/10/17 documented as of this encounter
--- OUTSIDE RECORDS SUMMARY | 2025-02-13 13:22 | XMS_ITS | Encounter Summary ---
Author Organization [employer] Address [address] [facility] 7 [place] [address] Care Team Providers Care Engraver Machine Name Role Phone Name, Ramon JIMENEZ Primary Care Provider [phone] Reason for Visit * Reason Onset Date Comments Medication Question 11/25/2023 Encounter Details Date Type Department Care Team ([facility] Contact Info) Description 11/25/2023 Telephone [facility] MEDICINE [address] [place], [place] [phone] Name, MD Ramon [address] [place] [address] Medication Question Social History Tobacco Use Types [...] T/C to pt. For below message through [employer] id - [id number] for below message, pt. Has EDvisit due to Abdominal Pain, and ED provider prescribe 20 mg Omeprazole two capsule by mouth ( total 40 mg ) , and pt. States she is taking as prescribe. Pt. Also advised to not take Omeprazole more than prescribe, also called to [facility] pharmacy who states pt. Picked up Omeprazole rx on 11/06/2023. Pt. Advised to not take Omeprazole more than prescribe. Pt. Also schedule for ED follow up on 12/09. [facility] WIC hours are reviewed. NTTN hours are [...] 05/21/2025 11:15 AM EDT Office Visit [facility] MEDICINE [address] [place] [address] Name, MD Ramon [address] [place] [address] documented as of this encounter Visit Diagnoses Not on filedocumented in this encounter Care Teams Engraver Machine Relationship Specialty Start Date End Date Name, MD Ramon [address] [place] [address] PCP - General Family Medicine 10/10/17 documented as of this encounter
--- OUTSIDE RECORDS SUMMARY | 2025-02-13 13:22 | XMS_ITS | Clinical Summary ---
Author Organization [employer] Address [address] [facility] 7t [place] [address] Care Team Providers Care Rail Technician Name Role Phone Name, Ramon JIMENEZ Primary Care Provider [phone] Allergies No known active allergies Medications omeprazole [...] DEPARTMENT Provider, Generic External Data 01/31/2025 Telephone [facility] MEDICINE [address] [place] [address] Pio Booth [place] april recalls 01/14/2025 3:15 PM EDT Office Visit [facility] MEDICINE [address] [place] [address] Name, MD Ramon Migraine without status migrainosus, not intractable, unspecified migraine type (Primary Dx); Nephrolithiasis 01/11/2025 Population Health Risk Score [facility] (C3) Department [address] [place] [phone] Provider, Population Health Generic 01/07/2025 Patient Outreach [facility] CHC MED & PEDS [address] [place] [address] Name, MD Ramon Pre-visit Planning ([facility] unable to reach [facility]) 01/01/2025 9:00 AM EST Office Visit [facility] ADULT DENTAL [address] [place] [address] HansIngrid Dental plaque (Primary Dx); Dental calculus 11/29/2024 Orders Only GENERIC EXTERNAL DATA DEPARTMENT Provider, Generic External Data 11/28/2024 10:30 AM EST Procedure Visit [facility] MEDICINE [address] [place] [address] Roshan Colon CNM 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 (Primary Dx); On senior living drug therapy; Recurrent candidiasis of vagina 11/28/2024 Orders Only [facility] MEDICINE [address] [place] [address] Roshan Colon CNM 11/28/2024 Travel from Last [...] Office Visit [facility] MEDICINE [address] [place] [address] Name, [place] [address] Health Maintenance Due Date Last Done Comments [...] Free T4 0.89 0.32 - 4.0 uIU/mL [facility] 02/13/2025 10:5 8 AM EDT 02/13/2025 10:58 AM EDT us Generic External Data Provider LAB BLOOD ORDERAB LES Final Result [facility] [address] [place] [phone] * (ABNORMAL) CBC (02/13/2025 10:58 AM EDT) White Blood Count 5.6 4.8 - 10.8 X10*3/uL [facility] Red Blood Count 4.68 4.20 - 5.50 X10*6/uL [facility] Hemoglobin 12.3 12.0 - 16.0 g/dl [facility] Hematocrit 37.7 37.0 - 47.0 % [facility] Mean Corpuscular Volume 80.6 80.0 - 98.0 fL [facility] Mean Corpuscular Hemoglobin 26.3(L) 27.0 - 33.0 pg [facility] Mean Corpuscular HGB Conc 32.6 31.0 - 35.0 g/dl [facility] Red Cell Distribution Width 13.7 11.0 - 16.0 % [facility] Platelet Count 218 160 - 400 X10*3/uL [facility] Mean Platelet Volume 10.4 9.4 - 12.3 fL [facility] NRBC Pct Auto 0.0 0.0 - 0.2 /100WBC [facility] NRBC Abs Auto 0.000 0.0 - 0.012 X10*3/uL [facility] 02/13/2025 10:5 8 AM EDT 02/13/2025 10:58 AM EDT us Generic External Data Provider LAB BLOOD ORDERAB LES Final Result [facility] [address] [place] [phone] [phone] * hCG, Total, Quantitative (02/13/2025 10:58 AM EDT) HCG Quantitative <2 mIU/mL [facility] Comment:Weeks post LMP Appro ximate hCG(Last Menstrual Period) Range (mIU/ml)3 - 4 weeks 9 - 1304 - 5 weeks 75 - 2,6005 - 6 weeks 850 - 20,8006 - 7 weeks 4000 - 100,2007 - 12 weeks 11,500 - 289,38274 - 16 weeks 18,300 - 137,28077 - 29 weeks (2nd trimester) 1,400 - 53,71628 - 41 weeks (3rd trimester) 940 - [...] Provider LAB BLOOD ORDERAB LES Final Result [facility] [address] [place] [phone] * Gross and Microscopic Level 3 (11/29/2024 12:21 PM EST) 11/29/2024 12:2 1 PM EST 11/29/2024 1:08 PM EST Narrative [facility] - 12/02/2024 5:51 PM EST ----- ------- Name: Cami Covington ?Age/Sex: 38/F ? : 1985 Unit#: [id number] ?? Attend Dr: Josh Arciniega MD ?Re11/29/24 ?Status: DEP SDC ? Location: HO.SSS ?Disch: ? ----- ------- SPEC : [id number] ?RECD: 11/29/244 ? STATUS: ??SOUT ? REQ NUM: [id number] ? WILLI: 11/29/24-1221 ? SUBM DR: Josh [...] congested and hemorrhagic red-maroon cut surfaces. ??A medicare sales representative section from each is submitted in a cassette labeled A1. CEDS Copies To: ?? Name,Ramon JIMENEZ ?? [address] [facility] ?? [facility] [address] ?? [phone] ?? Josh Arciniega MD ?? [facility] Surgeons ?? [address] ?? [address] [address] [address] ?? [phone] ?? [email or web address] ? CONTINUED ON NEXT PAGE ----- ------- Name: Cami Covington ?Age/Sex: 38/F ? : 1985 Unit#: [id number] ?? Attend Dr: Josh Arciniega MD ?Re11/29/24 ?Status: DEP SDC ? Location: HO.SSS ?Disch: ? ----- ------- SPEC : [id number] ?RECD: 11/29/24-8 ? STATUS: ??SOUT ? REQ NUM: [id number] ? WILLI: 11/29/24-1221 ? SUBM DR: Josh Arciniega MD ? ENTERED: ??11/29/24-1320 ?SP TYPE: Surgical ? OTHR : Ramon Varela MD ? ORDERED: ??Gross Micro L3 ? ----- ------- Signed (signature on file) Maryjane Brown MD 12/02/241750 ? ----- ------- ? END OF REPORT ? us Generic External Data Provider LAB CYTOLOGY ORDE WILLEM Final Result [facility] [address] [place] [phone] [phone] * HPV DNA, Low/High Risk (11/28/2024 10:39 AM EST) HPV High Risk Negative Negative [facility] HPV Genotype 16 Negative Negative [facility] HPV Genotype 18 Negative Negative [facility] Comment:HPV testing performe d at [facility] (CLIA#[id number]), [address] [place] [address].Testing for HPV was performed using the [employer]system. The presence of HPV in the female [...] 11/29/2024 7:16 AM EST us Roshan Colon [facility] BLOOD ORDERABLES Rosa M love Result [facility] [address] [place] [phone] * Pap Smear (11/28/2024 10:39 AM EST) Swab Cervix uteri structure / Unknown 11/28/2024 10:39 AM EST 11/29/2024 6:05 AM EST Narrative [facility] - 12/07/2024 11:37 AM EST ----- ------- Name: Cami Covington ?Age/Sex: 38/F ? : 1985 Unit#: [id number] ?? Attend Dr: ROSHAN COLON CNM ?Re11/28/24 ?Status: DEP REF ? Location: HO.HHCLNP ? Disch: ? ----- ------- SPEC : [id number] ? RECD: 11/29/24 ? STATUS: ??SOUT ? REQ NUM: [id number] ? WILLI: 11/28/24-1039 ? SUBM DR: ROSHAN [...] END OF REPORT ? us Roshan Colon [facility] CYTOLOGY ORDERABLES F inal Result [facility] [address] [place] [address] [phone] * HEPATITIS C AB W/REFL TO HCV RNA, QN, PCR (04/20/2021 1:05 PM EDT) HEPATITIS C ANTIBODY NON-REACT NELSON NON-REACT NELSON [facility] INDEX 0.01 <1.00 [facility] Comment: ?? HCV antibody was non-reactive. There is no laboratory ?? evidence of HCV infection. ?? In most cases, no further action is required. However, if recent HCV exposure is suspected, a test for HCV RNA (test code 37560) is suggested. ?? For additional information please refer to http://[employer].SocialGuide/faq/ZVK04d5 (This link is being provided for informational/ educational purposes only.) ?? 04/20/2021 1:05 PM EDT Luciana Gonzalez MD HISTORICAL/NON ORDERABLE LABS Final Result Performing Organization Address [facility] de Phone Number [facility] [address] [place] [address], * HIV 1/2 ANTIGEN/ANTIBODY,FOURTH GENERATION W/RFL (04/20/2021 1:05 PM EDT) HIV-1/2 ANTIGEN AND ANTIBODIES, 4TH GENERATION W/ REFLEX NON-REACT NELSON NON-REACT NELSON [facility] Comment: HIV-1 antigen [...] ? For additional information please refer to http://education.SocialGuide/faq/ATD922 (This link is being provided for informational/ educational purposes only.) ? The performance of this assay has not been clinically validated in patients less than 2 years old. ?? 04/20/2021 1:05 PM EDT Luciana Gonzalez MD LAB BLOOD ORDERABLES Final Res ult Performing Organization Address [facility] Co de Phone Number [facility] [address] [place] [address], from Last 3 Months or Most Recently Relevant to Health Maintenance Insurance [place] [facility] MEDICAID STAND ADULT Care Teams Rail Technician Relationship Specialty Start Date End Date Name, MD Ramon [address] [place] [address] PCP - General Family Medicine 10/10/17
--- OUTSIDE RECORDS SUMMARY | 2025-02-13 13:22 | XMS_ITS | Encounter Summary ---
Author Organization [employer] Address [address] [facility] 7 [place] [address] Care Team Providers Care Sample Builder Name Role Phone Name, Ramon JIMENEZ Primary Care Provider [phone] Reason for Visit * Reason Onset Date Comments Appointment Request 11/25/2023 Encounter Details Date Type Department Care Team ([facility] Contact Info) Description 11/25/2023 Telephone [facility] MEDICINE [address] [place], [place] [phone] Name, MD Ramon [address] [place] [address] Appointment Request Social History Tobacco Use Types [...] Description 05/21/2025 11:15 AM EDT Office Visit [facility] MED[facility]INE [address] [place] [address] Name, MD Ramon [address] [place] [address] documented as of this encounter Visit Diagnoses Not on filedocumented in this encounter Care Teams Sample Builder Relationship Specialty Start Date End Date Name, MD Ramon [address] [place] [address] PCP - General Family Medicine 10/10/17 documented as of this encounter
--- OUTSIDE RECORDS SUMMARY | 2025-02-13 13:22 | XMS_ITS | Encounter Summary ---
Author Organization [employer] Address [address] [place] [address] 7 [place] [address] Care Team Providers Care Manager Garden Name Role Phone Name, Ramon JIMENEZ Primary Care Provider [phone] Encounter Details Date Type Department Care Team (Late st Contact Info) Description 10/06/2022 Abstract [facility] MEDICINE [address] [place] [address] NameRamon MD [address] [place] [address] Social History Tobacco Use Types Packs/Day Years [...] Description 05/21/2025 11:15 AM EDT Office Visit [facility] MEDICINE [address] [place] [address] Ramon Varela MD [address] [place] [address] documented as of this encounter Visit Diagnoses Not on filedocumented in this encounter Care Teams Manager Garden Relationship Specialty Start Date End Date NameRamon MD [address] [place] [address] PCP - General Family Medicine 10/10/17 documented as of this encounter
--- OUTSIDE RECORDS SUMMARY | 2025-02-13 13:22 | XMS_ITS | Encounter Summary ---
Author Organization [employer] Address [address] [facility] 7t [place] [address] Care Team Providers Care Sport Internship Name Role Phone Name, Ramon JIMENEZ Primary Care Provider [phone] Encounter Details Date Type Department Care Team [...] Description 05/21/2025 11:15 AM EDT Office Visit [facility] MEDICINE [address] [place] [phone] Name, MD Ramon [address] [place] [address] documented as of this encounter Procedures Procedure Name Priority Date/Time Associated Diagnosis Comments TSH W/REFLEX TO FT4 Routine 02/13/2025 1 0:58 AM EDT CBC Routine 02/13/2025 10:58 AM EDT HCG, TOTAL, QN Routine 02/13/2025 10:58 AM EDT documented in this encounter Results * hCG, Total, Quantitative (02/13/2025 10:58 AM EDT) HCG Quantitative <2 mIU/mL [facility] Comment:Weeks post LMP Appro ximate hCG(Last Menstrual Period) Range (mIU/ml)3 - 4 weeks 9 - 1304 - 5 weeks 75 - 2,6005 - 6 weeks 850 - 20,8006 - 7 weeks 4000 - 100,2007 - 12 weeks 11,500 - 289,03871 - 16 weeks 18,300 - 137,80569 - 29 weeks (2nd trimester) 1,400 - 53,88897 - 41 weeks (3rd trimester) 940 - [...] ORDERAB LES Final Result Performing Organization Address [facility] Co de Phone Number [facility] [address] [place] [phone] * TSH with Reflex to Free T4 (02/13/2025 10:58 AM EDT) TSH reflex Free T4 0.89 0.32 - 4.0 uIU/mL [facility] 02/13/2025 10:5 8 AM EDT 02/13/2025 10:58 AM EDT Generic External Data Provider LAB BLOOD ORDERAB LES Final Result Performing Organization Address [facility] de Phone Number [facility] [address] [place] [phone] * (ABNORMAL) CBC (02/13/2025 10:58 AM EDT) White Blood Count 5.6 4.8 - 10.8 X10*3/uL [facility] Red Blood Count 4.68 4.20 - 5.50 X10*6/uL [facility] Hemoglobin 12.3 12.0 - 16.0 g/dl [facility] Hematocrit 37.7 37.0 - 47.0 % [facility] Mean Corpuscular Volume 80.6 80.0 - 98.0 fL [facility] Mean Corpuscular Hemoglobin 26.3(L) 27.0 - 33.0 pg [facility] Mean Corpuscular HGB Conc 32.6 31.0 - 35.0 g/dl [facility] Red Cell Distribution Width 13.7 11.0 - 16.0 % [facility] Platelet Count 218 160 - 400 X10*3/uL [facility] Mean Platelet Volume 10.4 9.4 - 12.3 fL [facility] NRBC Pct Auto 0.0 0.0 - 0.2 /100WBC [facility] NRBC Abs Auto 0.000 0.0 - 0.012 X10*3/uL [facility] 02/13/2025 10:5 8 AM EDT 02/13/2025 10:58 AM EDT us Generic External Data Provider LAB BLOOD ORDERAB LES Final Result Performing Organization Address City/State/[facility] Co de Phone Number [facility] [address] [place] [phone] documented in this encounter Visit Diagnoses Not on filedocumented in this encounter Additional Health Concerns Assessment Noted Time PHQ-9 Depression Total Score: 0 05/10/20 24 8:59 AM EDT documented as of this encounter Care Teams Sport Internship Relationship Specialty Start Date End Date Name, MD Ramon [address] [place] [address] PCP - General Family Medicine 10/10/17 documented as of this encounter
--- OUTSIDE RECORDS SUMMARY | 2025-02-13 13:22 | XMS_ITS | Encounter Summary ---
Author Organization [employer] Address [address] [place] [address] 7t [place] [address] Care Team Providers Care Canned Food Reconditioning Inspector Name Role Phone Name, Ramon JIMENEZ Primary Care Provider [phone] Encounter Details Date Type Department Care Team (Latest Contact Info) Description 03/22/2022 Abstract [facility] CONVERSIONS Dental, Provider, DDS Social History Tobacco [...] Description 05/21/2025 11:15 AM EDT Office Visit [facility] MEDICINE [address] [place] [address] Ramon Varela MD [address] [place] [address] documented as of this encounter Visit Diagnoses Not on filedocumented in this encounter Care Teams Canned Food Reconditioning Inspector Relationship Specialty Start Date End Date Ramon Varela MD [address] [place] [address] PCP - General Family Medicine 10/10/17 documented as of this encounter
--- OUTSIDE RECORDS SUMMARY | 2025-02-13 13:22 | XMS_ITS | Encounter Summary ---
Author Organization [employer] Address [address] [facility] 7t [place] [address] Care Team Providers Care Government Contracts Manager Name Role Phone Name, Ramon JIMENEZ Primary Care Provider [phone] Encounter Details Date Type Department Care Team ([facility] st Contact Info) Description 08/30/2023 Abstract [facility] MEDICINE [address] [place], [place] [phone] Name, MD Ramon [address] [place] [address] Social History Tobacco Use Types Packs/Day Years [...] Description 05/21/2025 11:15 AM EDT Office Visit [facility] [address] [place] [address] NameRamon MD [address] [place] [address] documented as of this encounter Visit Diagnoses Not on filedocumented in this encounter Care Teams Government Contracts Manager Relationship Specialty Start Date End Date Ramon Varela MD [address] [place] [address] PCP - General Family Medicine 10/10/17 documented as of this encounter
[2025-02-13 16:13] LABS: CT PCR NOT DETECTED (Not Detect.); NG PCR NOT DETECTED (Not Detect.)
== END 2025-02-13 11:07 | disposition home or self-care (01) ==
LOC: HO.LNP 11:06
PROVIDERS: Visit Provider Obstetrics & Gynecology
DX: Z13.89 Encounter for screening for other disorder (principal)
CPT/HCPCS: 87491; 87591

== ENCOUNTER 2025-03-11 12:54 | Outpatient (AMB) | payer MEDICAID, SELFPAY ==
--- OUTSIDE RECORDS SUMMARY | 2025-03-11 13:12 | XMS_ITS | Encounter Summary ---
Author Organization [employer] Address [address] [place] [address] 7 [place] [address] Care Team Providers Care Business Development Assistant Name Role Phone Name, Ramon JIMENEZ Primary Care Provider [phone] Reason for Visit * Reason Comments Med Refill Encounter Details Date Type Department Care Team ([facility] st Contact Info) Description 07/26/2024 Refill [facility] MEDICINE [address] [place] [address] Ivis Upton, [facility] [address] [place] [address] Social History Tobacco Use Types Packs/Day Years [...] Description 05/21/2025 11:15 AM EDT Office Visit [facility] MEDICINE [address] [place] [address] NameRamon MD [address] [place] [address] documented as of this encounter Visit Diagnoses Not on filedocumented in this encounter Additional Health Concerns Assessment Noted Time PHQ-9 Depression Total Score: 0 05/10/20 24 8:59 AM EDT documented as of this encounter Care Teams Business Development Assistant Relationship Specialty Start Date End Date NameRamon MD [address] [place] [address] PCP - General Family Medicine 10/10/17 documented as of this encounter
--- OUTSIDE RECORDS SUMMARY | 2025-03-11 13:12 | XMS_ITS | Encounter Summary ---
Author Organization [employer] Address [address] [place] [address] 7 [place] [address] Care Team Providers Care Director Nicu Name Role Phone Name, Ramon JIMENEZ Primary Care Provider [phone] Encounter Details Date Type Department Care Team (Late st Contact Info) Description 10/06/[address] [facility] MEDICINE [address] [place] [address] NameRamon MD [address] [place] [address] Social History Tobacco Use Types Packs/Day Years [...] 11:15 AM EDT Office Visit [facility] MEDICINE [address] [place] [address] NameRamon MD [address] [place] [address] documented as of this encounter Visit Diagnoses Not on filedocumented in this encounter Care Teams Director Nicu Relationship Specialty Start Date End Date NameRamon MD [address] [place] [address] PCP - General Family Medicine 10/10/17 documented as of this encounter
--- OUTSIDE RECORDS SUMMARY | 2025-03-11 13:12 | XMS_ITS | Encounter Summary ---
Author Organization [employer] Address [address] [facility] 7t [place] [address] Care Team Providers Care Candy Catcher Name Role Phone Name, Ramon JIMENEZ Primary Care Provider [phone] Reason for Visit * Reason Onset Date Comments Appointment Request 11/25/2023 Encounter Details Date Type Department Care Team ([facility] st Contact Info) Description 11/25/[address] [facility] MEDICINE [address] [place], [place] [phone] Name, MD Ramon [address] [place] [address] Appointment Request Social History Tobacco Use Types [...] Description 05/21/2025 11:15 AM EDT Office Visit [facility] MEDICINE [address] [place] [address] Name, MD Ramon [address] [place] [address] documented as of this encounter Visit Diagnoses Not on filedocumented in this encounter Care Teams Candy Catcher Relationship Specialty Start Date End Date Name, MD Ramon [address] [place] [address] PCP - General Family Medicine 10/10/17 documented as of this encounter
--- OUTSIDE RECORDS SUMMARY | 2025-03-11 13:12 | XMS_ITS | Encounter Summary ---
Author Organization [employer] Address [address] [place] [address] 7 [place] [address] Care Team Providers Care Electronic Masking System Operator Name Role Phone Name, Ramon JIMENEZ Primary Care Provider [phone] Encounter Details Date Type Department Care Team (Latest Contact Info) Description 03/22/2022 Abstract [facility] CONVERSIONS Dental, Provider, DDS Social History Tobacco [...] Description 05/21/2025 11:15 AM EDT Office Visit [facility] MEDICINE [address] [place] [address] Ramon Varela MD [address] [place] [address] documented as of this encounter Visit Diagnoses Not on filedocumented in this encounter Care Teams Electronic Masking System Operator Relationship Specialty Start Date End Date Ramon Varela MD [address] [place] [address] PCP - General Family Medicine 10/10/17 documented as of this encounter
--- OUTSIDE RECORDS SUMMARY | 2025-03-11 13:12 | XMS_ITS | Clinical Summary ---
Author Organization [employer] Address [address] [facility] 7t [place] [address] Care Team Providers Care Community Association Manager Name Role Phone Name, Ramon JIMENEZ Primary Care Provider [phone] Allergies No known active allergies Medications omeprazole [...] 24 hours. 9 tablet 3 5 Active melatonin 5 MG tablet Take 1 tablet (5 mg) by mouth at bedtime. 30 tablet 11 5 01/15/20 26 Active Riboflavin 400 MG capsule Take 400 mg by mouth Once per day. 30 capsule 11 5 02/14/20 25 Active Problems Problem Noted Date Diagnosed Date [...] DEPARTMENT Provider, Generic External Data 01/31/2025 Telephone [facility] [address] [place] [address] Poi Booth [place] april recalls 01/14/2025 3:15 PM EDT Office Visit [facility] [address] [place] [address] Name, MD Ramon Migraine without status migrainosus, not intractable, unspecified migraine type (Primary Dx); Nephrolithiasis 01/11/2025 Population Health Risk Score [facility] Department [address] [place] [phone] Provider, Population Health Generic 01/07/2025 Patient Outreach [facility] [address] [place] [address] Name, MD Ramon Pre-visit Planning (SDOH unable to reach LVM) 01/01/2025 9:00 AM EST Office Visit [facility] [address] [facility] [place] [address] Ingrid Maxwell Dental plaque (Primary Dx); Dental calculus from Last 3 Months Immunizations Name Administration [...] Description 05/21/2025 11:15 AM EDT Office Visit [facility] [address] [place] [address] Name, MD Ramon [address] [place] [address] Health Maintenance Due Date Last Done Comments [...] :00 AM EST Dental plaque Dental calculus HPV DNA, LOW/HIGH RISK Routine 11/28/2024 10:39 AM EST PAP SMEAR Routine 11/28/2024 10:39 AM EST 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 INTRAORAL - COMPLETE SERIES OF RADIOGRAPHIC IMAGES [...] Free T4 0.89 0.32 - 4.0 uIU/mL [facility] 02/13/2025 10:5 8 AM EDT 02/13/2025 10:58 AM EDT us Generic External Data Provider LAB BLOOD ORDERAB LES Final Result [facility] [address] [place] [phone] * (ABNORMAL) CBC (02/13/2025 10:58 AM EDT) Pathologist [facility] White Blood Count 5.6 4.8 - 10.8 X10*3/uL [facility] Red Blood Count 4.68 4.20 - 5.50 X10*6/uL [facility] Hemoglobin 12.3 12.0 - 16.0 g/dl [facility] Hematocrit 37.7 37.0 - 47.0 % [facility] Mean Corpuscular Volume 80.6 80.0 - 98.0 fL [facility] Mean Corpuscular Hemoglobin 26.3(L) 27.0 - 33.0 pg [facility] Mean Corpuscular HGB Conc 32.6 31.0 - 35.0 g/dl [facility] Red Cell Distribution Width 13.7 11.0 - 16.0 % [facility] Platelet Count 218 160 - 400 X10*3/uL [facility] Mean Platelet Volume 10.4 9.4 - 12.3 fL [facility] NRBC Pct Auto 0.0 0.0 - 0.2 /100WBC [facility] NRBC Abs Auto 0.000 0.0 - 0.012 X10*3/uL [facility] 02/13/2025 10:5 8 AM EDT 02/13/2025 10:58 AM EDT Generic External Data Provider LAB BLOOD ORDERAB LES Final Result Performing Organization Address City/[facility]/ZIP Co de Phone Number [facility] [address] [place] [address] [phone] * hCG, Total, Quantitative (02/13/2025 10:58 AM EDT) HCG Quantitative <2 mIU/mL [facility] Comment:Weeks post LMP Appro ximate hCG(Last Menstrual Period) Range (mIU/ml)3 - 4 weeks 9 - 1304 - 5 weeks 75 - 2,6005 - 6 weeks 850 - 20,8006 - 7 weeks 4000 - 100,2007 - 12 weeks 11,500 - 289,86934 - 16 weeks 18,300 - 137,15731 - 29 weeks (2nd trimester) 1,400 - 53,05785 - 41 weeks (3rd trimester) 940 - [...] Provider LAB BLOOD ORDERAB LES Final Result [facility] [address] [place] [address] [phone] * HPV DNA, Low/High Risk (11/28/2024 10:39 AM EST) HPV High Risk Negative Negative [facility] HPV Genotype 16 Negative Negative [facility] HPV Genotype 18 Negative Negative [facility] Comment:HPV testing performe d at [facility] (CLIA#[id number]), [address] [place] [phone].Testing for HPV was performed using the Avila [...] 11/29/2024 7:16 AM EST us Roshan Colon [facility] LAB BLOOD ORDERABLES Rosa M love Result [facility] [address] [place] [phone] * Pap Smear (11/28/2024 10:39 AM EST) Swab Cervix uteri structure / Unknown 11/28/2024 10:39 AM EST 11/29/2024 6:05 AM EST Narrative [facility] - 12/07/2024 11:37 AM EST ----- ------- Name: Cami Covington ?Age/Sex: 38/F ? : 1985 Unit#: [id number] ?? Attend Dr: ROSHAN COLON CNM ?Re11/28/24 ?Status: DEP REF ? [facility] ? Disch: ? ----- ------- SPEC : [id number] ? RECD: 11/29/24 ? STATUS: ??SOUT ? REQ NUM: [id number] ? WILLI: [birth year]249 ? SUBM DR: ROSHAN COLON CNM ? [...] END OF REPORT ? us Roshan Colon [facility] LAB CYTOLOGY ORDERABLES F inal Result [facility] [address] [place] [phone] * HEPATITIS C AB W/REFL TO HCV RNA, QN, PCR (04/20/2021 1:05 PM EDT) HEPATITIS C ANTIBODY NON-REACT NELSON NON-REACT NELSON [facility] INDEX 0.01 <1.00 [facility] Comment: ?? HCV antibody was non-reactive. There is no laboratory ?? evidence of HCV infection. ?? In most cases, no further action is required. However, if recent HCV exposure is suspected, a test for HCV RNA (test code 81247) is suggested. ?? For additional information please refer to http://education.Renovagen/faq/AFZ35a6 (This link is being provided for informational/ educational purposes only.) ?? 04/20/2021 1:05 PM EDT Luciana Gonzalez MD HISTORICAL/NON ORDERABLE LABS Final Result Performing Organization Address [facility] Co de Phone Number [facility] [address] * HIV 1/2 ANTIGEN/ANTIBODY,FOURTH GENERATION W/RFL (04/20/2021 1:05 PM EDT) HIV-1/2 ANTIGEN AND ANTIBODIES, 4TH GENERATION W/ REFLEX NON-REACT NELSON NON-REACT NELSON [facility] Comment: HIV-1 antigen and HIV-1/HIV-2 [...] ? For additional information please refer to http://[employer].Se[employer]/faq/VXY080 (This link is being provided for informational/ educational purposes only.) ? The performance of this assay has not been clinically validated in patients less than 2 years old. ?? 04/20/2021 1:05 PM EDT Luciana Gonzalez MD LAB BLOOD ORDERABLES Final Res ult Performing Organization Address [facility] Co de Phone Number [facility] [address] from Last 3 Months or Most Recently Relevant to Health Maintenance [place] C[place] D[facility] MEDICAID STAND ADULT Care Teams Community Association Manager Relationship Specialty Start Date End Date Name, MD Ramon [address] [place] [address] PCP - General Family Medicine 10/10/17
--- OUTSIDE RECORDS SUMMARY | 2025-03-11 13:12 | XMS_ITS | Encounter Summary ---
Author Organization [employer] Address 75 [facility] 7t [place] [address] Care Team Providers Care Torch Brazer Name Role Phone Name, Ramon JIMENEZ Primary Care Provider [phone] Reason for Visit * Reason Onset Date Comments Medication Question 11/25/2023 Encounter Details Date Type Department Care Team ([facility] st Contact Info) Description 11/25/2023 Telephone [facility] [address] [place], [place] [phone] Name, MD Ramon [address] [place] [address] Medication Question Social History Tobacco Use Types [...] t he electric, gas, oil or water writewith threatened to shut off services in your [...] T/C to pt. For below message through [employer] id - [id number] for below message, pt. Has EDvisit due to Abdominal Pain, and ED provider prescribe 20 mg Omeprazole two capsule by mouth ( total 40 mg ) , and pt. States she is taking as prescribe. Pt. Also advised to not take Omeprazole more than prescribe, also called to [facility] pharmacy who states pt. Picked up Omeprazole rx on 11/06/2023. Pt. Advised to not take Omeprazole more than prescribe. Pt. Also schedule for ED follow up on 12/09. [facility] WIC hours are reviewed. NTTN hours [...] Description 05/21/2025 11:15 AM EDT Office Visit [facility] [address] [place] [address] Name, MD Ramon [address] [place] [address] documented as of this encounter Visit Diagnoses Not on filedocumented in this encounter Care Teams Torch Brazer Relationship Specialty Start Date End Date Name, MD Ramon [address] [place] [address] PCP - General Family Medicine 10/10/17 documented as of this encounter
--- OUTSIDE RECORDS SUMMARY | 2025-03-11 13:12 | XMS_ITS | Encounter Summary ---
Author Organization [employer] Address [address] [facility] 7t [place] [address] Care Team Providers Care Feed Project Engineer Name Role Phone Name, Ramon JIMENEZ Primary Care Provider [phone] Encounter Details Date Type Department Care Team ([facility] st Contact Info) Description 08/30/2023 Abstract [facility] [address] [place], [place] [phone] Name, MD Ramon [address] [place] [address] Social History Tobacco Use Types Packs/Day Years [...] Description 05/21/2025 11:15 AM EDT Office Visit [facility] [address] [place] [address] Name, MD Ramon [address] [place] [address] documented as of this encounter Visit Diagnoses Not on filedocumented in this encounter Care Teams Feed Project Engineer Relationship Specialty Start Date End Date NameRamon MD [address] [place] [address] PCP - General Family Medicine 10/10/17 documented as of this encounter
[2025-03-11 13:18] VITALS: BMI 27.3
--- NOTE | 2025-03-11 13:18 | MHC.OFFVIS ---
Vital Signs 03/11/25 13:18 Height 5 ft 3 in Weight 154 lb BMI 27.3 Intake Visit Reasons: EMB Social Work Lecturer Required: Yes Social Work Lecturer Language: Pipe Fitter Welding Services: Social Work Lecturer Present (in person) Social Work Lecturer Name: Vita BANKS Information Interpreted: non-clinical & clinical Pressurization Mechanic: Pressurization Mechanic Present (Vita BANKS) Accompanied by: Self / Same As Patient Allergies No Known Allergies [No Known Allergies*] Allergy (Verified 03/11/25 13:24) Is last menstrual period known: Yes HPI Comments Details: Presenting for EMB [facility] Medical History Hydroureteronephrosis Mild acid reflux Ureteral stone with hydronephrosis Surgical History Hemorrhoids (11/29/24) History of cholecystectomy History of tubal ligation History of appendectomy Social History Household Members: Spouse and Family Housing: House Do you presently have visiting nurse or other home services: No Alcohol intake: never Patient Tobacco Use Status: Never used Tobacco service: No Current occupational status: unemployed Review of Systems Const All systems reviewed & are unremarkable except as noted in HPI and below Reports as per HPI and Reports no additional complaints GI Reports no additional complaints Reports no additional complaints Physical Exam Vital Signs: BMI result Body Mass Index 27.3 Office Procedures Endometrial Biopsy Details: The patient was counseled regarding the indication and benefits of endometrial sampling to rule out endometrial pathology including not limited to endometrial hyperplasia or endometrial cancer and others; The alternatives (Either do nothing vs. hysteroscopy D&C) & the risks were discussed with the patient including but not limited: pain, uterine perforation, bleeding, infection, possible injury to bladder, bowel, ureter, possible need for blood transfusion with all its possible risks. The patient verbalized understanding all questions answered and signed consent. Urine test done in the office was negative The patient was placed into the dorsal lithotomy position; a speculum was inserted in the vagina. Using aseptic technique for the procedure, the cervix was cleansed with Betadine. The anterior lip of the cervix was grasped with a single tooth tenaculum. The uterus was sounded to 7 cm with a 4 mm Pipelle was used. Tissues samples were obtained and placed in formalin, in a patient labeled container and sent to the pathology department. At the end of the procedure, there was minimal bleeding noted The patient tolerated the procedure well and was discharged in good condition with the following instructions: Nothing in the vagina until the bleeding stops. No sex until the bleeding stops, to call if any of the following occurs: fever (>100.4), flu-like symptoms, abdominal pain, heavy bleeding, four smelling vaginal discharge. The patient was instructed to schedule a Follow up appointment in 2 weeks to discuss pathology results of the biopsy and treatment options. This note was generated with a voice recognition program. Some errors may have been overlooked during the review of this note. Sometimes these errors may affect the content or meaning of a given sentence. 79021-Mcruwmratcm Biopsy Assessment & Plan Assessment & Plan (1) Abnormal uterine bleeding (AUB): Code(s): N93.9 - Abnormal uterine and vaginal bleeding, unspecified Category: Medical Plan: EMB done, see procedure note Orders: Orders AMB Endometrial Biopsy Today N93.9 - Abnormal uterine and vaginal bleeding, unspecified Coding Level of Care Code Procedure Only Diagnoses Abnormal uterine bleeding (AUB) N93.9 CPT Codes Endometrial Biopsy - CPT: 76670-Jiubbrflpgg Biopsy ([id number])
== END 2025-03-11 13:35 | disposition home or self-care (01) ==
LOC: HO.HWS 12:54
PROVIDERS: PCP Internal Medicine Geriatric Medicine; Visit Provider Obstetrics & Gynecology
DX: N93.9 Abnormal uterine and vaginal bleeding, unspecified (principal); Z32.02 Encounter for pregnancy test, result negative
CPT/HCPCS: 58100

== ENCOUNTER 2025-03-11 12:54 | Outpatient (REF) | payer MEDICAID, SELFPAY ==
--- OUTSIDE RECORDS SUMMARY | 2025-03-11 13:50 | XMS_ITS | Clinical Summary ---
Author Organization [employer] Address [address] [facility] 7t [place] [address] Care Team Providers Care Special Assemblies Supervisor Name Role Phone Name, Ramon JIMENEZ Primary Care Provider [phone] Allergies No known active allergies Medications omeprazole [...] DEPARTMENT Provider, Generic External Data 01/31/2025 Telephone [facility] [address] [place] [address] Pio Booth [place] april recalls 01/14/2025 3:15 PM EDT Office Visit [facility] [address] [place] [address] Name, MD Ramon Migraine without status migrainosus, not intractable, unspecified migraine type (Primary Dx); Nephrolithiasis 01/11/2025 Population Health Risk Score [facility] [address] [place] [phone] Provider, Population Health Generic 01/07/2025 Patient Outreach [facility] [address] [place] [address] Name, MD Ramon Pre-visit Planning (SDOH unable to reach LVM) 01/01/2025 9:00 AM EST Office Visit [facility] ADULT DENTAL [address] [facility] [place] [address] Ingrid Maxwell Dental plaque (Primary Dx); Dental [...] 11:15 AM EDT Office Visit [facility] [address] [place] [address] Name, MD Ramon [address] [place] [address] Health Maintenance Due Date Last Done Comments [...] Free T4 0.89 0.32 - 4.0 uIU/mL [facility] 02/13/2025 10:5 8 AM EDT 02/13/2025 10:58 AM EDT us Generic External Data Provider LAB BLOOD ORDERAB LES Final Result [facility] [address] [place] [phone] * (ABNORMAL) CBC (02/13/2025 10:58 AM EDT) Pathologist [facility] White Blood Count 5.6 4.8 - 10.8 X10*3/uL [facility] Red Blood Count 4.68 4.20 - 5.50 X10*6/uL [facility] Hemoglobin 12.3 12.0 - 16.0 g/dl [facility] Hematocrit 37.7 37.0 - 47.0 % [facility] Mean Corpuscular Volume 80.6 80.0 - 98.0 fL [facility] Mean Corpuscular Hemoglobin 26.3(L) 27.0 - 33.0 pg [facility] Mean Corpuscular HGB Conc 32.6 31.0 - 35.0 g/dl [facility] Red Cell Distribution Width 13.7 11.0 - 16.0 % [facility] Platelet Count 218 160 - 400 X10*3/uL [facility] Mean Platelet Volume 10.4 9.4 - 12.3 fL [facility] NRBC Pct Auto 0.0 0.0 - 0.2 /100WBC [facility] NRBC Abs Auto 0.000 0.0 - 0.012 X10*3/uL [facility] 02/13/2025 10:5 8 AM EDT 02/13/2025 10:58 AM EDT Generic External Data Provider LAB BLOOD ORDERAB LES Final Result Performing Organization Address City/[facility]/ZIP Co de Phone Number [facility] [address] [place] [address] [phone] * hCG, Total, Quantitative (02/13/2025 10:58 AM EDT) HCG Quantitative <2 mIU/mL [facility] Comment:Weeks post LMP Appro ximate hCG(Last Menstrual Period) Range (mIU/ml)3 - 4 weeks 9 - 1304 - 5 weeks 75 - 2,6005 - 6 weeks 850 - 20,8006 - 7 weeks 4000 - 100,2007 - 12 weeks 11,500 - 289,99126 - 16 weeks 18,300 - 137,88534 - 29 weeks (2nd trimester) 1,400 - 53,07563 - 41 weeks (3rd trimester) 940 - [...] Provider LAB BLOOD ORDERAB LES Final Result [facility] [address] [place] [address] [phone] * HPV DNA, Low/High Risk (11/28/2024 10:39 AM EST) HPV High Risk Negative Negative [facility] HPV Genotype 16 Negative Negative [facility] HPV Genotype 18 Negative Negative [facility] Comment:HPV testing performe d at [facility] (CLIA#[id number]), [address] [place] [phone].Testing for HPV was performed using the Avila [...] 11/29/2024 7:16 AM EST us Roshan Colon [facility] LAB BLOOD ORDERABLES Rosa M love Result [facility] [address] [place] [phone] * Pap Smear (11/28/2024 10:39 AM EST) Swab Cervix uteri structure / Unknown 11/28/2024 10:39 AM EST 11/29/2024 6:05 AM EST Narrative [facility] - 12/07/2024 11:37 AM EST ----- ------- Name: Cami Covington ?Age/Sex: 38/F ? : 1985 Unit#: [id number] ?? Attend Dr: ROSHAN COLON CNM ?Re11/28/24 ?Status: DEP REF ? [facility] ? Disch: ? ----- ------- SPEC : [id number] ? RECD: 11/29/24 ? STATUS: ??SOUT ? REQ NUM: [id number] ? WILLI: [birth year]249 ? SUBM DR: ROSHAN [...] END OF REPORT ? us Roshan Colon [facility] LAB CYTOLOGY ORDERABLES F inal Result [facility] [address] [place] [phone] * HEPATITIS C AB W/REFL TO HCV RNA, QN, PCR (04/20/2021 1:05 PM EDT) HEPATITIS C ANTIBODY NON-REACT NELSON NON-REACT NELSON [facility] INDEX 0.01 <1.00 [facility] Comment: ?? HCV antibody was non-reactive. There is no laboratory ?? evidence of HCV infection. ?? In most cases, no further action is required. However, if recent HCV exposure is suspected, a test for HCV RNA (test code 20773) is suggested. ?? For additional information please refer to http://education.F[employer] Group/faq/SLP16s6 (This link is being provided for informational/ educational purposes only.) ?? 04/20/2021 1:05 PM EDT Luciana Gonzalez MD HISTORICAL/NON ORDERABLE LABS Final Result Performing Organization Address [facility] Co de Phone Number [facility] [address] * HIV 1/2 ANTIGEN/ANTIBODY,FOURTH GENERATION W/RFL (04/20/2021 1:05 PM EDT) HIV-1/2 ANTIGEN AND ANTIBODIES, 4TH GENERATION W/ REFLEX NON-REACT NELSON NON-REACT NELSON [facility] Comment: HIV-1 antigen and HIV-1/HIV-2 [...] ? For additional information please refer to http://[employer].CaratLane.1[employer]/faq/YSW552 (This link is being provided for informational/ educational purposes only.) ? The performance of this assay has not been clinically validated in patients less than 2 years old. ?? 04/20/2021 1:05 PM EDT Luciana Gonzalez MD LAB BLOOD ORDERABLES Final Res ult Performing Organization Address [facility] Co de Phone Number [facility] [address] from Last 3 Months or Most Recently Relevant to Health Maintenance Insurance [place] C3 D[place]-[facility] MEDICAID STAND ADULT Care Teams Special Assemblies Supervisor Relationship Specialty Start Date End Date Name, MD Ramon [address] [place] [address] PCP - General Family Medicine 10/10/17
--- OUTSIDE RECORDS SUMMARY | 2025-03-11 13:50 | XMS_ITS | Encounter Summary ---
Author Organization [employer] Address [address] [facility] 7t [place] [address] Care Team Providers Care Back Gray Cloth Washer Name Role Phone Name, Ramon JIMENEZ Primary Care Provider [phone] Encounter Details Date Type Department Care Team ([facility] st Contact Info) Description 08/30/2023 Abstract [facility] MEDICINE [address] [place], [place] [phone] Name, MD Ramon [address] [place] [address] Social History Tobacco Use Types Packs/Day Years [...] 05/21/2025 11:15 AM EDT Office Visit [facility] MEDICINE [address] [place] [phone] Name, MD Ramon [address] [place] [address] documented as of this encounter Visit Diagnoses Not on filedocumented in this encounter Care Teams Back Gray Cloth Washer Relationship Specialty Start Date End Date NameRamon MD [address] [place] [address] PCP - General Family Medicine 10/10/17 documented as of this encounter
--- OUTSIDE RECORDS SUMMARY | 2025-03-11 13:50 | XMS_ITS | Encounter Summary ---
Author Organization [employer] Address 75 [facility] 7t [place] [address] Care Team Providers Care Plate Conditioner Name Role Phone Name, Ramon JIMENEZ Primary Care Provider [phone] Reason for Visit * Reason Onset Date Comments Appointment Request 11/25/2023 Encounter Details Date Type Department Care Team ([facility] st Contact Info) Description 11/25/2023 Telephone [facility] MEDICINE [address] [place], [place] [phone] Name, MD Ramon [address] [place] [address] Appointment Request Social History Tobacco Use Types [...] Description 05/21/2025 11:15 AM EDT Office Visit [facility] MEDICINE [address] [place] [address] Name, MD Ramon [address] [place] [address] documented as of this encounter Visit Diagnoses Not on filedocumented in this encounter Care Teams Plate Conditioner Relationship Specialty Start Date End Date Name, MD Ramon [address] [place] [address] PCP - General Family Medicine 10/10/17 documented as of this encounter
--- OUTSIDE RECORDS SUMMARY | 2025-03-11 13:50 | XMS_ITS | Encounter Summary ---
Author Organization [employer] Address [address] [facility] 7t [place] [address] Care Team Providers Care Information Services Tech Name Role Phone Name, Ramon JIMENEZ Primary Care Provider [phone] Reason for Visit * Reason Onset Date Comments Medication Question 11/25/2023 Encounter Details Date Type Department Care Team ([facility] st Contact Info) Description 11/25/2023 Telephone [facility] MEDICINE [address] [place], [place] [phone] Name, MD Ramon [address] [place] [address] Medication Question Social History Tobacco Use Types [...] t he electric, gas, oil or water [employer] threatened to shut off services in your [...] T/C to pt. For below message through ByteActive id - [id number] for below message, pt. Has EDvisit due to Abdominal Pain, and ED provider prescribe 20 mg Omeprazole two capsule by mouth ( total 40 mg ) , and pt. States she is taking as prescribe. Pt. Also advised to not take Omeprazole more than prescribe, also called to [facility] pharmacy who states pt. Picked up Omeprazole rx on 11/06/2023. Pt. Advised to not take Omeprazole more than prescribe. Pt. Also schedule for ED follow up on 12/09. [facility] WIC hours are reviewed. NTTN [...] Description 05/21/2025 11:15 AM EDT Office Visit [facility] MEDICINE [address] [place] [address] Name, MD Ramon [address] [place] [address] documented as of this encounter Visit Diagnoses Not on filedocumented in this encounter Care Teams Information Services Tech Relationship Specialty Start Date End Date Name, MD Ramon [address] [place] [address] PCP - General Family Medicine 10/10/17 documented as of this encounter
--- OUTSIDE RECORDS SUMMARY | 2025-03-11 13:50 | XMS_ITS | Encounter Summary ---
Author Organization [employer] Address [address] [place] [address] 7 [place] [address] Care Team Providers Care Card Folder Name Role Phone Name, Ramon JIMENEZ Primary Care Provider [phone] Encounter Details Date Type Department Care Team (Latest Contact Info) Description 03/22/2022 Abstract [facility] CONVERSIONS Dental, Provider, DDS Social History [...] EDT Office Visit [facility] MEDICINE [address] [place] [address] Ramon Varela MD [address] [place] [address] documented as of this encounter Visit Diagnoses Not on filedocumented in this encounter Care Teams Card Folder Relationship Specialty Start Date End Date Ramon Varela MD [address] [place] [address] PCP - General Family Medicine 10/10/17 documented as of this encounter
--- OUTSIDE RECORDS SUMMARY | 2025-03-11 13:50 | XMS_ITS | Encounter Summary ---
Author Organization [employer] Address [address] [place] [address] 7 [place] [address] Care Team Providers Care Hand Mexican Food Maker Name Role Phone Name, Ramon JIMENEZ Primary Care Provider [phone] Reason for Visit * Reason Comments Med Refill Encounter Details Date Type Department Care Team ([facility] st Contact Info) Description 07/26/2024 Refill [facility] MEDICINE [address] [place] [address] Ivis Upton, [facility] [address] [place] [address] Social History Tobacco Use Types Packs/Day Years [...] Description 05/21/2025 11:15 AM EDT Office Visit [facility] [address] [place] [address] NameRamon MD [address] [place] [address] documented as of this encounter Visit Diagnoses Not on filedocumented in this encounter Additional Health Concerns Assessment Noted Time PHQ-9 Depression Total Score: 0 05/10/20 24 8:59 AM EDT documented as of this encounter Care Teams Hand Mexican Food Maker Relationship Specialty Start Date End Date NameRamon MD [address] [place] [phone] PCP - General Family Medicine 10/10/17 documented as of this encounter
--- OUTSIDE RECORDS SUMMARY | 2025-03-11 13:50 | XMS_ITS | Encounter Summary ---
Author Organization [employer] Address [address] [place] [address] 7 [place] [address] Care Team Providers Care Bridge Painter Name Role Phone Name, Ramon JIMENEZ Primary Care Provider [phone] Encounter Details Date Type Department Care Team (Late st Contact Info) Description 10/06/2022 Abstract [facility] MEDICINE [address] [place] [address] NameRamon MD [address] [place] [address] Social History Tobacco Use Types Packs/Day Years [...] Description 05/21/2025 11:15 AM EDT Office Visit [facility] [address] [place] [address] NameRamon MD [address] [place] [address] documented as of this encounter Visit Diagnoses Not on filedocumented in this encounter Care Teams Bridge Painter Relationship Specialty Start Date End Date NameRamon MD [address] [place] [address] PCP - General Family Medicine 10/10/17 documented as of this encounter
== END 2025-03-11 12:55 | disposition home or self-care (01) ==
LOC: HO.LNP 12:54
PROVIDERS: PCP Internal Medicine Geriatric Medicine; Visit Provider Obstetrics & Gynecology
DX: N93.9 Abnormal uterine and vaginal bleeding, unspecified (principal)
CPT/HCPCS: 58100; 81025; 88305

== ENCOUNTER 2025-03-26 12:57 | Outpatient (REF) | payer MEDICAID, SELFPAY ==
--- NOTE | ~2025-03-26 | US_ITS ---
CLINICAL HISTORY: N20.0 - Calculus of kidney US Renal Comparison: None Findings: There is a 4.9 mm calculus in the midpole of the right kidney. There is a 4.4 mm calculus in the midpole of the left kidney. There is a 4.7 mm calculus in the midpole of the left kidney. The right kidney measures 10.5 cm in cephalocaudal dimension. The left kidney measures 10 cm in cephalocaudal dimension. No collecting system dilatation of either kidney. Normal color Doppler. IMPRESSION: 1. Nephrolithiasis. This document has been electronically signed by: Robbi Rushing MD on 03/28/2025 08:46:53
--- OUTSIDE RECORDS SUMMARY | 2025-03-26 13:00 | XMS_ITS | Clinical Summary ---
Author Organization [employer] Address [address] [place] [address] 7 [place] [address] Care Team Providers Care Multicultural Internship Name Role Phone Name, Ramon JIMENEZ Primary Care Provider [phone] Allergies No known active allergies Medications omeprazole [...] Encounters Date Type Department Care Team Description 03/11/2025 Orders Only GENERIC EXTERNAL DATA DEPARTMENT Provider, Generic External Data 02/13/2025 Orders Only GENERIC EXTERNAL DATA DEPARTMENT Provider, Generic External Data 01/31/2025 Telephone [facility] MEDICINE [address] [place] [address] Pio Booth [place] april recalls 01/14/2025 3:15 PM EDT Office Visit [facility] MEDICINE [address] [place] [address] Name, MD Ramon Migraine without status migrainosus, not intractable, unspecified migraine type (Primary Dx); Nephrolithiasis 01/11/2025 Population Health Risk Score [facility] (C3) Department [address] [place] [phone] Provider, Population Health Generic 01/07/2025 Patient Outreach [facility] CH[facility] MED & PEDS [address] [place] [address] Name, MD Ramon Pre-visit Planning ([facility] unable to reach LVM) 01/01/2025 9:00 AM EST Office Visit [facility] ADULT DENTAL [address] [place] [address] Ingrid Maxwell Dental plaque (Primary Dx); Dental calculus from Last 3 Months Immunizations Immunization Administration Dates Next Due INFLUENZA INJECTABLE QUADRIV [...] Description 05/21/2025 11:15 AM EDT Office Visit [facility] MEDICINE [address] [place] [address] Name, MD Ramon [address] [place] [address] Health Maintenance Due Date Last Done Comments Disability Screening 1985 Hepatitis B Vaccines (1 of 3 - [...] patient's age to complete this topic Meningococcal B Vaccine Aged Out No l onger eligible based on patient's age to complete [...] Procedure Name Priority Date/Time Associated Diagnosis Comments HEMATOXYLIN AND EOSIN STAIN Routine 03/11/2025 1:30 PM EDT HCG, TOTAL, QN Routine 02/13/2025 10:58 [...] RADIOGRAPHIC IMAGES Routine 02/19/2022 12:00 AM EDT [facility]LLY HISTORICAL HEPATITIS C AB W/REFL TO HCV RNA, QN, PCR Routine 04/20/2021 1:05 PM EDT HIV 1/2 ANTIGEN/ANTIBODY, FOURTH GENERATION W/RFL Routine 04/20/2021 1:05 PM EDT from Last 3 Months or Most Recently Relevant to Health Maintenance Results * Hematoxylin and Eosin Stain (03/11/2025 1:30 PM EDT) 03/11/2025 1:30 PM EDT 03/11/2025 1:49 PM EDT [facility] LABS - 03/12/2025 2:27 PM EDT ----- ------- Name: Cami Marcelino ?Age/Sex: 39/F ? : 1985 Unit#: [id number] ?? Attend Dr: Amol Ovalle MD ?Re03/11/25 ?Status: DEP REF ? Location: HO.LNP ?Disch: ? ----- ------- SPEC : [id number] ? RECD: 03/11/256694 ? STATUS: ??SOUT ? REQ NUM: [id number] ? WILLI: 03/11/25-0 ? SUBM DR: Amol Ovalle MD ? ENTERED: ??03/11/25-1400 ?SP TYPE: Surgical ? OTHR DR: Ramon Varela MD ? ORDERED: ??HE Stain/2, Gross Micro L4 ? Diagnosis ?? Endometrium, biopsy: ??Late secretory endometrium; negative for atypia, hyperplasia or ?? malignancy. ?Clinical History AUB ?Microscopic Description Microscopic sections reviewed. ? Material Received ?? EMB ? Gross Description Received in formalin labeled ?EMB? is a 2.0 x 2.0 x 0.5 cm aggregate of multiple irregular and tubular cast fragments of tomlin-pink tissue with scant mucus and blood, submitted in toto in a cassette labeled A. CEDS Copies To: ?? Name,Ramon JIMENEZ ?? [address] ?? [address] [address] ?? [phone] ?? Amol Ovalle MD ?? [facility] Women[facility] Services ?? [address] [facility] [address] ?? [address] [address] ?? [phone] ----- ------- Signed (signature on file) Maryjane Brown MD 03/12/25 1427 ? ----- ------- ? END OF REPORT ? us Generic External Data Provider LAB BLOOD ORDERAB LES Final Result Performing Organization Address [facility] Co de Phone Number [facility] [address] [place] [address] [phone] * TSH with Reflex to Free T4 (02/13/2025 10:58 AM EDT) [facility] TSH reflex Free T4 0.89 0.32 - 4.0 uIU/mL [facility] 02/13/2025 10:5 8 AM EDT 02/13/2025 10:58 AM EDT Generic External Data Provider LAB BLOOD ORDERAB LES Final Result Performing Organization Address [facility] Co de Phone Number [facility] [address] [place] [phone] * (ABNORMAL) CBC (02/13/2025 10:58 AM EDT) [facility] White Blood Count 5.6 4.8 - 10.8 [...] Final Result [facility] [address] [place] [phone] * hCG, Total, Quantitative (02/13/2025 10:58 AM EDT) HCG Quantitative <2 mIU/mL [facility] Comment:Weeks post LMP Appro ximate hCG(Last Menstrual Period) Range (mIU/ml)3 - 4 weeks 9 - 1304 - 5 weeks 75 - 2,6005 - 6 weeks 850 - 20,8006 - 7 weeks 4000 - 100,2007 - 12 weeks 11,500 - 289,32999 - 16 weeks 18,300 - 137,34443 - 29 weeks (2nd trimester) 1,400 - 53,71746 - 41 weeks (3rd trimester) 940 - [...] Organization Address [facility] Co de Phone Number [facility] [address] [place] [phone] * HPV DNA, Low/High Risk (11/28/2024 10:39 AM EST) HPV High Risk Negative Negative [facility] HPV Genotype 16 Negative Negative [facility] HPV Genotype 18 Negative Negative [facility] Comment:HPV testing performe d at [facility] (CLIA#[id number]), [address] [place] [address].Testing for HPV was performed using the [employer] [...] 11/29/2024 7:16 AM EST us Roshan Colon [facility] LAB BLOOD ORDERABLES Rosa M l Result Performing Organization Address [facility]/ZIP Co de Phone Number [facility] [address] [place] [phone] * Pap Smear (11/28/2024 10:39 AM EST) Swab Cervix uteri structure / Unknown 11/28/2024 10:39 AM EST 11/29/2024 6:05 AM EST Narrative [facility] - 12/07/2024 11:37 AM EST ----- ------- Name: Cami Covington ?Age/Sex: 38/F ? : 1985 Unit#: [id number] ?? Attend Dr: ROSHAN COLON CNM ?Re11/28/24 ?Status: DEP REF ? Location: HO.HHCLNP ? Disch: ? ----- ------- SPEC : [id number] ? RECD: 11/29/24-604 ? STATUS: ??SOUT ? REQ NUM: [id number] ? WILLI: 11/28/24-9 ? SUBM DR: ROSHAN COLON CNM ? ENTERED: ??11/29/24-639 ?SP TYPE: Pap Smr ?OTHR : ? [...] (signature on file) MARCO Leon (ASCP) 12/07/24 1207 ? ----- ------- ? END OF REPORT ? Roshan Won CN LAB CYTOLOGY ORDERABLES F inal Result Performing Organization Address [facility]/ZIP Co de Phone Number [facility] [address] [place] [phone] [phone] * HEPATITIS C AB W/REFL TO HCV RNA, QN, PCR (04/20/2021 1:05 PM EDT) HEPATITIS C ANTIBODY NON-REACT NELSON NON-REACT NELSON [facility] INDEX 0.01 <1.00 [facility] Comment: ?? HCV antibody was non-reactive. There is no laboratory ?? evidence of HCV infection. ?? In most cases, no further action is required. However, if recent HCV exposure is suspected, a test for HCV RNA (test code 06770) is suggested. ?? For additional information please refer to http://education.MirDeneg/faq/WTH93w4 (This link is being provided for informational/ educational purposes only.) ?? 04/20/2021 1:05 PM EDT Luciana Gonzalez MD HISTORICAL/NON ORDERABLE LABS Final Result Performing Organization Address [facility] de Phone Number [facility] [address] * HIV 1/2 ANTIGEN/ANTIBODY,FOURTH GENERATION W/RFL [...] ? For additional information please refer to http://education.MirDeneg/faq/KOH398 (This link is being provided for informational/ educational purposes only.) ? The performance of this assay has not been clinically validated in patients less than 2 years old. ?? 04/20/2021 1:05 PM EDT us Luciana Gonzalez MD LAB BLOOD ORDERABLES Final Res ult [facility] [address] from Last 3 Months or Most Recently Relevant to Health Maintenance Insurance [facility] C3 * Guarantor: Miguelito Marcelino Account Type Relation to Patient Date of Phone Billing Address Dental Self [address] [facility] [address] [place] [id number] [facility]-[facility] MEDICAID STAND ADULT * Guarantor: Miguelito Marcelino Account Type Relation to Patient Date of Phone Billing Address Personal/Family Self [address] [facility] [address] [place] [address] [place] [address] Care Teams Multicultural Internship Relationship Specialty Start Date End Date Name, MD Ramon [address] [place] [phone] PCP - General Family Medicine 10/10/17
== END 2025-03-26 12:58 | disposition home or self-care (01) ==
LOC: HO.US 12:57
PROVIDERS: PCP Internal Medicine Geriatric Medicine; Visit Provider Urology
DX: N20.0 Calculus of kidney (principal)
CPT/HCPCS: 76775

== ENCOUNTER → 2025-03-26 12:59 | Outpatient (BNV) | payer MEDICAID, SELFPAY | PROVIDERS: PCP Internal Medicine Geriatric Medicine; Visit Provider Radiology Diagnostic Radiology | DX: N20.0 Calculus of kidney (principal) | CPT/HCPCS: 76775 ==

== ENCOUNTER 2025-03-26 13:40 | Outpatient (AMB) | payer MEDICAID, SELFPAY ==
--- NOTE | 2025-03-26 13:40 | MHC.OFFVIS ---
Intake Visit Reasons: TV EMB results Patient Account Specialist Required: Yes Patient Account Specialist Language: Shoe Lacer Services: Patient Account Specialist Present (in person) Patient Account Specialist Name: Vita BANKS Information Interpreted: non-clinical & clinical Allergies No Known Allergies [No Known Allergies*] Allergy (Verified 03/11/25 13:24) HPI Comments Details: The patient scheduled a telehealth visit for follow-up to discuss the results of her abnormal uterine bleeding workup and options of treatment. The following workup was done.: H&H= 12.3/37.7 TSH, hCG, GC and chlamydia were negative. Endometrial biopsy pathology showed the following: Late secretory endometrium; negative for atypia, hyperplasia or malignancy Co testing was done was negative. Pelvic ultrasound showed the following: IMPRESSION: No acute abnormality on this sonographic exam of the pelvis. [facility] Medical History Hydroureteronephrosis Mild acid reflux Ureteral stone with hydronephrosis Surgical History Hemorrhoids (11/29/24) History of cholecystectomy History of tubal ligation History of appendectomy Social History Household Members: Spouse and Family Housing: House Do you presently have visiting nurse or other home services: No Alcohol intake: never Patient Tobacco Use Status: Never used Tobacco service: No Current occupational status: unemployed Review of Systems Const All systems reviewed & are unremarkable except as noted in HPI and below Reports as per HPI and Reports no additional complaints GI Reports no additional complaints Reports no additional complaints Telehealth Telehealth Telehealth Platform: Telephone Location of provider rendering services: practice address Location of patient: address on file Patient Identification confirmed using: Name, : Yes Telehealth method: video Patient verbally consented to treatment: Yes Patient verbally consented to billing insurance company: Yes Patient informed of any privacy concerns related to visit: Yes Minutes spent on Phone/Video with Pt.: 4 Assessment & Plan Assessment & Plan (1) Abnormal uterine bleeding (AUB): Code(s): N93.9 - Abnormal uterine and vaginal bleeding, unspecified Category: Medical Plan: Discussed with the patient the results of the work up done and options of treatment including Lysteda, control pills, Mirena IUD, endometrial ablation and hysterectomy. All pros, cons, risks and benefits if each option was discussed with the patient and the patient decided to go ahead with Mirena IUD so a more detailed discussion about it was conducted including mechanism of action, risks (uterine perforation, infection, injury to bladder, bowel, displacement, and others) benefits (hypo menorrhea, amenorrhea, ...). GC/CT were taken and the patient was instructed to schedule Mirena IUD insertion on day 1-5 of next cycle . All questions answered, the patient verbalized understanding I spent a total of 20 minutes reviewing the chart, talking to the patient via video and documenting in the medical record. Coding Level of Care Code Tele Est Pt Level 3 (75883) Diagnoses Abnormal uterine bleeding (AUB) N93.9
== END 2025-03-26 13:47 | disposition home or self-care (01) ==
LOC: HO.HWS 13:40
PROVIDERS: PCP Internal Medicine Geriatric Medicine; Visit Provider Obstetrics & Gynecology
DX: N93.9 Abnormal uterine and vaginal bleeding, unspecified (principal)
CPT/HCPCS: 99213

== ENCOUNTER 2025-04-01 14:10 | Outpatient (AMB) | payer MEDICAID, SELFPAY ==
--- NOTE | 2025-04-01 14:12 | A.OFFVIS_ITS ---
Intake Visit Reasons: 1y/US(set) Intake Note: Patient is Present for Follow Up Urology Medication: Vitamin B6 Antibiotic Allergies:None Blood Thinners: None Risk Assessment Consultant Required: Yes Risk Assessment Consultant Language: Contracting Executive Services: Risk Assessment Consultant Present Risk Assessment Consultant Name: Ronnie Singer Information Interpreted: clinical only Accompanied by: Self / Same As Patient Allergies No Known Allergies [No Known Allergies*] Allergy (Verified 04/01/25 15:04) Medication List - Last Reconciled 04/01/25 by ISABEL Wall aluminum hydrox-magnesium carb 254-237.5 mg/5 mL (Gaviscon Extra Strength) 10 mL PO QID PRN cholecalciferol (vitamin D3) (Vitamin D3) 25 mcg PO QAM omeprazole 40 mg PO DAILY 90 days pyridoxine (vitamin B6) 50 mg PO DAILY 90 days HPI Comments Details: Cami is a pleasant 39-year-old Setswana-speaking female patient of Dr. Varela. She presents to the office today for follow-up of her nephrolithiasis. In discussion with the patient today she reports to be doing and feeling well. She denies having had any bothersome urinary issues or concerns since her last office visit here over a year ago. Recent renal imaging results were reviewed with the patient today 03/24 bilateral kidneys with no hydronephrosis. 5 mm nonobstructing right renal calculus. Left kidney with 4 mm and 5 mm nonobstructing mid pole calculus. When asked she reports to be drinking approximately 65-70 oz of water a day. She reports compliance with vitamin B6 as prescribed. She denies urinary urgency, urinary frequency, incontinence, nocturia, hematuria, dysuria, foul smelling urine, changes to urinary stream, flank pain, fever, and or chills. She is happy with her current voiding parameters. In office urinalysis results reviewed with the patient today. We discussed obtaining Litholink for further assessment evaluation. Patient with a previous surgical history for nephrolithiasis in 2019 to include right-sided ureteroscopy. All questions were answered. She otherwise offers no other issues or concerns at this time. PREVIOUS OFFICE NOTE: Nephrolithiasis They are here for - further evaluation of nephrolithiasis They present for evaluation of - back pain none - flank pain none - abdominal pain none Urolithiasis was diagnosed - a number of years ago The patient previously had kidney stones whose composition w - 10/19 calcium oxalate monohydrate 80% Laboratory investigations include - no recent labs 24 Hour urine evaluation - none on file Prior treatment(s) include - September 2020 right ureteroscopy laser lithotripsy Prior imaging includes - a CT - stone protocol 10/19 - for distal right ureter stones with hydroureteronephrosis - 01/18 renal ultrasound left small stones Current therapeutic plan will be - 24 hour urine analysis [facility] Medical History Hydroureteronephrosis Mild acid reflux Ureteral stone with hydronephrosis Surgical History Hemorrhoids (11/29/24) History of cholecystectomy History of tubal ligation History of appendectomy Social History Household Members: Spouse and Family Housing: House Do you presently have visiting nurse or other home services: No Alcohol intake: never Patient Tobacco Use Status: Never used Tobacco service: No Current occupational status: unemployed Review of Systems Const All systems reviewed & are unremarkable except as noted in HPI and below Physical Exam Const General: cooperative, healthy appearing, comfortable, no acute distress, well developed, alert and awake Orientation/consciousness: patient oriented x3 Limitations: language barrier HEENT Head: Yes normal to inspection, Yes normocephalic and Yes atraumatic Ears: hearing grossly normal bilaterally Eyes General: appearance normal, both eyes and all related structures Neck Neck: Yes normal visual inspection and Yes trachea midline Chest Chest palpation & inspection: normal inspection of the chest Resp Effort & Inspection: normal respiratory effort and able to speak in complete sentences Cardio Rate: regular rate GI Inspection: Yes normal to inspection General: Yes no CVA tenderness Back/Spine/Pelvis Back: no CVA tenderness Skin General skin exam: no rashes or lesions noted Neuro General: patient oriented x3 Extrem General: Yes normal to inspection Psych Appearance: grossly normal and well kempt Mental Status: mental status grossly normal Speech and movement: Normal speech and movement present and Clear speech present Affect: normal affect Attitude: cooperative Thought process: Normal thought process present Thought content: Normal thought content present Insight: Fair insight present (Psych) Judgement: Fair judgement present (Psych) Results AMB Urinalysis, Automated UA Leukoctes 0 Fermin/uL Last Edit by Jonah Nicole on 04/01/25 14:26 UA Nitrite Negative Last Edit by Jonah Nicole on 04/01/25 14:26 UA Urobilinogen 0.2 mg/dL Last Edit by Jonah Nicole on 04/01/25 14:26 UA Protein 0 mg/dL Last Edit by Jonah Nicole on 04/01/25 14:26 UA pH 6.0 Last Edit by Jonah Nicole on 04/01/25 14:26 UA Blood 10 Kevan/uL Last Edit by Jonah Nicole on 04/01/25 14:[address] [place] 1.015 Last Edit by Jonah Nicole on 04/01/25 14:26 UA Ketone Negative Last Edit by Jonah Nicole on 04/01/25 14:26 UA Bilirubin 0 mg/dL Last Edit by Jonah Nicole on 04/01/25 14:26 UA Glucose 0 mg/dL Last Edit by Jonah Nicloe on 04/01/25 14:26 Results Reviewed Results Reviewed: Laboratory Last Values Urine pH (Auto) 6.0 04/01/25 14:[address] [place] (Auto) 1.015 04/01/25 14:22 Urine Protein (Auto) 0 mg/dL 04/01/25 14:22 Glucose (UA)(Auto) 0 mg/dL 04/01/25 14:22 Urine Ketones (Auto) Negative 04/01/25 14:22 Urine Blood (Auto) 10 Kevan/uL 04/01/25 14:22 Urine Nitrite (Auto) Negative 04/01/25 14:22 Urine Bilirubin (Auto) 0 mg/dL 04/01/25 14:22 Urine Urobilinogen (Auto) 0.2 mg/dL 04/01/25 14:22 Leukocyte Esterase (Auto) 0 Fermin/uL 04/01/25 14:22 Date of Service: 03/26/25 Procedure(s): US renal BI US Renal Comparison: None Findings: There is a 4.9 mm calculus in the midpole of the right kidney. There is a 4.4 mm calculus in the midpole of the left kidney. There is a 4.7 mm calculus in the midpole of the left kidney. The right kidney measures 10.5 cm in cephalocaudal dimension. The left kidney measures 10 cm in cephalocaudal dimension. No collecting system dilatation of either kidney. Normal color Doppler. IMPRESSION: 1. Nephrolithiasis. Assessment & Plan Assessment & Plan (1) Nephrolithiasis: Comment: September 2020 laser lithotripsy - mixed calcium oxalate stone 80% monohydrate Code(s): N20.0 - Calculus of kidney Category: Medical Plan In office urinalysis results reviewed with the patient today; as noted above; we discussed pH of 6.0 and importance of adequate hydration relation to nephrolithiasis as well as overall health and well-being Recent renal imaging results reviewed with the patient today; as noted above We discussed obtaining Litholink for further assessment evaluation. She currently denies any bothersome urinary issues or concerns. She reports be happy with current voiding parameters. Continue vitamin B6 as discussed and prescribed. We discussed adding 1 oz of lemon juice to water daily. Follow-up in 3 months with Litholink to be completed prior; or sooner with any issues, concerns, and or questions. Orders: Orders URORISK Today N20.0 - Calculus of kidney AMB Urinalysis Automated Today Z13.9 - Encounter for screening, unspecified Patient Instructions: The patient had an opportunity to ask questions regarding the treatment plan. All questions were answered. Physical exam, labs, and imaging were discussed and reviewed in detail. As well as risks, benefits, and discussion of treatment choices. No major barriers to understanding were identified. The patient expressed understanding and agreement with the above treatment plan. The patient was made aware they should contact our office by phone for worsening of their current condition, the appearance of new symptoms, or with any questions or concerns. Compliance is encouraged with any medications and follow up testing that is ordered. It is a privilege to be allowed the opportunity to participate in? your urological care.? Again, if you have any questions or concerns If you have any questions or concerns please do not hesitate to contact me. The office is [phone]. This note is constructed using voice recognition software. While every effort has been made to ensure accuracy technology specialist errors may have been included. Yours sincerely, FLAKITA Wall-BC Coding Level of Care Code Est Pt Level 3 (93855) Diagnoses Nephrolithiasis N20.0
--- OUTSIDE RECORDS SUMMARY | 2025-04-01 15:26 | XMS_ITS | Clinical Summary ---
Author Organization [employer] Address [address] [place] [address] [address] [place] [address] Care Team Providers Care Finish Rolls Operator Name Role Phone Name, Ramon JIMENEZ Primary Care Provider [phone] Allergies No known active allergies Medications omeprazole [...] DEPARTMENT Provider, Generic External Data 01/31/2025 Telephone [facility] [address] [place] [address] Pio Booth [place] april recalls 01/14/2025 3:15 PM EDT Office Visit [facility] [address] [place] [address] Name, MD Ramon Migraine without status migrainosus, not intractable, unspecified migraine type (Primary Dx); Nephrolithiasis 01/11/2025 Population Health Risk Score [facility] (C3) Department [address] [place] [address] [phone] Provider, Population Health Generic 01/07/2025 Patient Outreach [facility] [address] [place] [address] Name, MD Ramon Pre-visit Planning ([facility] unable to reach LVM) 01/01/2025 9:00 AM EST Office Visit [facility] [address] [place] [address] Ingrid Maxwell Dental plaque (Primary Dx); Dental [...] Description 05/21/2025 11:15 AM EDT Office Visit [facility] [address] [place] [address] Name, MD Ramon [address] [place] [address] Health Maintenance Due Date Last Done Comments Disability Screening 1985 Hepatitis B Vaccines (1 of 3 - 19+ 3-dose series) 2004 COVID-19 Vaccine ( season) 2024 08/02/2022, 10/07/2021, 03/23/2021, Additional history exists Dental X-Ray: Full Mouth 02/20/2025 02/19/2022, 07/31 Alcohol/Substance Use Screening 05/10/2025 05/10/2024 Depression Screening 05/10/2025 05/10/2024, 05/10/20 24 SDOH Screening 05/10/2025 05/10/2024 Influenza Vaccine (Season Ended) 2025 07/22/2023, 08/02/2022, 09/16/2021, Additional history exists Dental Oral Exam 07/05/2025 01/01/2025, , 09/05/2023, [...] Procedure Name Priority Date/Time Associated Diagnosis Comments US RENAL BI Routine 03/28/2025 8:46 AM EDT HEMATOXYLIN AND EOSIN STAIN Routine 03/11/2025 1:30 [...] Recently Relevant to Health Maintenance Results * US RENAL BI (03/28/2025 8:46 AM EDT) Anatomical Region Laterality Modality Abdomen Ultrasound 03/28/2025 8:46 AM EDT Narrative 03/28/2025 8:48 AM EDT ? [facility] ?[address] ?[place] [address] ? Ultrasound Report ? Signed ? Patient: Cami Marcelino ?MR#: [id number] ?? [id number] ? : 1985 ?Acct:[id number] ? Age/Sex: 39 / F ?ADM Date: 03/26/25 ? Loc: HO.US ? Attending Dr: Hermes Brown MD ? Ordering Physician: Hermes Brown MD ?? Date of Service: 03/26/25 ?? Procedure(s): US renal BI ?? Accession Number(s): [id number] ? cc: Hermes Brown MD; NameRamon MD ? CLINICAL HISTORY: N20.0 - Calculus of kidney ? US Renal ? Comparison: None ? Findings: ?? There is a 4.9 mm calculus in the midpole of the right kidney. ?? There is a 4.4 mm calculus in the midpole of the left kidney. ?? There is a 4.7 mm calculus in the midpole of the left kidney. ?? The right kidney measures 10.5 cm in cephalocaudal dimension. ?? The left kidney measures 10 cm in cephalocaudal dimension. ? No collecting system dilatation of either kidney. Normal color Doppler. ? IMPRESSION: ?? 1. Nephrolithiasis. ? This document has been electronically signed by: Robbi Rushing MD on ?? 03/28/2025 08:46:53 ? Dictated By: ?Robbi Rushing MD ? Signed By: ?<Electronically signed by Robbi Rushing MD in OV> ? 03/28/25 0847 ? DD/ 0846 ? TD/TT: 03/28/25 0846 ? Emergency Medical Service Coordinator: ? Procedure Note Donotuseinterpreter, Image - 03/28/2025 [place] [address] Ultrasound Report Signed Patient: Mariah Marcelino#: [id number] : 1985Acct:[id number] Age/Sex: 39 / FADM Date: 03/26/25 Loc: HO.US Attending Dr: Hermes Brown MD Ordering Physician: Hermes Brown MD Date of Service: 03/26/25 Procedure(s): US renal BI Accession Number(s): [id number] cc: Hermes Brown MD; Name,Ramon JIMENEZ CLINICAL HISTORY: N20.0 - Calculus of kidney US Renal Comparison: None Findings: There is a 4.9 mm calculus in the midpole of the right kidney. There is a 4.4 mm calculus in the midpole of the left kidney. There is a 4.7 mm calculus in the midpole of the left kidney. The right kidney measures 10.5 cm in cephalocaudal dimension. The left kidney measures 10 cm in cephalocaudal dimension. No collecting system dilatation of either kidney. Normal color Doppler. IMPRESSION: 1. Nephrolithiasis. This document has been electronically signed by: Robbi Rushing MD on 03/28/2025 08:46:53 Dictated By: Robbi Rushing MD Signed By: <Electronically signed by Robbi Rushing MD in OV> 03/28/2547 DD/ 5 TD/TT: 03/28/25845 Emergency Medical Service Coordinator: [facility] External Provider IMG US PROCEDURES Final Result * Hematoxylin and Eosin Stain (03/11/2025 1:30 PM EDT) 03/11/2025 1:30 PM EDT 03/11/2025 1:49 PM EDT Narrative [facility] - 03/12/2025 2:27 PM EDT ----- ------- Name: Cami Marcelino ?Age/Sex: 39/F ? : 1985 Unit#: [id number] ?? Attend Dr: Amol Ovalle MD ?Re03/11/25 ?Status: DEP REF ? Location: HO.LNP ?Disch: ? ----- ------- SPEC : [id number] ? RECD: 03/11/25-8727 ? STATUS: ??SOUT ? REQ NUM: [id number] ? WILLI: 03/11/25- ? SUBM DR: Amol Ovalle MD ? ENTERED: ??03/11/25-1400 ?SP TYPE: Surgical ? OTHR : Name,Ramon JIMENEZ ? ORDERED: ??HE Stain/2, Gross Micro L4 [...] Copies To: ?? Name,Ramon JIMENEZ ?? [address] [facility] ?? [place] [address] ?? [phone] ?? Amol Ovalle MD ?? [facility] ?? [address] [facility] [facility] ?? [place] [address] ?? [phone] ----- ------- Signed (signature on file) Maryjane Brown MD 03/12/25 1427 ? ----- ------- ? END OF REPORT ? Generic External Data Provider LAB BLOOD ORDERAB LES Final Result Performing Organization Address [facility] de Phone Number [facility] [address] [place] [phone] * TSH with Reflex to Free T4 (02/13/2025 10:58 AM EDT) [facility] TSH reflex Free T4 0.89 0.32 - 4.0 uIU/mL [facility] 02/13/2025 10:5 8 AM EDT 02/13/2025 10:58 AM EDT Generic External Data Provider LAB BLOOD ORDERAB LES Final Result Performing Organization Address [facility] de Phone Number [facility] [address] [place] [phone] * (ABNORMAL) CBC (02/13/2025 10:58 AM EDT) [facility] White Blood Count 5.6 4.8 - 10.8 X10*3/uL [facility] Red Blood Count 4.68 4.20 - 5.50 X10*6/uL [facility] Hemoglobin 12.3 12.0 - 16.0 g/dl [facility] Hematocrit 37.7 37.0 - 47.0 % [facility] Mean Corpuscular Volume 80.6 80.0 - 98.0 fL [facility] Mean Corpuscular Hemoglobin 26.3(L) 27.0 - 33.0 pg [facility] Mean Corpuscular HGB Conc 32.6 31.0 - 35.0 g/dl [facility] Red Cell Distribution Width 13.7 11.0 - 16.0 % [facility] Platelet Count 218 160 - 400 X10*3/uL [facility] Mean Platelet Volume 10.4 9.4 - 12.3 fL [facility] NRBC Pct Auto 0.0 0.0 - 0.2 /100WBC [facility] NRBC Abs Auto 0.000 0.0 - 0.012 X10*3/uL [facility] 02/13/2025 10:5 8 AM EDT 02/13/2025 10:58 AM EDT us Generic External Data Provider LAB BLOOD ORDERAB LES Final Result Performing Organization Address [facility] Co de Phone Number [facility] [address] [place] [phone] * hCG, Total, Quantitative (02/13/2025 10:58 AM EDT) HCG Quantitative <2 mIU/mL [facility] Comment:Weeks post LMP Appr oximate hCG(Last Menstrual Period) Range (mIU/ml)3 - 4 weeks 9 - 1304 - 5 weeks 75 - 2,6005 - 6 weeks 850 - 20,8006 - 7 weeks 4000 - 100,2007 - 12 weeks 11,500 - 289,61005 - 16 weeks 18,300 - 137,05590 - 29 weeks (2nd trimester) 1,400 - 53,99644 - 41 weeks (3rd trimester) 940 - [...] ORDERAB LES Final Result Performing Organization Address [facility] Co de Phone Number [facility] [address] [place] [address] [phone] * HPV DNA, Low/High Risk (11/28/2024 10:39 AM EST) HPV High Risk Negative Negative [facility] HPV Genotype 16 Negative Negative [facility] HPV Genotype 18 Negative Negative [facility] Comment:HPV testing performe d at [facility] (CLIA#[id number]), [address] [place] [address].Testing for HPV was performed using the [employer] [...] 9 AM EST 11/29/2024 7:16 AM EST Roshan Colon [facility] BLOOD ORDERABLES Rosa M love Result [facility] [address] [place] [phone] * Pap Smear (11/28/2024 10:39 AM EST) Swab Cervix uteri structure / Unknown 11/28/2024 10:39 AM EST 11/29/2024 6:05 AM EST Narrative [facility] - 12/07/2024 11:37 AM EST ----- ------- Name: Cami Covington ?Age/Sex: 38/F ? : 1985 Unit#: [id number] ?? Attend Dr: ROSHAN COLON CNM ?Re11/28/24 ?Status: DEP REF ? Location: HO.HHCLNP ? Disch: ? ----- ------- SPEC : [id number] ? RECD: 11/29/24 ? STATUS: ??SOUT ? REQ NUM: [id number] ? WILLI: 11/28/24-1039 ? SUBM DR: ROSHAN COLON CNM ? ENTERED: ??11/29/24 ?SP TYPE: Pap Smr ?OTHR : ? [...] ----- ------- Signed (signature on file) MARCO eLon (ASCP) 12/07/24 1137 ? ----- ------- ? END OF REPORT ? us Roshan Colon [facility] CYTOLOGY ORDERABLES F inal Result [facility] [address] [place] [phone] * HEPATITIS C AB W/REFL TO HCV RNA, QN, PCR (04/20/2021 1:05 PM EDT) HEPATITIS C ANTIBODY NON-REACT [facility] NON-REACT [facility] INDEX 0.01 <1.00 [facility] Comment: ?? HCV antibody was non-reactive. There is no laboratory ?? evidence of HCV infection. ?? In most cases, no further action is required. However, if recent HCV exposure is suspected, a test for HCV RNA (test code 96947) is suggested. ?? For additional information please refer to http://Agendia.DipJar/faq/CEQ06r7 (This link is being provided for informational/ educational purposes only.) ?? 04/20/2021 1:05 PM EDT Luciana Gonzalez MD HISTORICAL/NON ORDERABLE LABS Final Result Performing Organization Address [facility] Co de Phone Number [facility] [address] [place] [address], * HIV 1/2 ANTIGEN/ANTIBODY,FOURTH GENERATION W/RFL (04/20/2021 [...] ? For additional information please refer to http://Agendia.Preply.com.WeShow/faq/YFJ031 (This link is being provided for informational/ educational purposes only.) ? The performance of this assay has not been clinically validated in patients less than 2 years old. ?? 04/20/2021 1:05 PM EDT Luciana Gonzalez MD LAB BLOOD ORDERABLES Final Res ult [facility] [address] from Last 3 Months or Most Recently Relevant to Health Maintenance Insurance [facility] C3 Care Teams Finish Rolls Operator Relationship Specialty Start Date End Date Name, MD Ramon [address] [place] [address] PCP - General Family Medicine 10/10/17
== END 2025-04-01 15:02 | disposition home or self-care (01) ==
LOC: HO.HUSH 14:11
PROVIDERS: PCP Internal Medicine Geriatric Medicine; Visit Provider Nurse Practitioner Family
DX: N20.0 Calculus of kidney (principal)
CPT/HCPCS: 99213

== ENCOUNTER → 2025-04-01 14:10 | Outpatient (BNVA) | payer MEDICAID, SELFPAY | PROVIDERS: PCP Internal Medicine Geriatric Medicine; Visit Provider Nurse Practitioner Family | DX: N20.0 Calculus of kidney (principal) | CPT/HCPCS: 81003; 99212 ==

== ENCOUNTER 2025-04-18 14:56 | Outpatient (AMB) | payer MEDICAID, SELFPAY ==
--- NOTE | 2025-04-18 14:57 | MHC.OFFVIS ---
Vital Signs 04/18/25 15:09 Height 5 ft 3 in Weight 154 lb BMI 27.3 Intake Visit Reasons: Mirena insertion Segment Block Layer Required: Yes Segment Block Layer Language: Delivery Technician Services: Segment Block Layer Present (in person ) Segment Block Layer Name: Vita BANKS Information Interpreted: non-clinical & clinical Reactor Fueling Supervisor: Reactor Fueling Supervisor Present (Vita BANKS) Accompanied by: Self / Same As Patient Allergies No Known Allergies (No Known Allergies*) Allergy (Verified 04/18/25 15:10) Is last menstrual period known: Yes Last menstrual period: 04/17/25 HPI Comments Details: Presenting for Mirena IUD insertion [facility] Medical History Hydroureteronephrosis Mild acid reflux Ureteral stone with hydronephrosis Surgical History Hemorrhoids (11/29/24) History of cholecystectomy History of tubal ligation History of appendectomy Social History Household Members: Spouse and Family Housing: House Do you presently have visiting nurse or other home services: No Alcohol intake: never Patient Tobacco Use Status: Never used Tobacco service: No Current occupational status: unemployed Female Reproductive History Menstrual Date of last menstrual period: 04/17/25 control method: permanent sterilization Physical Exam Vital Signs: BMI result Body Mass Index 27.3 Office Procedures IUD Insert/Removal Details Details: The patient is presenting for Mirena IUD insertion Urine test was done in the office and was negative; All the contraindications were excluded. The following possible complications were discussed with the patient: Intrauterine , Ectopic , Sepsis, Pelvic Infection, Irregular Bleeding and Amenorrhea, Perforation, Expulsion, Ovarian Cysts, Breast Cancer, The following adverse effects were discussed with the patient: alteration of menstrual bleeding pattern, including: unscheduled uterine bleeding decreased uterine bleeding increased scheduled uterine bleeding female genital tract bleeding ,amenorrhea , genital discharge , vulvovaginitis , breast pain , benign ovarian cyst and associated complications , dysmenorrhea , Gastrointestinal disorders abdominal/pelvic pain, headache/migraine , back pain , acne , depression Alternative options were discussed with the patient including but not limited: control pills, patch, NuvaRing, Depo-medroxyprogesterone acetate, Nexplanon, copper IUD, sterilization, vasectomy, others The procedure was explained in detail to patient , at the end patient signed the informed consent obtained. A no touch technique was used throughout the procedure. A speculum was placed into vagina and cervix was cleaned with betadine). A tenaculum was placed. A plastic sound was advanced through the external and internal os until it reached the fundus of the uterus, the depth was 8 cm. The sound was then withdrawn. The IUD was loaded in a sterile manner and advanced into position. The string was visualized and cut to 3 cm. Tenaculum site hemostatic. All instruments removed from vagina. Patient tolerated the procedure well. NO complications were noted. Patient was instructed to call for fever over 100.4, significant pain unrelieved by Motrin, IUD expulsion, heavy bleeding, or abnormal discharge. In addition, the following clinical considerations were discussed with the patient to call for removal: A stroke or heart attack ,Very severe or migraine headaches ,Unexplained fever ,Yellowing of the skin or whites of the eyes, as these may be signs of serious liver problems , or suspected , Pelvic pain or pain during sex ,HIV positive seroconversion in herself or her partner , Possible exposure to sexually transmitted infections Unusual vaginal discharge or genital sores , severe vaginal bleeding or bleeding that lasts a long time, or if she misses a menstrual period, Inability to feel Mirena's threads Counseled the patient that the IUD does not protect against STI's, recommended use of condoms for the first 7 days post insertion and explained to the patient that condoms are recommended for patients at risk for sexually transmitted infections. Informed the patient that Mirena IUD is FDA approved for 8 years for contraception for 5 years for the treatment of heavy menses Instructed the patient to schedule a Follow up appointment in 4 to 6 weeks following insertion. This note was generated with a voice recognition program. Some errors may have been overlooked during the review of this note. Sometimes these errors may affect the content or meaning of a given sentence. 48285-LOG Insertion Procedure code (CPT) selection complete Office Meds Mirena 21 mcg/24 hr (up to 8 years) 52 mg intrauterine device Performing Provider: Amol Ovalel MD Performing Location: [facility] Documented (not given) by: Amol Ovalle MD on 04/18/25 15:26 Dose Route Admin Location Dispensed Lot Number Expiration Date NDC Service Desk Team Lead 1 device intrauterine ea Total Dispensed Waste n/a n/a Results AMB Test Urine AMB Test Urine Negative Last Edit by Vita Banuelos CMA on 04/18/25 15:14 Results Reviewed Results Reviewed: Laboratory Last Values Tst Clinic Negative 04/18/25 15:13 Assessment & Plan Assessment & Plan (1) Abnormal uterine bleeding (AUB): Code(s): N93.9 - Abnormal uterine and vaginal bleeding, unspecified Category: Medical Plan: UPT in the office was negative, a Mirena IUD inserted, see procedure note Orders: Orders AMB HCG Urine Test Today Z32.02 - Encounter for test, result negative AMB IUD Insertion/Removal - Practice Supplied Today N93.9 - Abnormal uterine and vaginal bleeding, unspecified Medications: New Mirena (levonorgestrel) 1 device intrauterine ONCE 1 ea 0RF Mirena IUD insertion NS N93.9 - Abnormal uterine and vaginal bleeding, unspecified Coding Level of Care Code Procedure Only Diagnoses Abnormal uterine bleeding (AUB) N93.9 CPT Codes Details - CPT: 49219-ACC Insertion ([id number])
[2025-04-18 15:09] VITALS: BMI 27.3
--- OUTSIDE RECORDS SUMMARY | 2025-04-18 16:15 | XMS_ITS | Clinical Summary ---
Author Organization [employer] Address [address] [place] [address] 7 [place] [address] Care Team Providers Care Schedule Announcer Name Role Phone Name, Ramon JIMENEZ Primary Care Provider [phone] Allergies No known active allergies Medications omeprazole [...] DEPARTMENT Provider, Generic External Data 01/31/2025 Telephone [facility] [address] [place] [address] Pio Booth [place] april recalls from Last 3 Months Immunizations Immunization Administration [...] 111 01/14/2025 3:11 PM EDT Temperature 36.6 C (97.8 F) 01/14/2025 3:11 PM EDT Respiratory Rate 21 01/14/2025 3:11 PM EDT [...] Description 05/21/2025 11:15 AM EDT Office Visit [facility] [address] [place], [place] [phone] Name, MD Ramon [address] [place] [address] Health Maintenance Due Date Last Done Comments [...] (PISQ) 11/28/2025 11/28/2024 Dental X-Ray: Bitewings 01/02/2026 01/02/20, 03/16/2024, 11/25/2023, Additional history exists Tobacco Screening [...] Years) and At-Risk Patients (6 to 49) Years Aged Out No longer eligible based on [...] EDT CBC Routine 02/13/2025 10:58 AM EDT PROPHYLAXIS - ADULT Routine 01/01/2025 9 :00 AM EST Dental plaque Dental calculus BITEWINGS - 4 RADIOGRAPHIC IMAGES Routine 01/01/2025 9:00 AM EST PERIODIC ORAL EVALUATION - ESTABLISHED PATIENT Routine 01/01/2025 9:00 AM EST HPV DNA, LOW/HIGH RISK Routine 11/28/2024 10:39 [...] AM EDT Narrative 03/28/2025 8:48 AM EDT [place] [address] Ultrasound Report Signed Patient: Cami Marcelino MR#: [id number] : 1985 Acct:[id number] Age/Sex: 39 / F ADM Date: 03/26/25 Loc: HO.US Attending Dr: Hermes Brown MD Ordering Physician: Hermes Brown MD Date of Service: 03/26/25 Procedure(s): US renal BI Accession Number(s): [id number] cc: Hermes Brown MD; Name,Ramon JIMENEZ CLINICAL [...] signed by Robbi Rushing MD in OV> 03/28/25846 DD/ 5 TD/TT: 03/28/25845 Travel Registered Nurse Pacu: Procedure Note Donotuseinterpreter, Image - 03/28/2025 [place] [address] Ultrasound Report Signed Patient: Mariah Marcelino#: [id number] : 1985Acct:[id number] Age/Sex: 39 / FADM Date: 03/26/25 Loc: HO.US Attending Dr: Hermes Brown MD Ordering Physician: Hermes Brown MD Date of Service: 03/26/25 Procedure(s): US renal BI Accession Number(s): [id number] cc: Hermes Brown MD; Name,Ramon JIMENEZ CLINICAL [...] signed by Robbi Rushing MD in OV> 03/28/25846 DD/ 5 TD/TT: 03/28/25845 Travel Registered Nurse Pacu: us [facility] External Provider IMG US PROCEDURES Final Result * Hematoxylin and Eosin Stain (03/11/2025 1:30 PM EDT) 03/11/2025 1:30 PM EDT 03/11/2025 1:49 PM EDT Narrative [facility] - 03/12/2025 2:27 PM EDT ----- ------- Name: Cami Marcelino Age/Sex: 39/F : 1985 Unit#: [id number] Attend Dr: Amol Ovalle MD Re03/11/25 Status: DEP REF Location: HO.LNP Disch: ----- ------- SPEC : [id number] RECD: 03/11/25 STATUS: ADA KIM NUM: [id number] WILLI: 03/11/25-[address] [facility] [address]: Amol Ovalle MD ENTERED: 03/11/25-1399 SP TYPE: Surgical OTHR DR: Ramon Varela MD ORDERED: HE Stain/2, Gross Micro L4 Diagnosis Endometrium, biopsy: Late secretory endometrium; negative for atypia, hyperplasia or malignancy. Clinical History AUB Microscopic Description Microscopic sections reviewed. Material Received EMB Gross Description Received in formalin labeled EMB is a 2.0 x 2.0 x 0.5 cm aggregate of multiple irregular and tubular cast fragments of tomlin-pink tissue with scant mucus and blood, submitted in toto in a cassette labeled A. CEDS Copies To: Name,Ramon JIMENEZ [address] [place], [place] [phone] Amol Ovalle MD [facility] [address] [place], [place] [phone] ----- ------- Signed (signature on file) Maryjane Brown MD 03/12/25 1427 ----- ------- END OF REPORT us Generic External Data Provider LAB BLOOD ORDERAB LES Final Result [facility] [address] [place], [place] [phone] * TSH with Reflex to Free T4 (02/13/2025 10:58 AM EDT) TSH reflex Free T4 0.89 0.32 - 4.0 uIU/mL [facility] 02/13/2025 10:5 8 AM EDT 02/13/2025 10:58 AM EDT us Generic External Data Provider LAB BLOOD ORDERAB LES Final Result Performing Organization Address City/[facility]/ZIP Co de Phone Number [facility] [address] [place] [phone] * (ABNORMAL) CBC (02/13/2025 10:58 AM EDT) White Blood Count 5.6 4.8 - 10.8 X10*3/uL [facility] Red Blood Count 4.68 4.20 - 5.50 X10*6/uL [facility] Hemoglobin 12.3 12.0 - 16.0 g/dl [facility] Hematocrit 37.7 37.0 - 47.0 % [facility] Mean Corpuscular Volume 80.6 80.0 - 98.0 fL [facility] Mean Corpuscular Hemoglobin 26.3(L) 27.0 - 33.0 pg [facility] Mean Corpuscular HGB Conc 32.6 31.0 - 35.0 g/dl [facility] Red Cell Distribution Width 13.7 11.0 - 16.0 % [facility] Platelet Count 218 160 - 400 X10*3/uL [facility] Mean Platelet Volume 10.4 9.4 - 12.3 fL [facility] NRBC Pct Auto 0.0 0.0 - 0.2 /100WBC [facility] NRBC Abs Auto 0.000 0.0 - 0.012 X10*3/uL [facility] 02/13/2025 10:5 8 AM EDT 02/13/2025 10:58 AM EDT us Generic External Data Provider LAB BLOOD ORDERAB LES Final Result Performing Organization Address City/[facility]/ZIP Co de Phone Number [facility] [address] [place] [phone] * hCG, Total, Quantitative (02/13/2025 10:58 AM EDT) HCG Quantitative <2 mIU/mL [facility] Comment:Weeks post LMP Appro ximate hCG(Last Menstrual Period) Range (mIU/ml)3 - 4 weeks 9 - 1304 - 5 weeks 75 - 2,6005 - 6 weeks 850 - 20,8006 - 7 weeks 4000 - 100,2007 - 12 weeks 11,500 - 289,07455 - 16 weeks 18,300 - 137,66319 - 29 weeks (2nd trimester) 1,400 - 53,85491 - 41 weeks (3rd trimester) 940 - [...] ORDERAB LES Final Result Performing Organization Address City/State/[facility] Co de Phone Number [facility] [address] [place] [phone] * HPV DNA, Low/High Risk (11/28/2024 10:39 AM EST) HPV High Risk Negative Negative [facility] HPV Genotype 16 Negative Negative [facility] HPV Genotype 18 Negative Negative [facility] Comment:HPV testing performe d at [facility] (CLIA#[id number]), [address] [place] [address].Testing for HPV was performed using the [address] [employer]system. The presence of HPV in the female [...] 11/29/2024 7:16 AM EST us Roshan Colon CNM LAB BLOOD ORDERABLES Rosa M l Result [facility] [address] [place] [phone] * Pap Smear (11/28/2024 10:39 AM EST) Swab Cervix uteri structure / Unknown 11/28/2024 10:39 AM EST 11/29/2024 6:05 AM EST [facility] - 12/07/2024 11:37 AM EST ----- ------- Name: Cami Covington Age/Sex: 38/F : 1985 Unit#: [id number] Attend Dr: ROSHAN COLON CNM Re11/28/24 Status: DEP REF Location: HO.HHCLNP Disch: ----- ------- SPEC : [id number] RECD: 11/29/24-604 STATUS: ADA KIM NUM: [id number] WILLI: 11/28/24-[address] [facility] [address]: ROSHAN COLON CNM ENTERED: 11/29/24 SP TYPE: Pap Smr OTHR DR: ORDERED: Pap Smear Interpretation Satisfactory for evaluation. Negative for intraepithelial lesion or malignancy. HPV High Risk: Negative HPV Genotyping 16: Negative HPV Genotyping 18: Negative Clinical Information LMP:UNK Previous PAP test: 2023, NIL HPV positive Other surgery: Other history: Material Received ThinPrep-Cervical ----- ------- Signed (signature on file) MARCO Leon (ASCP) 12/07/24 1137 ----- ------- END OF REPORT Roshan Colon CNM LAB CYTOLOGY ORDERABLES F inal Result [facility] [address] [place] [phone] * HEPATITIS C AB W/REFL TO HCV RNA, QN, PCR (04/20/2021 1:05 PM EDT) HEPATITIS C ANTIBODY NON-REACT NELSON NON-REACT NELSON [facility] INDEX 0.01 <1.00 [facility] Comment: HCV antibody was non-reactive. There is no laboratory evidence of HCV infection. In most cases, no further action is required. However, if recent HCV exposure is suspected, a test for HCV RNA (test code 08514) is suggested. For additional information please refer to http://Outsmart.[employer]/faq/ULS37e0 (This link is being provided for informational/ educational purposes only.) 04/20/2021 1:05 PM EDT Luciana Gonzalez MD HISTORICAL/NON ORDERABLE LABS Final Result Performing Organization Address [facility] de Phone Number [facility] [address] * HIV 1/2 ANTIGEN/ANTIBODY,FOURTH GENERATION W/RFL (04/20/2021 1:05 PM EDT) Pathologist [facility] [place] HIV-1/2 ANTIGEN AND ANTIBODIES, 4TH GENERATION W/ REFLEX NON-REACT NELSON NON-REACT NELSON [facility] Comment: HIV-1 antigen and HIV-1/HIV-2 antibodies were not detected. There is no laboratory evidence of HIV infection. PLEASE NOTE: This information has been disclosed to you from records whose confidentiality may be protected by state law. If your state requires such protection, then the state law prohibits you from making any further disclosure of the information without the specific written consent of the person to whom it pertains, or as otherwise permitted by law. A general authorization for the release of medical or other information is NOT sufficient for this purpose. For additional information please refer to http://Outsmart.[employer]faq/DAE018 (This link is being provided for informational/ educational purposes only.) The performance of this assay has not been clinically validated in patients less than 2 years old. 04/20/2021 1:05 PM EDT us Luciana Gonzalez MD LAB BLOOD ORDERABLES Final Res ult Performing Organization Address [facility] Co de Phone Number [facility] [address] from Last 3 Months or Most Recently Relevant to Health Maintenance Insurance [place] [id number] [facility] [address] DENTAL-[facility] MEDICAID STAND ADULT Care Teams Schedule Announcer Relationship Specialty Start Date End Date Name, MD Ramon [address] [place] [phone] PCP - General Family Medicine 10/10/17
== END 2025-04-18 15:29 | disposition home or self-care (01) ==
LOC: HO.HWS 14:56
PROVIDERS: PCP Internal Medicine Geriatric Medicine; Visit Provider Obstetrics & Gynecology
DX: Z30.430 Encounter for insertion of intrauterine contraceptive device (principal); N93.9 Abnormal uterine and vaginal bleeding, unspecified; Z32.02 Encounter for pregnancy test, result negative
CPT/HCPCS: 58300

== ENCOUNTER → 2025-04-18 14:56 | Outpatient (BNVA) | payer MEDICAID, SELFPAY | PROVIDERS: PCP Internal Medicine Geriatric Medicine; Visit Provider Obstetrics & Gynecology | DX: Z30.430 Encounter for insertion of intrauterine contraceptive device (principal) | CPT/HCPCS: 58300; 81025; J7298 ==

== ENCOUNTER 2025-05-15 18:01 | Outpatient (REF) | payer MEDICAID, SELFPAY | END 2025-05-15 18:02 | disposition home or self-care (01) | LOC: HO.HHCLNP 18:01 | PROVIDERS: Visit Provider Advanced Practice Midwife | DX: R35.0 Frequency of micturition (principal) | CPT/HCPCS: 87086 ==

== ENCOUNTER 2025-05-16 14:04 | Outpatient (AMB) | payer MEDICAID, SELFPAY ==
--- NOTE | 2025-05-16 14:14 | MHC.OFFVIS ---
Vital Signs 05/16/25 14:18 Height 5 ft 3 in Weight 154 lb BMI 27.3 Intake Visit Reasons: IUD Check/Ok beryl ovalle Digital Imaging Technician Required: Yes Digital Imaging Technician Language: Exterminator Services: Digital Imaging Technician Present (in person) Digital Imaging Technician Name: Vita BANKS Information Interpreted: non-clinical & clinical Ultrasound Specialist: Ultrasound Specialist Present (Vita BANKS) Accompanied by: Self / Same As Patient Allergies No Known Allergies (No Known Allergies*) Allergy (Verified 05/16/25 14:19) Is last menstrual period known: No (mirena) HPI Comments Details: The patient is presenting for IUD check after 1 st period following IUD insertion. The patient has no complaints periods are normal, not painful, and flow is normal. [facility] Medical History Hydroureteronephrosis Mild acid reflux Ureteral stone with hydronephrosis Surgical History Hemorrhoids (11/29/24) History of cholecystectomy History of tubal ligation History of appendectomy Social History Household Members: Spouse and Family Housing: House Do you presently have visiting nurse or other home services: No Alcohol intake: never Patient Tobacco Use Status: Never used Tobacco service: No Current occupational status: unemployed Review of Systems Const All systems reviewed & are unremarkable except as noted in HPI and below Physical Exam Vital Signs: BMI result Body Mass Index 27.3 General: Yes no CVA tenderness External Female Exam: normal external appearance and normal appearance of the urethra Speculum Exam - Vagina: normal appearance of the vagina, normal palpation, no lesions and no masses Speculum Exam - Cervix: normal appearance of the cervix, normal palpation, no lesions, no masses, nontender and Other cervical findings present (IUD thread in place) Bimanual exam- vagina & uterus: normal bimanual exam, normal palpation, uterine size normal, normal palpation, uterine shape normal, No Cervical tenderness present and non-tender Bimanual Exam- Adnexa, other: normal adnexae Back/Spine/Pelvis Back: no CVA tenderness Assessment & Plan Assessment & Plan (1) IUD check up: Code(s): Z30.431 - Encounter for routine checking of intrauterine contraceptive device Category: Medical Plan: UPT done in the office was negative. Discussed with the patient the finding on physical exam, IUD string in place, the patient was reassured. Instructions given to patient to call in case of temperature above 100.4, severe cramping/pelvic pain, abnormal discharge or abnormal uterine bleeding or if she misses her menstrual cycle. Otherwise follow-up at her annual exam appointment. All questions answered, the patient verbalized understanding. Orders: Orders AMB HCG Urine Test Today Z32.02 - Encounter for test, result negative Coding Level of Care Code Est Pt Level 3 (74064) Diagnoses IUD check up Z30.431
[2025-05-16 14:18] VITALS: BMI 27.3
--- OUTSIDE RECORDS SUMMARY | 2025-05-16 14:48 | XMS_ITS | Clinical Summary ---
Author Organization [employer] Address [address] [place] [address] 7t [place] [address] Care Team Providers Care Production Counter Name Role Phone Name, Ramon JIMENEZ Primary Care Provider [phone] Allergies No known active allergies Medications omeprazole OTC (PriLOSEC OTC) 20 MG EC tablet Take 1 tablet (20 mg) by mouth before breakfast. Do not crush, chew, or split. 30 tablet 11 3 Active Additional Information Patient not taking.Reported on 05/14/2025 Proctosol HC 2.5 % rectal cream INSERT [...] 30 tablet 11 5 01/15/20 26 Active phenazopyridine (Pyridium) 200 MG tablet Take 1 tablet (200 mg) by mouth if needed in the morning, at noon, and at bedtime for bladder spasms for up to 2 days. Take with food 6 tablet 5 05/16/20 25 Active Active Problems Problem Noted Date Diagnosed [...] Encounters Date Type Department Care Team Description 05/14/2025 3:45 PM EDT Office Visit [facility] MEDICINE [address] [place] [address] Roshan Colon CNM Urinary frequency (Primary Dx) 05/14/2025 Travel 05/14/[address] [address] Name, MD Ramon Nurse Triage 03/11/2025 Orders Only GENERIC EXTERNAL DATA DEPARTMENT Provider, Generic External Data from Last 3 Months Immunizations Immunization Administration [...] Date Recorded Patient Health Questionnaire-9 Score 0 05/14/2025 Patient Health Questionnaire-9 Score 0 05/14/2025 Last PHQ-9: Questionnaire Data Not on file 0 05/14/2025 Housing Stability Answer Date Recorded What is your housing situation today? I have [place] childers 05/14/[address] you li ve. Do you have problems with any of the following? None of the above 05/14/2025 Food Insecurity Answer Date Recorded Within the past 12 months, y ou worried that your food would run out before you got money to buy more: Never True 05/14/2025 Within the past 12 months,th e food you bought just didn't last and you didn't have enough money to get more: Never True Transportation Answer Date Recorded In the past 12 months, has l ack of transportation kept you from medical appts, meetings, work or from getting things needed for daily living? No 05/14/2025 Utilities Answer Date Recorded In the past 12 months, has t he electric, gas, oil or water company threatened to shut off services in your home? No 05/14/2025 Depression Answer Date Recorded Patient Health Questionnaire-2 Score 0 05/14/2025 Internet Access Answer Date Recorded Internet Access Q1 No 05/14/2025 Internet Access Q2 Not on file 05/14/2025 Comments No Sex and Gender Information Value Date Recorded Sex Assigned at Female 08/30/2022 10:32 AM EDT Legal Sex Female 10:32 AM EDT Gender Identity Female 08/30/2022 10:32 AM EDT Sexual Orientation Straight 08/30/2022 10 :32 AM EDT Last Filed Vital Signs Vital Sign Reading Time Taken Comments Blood Pressure 108/70 05/14/2025 3:38 PM EDT Pulse 96 05/14/2025 3:38 PM EDT Temperature 36.6 C (97.8 F) 01/14/2025 3:11 PM EDT Respiratory Rate 20 05/14/2025 3:38 PM EDT Oxygen Saturation 98% 01/14/2025 3:11 PM EDT Inhaled Oxygen Concentration - - Weight 67.6 kg (149 lb) 05/14/2025 3:38 PM EDT Height 160 cm (5' 3 ) 05/14/2025 3:38 PM EDT Body Mass Index 26.39 05/14/2025 3:38 PM EDT Plan of Treatment Upcoming Encounters Date Type Department Care Team (Late st Contact Info) Description 05/21/2025 11:15 AM EDT Office Visit [facility] MEDICINE [address] [place] [address] Name, MD Ramon [address] [place] [address] Health Maintenance Due Date Last Done Comments HPV Vaccines (1 - 3-dose series) 2000 Hepatitis B Vaccines (1 of 3 - 19+ 3-dose series) 2004 COVID-19 Vaccine ( season) 2024 08/02/2022, 10/07/2021, 03/23/2021, Additional history exists Dental X-Ray: Full Mouth 02/20/2025 02/19/2022, 07/31 Influenza Vaccine (#1) 2025 , 08/02/2022, 09/16/2021, Additional history exists Dental Oral Exam 07/05/2025 01/01/2025, , 09/05/2023, Additional history exists Dental Prophylaxis 07/05/2025 01/01/2025, 0 04/17/2024, 09/05/2023, Additional history exists Family Planning (PISQ) 11/28/2025 11/28/2024 Dental X-Ray: Bitewings 01/02/2026 01/02/20, 03/16/2024, 11/25/2023, Additional history exists Alcohol/Substance Use Screening 05/14/2026 05/14/2025 Depression Screening 05/14/2026 05/14/2025, 05/14/20 Disability Screening 05/14/2026 05/14/2025 SDOH Screening 05/14/2026 05/14/2025 Tobacco Screening 05/14/2026 05/14/2025 DTaP/Tdap/Td Vaccines (2 - Td or Tdap) [...] Procedure Name Priority Date/Time Associated Diagnosis Comments CULTURE, URINE, ROUTINE Routine 05/15/2025 4:00 PM EDT Urinary frequency POCT URINALYSIS DIPSTICK Routine 05/14/2025 3:53 PM EDT Urinary frequency US RENAL BI Routine 03/28/2025 8:46 AM EDT HEMATOXYLIN AND EOSIN STAIN Routine 03/11/2025 1:30 PM EDT PROPHYLAXIS - ADULT Routine 01/01/2025 9 [...] Relevant to Health Maintenance Results * (ABNORMAL) POCT urinalysis dipstick manually resulted (05/14/2025 3:53 PM EDT) Color, UA Yellow Clarity, UA Clear Glucose, UA Negative Bilirubin, UA Negative Ketones, UA Negative Spec Grav, UA 1.020 Blood, UA Positive(A) Negative, None Detected pH, UA 7.0 Protein, UA Negative Urobilinogen, UA 0.2 Leukocytes, UA Negative Negative, Rare, Trace Nitrite, UA Negative Negative, None Detected Appearance, UA yellow QC Media Lot # [id number] Lot# Expiration Date [id number] Urine 05/14/2025 3:53 PM EDT Roshan Colon CN POINT OF CARE TEST ENTER/ EDIT ORDERABLES Final Result * US RENAL BI (03/28/2025 8:46 AM EDT) Anatomical Region Laterality Modality Abdomen Ultrasound 03/28/2025 8:46 AM EDT Narrative 03/28/2025 8:48 AM EDT [address] [address] Ultrasound Report Signed Patient: Cami Marcelino MR#: [id number] : 1985 Acct:[id number] Age/Sex: 39 / F ADM Date: 03/26/25 Loc: HO.US Attending Dr: Hermes Brown MD Ordering Physician: Hermes Brown MD Date of Service: 03/26/25 Procedure(s): US renal BI Accession Number(s): [id number] cc: Hermes Brown MD; Name,Ramon JIMENEZ CLINICAL [...] in OV> 03/28/25846 DD/ 5 TD/TT: 03/28/25845 Coronary Clinical Specialist: Procedure Note Donotuseinterpreter, Image - 03/28/[address] [address] Ultrasound Report Signed Patient: Mariah Marcelino#: [id number] : 1985Acct:[id number] Age/Sex: 39 / FADM Date: 03/26/25 Loc: HO.US Attending Dr: Hermes Brown MD Ordering Physician: Hermes Brown MD Date of Service: 03/26/25 Procedure(s): US renal BI Accession Number(s): [id number] cc: Hermes Brown MD; Name,Ramon JIMENEZ CLINICAL [...] Robbi Rushing MD in OV> 03/28/2547 DD/ TD/TT: 03/28/25 0846 Coronary Clinical Specialist: us [facility] External Provider IMG US PROCEDURES Final Result * Hematoxylin and Eosin Stain (03/11/2025 1:30 PM EDT) 03/11/2025 1:30 PM EDT 03/11/2025 1:49 PM EDT [facility] - 03/12/2025 2:27 PM EDT ----- ------- Name: Cami Marcelino Age/Sex: 39/F : 1985 Unit#: [id number] Attend Dr: Amol Ovalle MD Re03/11/25 Status: [facility] REF Location: [facility] Disch: ----- ------- SPEC : [id number] RECD: 03/11/25-1341 STATUS: ADA KIM NUM: [id number] WILLI: 03/11/25-[address] [facility] [address]: Amol Ovalle MD ENTERED: 03/11/25-1400 SP TYPE: Surgical OTHR DR: Ramon Varela [...] a cassette labeled A. CEDS Copies To: Ramon Varela MD [address] [place] [address] [phone] Amol Ovalle MD [facility] [address] [place] [address] Drive [address] [place], [place] [phone] ----- ------- Signed (signature on file) Maryjane Brown MD 03/12/25 1427 ----- ------- END OF REPORT Generic External Data Provider LAB BLOOD ORDERAB LES Final Result Performing Organization Address [facility] Co de Phone Number [facility] [address] [place] [phone] * HPV DNA, Low/High Risk (11/28/2024 10:39 AM EST) Pathologist [facility] HPV High Risk Negative Negative [facility] HPV Genotype 16 Negative Negative [facility] HPV Genotype 18 Negative Negative [facility] Comment:HPV testing performe d at [facility] (CLIA#[id number]), [address] [place] [address].Testing for HPV was performed using the Avila [...] EST 11/29/2024 7:16 AM EST Roshan Colon [facility] LAB BLOOD ORDERABLES Rosa M l Result Performing Organization Address [facility] Co de Phone Number [facility] [address] [place] [phone] * Pap Smear (11/28/2024 10:39 AM EST) Swab Cervix uteri structure / Unknown 11/28/2024 10:39 AM EST 11/29/2024 6:05 AM EST Perlita [facility] - 12/07/2024 11:37 AM EST ----- ------- Name: Cami Covington Age/Sex: 38/F : 1985 Unit#: [id number] Attend Dr: ROSHAN COLON CNM Re11/28/24 Status: DEP REF Location: HO.[facility]CLNP Disch: ----- ------- SPEC : [id number] RECD: 11/29/24 STATUS: ADA KIM NUM: [id number] WILLI: 11/28/24-10[address] [facility] [address]: ROSHAN COLON CNM ENTERED: 11/29/24 SP TYPE: Pap Smr OT : ORDERED: Pap Smear Interpretation Satisfactory for evaluation. Negative for intraepithelial lesion or malignancy. HPV High Risk: Negative HPV Genotyping 16: Negative HPV Genotyping 18: Negative Clinical Information LMP:UNK Previous PAP test: 2023, NIL HPV positive Other surgery: Other history: Material Received ThinPrep-Cervical ----- ------- Signed (signature on file) MARCO Loen ([facility]) 12/07/24 1137 ----- ------- END OF REPORT Roshan Colon [facility] LAB CYTOLOGY ORDERABLES F inal Result Performing Organization Address [facility] Co de Phone Number [facility] [address] [place] [phone] * HEPATITIS C AB W/REFL TO HCV RNA, QN, PCR (04/20/2021 1:05 PM EDT) HEPATITIS C ANTIBODY NON-REACT NELSON NON-REACT NELSON [facility] INDEX 0.01 <1.00 [facility] Comment: HCV antibody was non-reactive. There is no laboratory evidence of HCV infection. In most cases, no further action is required. However, if recent HCV exposure is suspected, a test for HCV RNA (test code 06675) is suggested. For additional information please refer to http://education.[employer] Options.Aimetis/faq/SZY89w3 (This link is being provided for informational/ educational purposes only.) 04/20/2021 1:05 PM EDT Luciana Gonzalez MD HISTORICAL/NON ORDERABLE LABS Final Result Performing Organization Address [facility] Co de Phone Number [facility] [address] * HIV 1/2 ANTIGEN/ANTIBODY,FOURTH GENERATION W/RFL [...] purpose. For additional information please refer to http://education.[employer]/faq/XSK293 (This link is being provided for informational/ educational purposes only.) The performance of this assay has not been clinically validated in patients less than 2 years old. 04/20/2021 1:05 PM EDT Luciana Gonzalez MD LAB BLOOD ORDERABLES Final Res ult Performing Organization Address [facility] de Phone Number [facility] [address] from Last 3 Months or Most Recently Relevant to Health Maintenance Insurance [facility] [address] [facility] [address] [facility] STAND ADULT * Guarantor: Miguelito Marcelino Account Type Relation to Patient Date of Phone Billing Address Personal/Family Self [address] [facility] [address] [place] [phone] Care Teams Production Counter Relationship Specialty Start Date End Date Name, MD Ramon [address] [place] [phone] PCP - General Family Medicine 10/10/17
== END 2025-05-16 14:25 | disposition home or self-care (01) ==
LOC: HO.HWS 14:04
PROVIDERS: PCP Internal Medicine Geriatric Medicine; Visit Provider Obstetrics & Gynecology
DX: Z30.431 Encounter for routine checking of intrauterine contraceptive device (principal)
CPT/HCPCS: 99213

== ENCOUNTER → 2025-05-16 14:04 | Outpatient (BNVA) | payer MEDICAID, SELFPAY | PROVIDERS: PCP Internal Medicine Geriatric Medicine; Visit Provider Obstetrics & Gynecology | DX: Z30.431 Encounter for routine checking of intrauterine contraceptive device (principal) | CPT/HCPCS: 99212 ==

== ENCOUNTER 2025-07-04 15:41 | Outpatient (AMB) | payer MEDICAID, SELFPAY ==
--- NOTE | 2025-07-04 15:42 | MHC.OFFVIS ---
Intake Visit Reasons: 3m/ Litholink Intake Note: patient presents today for: telehealth 3mo/litholink urology medications: vit b-6 blood thinners: none litho: 04/24/25 Director Medical Writing Required: Yes Director Medical Writing Services: Director Medical Writing Present Director Medical Writing Name: Gregorio Zarco Accompanied by: Self / Same As Patient Allergies No Known Allergies (No Known Allergies*) Allergy (Verified 07/04/25 16:24) Medication List - Last Reconciled 07/04/25 by ISABEL Wall aluminum hydrox-magnesium carb 254-237.5 mg/5 mL (Gaviscon Extra Strength) 10 mL PO QID PRN cholecalciferol (vitamin D3) (Vitamin D3) 25 mcg PO QAM omeprazole 40 mg PO DAILY 90 days pyridoxine (vitamin B6) 50 mg PO DAILY 90 days HPI Comments Details: Cami is a pleasant 39-year-old Marshallese-speaking female patient of Dr. Varela. She is being followed up on today via telehealth for her nephrolithiasis. In discussion with the patient today she reports to be doing and feeling well. She denies having had any bothersome urinary issues or concerns since her last office visit here. She discusses her upcoming trip to [place] and will be gone until the end of August. During last office visit recommendations were made for a Litholink for further assessment evaluation however it appears test was not performed. We did discussed proper urine collection for Litholink at length. All questions were answered previous workup has included renal ultrasound 03/24 bilateral kidneys with no hydronephrosis. 5 mm nonobstructing right renal calculus. Left kidney with 4 mm and 5 mm nonobstructing mid pole calculus. When asked she reports to be drinking approximately 65-70 oz of water a day. She reports compliance with vitamin B6 as prescribed. She denies urinary urgency, urinary frequency, incontinence, nocturia, hematuria, dysuria, foul smelling urine, changes to urinary stream, flank pain, fever, and or chills. She is happy with her current voiding parameters. Patient with a previous surgical history for nephrolithiasis in 2019 to include right-sided ureteroscopy. All questions were answered. She otherwise offers no other issues or concerns at this time. PREVIOUS OFFICE NOTE: Nephrolithiasis They are here for - further evaluation of nephrolithiasis They present for evaluation of - back pain none - flank pain none - abdominal pain none Urolithiasis was diagnosed - a number of years ago The patient previously had kidney stones whose composition w - 10/19 calcium oxalate monohydrate 80% Laboratory investigations include - no recent labs 24 Hour urine evaluation - none on file Prior treatment(s) include - September 2020 right ureteroscopy laser lithotripsy Prior imaging includes - a CT - stone protocol 10/19 - for distal right ureter stones with hydroureteronephrosis - 01/18 renal ultrasound left small stones Current therapeutic plan will be - 24 hour urine analysis PFSH Medical History Hydroureteronephrosis Mild acid reflux Ureteral stone with hydronephrosis Surgical History Hemorrhoids (11/29/24) History of cholecystectomy History of tubal ligation History of appendectomy Social History Household Members: Spouse and Family Housing: House Do you presently have visiting nurse or other home services: No Alcohol intake: never Patient Tobacco Use Status: Never used Tobacco service: No Current occupational status: unemployed Review of Systems Const All systems reviewed & are unremarkable except as noted in HPI and below Physical Exam Const General: cooperative Resp Effort & Inspection: able to speak in complete sentences Psych Speech and movement: Clear speech present Attitude: cooperative Thought process: Normal thought process present Thought content: Normal thought content present Insight: Fair insight present (Psych) Judgement: Fair judgement present (Psych) Telehealth Telehealth Telehealth Platform: [facility] Location of provider rendering services: practice address Location of patient: address on file Patient Identification confirmed using: Name, : Yes Telehealth method: voice only Patient verbally consented to treatment: Yes Patient verbally consented to billing insurance company: Yes Patient informed of any privacy concerns related to visit: Yes Minutes spent on Phone/Video with Pt.: 15 Assessment & Plan Assessment & Plan (1) Nephrolithiasis: Comment: September 2020 laser lithotripsy - mixed calcium oxalate stone 80% monohydrate Code(s): N20.0 - Calculus of kidney Category: Medical Plan Litholink was obtained however test not performed We did discuss at length proper collection All questions were answered She currently denies any bothersome urinary issues or concerns She reports be happy with current voiding parameters Continue vitamin B6 Continue drinking adequate amount of water daily as discussed. Continue adding 1 oz of lemon juice to water daily. Will obtain repeat Litholink and ultrasound in 3-6 months. Follow-up in 3-6 months with imaging and Litholink; or sooner with any issues, concerns, and or questions. Orders: Orders US renal BI 3 Months N20.0 - Calculus of kidney URORISK 3 Months N20.0 - Calculus of kidney Patient Instructions: The patient had an opportunity to ask questions regarding the treatment plan. All questions were answered. Physical exam, labs, and imaging were discussed and reviewed in detail. As well as risks, benefits, and discussion of treatment choices. No major barriers to understanding were identified. The patient expressed understanding and agreement with the above treatment plan. The patient was made aware they should contact our office by phone for worsening of their current condition, the appearance of new symptoms, or with any questions or concerns. Compliance is encouraged with any medications and follow up testing that is ordered. It is a privilege to be allowed the opportunity to participate in? your urological care.? Again, if you have any questions or concerns If you have any questions or concerns please do not hesitate to contact me. The office is [phone]. This note is constructed using voice recognition software. While every effort has been made to ensure accuracy iron melter errors may have been included. Yours sincerely, ISABEL Wall Coding Level of Care Code Tele Est Pt Level 3 (55341) Diagnoses Nephrolithiasis N20.0
--- OUTSIDE RECORDS SUMMARY | 2025-07-04 16:31 | XMS_ITS | Encounter Summary ---
Author Organization [employer] Address [address] [place] [address] 7 [place] [address] Care Team Providers Care Rock Worker Name Role Phone Name, Ramon JIMENEZ Primary Care Provider [phone] Reason for Visit * Reason Onset Date Comments Medication Question 11/25/2023 Encounter Details Date Type Department Care Team ([facility] Contact Info) Description 11/25/2023 Telephone [facility] MEDICINE [address] [place], [place] [phone] Name, MD Ramon [address] [place] [address] Medication Question Social History Tobacco Use Types [...] T/C to pt. For below message through [employer] id - [id number] for below message, pt. Has EDvisit due to Abdominal Pain, and ED provider prescribe 20 mg Omeprazole two capsule by mouth ( total 40 mg ) , and pt. States she is taking as prescribe. Pt. Also advised to not take Omeprazole more than prescribe, also called to [facility] pharmacy who states pt. Picked up Omeprazole rx on 11/06/2023. Pt. Advised to not take Omeprazole more than prescribe. Pt. Also schedule for ED follow up on 12/09. [facility] WIC hours are reviewed. NTTN [...] documented in this encounter Plan of Treatment Not on file documented as of this encounter Visit Diagnoses Not on filedocumented in this encounter Care Teams Rock Worker Relationship Specialty Start Date End Date Name, MD Ramon [address] [place] [address] PCP - General Family Medicine 10/10/17 documented as of this encounter
--- OUTSIDE RECORDS SUMMARY | 2025-07-04 16:31 | XMS_ITS | Encounter Summary ---
Author Organization [employer] Address [address] [place] [address] 7 [place] [address] Care Team Providers Care Primary School Teacher Librarian Name Role Phone Name, Ramon JIMENEZ Primary Care Provider [phone] Reason for Visit * Reason Comments Med Refill Encounter Details Date Type Department Care Team ([facility] st Contact Info) Description 07/26/[address] [facility] [address] [place] [address] Ivis Upton, [facility] [address] [place] [address] Social History Tobacco Use Types Packs/Day Years [...] as of this encounter Plan of Treatment Not on file documented as of this encounter Visit Diagnoses Not on filedocumented in this encounter Additional Health Concerns Assessment Noted Time PHQ-9 Depression Total Score: 0 05/10/20 24 8:59 AM EDT documented as of this encounter Care Teams Primary School Teacher Librarian Relationship Specialty Start Date End Date Name, MD Ramon [address] [place] [address] PCP - General Family Medicine 10/10/17 documented as of this encounter
--- OUTSIDE RECORDS SUMMARY | 2025-07-04 16:31 | XMS_ITS | Encounter Summary ---
Author Organization [employer] Address [address] [place] [address] 7 [place] [address] Care Team Providers Care Conceptor Name Role Phone Name, Ramon JIMENEZ Primary Care Provider [phone] Encounter Details Date Type Department Care Team (Late st Contact Info) Description 10/06/2022 Abstract [facility] MEDICINE [address] [place] [address] Name, MD Ramon [address] [place] [address] Social History Tobacco Use Types Packs/Day Years [...] on filedocumented in this encounter Care Teams Conceptor Relationship Specialty Start Date End Date Name, MD Ramon [address] [place] [address] PCP - General Family Medicine 10/10/17 documented as of this encounter
--- OUTSIDE RECORDS SUMMARY | 2025-07-04 16:31 | XMS_ITS | Clinical Summary ---
Author Organization [employer] Address [address] [place] [address] [address] [place] [address] Care Team Providers Care Bark Skinner Name Role Phone Name, Ramon JIMENEZ Primary Care Provider [phone] Allergies No known active allergies Medications omeprazole [...] Encounters Date Type Department Care Team Description 05/21/[address] [address] Ramon Varela MD No Show (11:15 No show with . Letter to reschedradha will be sent. ) 05/20/2025 Results Follow-Up [address] [address] Roshan Colon CNM POCT urinalysis dipstick manually resulted, Culture, Urine, Routine 05/14/2025 3:45 PM EDT Office Visit [address] [address] Roshan Colon CNM Urinary frequency (Primary Dx) 05/14/2025 Travel 05/14/2025 Telephone [facility] MED[facility]INE [address], [place] [phone] Name, MD Ramon Nurse Triage from Last 3 Months Immunizations Immunization Administration [...] housing situation today? I have blossom childers 05/14/[address] you [...] 05/14/2025 3:38 PM EDT Plan of Treatment Health Maintenance Due Date Last Done Comments [...] 01/02/20 25, 03/16/2024, 11/25/2023, Additional history exists Alcohol/Substance Use [...] Routine 05/14/2025 3:53 PM EDT Urinary frequency PROPHYLAXIS - ADULT Routine 01/01/2025 9 :00 [...] Recently Relevant to Health Maintenance Results * Culture, Urine, Routine (05/15/2025 4:00 PM EDT) Urine Urine specimen obtained by clean catch procedure / Unknown 05/15/2025 4:00 PM EDT 05/15/2025 6:02 PM EDT Comment:UACC Narrative [facility] - 05/17/2025 10:45 AM EDT Urine Culture Report Result Urine Culture < 10,000 cfu/ml Specimen Source: Urine clean catch us [facility] MICROBIOLOGY - GENERA L ORDERABLES Final Result [facility] [address] [place] [place] [phone] * (ABNORMAL) POCT urinalysis dipstick manually resulted [...] Media Lot # [id number] Lot# Expiration Date [id number] Urine 05/14/2025 3:53 PM EDT Roshan Colon [facility] POINT OF CARE TEST ENTER/ EDIT ORDERABLES Final Result * HPV DNA, Low/High Risk (11/28/2024 10:39 AM EST) HPV High Risk Negative Negative [facility] HPV Genotype 16 Negative Negative [facility] HPV Genotype 18 Negative Negative [facility] Comment:HPV testing performe d at [facility] (CLIA#[id number]), [address] [place] [address].Testing for HPV was performed using the [employer]ila [...] EST 11/29/2024 7:16 AM EST Roshan Colon [facility] LAB BLOOD ORDERABLES Rosa M l Result [facility] [address] [place] [phone] * Pap Smear (11/28/2024 10:39 AM EST) Swab Cervix uteri structure / Unknown 11/28/2024 10:39 AM EST 11/29/2024 6:05 AM EST [facility] - 12/07/2024 11:37 AM EST ----- ------- Name: Cami Covington Age/Sex: 38/F : 1985 Unit#: [id number] Attend Dr: ROSHAN COLON CNM Re11/28/24 Status: DEP [facility]ch[facility] ----- ------- SPEC : [id number] RECD: 11/29/24 STATUS: ADA KIM NUM: [id number] WILLI: 11/28/24-1039 [facility] DR: ROSHAN COLON CNM ENTERED: 11/29/24 SP TYPE: Pap Smr OT DR: ORDERED: Pap Smear Interpretation Satisfactory for evaluation. Negative for intraepithelial lesion or malignancy. HPV High Risk: Negative HPV Genotyping 16: Negative HPV Genotyping 18: Negative Clinical Information LMP:UNK Previous PAP test: 2023, NIL HPV positive Other surgery: Other history: Material Received ThinPrep-Cervical ----- ------- Signed (signature on file) MARCO Leon ([facility]) 12/07/24 1137 ----- ------- END OF REPORT Roshan Colon [facility] CYTOLOGY ORDERABLES F inal Result Performing Organization Address [facility]/ZIP Co de Phone Number [facility] [address] [place] [phone] [phone] * HEPATITIS C AB W/REFL TO HCV RNA, QN, PCR (04/20/2021 1:05 PM EDT) HEPATITIS C ANTIBODY NON-REACT [facility] NON-REACT [facility] INDEX 0.01 <1.00 [facility] Comment: HCV antibody was non-reactive. There is no laboratory evidence of HCV infection. In most cases, no further action is required. However, if recent HCV exposure is suspected, a test for HCV RNA (test code 13058) is suggested. For additional information please refer to http://education.[employer]/faq/KTU43x6 (This link is being provided for informational/ educational purposes only.) 04/20/2021 1:05 PM EDT us Luciana Gonzalez MD HISTORICAL/NON ORDERABLE LABS Final Result Performing Organization Address [facility]/ZIP Co de Phone Number [facility] [address] [place] [address], * HIV 1/2 ANTIGEN/ANTIBODY,FOURTH GENERATION W/RFL (04/20/2021 [...] purpose. For additional information please refer to http://education.[employer]/faq/QFP066 (This link is being provided for informational/ educational purposes only.) The performance of this assay has not been clinically validated in patients less than 2 years old. 04/20/2021 1:05 PM EDT us Luciana Gonzalez MD LAB BLOOD ORDERABLES Final Res ult [facility] [address] from Last 3 Months or Most Recently Relevant to Health Maintenance Insurance [facility] C3 * Guarantor: Miguelito Marcelino Account Type Relation to Patient Date of Phone Billing Address Dental Self 1985 [address] [facility] [address] [place] [address] [place] [address] [place] AD[place] * Guarantor: Miguelito Marcelino Account Type Relation to Patient Date of Phone Billing Address Personal/Family Self [address] [facility] [address] [place] [address] [place] [id number] * Guarantor: Miguelito Marcelino Account Type Relation to Patient Date of Phone Billing Address Personal/Family Self [address] [facility] [address] [place] [address] [place] [id number] * Guarantor: Miguelito Marcelino Account Type Relation to Patient Date of Phone Billing Address Personal/Family Self [address] [facility] [address] [place] Care Teams Bark Skinner Relationship Specialty Start Date End Date Name, MD Ramon [address] [place] [phone] PCP - General Family Medicine 10/10/17
--- OUTSIDE RECORDS SUMMARY | 2025-07-04 16:31 | XMS_ITS | Encounter Summary ---
Author Organization [employer] Address [address] [place] [address] 7 [place] [address] Care Team Providers Care Carbide Grinder Name Role Phone Name, Ramon JIMENEZ Primary Care Provider [phone] Encounter Details Date Type Department Care Team ([facility] st Contact Info) Description 08/30/2023 Abstract [facility] [address] [place], [place] [phone] Name, MD Ramon [address] [place] [address] Social History Tobacco Use Types Packs/Day Years [...] on filedocumented in this encounter Care Teams Carbide Grinder Relationship Specialty Start Date End Date Name, MD Ramon [address] [place] [address] PCP - General Family Medicine 10/10/17 documented as of this encounter
--- OUTSIDE RECORDS SUMMARY | 2025-07-04 16:31 | XMS_ITS | Encounter Summary ---
Author Organization [employer] Address [address] [place] [address] 7 [place] [address] Care Team Providers Care Curing Finisher Name Role Phone Name, Ramon JIMENEZ Primary Care Provider [phone] Reason for Visit * Reason Onset Date Comments Appointment Request 11/25/2023 Encounter Details Date Type Department Care Team ([facility] Contact Info) Description 11/25/2023 Telephone [facility] [address] [place], [place] [phone] Name, MD Ramon [address] [place] [address] Appointment Request Social History Tobacco Use Types Packs/Day Years Used Date Smoking Tobacco: Never Smokeless Tobacco: Never Alcohol Use Standard Drinks/Week Comments Never 0 (1 standard drink = 0.6 oz pur e alcohol) Housing Stability Answer Date Recorded What is your housing situation today? I have blososm childers 08/15/[address] you [...] on filedocumented in this encounter Care Teams Curing Finisher Relationship Specialty Start Date End Date Name, MD Ramon [address] [place] [address] PCP - General Family Medicine 10/10/17 documented as of this encounter
--- OUTSIDE RECORDS SUMMARY | 2025-07-04 16:31 | XMS_ITS | Encounter Summary ---
Author Organization [employer] Address [address] [place] [address] 7 [place] [address] Care Team Providers Care Metal Control Coordinator Name Role Phone Name, Ramon JIMENEZ Primary Care Provider [phone] Encounter Details Date Type Department Care Team (Latest Contact Info) Description 03/22/2022 Abstract [facility] Dental, Provider, DDS Social History Tobacco [...] on filedocumented in this encounter Care Teams Metal Control Coordinator Relationship Specialty Start Date End Date Name, MD Ramon [address] [place] [phone] PCP - General Family Medicine 10/10/17 documented as of this encounter
== END 2025-07-04 16:42 | disposition home or self-care (01) ==
LOC: HO.HUSH 15:41
PROVIDERS: PCP Internal Medicine Geriatric Medicine; Visit Provider Nurse Practitioner Family
DX: N20.0 Calculus of kidney (principal)
CPT/HCPCS: 99213